=== PATIENT | female | born 1935 | race Caucasian/White ===

== ENCOUNTER → 2016-10-16 | Outpatient (CLI) | payer BC ==
[~2016-10-16] MED LIST: ACET-1256 PO; AMLO-110 PO; CALCTAB5 PO; CAPS0.022 TOP; CARB200T PO; FMR25 PO; GABA-113 PO; HYDR-5688 PO; KFLHP PO; LINE1TAB6 PO; LINE1TAB7 PO; LYR50 PO; MAGNTAB4 PO; MELO15TA4 PO; MIRT15TA2 PO; MIRT15TA53 PO; MULT-506 PO; NF656 TD; NORT10CA2 PO; NRN/300 PO; NRN300 PO; NRV5 PO; OXYC-57 PO; OYST500T47 PO; PALB100C PO; POTA10CA28 PO; SLWMEC PO; TRAM-10 PO; TRAV0.00 OPB; ZVR400 PO
== END | disposition home or self-care (01) ==
LOC: C.MAMM 15:02
PROVIDERS: ATTEND Nurse Practitioner
DX: C50.919 Malignant neoplasm of unspecified site of unspecified female breast (principal); M81.0 Age-related osteoporosis without current pathological fracture; M85.80 Other specified disorders of bone density and structure, unspecified site

== ENCOUNTER → 2016-10-24 | Outpatient (CLI) | payer BC ==
[~2016-10-24] MED LIST changes: +OPTIRAY 320 IV PRN
--- NOTE | 2016-10-24 14:13 | DIAGNOSTIC IMAGING REPORT ---
CHEST CT WITH CONTRAST CT DOSE: 668.57 mGycm HISTORY: BREAST CANCER CREATININE 0.57 09/05/16 TECHNIQUE: Multiaxial CT images of the chest were performed following the intravenous administration of contrast. COMPARISON: 04/05/2016 FINDINGS: Stable postoperative changes consistent with a left-sided mastectomy. Pulmonary nodularity, scarring, as well as a linear atelectatic changes appear stable. There is no evidence for new interval or progressive nodular pathology. Hilar and mediastinal regions are unremarkable. Sclerotic lesions of the spine are stable. There are no new or interval findings. Gallstones are present within the gallbladder lumen. IMPRESSION: 1. Stable evaluation of the chest. 2. Stable metastatic change with no evidence for progression. 3. Gallstones Electronically signed by: Gurinder Ayala M.D. 10/24/2016 2:12 PM Dictated Date/Time: 10/24/2016 2:07 PM
--- NOTE | 2016-10-24 14:18 | DIAGNOSTIC IMAGING REPORT ---
CT OF THE ABDOMEN AND PELVIS WITH CONTRAST CLINICAL HISTORY: Breast cancer. COMPARISON STUDY: CT of the abdomen and pelvis April 05, 2016 and the body bone scan April 05, 2016. TECHNIQUE: Following IV administration of 92 mL of Optiray-320, axial images of the abdomen and pelvis were obtained from the lung bases to the proximal femurs. Images were reviewed in the axial, sagittal, and coronal planes. IV contrast was administered without complication. Oral contrast was administered. FINDINGS: The chest will be reported separately. A 1 cm hypodense right hepatic lobe lesion and a 0.5 cm hypodense left hepatic lobe lesion are unchanged since exam of April 05, 2016. No new hepatic lesions are present. There are gallstones within the gallbladder. The spleen, adrenal glands, kidneys and pancreas are normal. There is no hydronephrosis. There is no biliary or pancreatic ductal dilatation. Images of the pelvis are degraded by streak artifact from right hip arthroplasty. There is sigmoid diverticulosis without evidence for acute diverticulitis. No abdominal or pelvic lymphadenopathy is identified. There is no ascites. Multiple sclerotic metastases within the lower thoracic spine, lumbar spine and pelvis are similar to exam of April 05, 2016. IMPRESSION: 1. No change in appearance of the abdomen and pelvis since exam of April 05, 2016. 2. Stable skeletal metastases since exam of April 05, 2016. No evidence of progressive metastatic disease. Electronically signed by: Donato Nieto M.D. 10/24/2016 2:17 PM Dictated Date/Time: 10/24/2016 2:07 PM
--- NOTE | 2016-10-24 15:03 | DIAGNOSTIC IMAGING REPORT ---
WHOLE BODY BONE SCAN HISTORY: Breast carcinoma BREAST CA RADIOTRACER: 27.1 mCi Tc-99m MDP STUDY/IMAGES: Planar anterior and posterior whole body imaging was performed 3 hours following the intravenous administration of radiotracer. COMPARISON: 04/05/2016 FINDINGS: Low level increased activity in sacrum consistent with patient's known sacral insufficiency fracture. Moderate degenerative activity left hip unchanged. There is no new or interval findings. No evidence for bony metastatic change based on bone scan criteria. IMPRESSION: Stable exam. No evidence for metastatic disease. No change from the prior study. Electronically signed by: Gurinder Ayala M.D. 10/24/2016 3:02 PM Dictated Date/Time: 10/24/2016 3:00 PM
== END | disposition home or self-care (01) ==
LOC: C.CTS 11:00
PROVIDERS: ATTEND Nurse Practitioner
DX: C50.912 Malignant neoplasm of unspecified site of left female breast (principal); C79.51 Secondary malignant neoplasm of bone; K80.20 Calculus of gallbladder without cholecystitis without obstruction

== ENCOUNTER 2017-01-31 12:50 | Inpatient (IN) | payer BC, OTHER ==
[~2017-01-31] VITALS: Ht 152.4 cm; Wt 58.0 kg
[~2017-01-31 12:50] MED LIST changes: -ACET-1256 PO; -AMLO-110 PO; -CAPS0.022 TOP; -CARB200T PO; -GABA-113 PO; -HYDR-5688 PO; -KFLHP PO; -LINE1TAB6 PO; -LYR50 PO; -MELO15TA4 PO; -MIRT15TA2 PO; -NF656 TD; -NORT10CA2 PO; -NRN/300 PO; -NRN300 PO; -NRV5 PO; -OPTIRAY 320 IV PRN; -OXYC-57 PO; -OYST500T47 PO; -SLWMEC PO; -TRAM-10 PO; -ZVR400 PO
[2017-01-31] MEDS ORDERED: ASPIRIN 81 MG CHEW PO STA (13:17)
--- NOTE | 2017-01-31 13:20 | EMERGENCY ROOM VISIT NOTE ---
History Report prepared by Haley: Bryant Kerr Under the Supervision of: Dr. Jodie Ceja M.D. First contact with patient: 12:59 Chief Complaint: CHEST PAIN Stated Complaint: CHEST PAIN History of Present Illness The patient is an 81 year old female who presents to the Emergency Room with complaints of worsening chest pain that began a few days prior to this visit. The patient states that she began to experience some "indigestion-like" pain a few days ago which worsened significantly last night. She now rates her pain as a 7/10 in severity. The patient states that her chest pain is localized to her left chest and is now radiating into her left shoulder. She does have a history of breast cancer with metastasis, which is now in remission. She is still taking oral chemo. The patient has had a cardiac stress test in the past. 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 Review of Systems See HPI for pertinent positives & negatives. A total of 10 systems reviewed and were otherwise negative. Past Medical & Surgical Medical Problems: (1) Carcinoma of breast (2) Cellulitis (3) GERD (gastroesophageal reflux disease) (4) Lymphedema of left arm (5) metastatic cancer Surgical Problems: (1) History of modified radical mastectomy of left breast (2) Total replacement of hip Family History Cancer Social History Smoking Status: Never Smoker Alcohol Use: none Drug Use: none Marital Status: Housing Status: lives with family Occupation Status: retired Current/Historical Medications Scheduled Cephalexin Monohydrate (Cephalexin), 250 MG PO BID Letrozole (Femara), 2.5 MG PO DAILY Magnesium Chloride (Slow-Mag Tab), 128 MG PO DAILY Multivitamin (Multivitamin), 1 TAB PO DAILY Oyster Shell (Calcium), 500 MG PO QAM Palbociclib (Ibrance), 100 MG PO Q2D Potassium Chloride (Micro-K Ext Rel), 10 MEQ PO BID Travoprost (Travatan Z), 1 DROPS OPB HS Allergies Coded Allergies: Morphine (Verified Adverse Reaction, Intermediate, nausea, 01/31/17) Zolpidem (Verified Adverse Reaction, Mild, Hallucinations, 01/31/17) Physical Exam Vital Signs Date Time Temp Pulse Resp B/P Pulse Ox O2 Delivery O2 Flow Rate FiO2 01/31/17 15:21 77 18 176/109 01/31/17 14:54 73 18 147/52 94 Room Air 01/31/17 14:31 71 18 155/67 95 Room Air 01/31/17 13:37 79 01/31/17 13:33 95 Room Air 01/31/17 12:53 36.6 84 18 215/99 98 Room Air Physical Exam Vital signs reviewed. General: Well-appearing elderly female, in no significant distress. HEENT: No scleral icterus, PERRLA, neck supple. Atraumatic. Cardiovascular: Regular rate and rhythm, no extra sounds. Pulmonary: Clear to auscultation bilaterally, normal work of breathing. Abdomen: Soft, nontender, nondistended, positive bowel sounds. Musculoskeletal: Atraumatic, no peripheral edema. Neurologic: Patient awake alert and oriented x 3, full strength in all 4 extremities. Cranial nerves 2 through 12 grossly intact. Skin: Warm, dry, no rash Medical Decision & Procedures ER Provider Diagnostic Interpretation: Radiology results as stated below per my review and radiologist interpretation: CHEST ONE VIEW PORTABLE CLINICAL HISTORY: Atypical chest pain COMPARISON STUDY: 11/10/2015 FINDINGS: The heart is normal in size. There is no acute lobar consolidation. There are chronic interstitial opacities within the left midlung zone. There is a chronic opacity at the right medial lung base. There is no overt failure. No pleural effusions are visualized.[ IMPRESSION: Chronic bilateral parenchymal opacities, similar to the preceding study. Electronically signed by: Lang Brantley M.D. 01/31/2017 1:59 PM Dictated Date/Time: 01/31/2017 1:58 PM Laboratory Results Test 01/31/17 13:38 01/31/17 14:17 Bedside Troponin I 0.010 ng/ml (0-0.045) Immature Granulocyte % (Auto) 0.0 % White Blood Count 2.96 K/uL (4.8-10.8) Red Blood Count 3.52 M/uL (4.2-5.4) Hemoglobin 13.0 g/dL (12.0-16.0) Hematocrit 36.5 % (37-47) Mean Corpuscular Volume 103.7 fL (80-100) Mean Corpuscular Hemoglobin 36.9 pg (25-34) Mean Corpuscular Hemoglobin Concent 35.6 g/dl (32-36) Platelet Count 212 K/uL (130-400) Mean Platelet Volume 8.6 fL (7.4-10.4) Neutrophils (%) (Auto) 51.3 % Lymphocytes (%) (Auto) 34.1 % Monocytes (%) (Auto) 13.9 % Eosinophils (%) (Auto) 0.0 % Basophils (%) (Auto) 0.7 % Neutrophils # (Auto) 1.52 K/uL (1.4-6.5) Lymphocytes # (Auto) 1.01 K/uL (1.2-3.4) Monocytes # (Auto) 0.41 K/uL (0.11-0.59) Eosinophils # (Auto) 0.00 K/uL (0-0.5) Basophils # (Auto) 0.02 K/uL (0-0.2) Immature Granulocyte # (Auto) 0.00 K/uL (0.00-0.02) Prothrombin Time 10.8 SECONDS (9.0-12.0) Prothromb Time International Ratio 1.0 (0.9-1.1) Activated Partial Thromboplast Time 25.5 SECONDS (21.0-31.0) Partial Thromboplastin Ratio 1.0 Total Bilirubin 0.5 mg/dl (0.2-1) Direct Bilirubin 0.1 mg/dl (0-0.2) Aspartate Amino Transf (AST/SGOT) 21 U/L (15-37) Alanine Aminotransferase (ALT/SGPT) 19 U/L (12-78) Alkaline Phosphatase 46 U/L (45-117) Total Creatine Kinase 87 U/L (26-192) Total Protein 7.2 gm/dl (6.4-8.2) Albumin 4.1 gm/dl (3.4-5.0) Laboratory results per my review. Medications Administered Medications (Trade) Dose Ordered Sig/Chani Route Start Time Stop Time Status Last Admin Dose Admin Aspirin (Aspirin Chew) 243 mg NOW STAT PO 01/31/17 13:17 01/31/17 13:19 DC 01/31/17 13:34 243 MG Labetalol HCl (Normodyne IV) 10 mg NOW STAT IV 01/31/17 14:17 01/31/17 14:18 DC 01/31/17 14:26 10 MG ECG Indication: chest pain Rate (beats per minute): 87 Rhythm: sinus rhythm Findings: 1st degree AV block, no acute ischemic change, no ectopy, other ( likely previous septal infarct ) ED Course 1311: Past medical records reviewed. The patient was evaluated in room C1. A complete history and physical examination was performed. 1317: Ordered Aspirin 243 mg PO. 1417: Ordered Labetalol HCl 10 mg IV. 1423: I checked on the patient at this time. Her blood pressure is better. 1511: [facility] Differential diagnosis: Etiologies such as cardiac ischemia, aortic dissection, pulmonary embolism, pneumonia, pneumothorax, musculoskeletal, infections, pericarditis, myocarditis , esophageal rupture, gastrointestinal, as well as others were entertained. This patient was evaluated and appeared to be in no significant distress. IV access was obtained and laboratory work was drawn. Patient was placed on the monitoring specialist. EKG reveals a first-degree AV block with no evidence of acute ischemia. Patient was given aspirin to chew. Laboratory work reveals negative troponin 2. She was given 5 mg of IV labetalol for hypertension. Given the patient's complex medical history, she will be evaluated by the hospitalist service for further management of her chest pain and hypertension. Patient in the family are aware of the plan and agree. Consults Time Called: 1310 Consulting Physician: [facility] Returned Call: 1314 I [facility] the [facility] She will be evaluated for further treatment. Impression Primary Impression: Chest pain radiating to upper extremity Scribe Attestation The scribe's documentation has been prepared under my direction and personally reviewed by me in its entirety. I confirm that the note above accurately reflects all work, treatment, procedures, and medical decision making performed by me. Departure Information Dispostion Being Evaluated By Hospitalist Referrals Olimpia Womack M.D. (PCP) Patient Instructions My [facility]
--- NOTE | 2017-01-31 14:00 | DIAGNOSTIC IMAGING REPORT ---
CHEST ONE VIEW PORTABLE CLINICAL HISTORY: Atypical chest pain COMPARISON STUDY: 11/10/2015 FINDINGS: The heart is normal in size. There is no acute lobar consolidation. There are chronic interstitial opacities within the left midlung zone. There is a chronic opacity at the right medial lung base. There is no overt failure. No pleural effusions are visualized.[ IMPRESSION: Chronic bilateral parenchymal opacities, similar to the preceding study. Electronically signed by: Lang Brantley M.D. 01/31/2017 1:59 PM Dictated Date/Time: 01/31/2017 1:58 PM
[2017-01-31] MEDS ORDERED: LABETALOL HCL IV 5 MG/ML 20ML IV STA (14:17)
[2017-01-31 14:43] LABS: BASO % 0.7 %; BASO ABS # 0.02 K/uL (0-0.2); COMPLETE YES; HEMATOCRIT 36.5 % (37-47); LYMPH % 34.1 %; LYMPH ABS # 1.01 K/uL (1.2-3.4); MEAN CELL VOLUME 103.7 fL (80-100); MEAN CORPUSCULAR HEMOGLOBIN 36.9 pg (25-34); MEAN CORPUSCULAR HGB CONC 35.6 g/dl (32-36); MEAN PLATELET VOLUME 8.6 fL (7.4-10.4); MONO % 13.9 %; NEUT % 51.3 %; PLATELET COUNT 212 K/uL (130-400); RED BLOOD COUNT 3.52 M/uL (4.2-5.4); WHITE BLOOD COUNT 2.96 K/uL (4.8-10.8)
[2017-01-31] MEDS ORDERED: KFLHP PO (14:44)
[2017-01-31] MEDS ORDERED: SLWMEC PO (14:44)
[2017-01-31] MEDS ORDERED: PALB100C PO (14:44)
[2017-01-31] MEDS ORDERED: OYST500T47 PO (14:44)
[2017-01-31 14:58] LABS: BUN/CREATININE RATIO 15.4 (10-20); CALCIUM 8.8 mg/dl (8.5-10.1); CREATININE 0.5 mg/dl (0.60-1.20); POTASSIUM 3.8 mmol/L (3.5-5.1)
[2017-01-31 15:03] LABS: CKMB/CK RATIO 1.1 (0-3.0)
[2017-01-31] MEDS ORDERED: NITROGLYCERIN 0.4 MG SL PER TAB CHARGE SL PRN (16:00)
[2017-01-31] MEDS ORDERED: ONDANSETRON INJ 2 MG/ML 2 ML VIAL IV PRN (16:00)
[2017-01-31] MEDS ORDERED: MoRPHine SULFATE 4 MG/ML 1 ML CARP\\VIAL IV PRN (16:00)
[2017-01-31] MEDS ORDERED: PALBOCICLIB 100 MG PO SCH (16:15)
[2017-01-31] MEDS ORDERED: IV FLUIDS COMPLETED PRN (16:30)
--- NOTE | 2017-01-31 16:39 | History and Physical ---
History & Physical Date & Time of Service: January 31, 2017 at 16:14 Chief Complaint: Chest Pain Primary Care Physician: Olimpia Womack M.D. History of Present Illness 81 year old female who presents to the ER with chest pain. Patient reports her pain began about 3 days ago. She reports she initially thought she had indigestion. The pain then progressively got worse. She reports the pain has been constant with periods of worsening of the pain. The pain is located over the left side of her chest and recently started radiating into the left axilla and down the arm and also up into the left shoulder and shoulder blade. Patient reports multiple episodes of worsening of the pain throughout the day. She reports the pain at it's worst is #7/10. The pain is worse with palpation and laying or sitting for an extending period of time. She reports the pain improves with walking. She also says that when she is talking she seems to forget about the pain. Up until a few days ago she feels as though her functional capacity was at baseline. She was tolerating her daily activities without any problem. Last evening she reports associated nausea with the pain. No shortness of breath or diaphoresis. She denies abdominal pain, vomiting, or diarrhea. No fever or chills. She denies urinary symptoms. Patient has chronic lymphedema and recurrent cellulitis to the LUE which she reports is doing well. In the ER, patient's BP was elevated at 215/99. This improved with Labetalol 10mg IV. Initial troponin is negative and EKG does not show any acute ST changes. 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 recurrence with massive lymphedema of the left arm June 2013 Status post completion of radiation therapy to the left axilla 05/04/2013 received 4000 cGy Status: Chronic Surgical Problems: (1) History of modified radical mastectomy of left breast Status: Chronic (2) Total replacement of hip Status: Chronic Family History non contributory due to patient's age Social History Smoking Status: Never Smoker Alcohol Use: none Marital Status: Housing status: lives with significant other Multi-Drug Resistant Organisms History of MDRO: No Allergies Coded Allergies: Morphine (Verified Adverse Reaction, Intermediate, nausea, 01/31/17) Zolpidem (Verified Adverse Reaction, Mild, Hallucinations, 01/31/17) Home Medications Scheduled Cephalexin Monohydrate (Cephalexin), 250 MG PO BID Letrozole (Femara), 2.5 MG PO DAILY Magnesium Chloride (Slow-Mag Tab), 128 MG PO DAILY Multivitamin (Multivitamin), 1 TAB PO DAILY Oyster Shell (Calcium), 500 MG PO QAM Palbociclib (Ibrance), 100 MG PO Q2D Potassium Chloride (Micro-K Ext Rel), 10 MEQ PO BID Travoprost (Travatan Z), 1 DROPS OPB HS Review of Systems ROS per HPI, all other systems reviewed and negative Physical Exam Vital Signs Date Time Temp Pulse Resp B/P Pulse Ox O2 Delivery O2 Flow Rate FiO2 01/31/17 15:21 77 18 176/109 01/31/17 14:54 73 18 147/52 94 Room Air 01/31/17 14:31 71 18 155/67 95 Room Air 01/31/17 13:37 79 01/31/17 13:33 95 Room Air 01/31/17 12:53 36.6 84 18 215/99 98 Room Air General Appearance: no apparent distress Head: normocephalic Eyes: normal inspection ENT: hearing grossly normal Neck: supple, no JVD Respiratory/Chest: lungs clear, normal breath sounds, no respiratory distress, + pertinent finding (left chest wall tender to palpation) Cardiovascular: regular rate, rhythm, no edema, normal peripheral pulses Abdomen/GI: normal bowel sounds, non tender, soft Extremities/Musculoskelatal: + pertinent finding (LUE lymphedema ) Neurologic/Psych: no motor/sensory deficits, alert, normal mood/affect, oriented x 3 Skin: normal color, warm/dry Diagnostics Laboratory Results Results Past 24 Hours Test 01/31/17 13:38 01/31/17 14:17 Range/Units Bedside Troponin I 0.010 0-0.045 ng/ml White Blood Count 2.96 4.8-10.8 K/uL Red Blood Count 3.52 4.2-5.4 M/uL Hemoglobin 13.0 12.0-16.0 g/dL Hematocrit 36.5 37-47 % Mean Corpuscular Volume 103.7 80-100 fL Mean Corpuscular Hemoglobin 36.9 25-34 pg Mean Corpuscular Hemoglobin Concent 35.6 32-36 g/dl Platelet Count 212 130-400 K/uL Mean Platelet Volume 8.6 7.4-10.4 fL Neutrophils (%) (Auto) 51.3 % Lymphocytes (%) (Auto) 34.1 % Monocytes (%) (Auto) 13.9 % Eosinophils (%) (Auto) 0.0 % Basophils (%) (Auto) 0.7 % Neutrophils # (Auto) 1.52 1.4-6.5 K/uL Lymphocytes # (Auto) 1.01 1.2-3.4 K/uL Monocytes # (Auto) 0.41 0.11-0.59 K/uL Eosinophils # (Auto) 0.00 0-0.5 K/uL Basophils # (Auto) 0.02 0-0.2 K/uL RDW Standard Deviation 52.5 36.4-46.3 fL RDW Coefficient of Variation 13.8 11.5-14.5 % Immature Granulocyte % (Auto) 0.0 % Immature Granulocyte # (Auto) 0.00 0.00-0.02 K/uL Sodium Level 133 136-145 mmol/L Potassium Level 3.8 3.5-5.1 mmol/L Chloride Level 98 98-107 mmol/L Carbon Dioxide Level 30 21-32 mmol/L Anion Gap 5.0 3-11 mmol/L Blood Urea Nitrogen 8 7-18 mg/dl Creatinine 0.50 0.60-1.20 mg/dl Est Creatinine Clear Calc Drug Dose 70.2 ml/min Estimated GFR () 103.7 Estimated GFR (Non- 89.5 BUN/Creatinine Ratio 15.4 10-20 Random Glucose 90 70-99 mg/dl Calcium Level 8.8 8.5-10.1 mg/dl Total Bilirubin 0.5 0.2-1 mg/dl Direct Bilirubin 0.1 0-0.2 mg/dl Aspartate Amino Transf (AST/SGOT) 21 15-37 U/L Alanine Aminotransferase (ALT/SGPT) 19 12-78 U/L Alkaline Phosphatase 46 45-117 U/L Total Creatine Kinase 87 26-192 U/L Creatine Kinase MB 1.0 0.5-3.6 ng/ml Creatine Kinase MB Ratio 1.1 0-3.0 Total Protein 7.2 6.4-8.2 gm/dl Albumin 4.1 3.4-5.0 gm/dl Diagnostic Radiology CXR IMPRESSION: Chronic bilateral parenchymal opacities, similar to the preceding study. Impression Assessment and Plan CHEST PAIN - admit to tele - patient presenting with constant chest pain x 3 days; made worse with movement and palpation, actually improves with walking - initial troponin negative, EKG unchanged from prior - likely musculoskeletal pain - continue to cycle cardiac enzymes, check resting echo to check for wall motion abnormalities - no hx of CAD; dobutamine stress echo 2006 negative - s/p ASA 324mg in ED, will continue with 81mg daily - check lipids in AM - BP elevated on arrival 215/99 - improved with Labetalol 10mg IV; pain and anxiety also contributing; continue to monitor BP, could consider adding amlodipine 5mg if needed HX BREAST CANCER - on Ibrance and Femara LUE LYMPHEDEMA / HX RECURRENT CELLULITIS - on chronic cephalexin suppression therapy DVT PROPHYLAXIS - SQ Lovenox CODE STATUS - Patient is a DNR as per my discussion with her. DISPO - The patient will be placed as observation status for now until further work up is complete. VTE Prophylaxis VTE Risk Assessment Done? Y/N: Yes Risk Level: Moderate
[2017-01-31 16:59] VITALS: O2SAT 96; Ht 152.4 cm; Wt 58.0 kg
[2017-01-31] MEDS ORDERED: IBUPROFEN 200 MG TAB PO PRN (17:00)
--- NOTE | 2017-01-31 17:43 | Progress Note ---
Progress Note Date of Service January 31, 2017. Progress Note Patient was seen and evaluated with AUTOMOTIVE SERVICE CONSULTANT, Petra Goins. Patient comes in with c/o chest pain, atypical, left sided, radiating to upper back, arm, arm pit which started 3 days ago. Pain is constant, worse while sitting, lying, but gets better when she walks and when is talking and distracted. Has taken tylenol without much relief. Denies any prior episodes of similar pain, SOB, cough, leg swelling associated with it. No fever, chills, vomiting, abdominal pain, heart burn , but has had some nausea on and off at night. Received Aspirin in ED EXAM: BP high in ED- 200s, now down to 160s after IV labetalol, Afebrile Gen: Anxious, AAOX3, no distress HEENT: No icterus Neck: No JVD Heart: S1, S2 normal, no murmurs. Reproducible chest tenderness + Lungs: AEBE, No wheezing, rhonchi Ext: No edema Labs: Reviewed EKG: NSR, No sig changes compared to prior EKG CXR: Chronic bilateral opacities, but no acute findings ASSESSMENT AND PLAN: CHEST PAIN, ATYPICAL : Patient presented with constant chest pain x 3 days; made worse with movement and palpation, actually improves with walking Less likely to be cardiac as reproducible chest tenderness +, constant nature - worse with movement and improves with walking. No prior cardiac risk factors, but hx of breast carcinoma with radiation ?. Likely Musculoskeletal. D/D considered: Pericarditis as worse with lying flat, but EKG not supportive. -Trop x 1 negative, EKG - no changes compared to prior EKG; Stress test in 2007 - Negative. -S/P Aspirin. Will start on Aspirin 81 mg daily. -Will try Ibuprofen 600 mg TID PRN for pain to see if it helps as no contraindications for NSAIDs -Trend troponin, Resting Echocardiogram, Lipid profile in AM ELEVATED BP: BP was 215/99 in ED (very anxious +)--> down to 160s after IV Labetalol No prior diagnosis of HTN. Not on any antihypertensive medications -BP is down to 160s already. Patient was very anxious in ED -IV lopressor PRN order placed -Will monitor closely HX BREAST CANCER - on Ibrance and Femara CHRONIC LUE LYMPHEDEMA / HX RECURRENT CELLULITIS - on chronic cephalexin suppression therapy DVT PROPHYLAXIS - SQ Lovenox CODE STATUS - Patient is a DNR as per my discussion with her. DISPO - The patient will be placed as observation status for now until further work up is complete
[2017-01-31] MEDS ORDERED: METOPROLOL TARTRATE 1 MG/ML VIAL IV PRN (17:45)
[2017-01-31] MEDS ORDERED: IBUPROFEN 600 MG TAB ONE (18:04)
[2017-01-31] MEDS: IBUPROFEN 600 MG TAB PO PRN (18:08)
[2017-01-31 18:25] LABS: PROTHROMBIN TIME (PATIENT) 10.8 SECONDS (9.0-12.0)
[2017-01-31 19:07] VITALS: BP 192/77; PULSE 85; TEMP 36.5; O2SAT 98
[2017-01-31 20:09] VITALS: O2SAT 98
[2017-01-31] MEDS: TRAVOPROST Z 0.004% OPH SOLN 2.5 ML BTL OPB SCH (20:45)
[2017-01-31] MEDS: CEPHALEXIN MONOHYDRATE 250 MG CAP PO SCH (20:47)
[2017-01-31] MEDS: POTASSIUM CHLORIDE 10 MEQ TABCR PO SCH (20:48)
[2017-01-31] MEDS: ACETAMINOPHEN 325 MG TAB PO PRN (20:52)
[2017-01-31] MEDS: ENOXAPARIN 40 MG/0.4 ML SYR SC SCH (21:00)
[2017-01-31 21:45] LABS: MAGNESIUM 2.1 mg/dl (1.8-2.4); THYROID STIMULATING HORMONE 4.67 uIu/ml (0.300-4.500)
[2017-01-31 23:47] VITALS: BP 160/76; PULSE 75; TEMP 36.7; O2SAT 98
[2017-02-01] VITALS (7 sets, daily range): BP systolic 119–186; BP diastolic 70–84; PULSE 73–81; TEMP 36.6–36.9; O2SAT 95–99
[2017-02-01] MEDS: ACETAMINOPHEN 325 MG TAB PO PRN ×3 (01:12→17:19)
[2017-02-01] MEDS: IBUPROFEN 600 MG TAB PO PRN (05:27)
[2017-02-01] MEDS: ONDANSETRON INJ 2 MG/ML 2 ML VIAL IV PRN ×2 (05:28→10:22)
[2017-02-01 07:04] LABS: HEMATOCRIT 33.5 % (37-47); MEAN CELL VOLUME 102.4 fL (80-100); MEAN CORPUSCULAR HEMOGLOBIN 36.1 pg (25-34); MEAN CORPUSCULAR HGB CONC 35.2 g/dl (32-36); MEAN PLATELET VOLUME 8.9 fL (7.4-10.4); PLATELET COUNT 191 K/uL (130-400); RED BLOOD COUNT 3.27 M/uL (4.2-5.4); WHITE BLOOD COUNT 2.29 K/uL (4.8-10.8)
[2017-02-01 07:41] LABS: BUN/CREATININE RATIO 15.8 (10-20); CREATININE 0.51 mg/dl (0.60-1.20); POTASSIUM 3.7 mmol/L (3.5-5.1)
[2017-02-01 07:45] LABS: CHOLESTEROL/HDL RATIO 2.3
[2017-02-01] MEDS: MAGNESIUM CHLORIDE 64MG DELAYED REL TAB PO SCH (08:58)
[2017-02-01] MEDS: MULTIVITAMIN TAB PO SCH (08:59)
[2017-02-01] MEDS: CALCIUM CARBONATE 1250MG TAB PO SCH (08:59)
[2017-02-01] MEDS ORDERED: LETROZOLE 2.5 MG TAB PO SCH (09:00)
[2017-02-01] MEDS: POTASSIUM CHLORIDE 10 MEQ TABCR PO SCH ×2 (09:00→21:28)
[2017-02-01] MEDS: CEPHALEXIN MONOHYDRATE 250 MG CAP PO SCH ×2 (09:00→21:27)
[2017-02-01] MEDS: ASPIRIN 81 MG ECTAB PO SCH (09:00)
--- NOTE | 2017-02-01 09:01 | ECHOCARDIOGRAM REPORT ---
*NOTICE TO RECEIVING CONSTITUTION PARTY AGENCY This information is strictly Confidential and protected under [place] law. [place] law prohibits you from making any further disclosure of this information unless further disclosure is expressly permitted by the written consent of the person to whom it pertains or is authorized by law. A general authorization for the release of medical or other information is not sufficient for this purpose. Hospital accepts no responsibility if the information is made available to any other person, INCLUDING THE PATIENT. Interpretation Summary * Name: GLENYS BYNUM Study Date: 02/01/2017 07:14 AM BP: 119/72 mmHg * Patient Location: C.2T\S\S239\S\2 HR: 72 * : 1935 (M/d/yyyy) Gender: Female Height: 60 in * Age: 81 yrs Ethnicity: [place] Weight: 136 lb * Ordering Physician: Petra Goins * Referring Physician: Self, Referred * Performed By: Sheree Soto RCS * * Reason For Study: CHEST PAIN * BSA: 1.6 m2 * -- Conclusions -- * Normal LV chamber size with mild concentric LVH. * Normal LV systolic function, EF 55-60%. * No segmental left ventricular wall motion abnormalities are noted. * Grade I diastolic dysfunction. * Aortic valve sclerosis mild, without significant aortic valvular stenosis. Mild aortic regurgitation. * Mild tricuspid regurgitation. Procedure Details * A complete two-dimensional transthoracic echocardiogram was performed (2D, M-mode, Doppler and color flow Doppler). Left Ventricle * The left ventricle is normal in size. * There is mild concentric left ventricular hypertrophy. * The basal septum is thickened and angulated consistent with sigmoid septum. * Ejection Fraction = 55-60%. * Left ventricular systolic function is normal. * No segmental left ventricular wall motion abnormalities are noted. * The left ventricular wall motion is normal. Right Ventricle * The right ventricular cavity size is normal (basal dimension <4.2 cm in right ventricular apical 4-chamber view). * The right ventricular systolic function is normal as assessed by tricuspid annular plane systolic excursion (TAPSE) (normal >1.5 cm). Atria * The left atrial size is normal. * Right atrial size is normal. * No ASD detected; PFO is not assessed. Mitral Valve * The mitral valve is normal in structure and function. Tricuspid Valve * The tricuspid valve anatomy is normal. * There is no tricuspid stenosis. * There is mild tricuspid regurgitation. Aortic Valve * The aortic valve is trileaflet. * Aortic valve sclerosis mild, without significant aortic valvular stenosis. * Mild aortic regurgitation. Pulmonic Valve * The pulmonary valve is not well seen, but the Doppler examination is normal without significant regurgitation or stenosis. Great Vessels * The aortic root is normal size. Pericardium/Pleural * There is no pericardial effusion. Left Ventricular Diastolic Function * Grade I diastolic dysfunction, (abnormal relaxation pattern). MMode 2D Measurements and Calculations IVSd 1.4 cm IVSs 1.8 cm LVIDd 3.4 cm LVIDs 2.4 cm LVPWd 0.96 cm LVPWs 0.94 cm IVS/LVPW 1.5 FS 28.9 % EDV(Teich) 48.5 ml ESV(Teich) 21.0 ml EF(Teich) 56.7 % EDV(cubed) 40.4 ml ESV(cubed) 14.5 ml EF(cubed) 64.0 % % IVS thick 29.6 % % LVPW thick -2.08 % LV mass(C)d 129.9 grams LV mass(C)dI 82.0 grams/m\S\2 LV mass(C)s 106.4 grams LV mass(C)sI 67.2 grams/m\S\2 SV(Teich) 27.5 ml SI(Teich) 17.4 ml/m\S\2 SV(cubed) 25.9 ml SI(cubed) 16.3 ml/m\S\2 Ao root diam 2.8 cm Ao root area 6.1 cm\S\2 ACS 1.3 cm LA dimension 1.6 cm LA/Ao 0.59 LVOT diam 1.9 cm LVOT area 2.9 cm\S\2 LVAd ap4 15.9 cm\S\2 LVLd ap4 5.6 cm EDV(MOD-sp4) 37.3 ml EDV(sp4-el) 38.4 ml LVAs ap4 8.9 cm\S\2 LVLs ap4 3.9 cm ESV(MOD-sp4) 16.9 ml ESV(sp4-el) 17.4 ml EF(MOD-sp4) 54.6 % EF(sp4-el) 54.7 % LVAd ap2 19.6 cm\S\2 LVLd ap2 5.9 cm EDV(MOD-sp2) 52.7 ml EDV(sp2-el) 55.5 ml LVAs ap2 11.5 cm\S\2 LVLs ap2 4.5 cm ESV(MOD-sp2) 24.2 ml ESV(sp2-el) 25.3 ml EF(MOD-sp2) 54.0 % EF(sp2-el) 54.4 % LVLd %diff 4.4 % EDV(MOD-bp) 45.3 ml LVLs %diff 13.8 % ESV(MOD-bp) 21.5 ml EF(MOD-bp) 52.5 % SV(MOD-sp4) 20.4 ml SI(MOD-sp4) 12.9 ml/m\S\2 SV(MOD-sp2) 28.5 ml SI(MOD-sp2) 18.0 ml/m\S\2 SV(MOD-bp) 23.8 ml SI(MOD-bp) 15.0 ml/m\S\2 SV(sp4-el) 21.0 ml SI(sp4-el) 13.3 ml/m\S\2 SV(sp2-el) 30.2 ml SI(sp2-el) 19.1 ml/m\S\2 Doppler Measurements and Calculations MV E max kasey 113.2 cm/sec MV A max kasey 134.3 cm/sec MV E/A 0.84 MV P1/2t max kasey 118.9 cm/sec MV P1/2t 68.5 msec MVA(P1/2t) 3.2 cm\S\2 MV dec slope 508.5 cm/sec\S\2 MV dec time 0.25 sec Ao V2 max 167.1 cm/sec Ao max PG 11.2 mmHg Ao max PG (full) 7.4 mmHg AVELINO(V,A) 1.7 cm\S\2 AVELINO(V,D) 1.7 cm\S\2 AI max kasey 336.6 cm/sec AI max PG 45.3 mmHg AI dec slope 251.4 cm/sec\S\2 AI P1/2t 392.1 msec LV V1 max PG 3.8 mmHg LV V1 max 97.1 cm/sec PA V2 max 122.4 cm/sec PA max PG 6.0 mmHg TR max kasey 210.7 cm/sec
[2017-02-01] MEDS ORDERED: NURSING DECISION MEDICATION ORDER SCH (12:45)
[2017-02-01] MEDS ORDERED: CYCLOBENZAPRINE HCL 5 MG TAB PO ONE (13:30)
[2017-02-01] MEDS: TRAMADOL HCL 50 MG TAB PO PRN ×2 (14:37→23:57)
--- NOTE | 2017-02-01 16:49 | Progress Note ---
Internal Med Progress Note Date of Service: February 01, 2017. Provider Documentation: SUBJECTIVE: Patient is still c/o significant pain - right chest wall spreading to arm pit, upper arm, shoulder. Unable to describe the characteristics of pain, but it is severe in intensity, constant but varying intensities, walking makes it better, lying makes it worse. Increased sensitivity to chest wall, arm pit as well. Had some nausea and vomiting today. No abd pain, fever, chills, diarrhea, OBJECTIVE: Vital Signs-as noted below Exam: General-AAOX3, no distress Neck-Supple, No JVD Lungs-Right mastectomy- tenderness on palpation of chest wall, increased sensitivity to arm/arm pit Heart-S1, S2 normal, no murmurs Abdomen-Soft, non tender, non distended, BS present Extremities-No edema Lab data as noted below. ASSESSMENT & PLAN: CHEST PAIN, ATYPICAL : Patient presented with constant chest pain x 3 days, right sided, radiating to armpit, upper arm, shoulder and upper back. Unable to explain the type of pain, but severe in intensity. 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 Though surgery was done in 1974 with no complications after that, symptoms from a detailed H & P, negative tests goes with neuropathic/muscular pain seen in PMPS patients. Can still occur years after surgery as per literature. Other D/D considered: Cardiac, though very atypical-EKG x 2 negative, Troponin x 2 negative, Echo- Normal with no wall motion abnormalities. Pericarditis as pain worse with lying and better with walking, sitting, but EKG not suggestive of it, CRP- negative. -Work up- Echo- EF 55-60%, Gd I diastolic dysfunction, Aortic sclerosis, Mild TR., Trop x 2 negative, CXR- negative for acute abn, D dimer-negative, CRP negative. -Pain mx- Tylenol, Ibuprofen 600 mg TID - not effective, Significant reaction to Morphine in past. Likely neuropathic pain, so regular pain medications not effective. Tramadol helped- continue with 50 mg q 4 hours PRN, Start Gabapentin 300 mg q HS. NAUSEA/VOMITING Likely from NSAIDs ? -Was able to tolerate diet though -No associated abdominal symptoms -Protonix daily -IV Zofran PRN ELEVATED BP : BP was 215/99 in ED (very anxious +)--> down to 160s after IV Labetalol --> Still high but fluctuates as persistent pain No prior diagnosis of HTN. Not on any antihypertensive medications -Start amlodipine 5 mg daily -IV Lopressor PRN order placed -Will monitor closely HX BREAST CANCER - on Ibrance and Femara CHRONIC LUE LYMPHEDEMA / HX RECURRENT CELLULITIS - on chronic cephalexin suppression therapy DVT PROPHYLAXIS - SQ Lovenox CODE STATUS - Patient is a DNR as per my discussion with her. DISPO Observation Printed out material for Post Mastectomy Pain Syndrome Discussed with over phone. Vital Signs: Date Time Temp Pulse Resp B/P Pulse Ox O2 Delivery O2 Flow Rate FiO2 02/01/17 16:00 Room Air 02/01/17 12:00 Room Air 02/01/17 11:32 36.9 77 20 147/70 99 02/01/17 07:53 36.9 77 20 179/75 97 02/01/17 07:40 Room Air 02/01/17 04:18 36.8 73 17 119/72 98 Room Air 02/01/17 04:00 Room Air 02/01/17 00:00 Room Air 01/31/17 23:47 36.7 75 19 160/76 98 Room Air 01/31/17 20:09 98 Room Air 01/31/17 19:17 112 192/77 01/31/17 19:07 36.5 85 18 192/77 98 Room Air 01/31/17 16:59 96 Room Air Lab Results: Results Past 24 Hours Test 01/31/17 20:00 01/31/17 20:18 02/01/17 01:50 02/01/17 06:15 Range/Units Creatine Kinase MB Ratio 0-3.0 Magnesium Level 2.1 1.8-2.4 mg/dl Creatine Kinase MB 1.7 1.8 0.5-3.6 ng/ml Troponin I < 0.015 < 0.015 < 0.015 0-0.045 ng/ml Thyroid Stimulating Hormone (TSH) 4.670 0.300-4.500 uIu/ml Free Thyroxine 1.39 0.80-1.60 ng/dl White Blood Count 2.29 4.8-10.8 K/uL Red Blood Count 3.27 4.2-5.4 M/uL Hemoglobin 11.8 12.0-16.0 g/dL Hematocrit 33.5 37-47 % Mean Corpuscular Volume 102.4 80-100 fL Mean Corpuscular Hemoglobin 36.1 25-34 pg Mean Corpuscular Hemoglobin Concent 35.2 32-36 g/dl RDW Standard Deviation 50.4 36.4-46.3 fL RDW Coefficient of Variation 13.3 11.5-14.5 % Platelet Count 191 130-400 K/uL Mean Platelet Volume 8.9 7.4-10.4 fL Erythrocyte Sedimentation Rate 2 0-21 mm/hr Sodium Level 130 136-145 mmol/L Potassium Level 3.7 3.5-5.1 mmol/L Chloride Level 95 98-107 mmol/L Carbon Dioxide Level 27 21-32 mmol/L Anion Gap 8.0 3-11 mmol/L Blood Urea Nitrogen 8 7-18 mg/dl Creatinine 0.51 0.60-1.20 mg/dl Est Creatinine Clear Calc Drug Dose 66.7 ml/min Estimated GFR () 103.1 Estimated GFR (Non- 88.9 BUN/Creatinine Ratio 15.8 10-20 Random Glucose 113 70-99 mg/dl Calcium Level 8.0 8.5-10.1 mg/dl C-Reactive Protein < 0.29 0-0.29 mg/dl Triglycerides Level 59 0-150 mg/dl Cholesterol Level 208 0-200 mg/dl HDL Cholesterol 89 mg/dl LDL Cholesterol, Calculated 107 mg/dl VLDL Cholesterol, Calculated 12 mg/dl Cholesterol/HDL Ratio 2.3 Test 02/01/17 13:26 Range/Units D-Dimer 420 0-500 ug/L FEU
[2017-02-01] MEDS ORDERED: NURSING VERBAL MED ORDER ONE (17:15)
[2017-02-01] MEDS ORDERED: AMLODIPINE BESYLATE 5 MG TAB PO ONE (17:30)
[2017-02-01] MEDS: LETROZOLE 2.5 MG TAB PO SCH (21:26)
[2017-02-01] MEDS: TRAVOPROST Z 0.004% OPH SOLN 2.5 ML BTL OPB SCH (21:26)
[2017-02-01] MEDS: ENOXAPARIN 40 MG/0.4 ML SYR SC SCH (21:27)
[2017-02-02] VITALS (7 sets, daily range): BP systolic 113–172; BP diastolic 64–83; PULSE 72–96; TEMP 36.5–37.1; O2SAT 91–97
[2017-02-02] MEDS: ONDANSETRON INJ 2 MG/ML 2 ML VIAL IV PRN ×3 (02:06→18:55)
[2017-02-02] MEDS: MULTIVITAMIN TAB PO SCH (08:10)
[2017-02-02] MEDS: CEPHALEXIN MONOHYDRATE 250 MG CAP PO SCH ×2 (08:11→20:02)
[2017-02-02] MEDS: ASPIRIN 81 MG ECTAB PO SCH (08:11)
[2017-02-02] MEDS: MAGNESIUM CHLORIDE 64MG DELAYED REL TAB PO SCH (08:11)
[2017-02-02] MEDS: POTASSIUM CHLORIDE 10 MEQ TABCR PO SCH ×2 (08:12→20:03)
[2017-02-02] MEDS: AMLODIPINE BESYLATE 5 MG TAB PO SCH (08:12)
[2017-02-02] MEDS: CALCIUM CARBONATE 1250MG TAB PO SCH (08:12)
--- NOTE | 2017-02-02 09:36 | Progress Note ---
Internal Med Progress Note Date of Service: February 02, 2017. Provider Documentation: SUBJECTIVE: Patient's pain - right chest wall spreading to arm pit, upper arm, shoulder is a little better. To her, gabapentin helped. Had some nausea today, but was able to tolerate PO. Had one episode of vomiting yesterday night. No abd pain, fever, chills, diarrhea. OBJECTIVE: Vital Signs-as noted below Exam: General-AAOX3, no distress Neck-Supple, No JVD Lungs-Right mastectomy- tenderness on palpation of chest wall, increased sensitivity to arm/arm pit Heart-S1, S2 normal, no murmurs Abdomen-Soft, non tender, non distended, BS present Extremities-No edema Lab data as noted below. ASSESSMENT & PLAN: CHEST PAIN, ATYPICAL : Patient presented with constant chest pain x 3 days, right sided, radiating to armpit, upper arm, shoulder and upper back. Unable to explain the type of pain, but severe in intensity. 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 Though surgery was done in 1974 with no complications after that, symptoms from a detailed H & P, negative tests goes with neuropathic/muscular pain seen in PMPS patients. Can still occur years after surgery as per literature.. Other D/D considered: Cardiac, though very atypical-EKG x 2 negative, Troponin x 2 negative, Echo- Normal with no wall motion abnormalities. Pericarditis as pain worse with lying and better with walking, sitting, but EKG not suggestive of it, CRP- negative. -Work up- Echo- EF 55-60%, Gd I diastolic dysfunction, Aortic sclerosis, Mild TR., Trop x 2 negative, CXR- negative for acute abn, D dimer-negative, CRP negative. -Pain mx- Tried Tylenol, Ibuprofen 600 mg TID - not effective, Significant reaction to Morphine in past. Likely neuropathic pain, so regular pain medications not effective. Gabapentin helped. Will increase it to 300 mg PO BID. Continue with Tramadol helped- continue with 50 mg q [address]N, [address] NAUSEA/VOMITING Likely from NSAIDs ? Gastritis ? or nauseous feeling associated with intense pain -Was able to tolerate diet though -No associated abdominal symptoms -Does get regular scans for breast carcinoma surveillance. Due for it in March 2017. Offered to do CT scan, but with no associated symptoms, tolerating PO, patient hesitant and prefers doing it outpatient --> will defer it this time. Will order KUB at least -Protonix daily -IV Zofran PRN ELEVATED BP : BP was 215/99 in ED (very anxious +)--> down to 160s after IV Labetalol --> Still high but fluctuated as persistent pain No prior diagnosis of HTN. Not on any antihypertensive medications -Started amlodipine 5 mg daily on 02/01/17 -IV Lopressor PRN -Monitor closely outpatient HX BREAST CANCER - on Ibrance and Femara CHRONIC LUE LYMPHEDEMA / HX RECURRENT CELLULITIS - on chronic cephalexin suppression therapy CONSTIPATION Colace x 1 dose. DVT PROPHYLAXIS - SQ Lovenox CODE STATUS - Patient is a DNR as per my discussion with her. DISPO Observation Printed out material for Post Mastectomy Pain Syndrome Discussed with over phone. Vital Signs: Date Time Temp Pulse Resp B/P Pulse Ox O2 Delivery O2 Flow Rate FiO2 02/02/17 07:37 37.0 83 18 113/64 97 Room Air 02/02/17 04:00 Room Air 02/02/17 03:34 36.8 72 16 146/73 96 Room Air 02/01/17 23:59 Room Air 02/01/17 22:58 36.8 74 21 152/75 95 Room Air 02/01/17 20:10 Room Air 02/01/17 20:00 36.8 79 17 137/73 95 Room Air 02/01/17 17:09 182/77 02/01/17 16:02 36.6 81 20 186/84 98 Room Air 02/01/17 16:00 Room Air 02/01/17 12:00 Room Air 02/01/17 11:32 36.9 77 20 147/70 99 Lab Results: Results Past 24 Hours Test 02/01/17 13:26 Range/Units D-Dimer 420 0-500 ug/L FEU
[2017-02-02] MEDS ORDERED: DOCUSATE SODIUM 100 MG CAP PO ONE (10:00)
--- NOTE | 2017-02-02 10:42 | DIAGNOSTIC IMAGING REPORT ---
KUB CLINICAL HISTORY: RUle out obstruction COMPARISON STUDY: No previous studies for comparison. FINDINGS: The soft tissues, psoas shadows, renal outlines and intestinal gas pattern appear normal. There is no evidence for bowel obstruction. No abnormal abdominal calcifications are seen. IMPRESSION: Normal study. Electronically signed by: Gurinder Ayala M.D. 02/02/2017 10:41 AM Dictated Date/Time: 02/02/2017 10:41 AM
[2017-02-02 11:12] LABS: HEMATOCRIT 35.9 % (37-47); MEAN CELL VOLUME 102.6 fL (80-100); MEAN CORPUSCULAR HEMOGLOBIN 36.9 pg (25-34); MEAN CORPUSCULAR HGB CONC 35.9 g/dl (32-36); MEAN PLATELET VOLUME 8.9 fL (7.4-10.4); PLATELET COUNT 221 K/uL (130-400); WHITE BLOOD COUNT 4.19 K/uL (4.8-10.8)
[2017-02-02 11:37] LABS: ALB/GLOB RATIO 1.2 (0.9-2); ALKALINE PHOSPHATASE 46 U/L (45-117); ALT/SGPT 19 U/L (12-78); BLOOD UREA NITROGEN 7 mg/dl (7-18); BUN/CREATININE RATIO 12.9 (10-20); CALCIUM 8.6 mg/dl (8.5-10.1); CARBON DIOXIDE 32 mmol/L (21-32); CHLORIDE 90 mmol/L (98-107); CREATININE 0.56 mg/dl (0.60-1.20); GLUCOSE 107 mg/dl (70-99); SODIUM 126 mmol/L (136-145)
[2017-02-02] MEDS ORDERED: SODIUM CHLORIDE 0.9% 1000ML 1,000 ML IV SCH (12:15)
[2017-02-02] MEDS ORDERED: OPTIRAY 320 IV PRN (12:15)
[2017-02-02] MEDS ORDERED: NURSING VERBAL MED ORDER ONE (12:15)
[2017-02-02] MEDS ORDERED: GABAPENTIN 300 MG CAP PO ONE (12:30)
[2017-02-02] MEDS: METOCLOPRAMIDE HCL INJ 5 MG/ML 2 ML VIAL IV PRN (12:38)
[2017-02-02] MEDS: TRAMADOL HCL 50 MG TAB PO PRN ×2 (12:46→20:08)
[2017-02-02 13:08] LABS: POTASSIUM 3.9 mmol/L (3.5-5.1)
--- NOTE | 2017-02-02 15:54 | DIAGNOSTIC IMAGING REPORT ---
ABDOMEN AND PELVIS CT WITH IV AND ORAL CONTRAST CT DOSE: 276.33 mGy.cm HISTORY: Nausea. Vomiting. Nausea/vomiting with hx of breast carcinoma TECHNIQUE: Multiaxial CT images of the abdomen and pelvis were performed following the use of intravenous and oral contrast. COMPARISON STUDY: 10/24/2016. FINDINGS: minimal dependent basilar atelectasis. Nodular density right base similar compared to the prior study. Hepatic hypodensities procedure described are stable. Gallstones though the gallbladder. Atrophy of the pancreas. Kidneys enhance uniformly. Bowel pattern is considered nonobstructive. Status post total right hip arthroplasty. Sclerotic bony metastatic changes similar. IMPRESSION: 1. Gallstones. 2. Nonobstructive bowel pattern. There 3. Basilar nodularity, hepatic hypodensities, as well as sclerotic bony metastatic changes all of which appear unchanged in the prior study. 3. No acute process Electronically signed by: Gurinder Ayala M.D. 02/02/2017 3:53 PM Dictated Date/Time: 02/02/2017 3:48 PM
[2017-02-02 16:43] LABS: BUN/CREATININE RATIO 13.3 (10-20); CALCIUM 8.3 mg/dl (8.5-10.1); CREATININE 0.45 mg/dl (0.60-1.20); POTASSIUM 4.2 mmol/L (3.5-5.1)
--- NOTE | 2017-02-02 18:33 | Progress Note ---
Progress Note Date of Service February 02, 2017. Progress Note Patient is clinically stable, but Na levels went down to 125. Was started on IV NS at 100 cc/hour for hyponatremia, likely hypovolemic sec to nausea, vomiting in AM. However, as Na level has worsened, will hold off IVF. Likely this is a combination of Hypovolemic plus some degree of SIADH with severe nausea Urine sodium , Serum osmolality ordered. Will repeat BMP at 8:00 PM
[2017-02-02] MEDS: GABAPENTIN 300 MG CAP PO SCH (20:02)
[2017-02-02] MEDS: LETROZOLE 2.5 MG TAB PO SCH (20:02)
[2017-02-02] MEDS: TRAVOPROST Z 0.004% OPH SOLN 2.5 ML BTL OPB SCH (20:04)
[2017-02-02] MEDS: ENOXAPARIN 40 MG/0.4 ML SYR SC SCH (20:04)
[2017-02-02] MEDS: METOCLOPRAMIDE HCL 10 MG TAB PO PRN (20:05)
[2017-02-02] MEDS ORDERED: GABAPENTIN 300 MG CAP PO SCH (21:00)
[2017-02-02 22:45] LABS: BUN/CREATININE RATIO 11.4 (10-20); CALCIUM 7.9 mg/dl (8.5-10.1); CREATININE 0.42 mg/dl (0.60-1.20)
[2017-02-02 22:54] LABS: POTASSIUM 4.2 mmol/L (3.5-5.1)
[2017-02-03] MEDS: METOCLOPRAMIDE HCL 10 MG TAB PO PRN (02:18)
[2017-02-03] MEDS: TRAMADOL HCL 50 MG TAB PO PRN ×3 (02:19→17:22)
[2017-02-03 04:15] VITALS: BP 119/68; PULSE 72; TEMP 37; O2SAT 94
[2017-02-03 07:30] LABS: HEMATOCRIT 32.6 % (37-47); MEAN CELL VOLUME 101.9 fL (80-100); MEAN CORPUSCULAR HEMOGLOBIN 36.3 pg (25-34); MEAN CORPUSCULAR HGB CONC 35.6 g/dl (32-36); MEAN PLATELET VOLUME 8.9 fL (7.4-10.4); PLATELET COUNT 189 K/uL (130-400); WHITE BLOOD COUNT 2.13 K/uL (4.8-10.8)
[2017-02-03 07:35] VITALS: BP 124/68; PULSE 69; TEMP 36.7; O2SAT 93
[2017-02-03 07:56] LABS: CREATININE 0.38 mg/dl (0.60-1.20)
[2017-02-03] MEDS: POTASSIUM CHLORIDE 10 MEQ TABCR PO SCH ×2 (08:46→20:35)
[2017-02-03] MEDS: CEPHALEXIN MONOHYDRATE 250 MG CAP PO SCH ×2 (08:46→20:35)
[2017-02-03] MEDS: CALCIUM CARBONATE 1250MG TAB PO SCH (08:47)
[2017-02-03] MEDS: GABAPENTIN 300 MG CAP PO SCH ×2 (08:47→20:35)
[2017-02-03] MEDS: MULTIVITAMIN TAB PO SCH (08:47)
[2017-02-03] MEDS: ASPIRIN 81 MG ECTAB PO SCH (08:47)
[2017-02-03] MEDS: AMLODIPINE BESYLATE 5 MG TAB PO SCH (08:47)
[2017-02-03] MEDS: MAGNESIUM CHLORIDE 64MG DELAYED REL TAB PO SCH (08:48)
[2017-02-03 11:29] VITALS: BP 132/70; PULSE 75; TEMP 36.9; O2SAT 95
--- NOTE | 2017-02-03 12:47 | Progress Note ---
Internal Med Progress Note Date of Service: February 03, 2017. Provider Documentation: SUBJECTIVE: Patient's pain - right chest wall spreading to arm pit, upper arm, shoulder is a little better. Gabapentin helped. Nausea is improving. No episodes of vomiting.Able to tolerate PO, but decreased intake. No abd pain, fever, chills, diarrhea. OBJECTIVE: Vital Signs-as noted below Exam: General-AAOX3, no distress Neck-Supple, No JVD Lungs-Right mastectomy- tenderness on palpation of chest wall, increased sensitivity to arm/arm pit Heart-S1, S2 normal, no murmurs Abdomen-Soft, non tender, non distended, BS present Extremities-No edema Lab data as noted below. 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 Monitor BMP -Nephrology consulted- Discussed with Dr Watson. Appreciate inputs CHEST PAIN, ATYPICAL : Patient presented with constant chest pain x 3 days, right sided, radiating to armpit, upper arm, shoulder and upper back. Unable to explain the type of pain, but severe in intensity. 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 Though surgery was done in 1974 with no complications after that, symptoms from a detailed H & P, negative tests goes with neuropathic/muscular pain seen in PMPS patients. Other D/D considered: Cardiac, though very atypical-EKG x 2 negative, Troponin x 2 negative, Echo- Normal with no wall motion abnormalities. Pericarditis as pain worse with lying and better with walking, sitting, but EKG not suggestive of it, CRP- negative. -Work up- Echo- EF 55-60%, Gd I diastolic dysfunction, Aortic sclerosis, Mild TR., Trop x 2 negative, CXR- negative for acute abn, D dimer-negative, CRP negative. -Pain mx- Tried Tylenol, Ibuprofen 600 mg TID - not effective, Significant reaction to Morphine in past. Likely neuropathic pain, so regular pain medications not effective. Gabapentin helped. Increased it to 300 mg PO BID. -Continue with Tramadol which helps- continue with 50 mg q [address] PRN, St NAUSEA >> VOMITING Likely from NSAIDs ? Gastritis ? or nauseous feeling associated with intense pain -Was able to tolerate diet with no episodes of vomiting and nausea improved -No associated abdominal symptoms -Does get regular scans for breast carcinoma surveillance. Due for it in March 2017.CT scan abd/pelvis done on 02/02/17- unchanged from prior scans- mets in liver, lung, bones. No obstruction. -Protonix daily -IV Zofran PRN ELEVATED BP : BP was 215/99 in ED (very anxious +)--> down to 160s after IV Labetalol --> Still high but fluctuated as persistent pain No prior diagnosis of HTN. Not on any antihypertensive medications -Started amlodipine 5 mg daily on 02/01/17 -IV Lopressor PRN -Monitor closely outpatient HX BREAST CANCER , METASTATIC - on Ibrance and Femara - CT scan abd/pelvis- Lung, liver, bone - unchanged from prior admission CHRONIC LUE LYMPHEDEMA / HX RECURRENT CELLULITIS - on chronic cephalexin suppression therapy CONSTIPATION Colace, Miralex DVT PROPHYLAXIS - SQ Lovenox CODE STATUS - Patient is a DNR as per my discussion with her. DISPO Observation--> changed to admission due to Hyponatremia Continue with tele monitoring Discussed with daughter, by bedside. Vital Signs: Date Time Temp Pulse Resp B/P Pulse Ox O2 Delivery O2 Flow Rate FiO2 02/03/17 12:00 Room Air 02/03/17 11:29 36.9 75 18 132/70 95 2.0 02/03/17 08:05 Room Air 02/03/17 07:35 36.7 69 18 124/68 93 Room Air 02/03/17 04:15 37.0 72 16 119/68 94 Room Air 02/03/17 04:00 Room Air 02/02/17 23:59 Room Air 02/02/17 23:40 37.1 79 16 129/68 91 Room Air 02/02/17 20:15 168/83 02/02/17 20:00 Room Air 02/02/17 19:15 36.6 88 18 172/79 96 Room Air 02/02/17 15:42 36.5 87 16 132/78 95 Room Air Lab Results: Results Past 24 Hours Test 02/02/17 16:03 02/02/17 18:58 02/02/17 21:55 02/03/17 07:00 Range/Units Sodium Level 125 125 136-145 mmol/L Potassium Level 4.2 4.2 3.5-5.1 mmol/L Chloride Level 89 90 98-107 mmol/L Carbon Dioxide Level 30 27 21-32 mmol/L Anion Gap 6.0 8.0 3-11 mmol/L Blood Urea Nitrogen 6 5 7-18 mg/dl Creatinine 0.45 0.42 0.38 0.60-1.20 mg/dl Est Creatinine Clear Calc Drug Dose 75.5 80.9 89.6 ml/min Estimated GFR () 107.4 109.9 113.5 Estimated GFR (Non- 92.7 94.8 98.0 BUN/Creatinine Ratio 13.3 11.4 10-20 Random Glucose 103 109 70-99 mg/dl Calcium Level 8.3 7.9 8.5-10.1 mg/dl Urine Osmolality 329 500-800 mOms/kg Osmolality 254 280-300 mOsm/kg White Blood Count 2.13 4.8-10.8 K/uL Red Blood Count 3.20 4.2-5.4 M/uL Hemoglobin 11.6 12.0-16.0 g/dL Hematocrit 32.6 37-47 % Mean Corpuscular Volume 101.9 80-100 fL Mean Corpuscular Hemoglobin 36.3 25-34 pg Mean Corpuscular Hemoglobin Concent 35.6 32-36 g/dl RDW Standard Deviation 49.7 36.4-46.3 fL RDW Coefficient of Variation 13.2 11.5-14.5 % Platelet Count 189 130-400 K/uL Mean Platelet Volume 8.9 7.4-10.4 fL Test 02/03/17 09:10 02/03/17 12:23 Range/Units Urine Random Sodium 13 mEq/L
[2017-02-03] MEDS: POLYETHYLENE (MIRALAX) 17 GM PACK PO PRN (13:01)
[2017-02-03 14:03] LABS: BUN/CREATININE RATIO 12.1 (10-20); CALCIUM 8.3 mg/dl (8.5-10.1); CREATININE 0.56 mg/dl (0.60-1.20); POTASSIUM 4.3 mmol/L (3.5-5.1)
--- NOTE | 2017-02-03 14:09 | NEPHROLOGY CONSULTATION ---
DATE OF CONSULTATION: 02/03/2017 ATTENDING OF RECORD: Dr. Womack. REASON FOR CONSULTATION: Hyponatremia. HISTORY OF PRESENT ILLNESS: This is an 81-year-old female with a history of breast cancer with metastatic disease, status post left modified radical mastectomy in 1973 for ductal carcinoma, had a supraclavicular reoccurrence in 2003, had axillary recurrence with massive lymphedema in the left arm in 2012, status post radiation therapy to the left axilla in 2012 with metastatic disease to the bone, liver and lung, which appears stable. The patient developed symptoms last Saturday of pain, nausea, and vomiting. The patient was given IV fluids initially of normal saline at 100 mL an hour, started on the and repeat sodium levels dropped from 133 on the to 130 on the to 126 on the to 125 on the night of the . IV fluids stopped. The patient was started on Neurontin to help with her pain. The patient also had three doses of ibuprofen on the . The patient is out of bed to chair, eating her lunch, and stating her pain is now 6/10. Her nausea and vomiting are improving. is in the room. is providing history, stating that he feels she needs to see a chiropractor and that her pain is coming from her back. REVIEW OF SYSTEMS: The patient denies any significant weight loss. Does have some nausea, vomiting and some pain on the left arm. No rash or itching. Does have chronic lymphedema in the left arm. Does have constipation as well. Usually goes by once every 2 days. Has not gone for the past 3 days. Positive decreased appetite. No blurry vision, no dysphagia, no headaches, and no dysuria or hematuria. All other review of systems otherwise negative. PAST MEDICAL HISTORY: Breast cancer with metastatic disease, GERD, and left arm lymphedema. PAST SURGICAL HISTORY: Hip replacement and left breast mastectomy. FAMILY HISTORY: No renal disease in the family. SOCIAL HISTORY: No smoking, no alcohol, and no drugs. She is and lives at home with . CURRENT MEDICATIONS: Aspirin 81 mg a day, letrozole 2.5 mg at night, Keflex 250 mg p.o. b.i.d., potassium 10 mEq p.o. b.i.d., Lovenox 40 mg subQ daily, multivitamin daily, Neurontin 300 mg p.o. b.i.d., Norvasc 5 mg daily, calcium carbonate 500 mg daily, and Slow-Mag 128 mg daily. PHYSICAL EXAMINATION: VITAL SIGNS: Temperature 36.9, pulse 75, respiratory rate 18, blood pressure 132/70, and satting 95% on room air. GENERAL: Awake, alert, and oriented x3. EYES: No scleral icterus. ENT: Moist mucous membranes. NECK: Supple. PULMONARY: Clear to auscultation. CARDIAC: Regular rate and rhythm. ABDOMEN: Bowel sounds positive. Soft and nontender. EXTREMITIES: No significant clubbing, cyanosis or edema. NEUROLOGICALLY: Nonfocal. DERMATOLOGIC: No rash or ulcers noted. LABORATORY DATA: From last night showed a sodium level of 125, potassium 4.2, chloride is 90, bicarbonate is 27, BUN is 5, creatinine 0.42, glucose 109, and calcium 7.9. Creatinine this morning 0.38. White count is 2, H\T\H 11 and 32, and platelet count 189. Urine random sodium was 13 and urine osmolality of 329 on February 02. INR is 1. Abdominal pelvis CT shows gallstones, nonobstructive bowel pattern, hepatic hypodensities as well as sclerotic bony metastatic changes, all of which appear unchanged. No acute process. Chest x-ray from showed chronic bilateral parenchymal opacities. Heart normal in size. Echo was done on the , which showed an EF of 55%-60%, mild concentric LVH, no segmental wall motion abnormalities, grade 1 diastolic dysfunction. ASSESSMENT AND PLAN: Hyponatremia. The patient initially presented with findings suggestive of volume depletion with nausea, vomiting, and decreased appetite for several days prior to coming into the hospital; however, when started on normal saline, the sodium levels did drop from 130 to 125. Urine osmolality is above 300. 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 The patient's volume status appears to be euvolemic in nature and eating lunch, likes to drink lots of water at home. We will place the patient on a fluid restriction of 1500 mL and recheck the sodium levels. If the sodium levels continue to drop, may need to initiate Lasix and salt tablets. The thyroid levels were normal and I do not feel the patient has a low solute intake. I feel that the stimulus for syndrome of inappropriate antidiuretic hormone is likely the nausea, vomiting and pain and as the nausea, vomiting and pain improve, hopefully the syndrome of inappropriate antidiuretic hormone will resolve. She does have underlying metastatic breast cancer, although stable and not getting any active therapy for it. So, I feel the more likely diagnosis would be syndrome of inappropriate antidiuretic hormone from pain and nausea. Case was discussed with Dr. Tea Womack, who agrees with the plan. For now, we will repeat a sodium level now, repeat the urine osmolality tomorrow, follow sodium level trends and place the patient on fluid restriction. No role for 3% normal saline at this time given mental status is stable with no specific symptoms. Appreciate consultation. LISSETTE
[2017-02-03 15:37] VITALS: BP 149/70; PULSE 87; TEMP 37.1; O2SAT 91
[2017-02-03] MEDS ORDERED: NURSING DECISION MEDICATION ORDER SCH (17:15)
[2017-02-03] MEDS ORDERED: IBRANCE 100 MG PO SCH (17:45)
[2017-02-03 19:10] VITALS: BP 103/71; PULSE 81; TEMP 36.7; O2SAT 95
[2017-02-03] MEDS: LETROZOLE 2.5 MG TAB PO SCH (20:35)
[2017-02-03] MEDS: DOCUSATE SODIUM 100 MG CAP PO SCH (20:35)
[2017-02-03] MEDS: ENOXAPARIN 40 MG/0.4 ML SYR SC SCH (20:36)
[2017-02-03] MEDS: TRAVOPROST Z 0.004% OPH SOLN 2.5 ML BTL OPB SCH (20:36)
[2017-02-04] VITALS (8 sets, daily range): BP systolic 120–152; BP diastolic 68–75; PULSE 74–89; TEMP 36.6–36.9; O2SAT 92–96
[2017-02-04] MEDS: TRAMADOL HCL 50 MG TAB PO PRN ×4 (00:25→15:38)
[2017-02-04 07:54] LABS: BUN/CREATININE RATIO 14.1 (10-20); CALCIUM 7.7 mg/dl (8.5-10.1); CREATININE 0.4 mg/dl (0.60-1.20)
[2017-02-04] MEDS: ASPIRIN 81 MG ECTAB PO SCH (08:07)
[2017-02-04] MEDS: GABAPENTIN 300 MG CAP PO SCH ×2 (08:07→20:23)
[2017-02-04] MEDS: CALCIUM CARBONATE 1250MG TAB PO SCH (08:07)
[2017-02-04] MEDS: MULTIVITAMIN TAB PO SCH (08:07)
[2017-02-04] MEDS: MAGNESIUM CHLORIDE 64MG DELAYED REL TAB PO SCH (08:07)
[2017-02-04] MEDS: AMLODIPINE BESYLATE 5 MG TAB PO SCH (08:07)
[2017-02-04] MEDS: DOCUSATE SODIUM 100 MG CAP PO SCH ×2 (08:08→20:20)
[2017-02-04] MEDS: POTASSIUM CHLORIDE 10 MEQ TABCR PO SCH ×2 (08:08→20:21)
[2017-02-04] MEDS: CEPHALEXIN MONOHYDRATE 250 MG CAP PO SCH ×2 (08:08→20:23)
--- NOTE | 2017-02-04 11:27 | Progress Note ---
Internal Med Progress Note Date of Service: February 04, 2017. Provider Documentation: SUBJECTIVE: Patient's pain - right chest wall spreading to arm pit, upper arm, shoulder is a little better than admission, but still persistent. Gabapentin helped. Nausea has almost resolved. No episodes of vomiting. Able to tolerate PO, but decreased intake. No abd pain, fever, chills, diarrhea. Noted to have a rash below left arm pit yesterday and a small patch on upper back today. Non pruritic C/o constipation. No BM since admitted, OBJECTIVE: Vital Signs-as noted below Exam: General-AAOX3, no distress Neck-Supple, No JVD Lungs-Left mastectomy- tenderness on palpation of chest wall, increased sensitivity to arm/arm pit, no masses palpable Heart-S1, S2 normal, no murmurs Abdomen-Soft, non tender, non distended, BS present. Extremities-No edema SKIN- Left arm pit- engorged blood vessels, but no signs of cellulitis, erythematous rash- below the arm pit- small area, new. Erythematous patch on upper back. Lab data as noted below. ASSESSMENT & PLAN: Patient initially came to ED with c/o atypical chest pain radiating to left arm , shoulder, upper back x 3 days. Ruled out acute GA. Pain very atypical for cardiac etiology. As severe pain persisted, patient continued to stay in hospital. Developed nausea with 2 episodes of vomiting next day, unclear etiology. Symptoms improved, but sodium levels gradually dropped as low as 125. Developed a rash below left arm pit. From inspection, not classic for shingles. Need to monitor Na levels, rash, pain mx. ACUTE HYPONATREMIA : Initially rxed with IVF 100 cc/hour as thought to be hypovolemic sec to vomiting --> Na worsened --> Stopped and placed on fluid restriction on 02/03/17- -> Improving Na levels down to 125--> Up to 129 today. 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 -Nephrology on board. Appreciate inputs. Discussed with Dr Mak. Will continue to monitor the trend. LEFT SIDED CHEST PAIN, ATYPICAL : Patient presented with constant chest pain x 3 days, left sided, radiating to armpit, upper arm, shoulder and upper back. Unable to explain the type of pain, but severe in intensity. Pain meds- tylenol, Ibuprofen did not help. Gabapentin did help to some extent. 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 Though surgery was done in 1974 with no complications after that, symptoms from a detailed H & P, negative tests goes with neuropathic/muscular pain seen in PMPS patients. Unclear though since its been + 40 years. Cardiac, though very atypical-EKG x 2 negative, Troponin x 2 negative, Echo- Normal with no wall motion abnormalities. Pericarditis as pain worse with lying and better with walking, sitting, but EKG not suggestive of it, CRP- negative. Mild rash- developing shingles ? though not classic. Will monitor the rash in under left arm pit closely -Work up- Echo- EF 55-60%, Gd I diastolic dysfunction, Aortic sclerosis, Mild TR., Trop x 2 negative, CXR- negative for acute abn, D dimer-negative, CRP negative. -Pain mx- Tried Tylenol, Ibuprofen 600 mg TID - not effective, Significant reaction to Morphine in past. Likely neuropathic pain, so regular pain medications not effective ?. Gabapentin helped. Increased it to 300 mg PO BID on 02/02. -Continue with Tramadol which helps- continue with 50 mg q 4 hours PRN. -If no improvement, may consider pain management, though unclear of the exact pain etiology NAUSEA >> VOMITING- Improved Unclear etiology. NSAIDs ? Gastritis ? or nauseous feeling associated with intense pain -Was able to tolerate diet with no episodes of vomiting and nausea improved -No associated abdominal symptoms -Does get regular scans for breast carcinoma surveillance. Due for it in March 2017.CT scan abd/pelvis done on 02/02/17- unchanged from prior scans- mets in liver, lung, bones. No obstruction. -Protonix daily -IV Zofran PRN ELEVATED BP : BP was 215/99 in ED (very anxious +)--> down to 160s after IV Labetalol --> Still high but fluctuated as persistent pain No prior diagnosis of HTN. Not on any antihypertensive medications -Started amlodipine 5 mg daily on 02/01/17 -IV Lopressor PRN -Monitor closely outpatient HX BREAST CANCER , METASTATIC - on Ibrance and Femara - CT scan abd/pelvis- Lung, liver, bone - unchanged from prior admission. Patient aware about these results from past scans. CHRONIC LUE LYMPHEDEMA / HX RECURRENT CELLULITIS - on chronic cephalexin suppression therapy CONSTIPATION Colace, Miralex. Dulcolax prn ordered No BM yet DVT PROPHYLAXIS - SQ Lovenox CODE STATUS - Patient is a DNR as per my discussion with her. DISPO Observation--> changed to admission due to Hyponatremia Okay to transfer to [facility]-surg Continue to monitor Na levels-hyponatremia, Pain mx, Rash. Discussed with daughter, by bedside. Vital Signs: Date Time Temp Pulse Resp B/P Pulse Ox O2 Delivery O2 Flow Rate FiO2 02/04/17 08:00 Room Air 02/04/17 07:56 36.9 89 20 134/68 92 Room Air 02/04/17 04:00 Room Air 02/04/17 03:57 36.8 74 16 126/74 96 Room Air 02/04/17 00:05 36.9 80 16 147/70 94 Room Air 02/04/17 00:01 Room Air 02/03/17 20:00 Room Air 02/03/17 19:10 36.7 81 16 103/71 95 Room Air 02/03/17 16:00 Room Air 02/03/17 15:37 37.1 87 18 149/70 91 02/03/17 12:00 Room Air 02/03/17 11:29 36.9 75 18 132/70 95 2.0 Lab Results: Results Past 24 Hours Test 02/03/17 13:10 02/03/17 16:11 02/04/17 04:00 02/04/17 07:00 Range/Units Sodium Level 126 129 136-145 mmol/L Potassium Level 4.3 4.0 3.5-5.1 mmol/L Chloride Level 90 92 98-107 mmol/L Carbon Dioxide Level 27 33 21-32 mmol/L Anion Gap 9.0 4.0 3-11 mmol/L Blood Urea Nitrogen 7 6 7-18 mg/dl Creatinine 0.56 0.40 0.60-1.20 mg/dl Est Creatinine Clear Calc Drug Dose 60.8 85.6 ml/min Estimated GFR () 99.9 111.6 Estimated GFR (Non- 86.2 96.3 BUN/Creatinine Ratio 12.1 14.1 10-20 Random Glucose 135 97 70-99 mg/dl Calcium Level 8.3 7.7 8.5-10.1 mg/dl Bedside Glucose 107 70-90 mg/dl Urine Osmolality 286 500-800 mOms/kg
[2017-02-04] MEDS: POLYETHYLENE (MIRALAX) 17 GM PACK PO PRN (11:41)
[2017-02-04] MEDS: ONDANSETRON INJ 2 MG/ML 2 ML VIAL IV PRN ×2 (15:38→23:36)
--- NOTE | 2017-02-04 18:00 | Nephrology Progress Note ---
Nephrology Progress Note Date of Service: February 04, 2017. Subjective seen on rounds this am 0810; cc at that time was constipation; denied further N ; denied dyspnea or voiding difficulties. ongoing L thorax/ ant and post and axillary pain. Objective Date Time Temp Pulse Resp B/P Pulse Ox O2 Delivery O2 Flow Rate FiO2 02/04/17 17:00 Room Air 02/04/17 15:35 36.7 74 16 152/74 94 Room Air 02/04/17 12:36 36.9 79 20 94 02/04/17 12:30 94 Room Air 02/04/17 12:00 Room Air 02/04/17 11:42 36.9 79 20 120/69 94 Room Air 02/04/17 08:00 Room Air 02/04/17 07:56 36.9 89 20 134/68 92 Room Air 02/04/17 04:00 Room Air 02/04/17 03:57 36.8 74 16 126/74 96 Room Air 02/04/17 00:05 36.9 80 16 147/70 94 Room Air 02/04/17 00:01 Room Air 02/03/17 20:00 Room Air 02/03/17 19:10 36.7 81 16 103/71 95 Room Air Physical Exam: GENERAL: Awake, alert, and oriented x3. up in chair on RA EYES: No scleral icterus. ENT: Moist mucous membranes. NECK: Supple. PULMONARY: Clear to auscultation but very diminished air entry CARDIAC: Regular rate and rhythm. ABDOMEN: Bowel sounds positive. Soft and nontender. no ge EXTREMITIES: No significant clubbing, cyanosis or edema. NEUROLOGICALLY: [place], fluent speech DERMATOLOGIC: raised pink non tender nonvesicular well demarcated patch between shoulder blades on L post thorax Current Inpatient Medications Medications (Trade) Dose Ordered Sig/Chani Route Start Time Stop Time Status Last Admin Dose Admin Enoxaparin Sodium (Lovenox Inj) 40 mg Q24H SC 01/31/17 21:00 03/02/17 20:59 02/03/17 20:36 40 MG Acetaminophen (Tylenol Tab) 650 mg Q4H PRN PO 01/31/17 16:00 03/02/17 15:59 02/01/17 17:19 650 MG Nitroglycerin (Nitrostat Tab) 0.4 mg UD PRN SL 01/31/17 16:00 03/02/17 15:59 Aspirin (Ecotrin Tab) 81 mg QAM PO 02/01/17 09:00 03/03/17 08:59 02/04/17 08:07 81 MG Cephalexin Monohydrate (Keflex Cap) 250 mg BID PO 01/31/17 21:00 02/10/17 20:59 02/04/17 08:08 250 MG Magnesium Chloride (Slow-Mag Tab) 128 mg DAILY PO 02/01/17 09:00 03/03/17 08:59 02/04/17 08:07 128 MG Multivitamins (Multivitamin Tab) 1 tab DAILY PO 02/01/17 09:00 03/03/17 08:59 02/04/17 08:07 1 TAB Calcium Carbonate (oS-Anatoly 500 TAB) 500 mg QAM PO 02/01/17 09:00 03/03/17 08:59 02/04/17 08:07 500 MG Potassium Chloride (Klor-Con M10) 10 meq BID PO 01/31/17 21:00 03/02/17 20:59 02/04/17 08:08 10 MEQ Travoprost (Travatan Z) 1 drops HS OPB 01/31/17 21:00 03/02/17 20:59 02/03/17 20:36 1 DROPS Miscellaneous (Iv Fluids Completed) 1 ea PRN PRN N/A 01/31/17 16:30 01/31/18 16:29 Metoprolol Tartrate (Lopressor Iv) 5 mg Q6 PRN IV 01/31/17 17:45 03/02/17 17:44 01/31/17 19:17 5 MG Ondansetron HCl (Zofran Inj) 4 mg Q6H PRN IV 01/31/17 21:15 03/02/17 21:14 02/04/17 15:38 4 MG Letrozole (Femara Tab) 2.5 mg HS PO 02/01/17 21:00 03/03/17 08:59 02/03/17 20:35 2.5 MG Amlodipine Besylate (Norvasc Tab) 5 mg DAILY PO 02/02/17 09:00 03/04/17 08:59 02/04/17 08:07 5 MG Gabapentin (Neurontin Cap) 300 mg BID PO 02/02/17 21:00 03/04/17 20:59 02/04/17 08:07 300 MG Metoclopramide HCl (Reglan Tab) 10 mg Q6 PRN PO 02/02/17 12:15 03/04/17 12:14 02/03/17 02:18 10 MG Ioversol (Optiray 320) 111 ml UD PRN IV 02/02/17 12:15 02/06/17 12:14 Metoclopramide HCl (Reglan Inj) 10 mg Q6H PRN IV 02/02/17 12:30 03/04/17 12:29 02/02/17 12:38 10 MG Docusate Sodium (coLACE CAP) 100 mg BID PO 02/03/17 21:00 03/05/17 20:59 02/04/17 08:08 100 MG Polyethylene (Miralax Powder Packet) 17 gm DAILY PRN PO 02/03/17 12:45 03/05/17 12:44 02/04/17 11:41 17 GM Tramadol HCl (Ultram Tab) 50 mg Q4H PRN PO 02/03/17 17:30 03/05/17 17:29 02/04/17 15:38 50 MG Non-Formulary Medication (Non-Formulary Patient'S Own Med) 1 ea Q2D@0900 PO 02/03/17 17:45 03/05/17 17:44 02/03/17 17:40 1 EA Last 24 Hours Test 02/04/17 04:00 02/04/17 07:00 Urine Osmolality 286 mOms/kg Sodium Level 129 mmol/L Potassium Level 4.0 mmol/L Chloride Level 92 mmol/L Carbon Dioxide Level 33 mmol/L Anion Gap 4.0 mmol/L Blood Urea Nitrogen 6 mg/dl Creatinine 0.40 mg/dl Est Creatinine Clear Calc Drug Dose 85.6 ml/min Estimated GFR () 111.6 Estimated GFR (Non- 96.3 BUN/Creatinine Ratio 14.1 Random Glucose 97 mg/dl Calcium Level 7.7 mg/dl Assessment & Plan 81 y/o F w/ metastatic BRCA, significant pain w/ improving hyponatremia > initial hx most c/w volume depletion but she has behaved clinically more like euvolemic than vol depleted hyponatremia, more SIADH-like, since sNa fell from 130>125 w/ fluid resuscitation, and now improving w/ fluid restriction -cont fluid restriction of 1500 mL -at this point recheck sodium levels daily w/ BMP and maintain K near 4 (on K suppls) -no indication just yet for lasix and/or salt tabs -ensure higher protein diet; supplement if necessary <>avoid tea and toast/ low solute diet -control pain Rash -? if shingles emerging< not likely necessarily but hospitalist aware, was already considering Appreciate consultation; will follow with you. Care coordinated w/ Dr. Womack.
[2017-02-04] MEDS: ACYCLOVIR 200 MG CAP PO SCH ×2 (20:18→23:31)
[2017-02-04] MEDS: LETROZOLE 2.5 MG TAB PO SCH (20:20)
[2017-02-04] MEDS: ENOXAPARIN 40 MG/0.4 ML SYR SC SCH (20:21)
[2017-02-04] MEDS: TRAVOPROST Z 0.004% OPH SOLN 2.5 ML BTL OPB SCH (20:22)
[2017-02-05] VITALS (7 sets, daily range): BP systolic 119–149; BP diastolic 68–74; PULSE 74–91; TEMP 36.8–38.2; O2SAT 92–96
[2017-02-05] MEDS: TRAMADOL HCL 50 MG TAB PO PRN (03:36)
[2017-02-05] MEDS: METOCLOPRAMIDE HCL INJ 5 MG/ML 2 ML VIAL IV PRN (03:44)
[2017-02-05 06:07] LABS: HEMATOCRIT 32.5 % (37-47); MEAN CELL VOLUME 102.2 fL (80-100); MEAN CORPUSCULAR HEMOGLOBIN 36.5 pg (25-34); MEAN CORPUSCULAR HGB CONC 35.7 g/dl (32-36); MEAN PLATELET VOLUME 8.7 fL (7.4-10.4); PLATELET COUNT 227 K/uL (130-400); RED BLOOD COUNT 3.18 M/uL (4.2-5.4); WHITE BLOOD COUNT 2.67 K/uL (4.8-10.8)
[2017-02-05] MEDS: ACYCLOVIR 200 MG CAP PO SCH ×4 (06:38→19:00)
[2017-02-05 06:48] LABS: BUN/CREATININE RATIO 17.5 (10-20); CALCIUM 7.9 mg/dl (8.5-10.1); CREATININE 0.39 mg/dl (0.60-1.20); POTASSIUM 3.8 mmol/L (3.5-5.1)
[2017-02-05] MEDS ORDERED: FUROSEMIDE INJ 10 MG in SYRINGE 0 ML IV ONE ×2 (08:15→08:30)
[2017-02-05] MEDS: ASPIRIN 81 MG ECTAB PO SCH (09:23)
[2017-02-05] MEDS: DOCUSATE SODIUM 100 MG CAP PO SCH ×2 (09:23→20:00)
[2017-02-05] MEDS: POTASSIUM CHLORIDE 10 MEQ TABCR PO SCH ×2 (09:24→20:00)
[2017-02-05] MEDS: CEPHALEXIN MONOHYDRATE 250 MG CAP PO SCH ×2 (09:24→20:00)
[2017-02-05] MEDS: MULTIVITAMIN TAB PO SCH (09:25)
[2017-02-05] MEDS: GABAPENTIN 300 MG CAP PO SCH ×2 (09:26→20:00)
[2017-02-05] MEDS: AMLODIPINE BESYLATE 5 MG TAB PO SCH (09:26)
[2017-02-05] MEDS: MAGNESIUM CHLORIDE 64MG DELAYED REL TAB PO SCH (09:27)
[2017-02-05] MEDS: CALCIUM CARBONATE 1250MG TAB PO SCH (11:22)
--- NOTE | 2017-02-05 13:27 | Nephrology Progress Note ---
Nephrology Progress Note Date of Service: February 05, 2017. Subjective seen on rounds this am 0800; less worried about constipation today; unchanged shingles pain (shingles is new dx); minimal PO intake though she is working at it and still w/ N; denies dyspnea or voiding difficulties. Objective Date Time Temp Pulse Resp B/P Pulse Ox O2 Delivery O2 Flow Rate FiO2 02/05/17 07:10 36.8 74 16 134/69 96 02/05/17 05:00 37.0 85 20 138/69 95 Room Air 02/05/17 00:15 37.0 84 20 147/72 92 Room Air 02/05/17 00:00 Room Air 02/04/17 20:00 Room Air 02/04/17 18:58 36.6 82 18 120/75 94 Room Air 02/04/17 17:00 Room Air 02/04/17 15:35 36.7 74 16 152/74 94 Room Air 02/04/17 12:36 36.9 79 20 94 02/04/17 12:30 94 Room Air 02/04/17 12:00 Room Air 02/04/17 11:42 36.9 79 20 120/69 94 Room Air 02/04/17 08:00 Room Air 02/04/17 07:56 36.9 89 20 134/68 92 Room Air Physical Exam: GENERAL: Awake, alert, and oriented x3. resting in bed on RA EYES: No scleral icterus. ENT: Moist mucous membranes. NECK: Supple. PULMONARY: Clear to auscultation but very diminished air entry CARDIAC: Regular rate and rhythm. ABDOMEN: Bowel sounds positive. Soft and nontender. no eg EXTREMITIES: No significant clubbing, cyanosis or edema. NEUROLOGICALLY: [place], fluent speech DERMATOLOGIC: raised pink non tender still nonvesicular well demarcated patch between shoulder blades on L post thorax Current Inpatient Medications Medications (Trade) Dose Ordered Sig/Chani Route Start Time Stop Time Status Last Admin Dose Admin Enoxaparin Sodium (Lovenox Inj) 40 mg Q24H SC 01/31/17 21:00 03/02/17 20:59 02/04/17 20:21 40 MG Acetaminophen (Tylenol Tab) 650 mg Q4H PRN PO 01/31/17 16:00 03/02/17 15:59 02/01/17 17:19 650 MG Nitroglycerin (Nitrostat Tab) 0.4 mg UD PRN SL 01/31/17 16:00 03/02/17 15:59 Aspirin (Ecotrin Tab) 81 mg QAM PO 02/01/17 09:00 03/03/17 08:59 02/04/17 08:07 81 MG Cephalexin Monohydrate (Keflex Cap) 250 mg BID PO 01/31/17 21:00 02/10/17 20:59 02/04/17 20:23 250 MG Magnesium Chloride (Slow-Mag Tab) 128 mg DAILY PO 02/01/17 09:00 03/03/17 08:59 02/04/17 08:07 128 MG Multivitamins (Multivitamin Tab) 1 tab DAILY PO 02/01/17 09:00 03/03/17 08:59 02/04/17 08:07 1 TAB Calcium Carbonate (oS-Anatoly 500 TAB) 500 mg QAM PO 02/01/17 09:00 03/03/17 08:59 02/04/17 08:07 500 MG Potassium Chloride (Klor-Con M10) 10 meq BID PO 01/31/17 21:00 03/02/17 20:59 02/04/17 20:21 10 MEQ Travoprost (Travatan Z) 1 drops HS OPB 01/31/17 21:00 03/02/17 20:59 02/04/17 20:22 1 DROPS Miscellaneous (Iv Fluids Completed) 1 ea PRN PRN N/A 01/31/17 16:30 01/31/18 16:29 Metoprolol Tartrate (Lopressor Iv) 5 mg Q6 PRN IV 01/31/17 17:45 03/02/17 17:44 01/31/17 19:17 5 MG Ondansetron HCl (Zofran Inj) 4 mg Q6H PRN IV 01/31/17 21:15 03/02/17 21:14 02/04/17 23:36 4 MG Letrozole (Femara Tab) 2.5 mg HS PO 02/01/17 21:00 03/03/17 08:59 02/04/17 20:20 2.5 MG Amlodipine Besylate (Norvasc Tab) 5 mg DAILY PO 02/02/17 09:00 03/04/17 08:59 02/04/17 08:07 5 MG Gabapentin (Neurontin Cap) 300 mg BID PO 02/02/17 21:00 03/04/17 20:59 02/04/17 20:23 300 MG Metoclopramide HCl (Reglan Tab) 10 mg Q6 PRN PO 02/02/17 12:15 03/04/17 12:14 02/03/17 02:18 10 MG Ioversol (Optiray 320) 111 ml UD PRN IV 02/02/17 12:15 02/06/17 12:14 Metoclopramide HCl (Reglan Inj) 10 mg Q6H PRN IV 02/02/17 12:30 03/04/17 12:29 02/05/17 03:44 10 MG Docusate Sodium (coLACE CAP) 100 mg BID PO 02/03/17 21:00 03/05/17 20:59 02/04/17 20:20 100 MG Polyethylene (Miralax Powder Packet) 17 gm DAILY PRN PO 02/03/17 12:45 03/05/17 12:44 02/04/17 11:41 17 GM Tramadol HCl (Ultram Tab) 50 mg Q4H PRN PO 02/03/17 17:30 03/05/17 17:29 02/05/17 03:36 50 MG Non-Formulary Medication (Non-Formulary Patient'S Own Med) 1 ea Q2D@0900 PO 02/03/17 17:45 03/05/17 17:44 02/03/17 17:40 1 EA Acyclovir (Zovirax Cap) 800 mg 5XDQ4H PO 02/04/17 19:00 02/11/17 18:59 02/05/17 06:38 800 MG Last 24 Hours Test 02/05/17 05:27 White Blood Count 2.67 K/uL Red Blood Count 3.18 M/uL Hemoglobin 11.6 g/dL Hematocrit 32.5 % Mean Corpuscular Volume 102.2 fL Mean Corpuscular Hemoglobin 36.5 pg Mean Corpuscular Hemoglobin Concent 35.7 g/dl RDW Standard Deviation 49.4 fL RDW Coefficient of Variation 13.2 % Platelet Count 227 K/uL Mean Platelet Volume 8.7 fL Sodium Level 126 mmol/L Potassium Level 3.8 mmol/L Chloride Level 91 mmol/L Carbon Dioxide Level 28 mmol/L Anion Gap 7.0 mmol/L Blood Urea Nitrogen 7 mg/dl Creatinine 0.39 mg/dl Est Creatinine Clear Calc Drug Dose 87.8 ml/min Estimated GFR () 112.6 Estimated GFR (Non- 97.1 BUN/Creatinine Ratio 17.5 Random Glucose 114 mg/dl Calcium Level 7.9 mg/dl Assessment & Plan 81 y/o F w/ metastatic BRCA, significant pain and N w/ shingles and w/ hyponatremia > initial hx most c/w volume depletion but she has behaved clinically more like euvolemic than vol depleted hyponatremia, more SIADH-like, since sNa fell from 130>125 w/ fluid resuscitation then improved to 129 and now worse again -cont fluid restriction of 1500 mL -at this point recheck sodium levels twice daily w/ BMP and maintain K near 4 ( on K suppls) <> orders in -ensure protein supplement pls at least daily <> avoid low solute diet -started lasix 10 mg IV bid ->>>control pain w/ new shingles dx >>>control N Appreciate consultation; will follow with you.
[2017-02-05] MEDS ORDERED: FUROSEMIDE INJ 10 MG in SYRINGE 0 ML IV SCH (14:00)
[2017-02-05] MEDS ORDERED: POLYETHYLENE (MIRALAX) 17 GM PACK PO PRN (15:00)
--- NOTE | 2017-02-05 15:11 | Progress Note ---
Internal Med Progress Note Date of Service: February 05, 2017. Provider Documentation: SUBJECTIVE: says feeling weak still has pain in her left chest and back not nauseous so far appetite not good constipated OBJECTIVE: Vital Signs-as noted below Exam: General-alert and awake and oriented x 3 ENT-normal hearing Neck-no neck masses Lungs-cta b/l no wheezing or crackles Heart-s1 and s2 heard regular rate and rhythm no murmurs Abdomen-soft bowel sounds present non tender no distension Extremities- LUE edema present no erythema Skin vesicular erythematous rash on the left upper back Neuro-alert and awake oriented x 3 moves extremities Lab data as noted below. ASSESSMENT & PLAN: Patient initially came to ED with c/o atypical chest pain radiating to left arm , shoulder, upper back x 3 days. Ruled out acute [place]. Pain very atypical for cardiac etiology. As severe pain persisted, patient continued to stay in hospital. Developed nausea with 2 episodes of vomiting next day, unclear etiology. Symptoms improved, but sodium levels gradually dropped as low as 125. Developed a rash on left upper/middle back. Need to monitor Na levels, rash, pain mx. ACUTE HYPONATREMIA : initially received fluids and NA levels further dropped siadh mostly from pain and n/v nephrology on board started on fluid restriction 1500ml/day Improved to [id number] and again dropped to 125 today iv Lasix 10mg tid as per nephrology f/u labs LEFT SIDED CHEST PAIN, ATYPICAL : Patient presented with constant chest pain x 3 days, left sided, radiating to armpit, upper arm, shoulder and upper back. 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 No obstruction. on pii improving' will monitor ELEVATED BP : BP was 215/99 in ED (very anxious +)--> down to 160s after IV Labetalol --> Still high but fluctuated as persistent pain started grady amlodipine will monitor. HX BREAST CANCER , METASTATIC on Ibrance and Femara - CT scan abd/pelvis- Lung, liver, bone - unchanged from prior admission. Patient aware about these results from past scans. 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 Dulcolax prn ordered lactulose today if no bowel movement will plan for enema tomorrow DVT PROPHYLAXIS SQ Lovenox CODE STATUS Patient is a DNR DISPO to be determined pt/ot social service for d/c planning Vital Signs: Date Time Temp Pulse Resp B/P Pulse Ox O2 Delivery O2 Flow Rate FiO2 02/05/17 11:25 37.1 81 18 130/71 92 02/05/17 08:00 Room Air 02/05/17 07:10 36.8 74 16 134/69 96 02/05/17 05:00 37.0 85 20 138/69 95 Room Air 02/05/17 00:15 37.0 84 20 147/72 92 Room Air 02/05/17 00:00 Room Air 02/04/17 20:00 Room Air 02/04/17 18:58 36.6 82 18 120/75 94 Room Air 02/04/17 17:00 Room Air 02/04/17 15:35 36.7 74 16 152/74 94 Room Air Lab Results: Results Past 24 Hours Test 02/05/17 05:27 02/05/17 10:45 Range/Units White Blood Count 2.67 4.8-10.8 K/uL Red Blood Count 3.18 4.2-5.4 M/uL Hemoglobin 11.6 12.0-16.0 g/dL Hematocrit 32.5 37-47 % Mean Corpuscular Volume 102.2 80-100 fL Mean Corpuscular Hemoglobin 36.5 25-34 pg Mean Corpuscular Hemoglobin Concent 35.7 32-36 g/dl RDW Standard Deviation 49.4 36.4-46.3 fL RDW Coefficient of Variation 13.2 11.5-14.5 % Platelet Count 227 130-400 K/uL Mean Platelet Volume 8.7 7.4-10.4 fL Sodium Level 126 136-145 mmol/L Potassium Level 3.8 3.5-5.1 mmol/L Chloride Level 91 98-107 mmol/L Carbon Dioxide Level 28 21-32 mmol/L Anion Gap 7.0 3-11 mmol/L Blood Urea Nitrogen 7 7-18 mg/dl Creatinine 0.39 0.60-1.20 mg/dl Est Creatinine Clear Calc Drug Dose 87.8 ml/min Estimated GFR () 112.6 Estimated GFR (Non- 97.1 BUN/Creatinine Ratio 17.5 10-20 Random Glucose 114 70-99 mg/dl Calcium Level 7.9 8.5-10.1 mg/dl Urine Osmolality 254 500-800 mOms/kg Urine Random Sodium 79 mEq/L
[2017-02-05] MEDS ORDERED: LACTULOSE SYRUP 30 GM/45 ML UDP PO ONE ×2 (15:30→20:00)
[2017-02-05 17:30] LABS: BUN/CREATININE RATIO 17.3 (10-20); CALCIUM 8.5 mg/dl (8.5-10.1); CREATININE 0.42 mg/dl (0.60-1.20)
[2017-02-05] MEDS: ONDANSETRON INJ 2 MG/ML 2 ML VIAL IV PRN (18:40)
[2017-02-05] MEDS ORDERED: BISACODYL 10 MG SUPP PR ONE (20:00)
[2017-02-05] MEDS ORDERED: PROMETHAZINE HCL INJ 12.5 MG in SODIUM CHLORIDE 0.9% 50ML 50 ML IV PRN (21:00)
[2017-02-05] MEDS: TRAVOPROST Z 0.004% OPH SOLN 2.5 ML BTL OPB SCH (21:00)
[2017-02-05] MEDS: IBRANCE 100 MG PO SCH (21:00)
[2017-02-05] MEDS: LETROZOLE 2.5 MG TAB PO SCH (21:00)
[2017-02-05] MEDS ORDERED: PROMETHAZINE HCL INJ 12.5 MG in SODIUM CHLORIDE 0.9% 50ML 50 ML IV STA (21:04)
[2017-02-05] MEDS: ENOXAPARIN 40 MG/0.4 ML SYR SC SCH (21:20)
[2017-02-05] MEDS ORDERED: ACETAMINOPHEN IV 650 MG in EMPTY BAG 0 ML IV PRN (23:30)
[2017-02-06] VITALS (7 sets, daily range): BP systolic 104–120; BP diastolic 64–68; PULSE 76–86; TEMP 36.5–36.9; O2SAT 94–96
[2017-02-06] MEDS: ACYCLOVIR SOD IV SCH ×2 (01:03→08:49)
[2017-02-06] MEDS: DEXTROSE 5% IV SCH ×2 (01:03→08:49)
[2017-02-06 06:04] LABS: HEMATOCRIT 33.8 % (37-47); MEAN CELL VOLUME 102.4 fL (80-100); MEAN CORPUSCULAR HEMOGLOBIN 36.7 pg (25-34); MEAN CORPUSCULAR HGB CONC 35.8 g/dl (32-36); MEAN PLATELET VOLUME 8.7 fL (7.4-10.4); PLATELET COUNT 219 K/uL (130-400)
[2017-02-06] MEDS: ONDANSETRON INJ 2 MG/ML 2 ML VIAL IV PRN (06:05)
[2017-02-06] MEDS: TRAMADOL HCL 50 MG TAB PO PRN (06:06)
[2017-02-06 06:44] LABS: BUN/CREATININE RATIO 15.7 (10-20); CREATININE 0.51 mg/dl (0.60-1.20); POTASSIUM 3.9 mmol/L (3.5-5.1)
[2017-02-06] MEDS ORDERED: CALCIUM CARBONATE 1250MG TAB PO SCH (08:00)
[2017-02-06] MEDS ORDERED: FUROSEMIDE 40 MG TAB PO ONE (08:45)
[2017-02-06] MEDS: GABAPENTIN 300 MG CAP PO SCH ×2 (08:49→21:11)
[2017-02-06] MEDS: METOCLOPRAMIDE HCL 10 MG TAB PO PRN (08:49)
[2017-02-06] MEDS: MAGNESIUM CHLORIDE 64MG DELAYED REL TAB PO SCH (08:49)
[2017-02-06] MEDS: AMLODIPINE BESYLATE 5 MG TAB PO SCH (08:50)
[2017-02-06] MEDS: ASPIRIN 81 MG ECTAB PO SCH (08:50)
[2017-02-06] MEDS: CALCIUM CARBONATE 1250MG TAB PO SCH (08:50)
[2017-02-06] MEDS: MULTIVITAMIN TAB PO SCH (08:51)
[2017-02-06] MEDS: POTASSIUM CHLORIDE 10 MEQ TABCR PO SCH ×2 (08:51→21:11)
[2017-02-06] MEDS: CEPHALEXIN MONOHYDRATE 250 MG CAP PO SCH ×2 (08:51→21:10)
[2017-02-06] MEDS: DOCUSATE SODIUM 100 MG CAP PO SCH ×2 (08:52→21:10)
--- NOTE | 2017-02-06 10:16 | Nephrology Progress Note ---
Nephrology Progress Note Date of Service: February 06, 2017. 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 denies dyspnea or voiding difficulties. Objective Date Time Temp Pulse Resp B/P Pulse Ox O2 Delivery O2 Flow Rate FiO2 02/06/17 07:34 36.7 77 16 120/68 94 Room Air 02/06/17 03:43 36.5 86 16 106/67 95 Room Air 02/06/17 01:32 36.9 02/06/17 00:00 Room Air 02/05/17 23:41 38.2 90 16 119/68 94 Room Air 02/05/17 20:00 Room Air 02/05/17 19:33 37.6 89 16 120/74 93 Room Air 02/05/17 16:13 36.9 91 16 149/74 94 Room Air 02/05/17 16:00 Room Air 02/05/17 11:25 37.1 81 18 130/71 92 Physical Exam: GENERAL: Awake, alert, and oriented x3. resting flat in bed on RA EYES: No scleral icterus. ENT: Moist mucous membranes. NECK: Supple. PULMONARY: Clear to auscultation but very diminished air entry CARDIAC: Regular rate and rhythm. ABDOMEN: Bowel sounds positive. Soft and nontender. no ge EXTREMITIES: No significant clubbing, cyanosis or edema. NEUROLOGICALLY: [place], fluent speech DERMATOLOGIC: raised pink non tender crusted w/ ? early vesicles well demarcated patch between shoulder blades on L post thorax Current Inpatient Medications Medications (Trade) Dose Ordered Sig/Chani Route Start Time Stop Time Status Last Admin Dose Admin Enoxaparin Sodium (Lovenox Inj) 40 mg Q24H SC 01/31/17 21:00 03/02/17 20:59 02/05/17 21:20 40 MG Acetaminophen (Tylenol Tab) 650 mg Q4H PRN PO 01/31/17 16:00 03/02/17 15:59 02/01/17 17:19 650 MG Nitroglycerin (Nitrostat Tab) 0.4 mg UD PRN SL 01/31/17 16:00 03/02/17 15:59 Aspirin (Ecotrin Tab) 81 mg QAM PO 02/01/17 09:00 03/03/17 08:59 02/05/17 09:23 81 MG Cephalexin Monohydrate (Keflex Cap) 250 mg BID PO 01/31/17 21:00 02/10/17 20:59 02/05/17 09:24 250 MG Magnesium Chloride (Slow-Mag Tab) 128 mg DAILY PO 02/01/17 09:00 03/03/17 08:59 02/05/17 09:27 128 MG Multivitamins (Multivitamin Tab) 1 tab DAILY PO 02/01/17 09:00 03/03/17 08:59 02/05/17 09:25 1 TAB Potassium Chloride (Klor-Con M10) 10 meq BID PO 01/31/17 21:00 03/02/17 20:59 02/05/17 09:24 10 MEQ Travoprost (Travatan Z) 1 drops HS OPB 01/31/17 21:00 03/02/17 20:59 02/05/17 21:00 1 DROPS Miscellaneous (Iv Fluids Completed) 1 ea PRN PRN N/A 01/31/17 16:30 01/31/18 16:29 Metoprolol Tartrate (Lopressor Iv) 5 mg Q6 PRN IV 01/31/17 17:45 03/02/17 17:44 01/31/17 19:17 5 MG Ondansetron HCl (Zofran Inj) 4 mg Q6H PRN IV 01/31/17 21:15 03/02/17 21:14 02/06/17 06:05 4 MG Letrozole (Femara Tab) 2.5 mg HS PO 02/01/17 21:00 03/03/17 08:59 02/04/17 20:20 2.5 MG Amlodipine Besylate (Norvasc Tab) 5 mg DAILY PO 02/02/17 09:00 03/04/17 08:59 02/05/17 09:26 5 MG Gabapentin (Neurontin Cap) 300 mg BID PO 02/02/17 21:00 03/04/17 20:59 02/05/17 09:26 300 MG Metoclopramide HCl (Reglan Tab) 10 mg Q6 PRN PO 02/02/17 12:15 03/04/17 12:14 02/03/17 02:18 10 MG Ioversol (Optiray 320) 111 ml UD PRN IV 02/02/17 12:15 02/06/17 12:14 Metoclopramide HCl (Reglan Inj) 10 mg Q6H PRN IV 02/02/17 12:30 03/04/17 12:29 02/05/17 03:44 10 MG Docusate Sodium (coLACE CAP) 100 mg BID PO 02/03/17 21:00 03/05/17 20:59 02/05/17 09:23 100 MG Polyethylene (Miralax Powder Packet) 17 gm DAILY PRN PO 02/03/17 12:45 03/05/17 12:44 02/04/17 11:41 17 GM Tramadol HCl (Ultram Tab) 50 mg Q4H PRN PO 02/03/17 17:30 03/05/17 17:29 02/06/17 06:06 50 MG Calcium Carbonate (oS-Anatoly 500 TAB) 1,250 mg QAM PO 02/05/17 10:00 03/07/17 09:59 02/05/17 11:22 1,250 MG Non-Formulary Medication 1 ea 1 ea Q2D@2100 PO 02/05/17 21:00 03/07/17 20:59 Promethazine HCl 12.5 mg/Sodium Chloride 50.5 ml @ 204 mls/hr Q6H PRN IV 02/05/17 21:00 03/07/17 20:59 Acetaminophen 650 mg/Empty Bag 65 ml @ 260 mls/hr Q6H PRN IV 02/05/17 23:30 03/07/17 23:29 02/06/17 00:40 260 MLS/HR Acyclovir Sodium/ Dextrose (Zovirax Inj/D5 100ml) 109 ml @ 100 mls/hr Q8H IV 02/06/17 00:00 02/11/17 23:59 02/06/17 01:03 100 MLS/HR Last 24 Hours Test 02/05/17 10:45 02/05/17 16:47 02/06/17 05:38 Urine Osmolality 254 mOms/kg Urine Random Sodium 79 mEq/L Sodium Level 126 mmol/L 129 mmol/L Potassium Level 4.0 mmol/L 3.9 mmol/L Chloride Level 89 mmol/L 91 mmol/L Carbon Dioxide Level 30 mmol/L 29 mmol/L Anion Gap 7.0 mmol/L 9.0 mmol/L Blood Urea Nitrogen 7 mg/dl 8 mg/dl Creatinine 0.42 mg/dl 0.51 mg/dl Est Creatinine Clear Calc Drug Dose 82.4 ml/min 65.9 ml/min Estimated GFR () 109.9 103.1 Estimated GFR (Non- 94.8 88.9 BUN/Creatinine Ratio 17.3 15.7 Random Glucose 99 mg/dl 94 mg/dl Calcium Level 8.5 mg/dl 8.0 mg/dl White Blood Count 2.90 K/uL Red Blood Count 3.30 M/uL Hemoglobin 12.1 g/dL Hematocrit 33.8 % Mean Corpuscular Volume 102.4 fL Mean Corpuscular Hemoglobin 36.7 pg Mean Corpuscular Hemoglobin Concent 35.8 g/dl RDW Standard Deviation 50.9 fL RDW Coefficient of Variation 13.4 % Platelet Count 219 K/uL Mean Platelet Volume 8.7 fL Assessment & Plan 81 y/o F w/ metastatic BRCA, significant pain and N w/ shingles and w/ hyponatremia > initial hx most c/w volume depletion but she has behaved clinically more like euvolemic than vol depleted hyponatremia, more SIADH-like, since sNa fluctuates between 130>125 approximately w/ fluid restriction alone; trial as of 02/05 of low dose daily lasix -cont fluid restriction of 1500 mL -cont to recheck sodium levels twice daily w/ BMP and maintain K near 4 (on K suppls) <> orders in -ensure protein supplement pls at least daily <> avoid low solute diet -trial of daily po lasix 20 mg ->>>control pain w/ new shingles dx >>>control N Appreciate consultation; will follow with you.
--- NOTE | 2017-02-06 15:54 | Progress Note ---
Internal Med Progress Note Date of Service: February 06, 2017. Provider Documentation: SUBJECTIVE: was nauseous last night but ok now moved bowels pain is getting better feeling better OBJECTIVE: Vital Signs-as noted below Exam: General-alert and awake and oriented x 3 ENT-normal hearing Neck-no neck masses Lungs-cta b/l no wheezing or crackles Heart-s1 and s2 heard regular rate and rhythm no murmurs Abdomen-soft bowel sounds present non tender no distension Extremities- LUE edema present no erythema Skin vesicular erythematous rash on the left upper back Neuro-alert and awake oriented x 3 moves extremities Lab data as noted below. ASSESSMENT & PLAN: Patient initially came to ED with c/o atypical chest pain radiating to left arm , shoulder, upper back x 3 days. Ruled out acute [place]. Pain very atypical for cardiac etiology. As severe pain persisted, patient continued to stay in hospital. Developed nausea with 2 episodes of vomiting next day, unclear etiology. Symptoms improved, but sodium levels gradually dropped as low as 125. Developed a rash on left upper/middle back. Need to monitor Na levels, rash, pain mx. ACUTE HYPONATREMIA : initially received fluids and NA levels further dropped siadh mostly from pain and n/v nephrology on board started on fluid restriction 1500ml/day Improved to 129 today Lasix 20mg daily as per nephrology f/u labs LEFT SIDED CHEST PAIN, ATYPICAL : Patient presented with constant chest pain x 3 days, left sided, radiating to armpit, upper arm, shoulder and upper back. 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 No obstruction. on PPI improving' will monitor ELEVATED BP : BP was 215/99 in ED (very anxious +)--> down to 160s after IV Labetalol --> Still high but fluctuated as persistent pain started grady amlodipine will monitor. HX BREAST CANCER , METASTATIC on Ibrance and Femara - CT scan abd/pelvis- Lung, liver, bone - unchanged from prior admission. Patient aware about these results from past scans. 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 Dulcolax prn ordered lactulose today if no bowel movement will plan for enema tomorrow DVT PROPHYLAXIS SQ Lovenox CODE STATUS Patient is a DNR DISPO possible d/c in couple of days if stable pt/ot social service for d/c planning Vital Signs: Date Time Temp Pulse Resp B/P Pulse Ox O2 Delivery O2 Flow Rate FiO2 02/06/17 14:56 36.8 80 16 104/64 96 Room Air 02/06/17 11:31 36.6 76 16 110/64 96 Room Air 02/06/17 09:13 Room Air 02/06/17 07:34 36.7 77 16 120/68 94 Room Air 02/06/17 03:43 36.5 86 16 106/67 95 Room Air 02/06/17 01:32 36.9 02/06/17 00:00 Room Air 02/05/17 23:41 38.2 90 16 119/68 94 Room Air 02/05/17 20:00 Room Air 02/05/17 19:33 37.6 89 16 120/74 93 Room Air 02/05/17 16:13 36.9 91 16 149/74 94 Room Air 02/05/17 16:00 Room Air Lab Results: Results Past 24 Hours Test 02/05/17 16:47 02/06/17 05:38 02/06/17 12:45 Range/Units Sodium Level 126 129 136-145 mmol/L Potassium Level 4.0 3.9 3.5-5.1 mmol/L Chloride Level 89 91 98-107 mmol/L Carbon Dioxide Level 30 29 21-32 mmol/L Anion Gap 7.0 9.0 3-11 mmol/L Blood Urea Nitrogen 7 8 7-18 mg/dl Creatinine 0.42 0.51 0.60-1.20 mg/dl Est Creatinine Clear Calc Drug Dose 82.4 65.9 ml/min Estimated GFR () 109.9 103.1 Estimated GFR (Non- 94.8 88.9 BUN/Creatinine Ratio 17.3 15.7 10-20 Random Glucose 99 94 70-99 mg/dl Calcium Level 8.5 8.0 8.5-10.1 mg/dl White Blood Count 2.90 4.8-10.8 K/uL Red Blood Count 3.30 4.2-5.4 M/uL Hemoglobin 12.1 12.0-16.0 g/dL Hematocrit 33.8 37-47 % Mean Corpuscular Volume 102.4 80-100 fL Mean Corpuscular Hemoglobin 36.7 25-34 pg Mean Corpuscular Hemoglobin Concent 35.8 32-36 g/dl RDW Standard Deviation 50.9 36.4-46.3 fL RDW Coefficient of Variation 13.4 11.5-14.5 % Platelet Count 219 130-400 K/uL Mean Platelet Volume 8.7 7.4-10.4 fL Urine Osmolality 467 500-800 mOms/kg Urine Random Sodium 8 mEq/L
[2017-02-06] MEDS: ACYCLOVIR 400 MG TAB PO SCH ×2 (17:16→22:31)
[2017-02-06 17:20] LABS: BUN/CREATININE RATIO 21.4 (10-20); CALCIUM 8.3 mg/dl (8.5-10.1); CREATININE 0.6 mg/dl (0.60-1.20)
[2017-02-06] MEDS: SODIUM CHLORIDE 0.9% 1000ML 1,000 ML IV SCH (19:28)
[2017-02-06] MEDS: TRAVOPROST Z 0.004% OPH SOLN 2.5 ML BTL OPB SCH (21:11)
[2017-02-06] MEDS: ENOXAPARIN 40 MG/0.4 ML SYR SC SCH (21:12)
[2017-02-06] MEDS: LETROZOLE 2.5 MG TAB PO SCH (21:12)
[2017-02-07] VITALS (8 sets, daily range): BP systolic 117–137; BP diastolic 65–75; PULSE 70–77; TEMP 36.3–37; O2SAT 90–99
[2017-02-07] MEDS: TRAMADOL HCL 50 MG TAB PO PRN ×3 (03:49→20:49)
[2017-02-07] MEDS: ACYCLOVIR 400 MG TAB PO SCH ×5 (06:29→22:31)
[2017-02-07 06:47] LABS: BUN/CREATININE RATIO 16.1 (10-20); CALCIUM 7.5 mg/dl (8.5-10.1); CREATININE 0.7 mg/dl (0.60-1.20); POTASSIUM 4.1 mmol/L (3.5-5.1)
[2017-02-07] MEDS: AMLODIPINE BESYLATE 5 MG TAB PO SCH (07:41)
[2017-02-07] MEDS: POTASSIUM CHLORIDE 10 MEQ TABCR PO SCH ×2 (07:41→20:37)
[2017-02-07] MEDS: MAGNESIUM CHLORIDE 64MG DELAYED REL TAB PO SCH (07:41)
[2017-02-07] MEDS: GABAPENTIN 300 MG CAP PO SCH ×2 (07:41→20:37)
[2017-02-07] MEDS: DOCUSATE SODIUM 100 MG CAP PO SCH ×2 (07:41→20:36)
[2017-02-07] MEDS: ASPIRIN 81 MG ECTAB PO SCH (07:41)
[2017-02-07] MEDS: MULTIVITAMIN TAB PO SCH (07:41)
[2017-02-07] MEDS: CALCIUM CARBONATE 1250MG TAB PO SCH (07:41)
[2017-02-07] MEDS ORDERED: FUROSEMIDE 20 MG TAB PO SCH (08:00)
[2017-02-07] MEDS: CEPHALEXIN MONOHYDRATE 250 MG CAP PO SCH ×2 (08:00→20:36)
[2017-02-07] MEDS: SODIUM CHLORIDE 0.9% 1000ML 1,000 ML IV SCH ×2 (08:05→20:43)
--- NOTE | 2017-02-07 10:11 | Nephrology Progress Note ---
Nephrology Progress Note Date of Service: February 07, 2017. Subjective I/O even yesterday; 1.3kg heavier past 24 hrs; feels much improved and ate full/ large breakfast today, walking, no N; pain controlled; no dyspnea or voiding difficulties. Objective Date Time Temp Pulse Resp B/P Pulse Ox O2 Delivery O2 Flow Rate FiO2 02/07/17 07:32 37.0 74 16 120/65 90 Room Air 02/07/17 05:03 36.7 76 20 117/71 96 Room Air 02/07/17 00:07 36.9 77 20 127/75 94 Room Air 02/07/17 00:01 Room Air 02/06/17 19:45 36.8 81 16 108/64 94 Room Air 02/06/17 16:00 96 Room Air 02/06/17 14:56 36.8 80 16 104/64 96 Room Air 02/06/17 11:31 36.6 76 16 110/64 96 Room Air 02/06/17 09:13 Room Air Physical Exam: GENERAL: Awake, alert, and oriented x3. sitting on side of bed on RA EYES: No scleral icterus. ENT: Moist mucous membranes. NECK: Supple. PULMONARY: Clear to auscultation but very diminished air entry CARDIAC: Regular rate and rhythm. ABDOMEN: Bowel sounds positive. Soft and nontender. no ge EXTREMITIES: No significant clubbing, cyanosis or edema. NEUROLOGICALLY: [place], fluent speech DERMATOLOGIC: raised pink non tender w/ more crusting vesicles well demarcated patch between shoulder blades on L post thorax Current Inpatient Medications Medications (Trade) Dose Ordered Sig/Chani Route Start Time Stop Time Status Last Admin Dose Admin Enoxaparin Sodium (Lovenox Inj) 40 mg Q24H SC 01/31/17 21:00 03/02/17 20:59 02/06/17 21:12 40 MG Acetaminophen (Tylenol Tab) 650 mg Q4H PRN PO 01/31/17 16:00 03/02/17 15:59 02/01/17 17:19 650 MG Nitroglycerin (Nitrostat Tab) 0.4 mg UD PRN SL 01/31/17 16:00 03/02/17 15:59 Aspirin (Ecotrin Tab) 81 mg QAM PO 02/01/17 09:00 03/03/17 08:59 02/07/17 07:41 81 MG Cephalexin Monohydrate (Keflex Cap) 250 mg BID PO 01/31/17 21:00 02/10/17 20:59 02/07/17 08:00 250 MG Magnesium Chloride (Slow-Mag Tab) 128 mg DAILY PO 02/01/17 09:00 03/03/17 08:59 02/07/17 07:41 128 MG Multivitamins (Multivitamin Tab) 1 tab DAILY PO 02/01/17 09:00 03/03/17 08:59 02/07/17 07:41 1 TAB Potassium Chloride (Klor-Con M10) 10 meq BID PO 01/31/17 21:00 03/02/17 20:59 02/07/17 07:41 10 MEQ Travoprost (Travatan Z) 1 drops HS OPB 01/31/17 21:00 03/02/17 20:59 02/06/17 21:11 1 DROPS Miscellaneous (Iv Fluids Completed) 1 ea PRN PRN N/A 01/31/17 16:30 01/31/18 16:29 Metoprolol Tartrate (Lopressor Iv) 5 mg Q6 PRN IV 01/31/17 17:45 03/02/17 17:44 01/31/17 19:17 5 MG Ondansetron HCl (Zofran Inj) 4 mg Q6H PRN IV 01/31/17 21:15 03/02/17 21:14 02/06/17 06:05 4 MG Letrozole (Femara Tab) 2.5 mg HS PO 02/01/17 21:00 03/03/17 08:59 02/06/17 21:12 2.5 MG Amlodipine Besylate (Norvasc Tab) 5 mg DAILY PO 02/02/17 09:00 03/04/17 08:59 02/07/17 07:41 5 MG Gabapentin (Neurontin Cap) 300 mg BID PO 02/02/17 21:00 03/04/17 20:59 02/07/17 07:41 300 MG Metoclopramide HCl (Reglan Tab) 10 mg Q6 PRN PO 02/02/17 12:15 03/04/17 12:14 02/06/17 08:49 10 MG Metoclopramide HCl (Reglan Inj) 10 mg Q6H PRN IV 02/02/17 12:30 03/04/17 12:29 02/05/17 03:44 10 MG Docusate Sodium (coLACE CAP) 100 mg BID PO 02/03/17 21:00 03/05/17 20:59 02/07/17 07:41 100 MG Polyethylene (Miralax Powder Packet) 17 gm DAILY PRN PO 02/03/17 12:45 03/05/17 12:44 02/04/17 11:41 17 GM Tramadol HCl (Ultram Tab) 50 mg Q4H PRN PO 02/03/17 17:30 03/05/17 17:29 02/07/17 03:49 50 MG Calcium Carbonate (oS-Anatoly 500 TAB) 1,250 mg QAM PO 02/05/17 10:00 03/07/17 09:59 02/07/17 07:41 1,250 MG Non-Formulary Medication 1 ea 1 ea Q2D@2100 PO 02/05/17 21:00 03/07/17 20:59 Promethazine HCl 12.5 mg/Sodium Chloride 50.5 ml @ 204 mls/hr Q6H PRN IV 02/05/17 21:00 03/07/17 20:59 Acetaminophen/ Empty Bag (Ofirmev Iv/ Empty Iv Bag 100ml) 65 ml @ 260 mls/hr Q6H PRN IV 02/05/17 23:30 03/07/17 23:29 02/06/17 00:40 260 MLS/HR Acyclovir 800 mg 800 mg 5XDQ4H PO 02/06/17 19:00 02/16/17 18:59 02/07/17 06:29 800 MG Sodium Chloride (Nss 1000ml) 1,000 ml @ 75 mls/hr [id number] IV 02/06/17 19:00 03/08/17 18:59 02/07/17 08:05 75 MLS/HR Last 24 Hours Test 02/06/17 12:45 02/06/17 16:43 02/07/17 05:38 Urine Osmolality 467 mOms/kg Urine Random Sodium 8 mEq/L Sodium Level 126 mmol/L 129 mmol/L Potassium Level 4.0 mmol/L 4.1 mmol/L Chloride Level 90 mmol/L 94 mmol/L Carbon Dioxide Level 30 mmol/L 28 mmol/L Anion Gap 6.0 mmol/L 7.0 mmol/L Blood Urea Nitrogen 13 mg/dl 11 mg/dl Creatinine 0.60 mg/dl 0.70 mg/dl Est Creatinine Clear Calc Drug Dose 56.0 ml/min 48.0 ml/min Estimated GFR () 97.7 92.9 Estimated GFR (Non- 84.3 80.1 BUN/Creatinine Ratio 21.4 16.1 Random Glucose 91 mg/dl 90 mg/dl Calcium Level 8.3 mg/dl 7.5 mg/dl Assessment & Plan 81 y/o F w/ metastatic BRCA, significant pain and N w/ shingles and w/ hyponatremia > initial hx most c/w volume depletion but she has behaved clinically more like euvolemic than vol depleted hyponatremia, more SIADH-like, since sNa fluctuates between 130>125 approximately w/ fluid restriction alone; trial as of 02/05 of low dose daily lasix and sodium immediately dropped >based on labs yesterday including blood/urine studies and PM values of Na, stopped lasix and started NS at 75 mL hourly; will cont to follow -cont po fluid restriction of 1500 mL; eat ad sumi -cont to recheck sodium levels twice daily w/ BMP and maintain K near 4 (on K suppls) <> orders in -ensure protein supplement pls at least daily <> avoid low solute diet; doing better on this -lasix on hold for now ->>>control pain w/ shingles dx >>>control N Appreciate consultation; will follow with you.
[2017-02-07 17:11] LABS: BUN/CREATININE RATIO 23.3 (10-20); CALCIUM 7.8 mg/dl (8.5-10.1); CREATININE 0.46 mg/dl (0.60-1.20); POTASSIUM 4.1 mmol/L (3.5-5.1)
--- NOTE | 2017-02-07 18:05 | Progress Note ---
Internal Med Progress Note Date of Service: February 07, 2017. Provider Documentation: SUBJECTIVE: nausea is better pain is better eating better no fevers wants to go home tomorrow OBJECTIVE: Vital Signs-as noted below Exam: General-alert and awake and oriented x 3 ENT-normal hearing Neck-no neck masses Lungs-cta b/l no wheezing or crackles Heart-s1 and s2 heard regular rate and rhythm no murmurs Abdomen-soft bowel sounds present non tender no distension Extremities- LUE edema present no erythema Skin vesicular erythematous rash on the left upper back-improving Neuro-alert and awake oriented x 3 moves extremities Lab data as noted below. ASSESSMENT & PLAN: Patient initially came to ED with c/o atypical chest pain radiating to left arm , shoulder, upper back x 3 days. Ruled out acute [place]. Pain very atypical for cardiac etiology. As severe pain persisted, patient continued to stay in hospital. Developed nausea with 2 episodes of vomiting next day, unclear etiology. Symptoms improved, but sodium levels gradually dropped as low as 125. Developed a rash on left upper/middle back. Need to monitor Na levels, rash, pain mx. ACUTE HYPONATREMIA : initially received fluids and NA levels further dropped siadh mostly from pain and n/v nephrology on board started on fluid restriction 1500ml/day Improved to 130today management as per nephrology f/u labs LEFT SIDED CHEST PAIN, ATYPICAL : Patient presented with constant chest pain x 3 days, left sided, radiating to armpit, upper arm, shoulder and upper back. 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 No obstruction. on PPI improving' will monitor ELEVATED BP : BP was 215/99 in ED (very anxious +)--> down to 160s after IV Labetalol --> Still high but fluctuated as persistent pain started grady amlodipine will monitor. HX BREAST CANCER , METASTATIC on Ibrance and Femara - CT scan abd/pelvis- Lung, liver, bone - unchanged from prior admission. Patient aware about these results from past scans. 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 Dulcolax prn ordered lactulose today if no bowel movement will plan for enema tomorrow DVT PROPHYLAXIS SQ Lovenox CODE STATUS Patient is a DNR DISPO possible d/c in am pt/ot social service for d/c planning Vital Signs: Date Time Temp Pulse Resp B/P Pulse Ox O2 Delivery O2 Flow Rate FiO2 02/07/17 16:00 98 Room Air 02/07/17 15:15 36.5 70 16 126/74 99 Room Air 02/07/17 11:29 36.4 76 16 119/68 98 Room Air 02/07/17 08:00 Room Air 02/07/17 07:32 37.0 74 16 120/65 90 Room Air 02/07/17 05:03 36.7 76 20 117/71 96 Room Air 02/07/17 00:07 36.9 77 20 127/75 94 Room Air 02/07/17 00:01 Room Air 02/06/17 19:45 36.8 81 16 108/64 94 Room Air Lab Results: Results Past 24 Hours Test 02/07/17 05:38 02/07/17 11:13 02/07/17 16:35 Range/Units Sodium Level 129 130 136-145 mmol/L Potassium Level 4.1 4.1 3.5-5.1 mmol/L Chloride Level 94 95 98-107 mmol/L Carbon Dioxide Level 28 29 21-32 mmol/L Anion Gap 7.0 6.0 3-11 mmol/L Blood Urea Nitrogen 11 11 7-18 mg/dl Creatinine 0.70 0.46 0.60-1.20 mg/dl Est Creatinine Clear Calc Drug Dose 48.0 73.8 ml/min Estimated GFR () 92.9 106.6 Estimated GFR (Non- 80.1 92.0 BUN/Creatinine Ratio 16.1 23.3 10-20 Random Glucose 90 97 70-99 mg/dl Calcium Level 7.5 7.8 8.5-10.1 mg/dl Urine Osmolality 484 500-800 mOms/kg Urine Random Sodium 19 mEq/L
[2017-02-07] MEDS: TRAVOPROST Z 0.004% OPH SOLN 2.5 ML BTL OPB SCH (20:38)
[2017-02-07] MEDS: LETROZOLE 2.5 MG TAB PO SCH (20:39)
[2017-02-07] MEDS: ENOXAPARIN 40 MG/0.4 ML SYR SC SCH (20:41)
[2017-02-07] MEDS: IBRANCE 100 MG PO SCH (20:41)
[2017-02-08] MEDS: TRAMADOL HCL 50 MG TAB PO PRN ×2 (02:41→23:34)
[2017-02-08 04:43] VITALS: BP 129/64; PULSE 70; TEMP 36.8; O2SAT 94
[2017-02-08] MEDS: ACYCLOVIR 400 MG TAB PO SCH ×5 (06:14→23:28)
[2017-02-08 06:50] LABS: BUN/CREATININE RATIO 22.5 (10-20); CALCIUM 7.6 mg/dl (8.5-10.1); CREATININE 0.34 mg/dl (0.60-1.20); POTASSIUM 4.1 mmol/L (3.5-5.1)
[2017-02-08 07:43] VITALS: BP 132/70; PULSE 67; TEMP 36.9; O2SAT 95
[2017-02-08] MEDS ORDERED: COUGH DROP (SUGAR FREE) LOZ 24 LOZ/1 BOX ONE (07:47)
[2017-02-08] MEDS: AMLODIPINE BESYLATE 5 MG TAB PO SCH (07:49)
[2017-02-08] MEDS: CALCIUM CARBONATE 1250MG TAB PO SCH (07:49)
[2017-02-08] MEDS: DOCUSATE SODIUM 100 MG CAP PO SCH ×2 (07:49→20:03)
[2017-02-08] MEDS: ASPIRIN 81 MG ECTAB PO SCH (07:49)
[2017-02-08] MEDS: POTASSIUM CHLORIDE 10 MEQ TABCR PO SCH ×2 (07:50→20:04)
[2017-02-08] MEDS: CEPHALEXIN MONOHYDRATE 250 MG CAP PO SCH ×2 (07:50→20:04)
[2017-02-08] MEDS: MAGNESIUM CHLORIDE 64MG DELAYED REL TAB PO SCH (07:50)
[2017-02-08] MEDS: MULTIVITAMIN TAB PO SCH (07:50)
[2017-02-08] MEDS: GABAPENTIN 300 MG CAP PO SCH ×2 (07:50→20:04)
[2017-02-08 11:07] VITALS: BP 124/61; PULSE 70; TEMP 36.4; O2SAT 97
--- NOTE | 2017-02-08 13:07 | Nephrology Progress Note ---
Nephrology Progress Note Date of Service: February 08, 2017. Subjective cont to feel much improved and ate again full/large breakfast/lunch today, walking, no N; pain controlled; no dyspnea or voiding difficulties. ongoing constipation; hoping for d/c soon Objective Date Time Temp Pulse Resp B/P Pulse Ox O2 Delivery O2 Flow Rate FiO2 02/08/17 08:00 Room Air 02/08/17 07:43 36.9 67 16 132/70 95 Room Air 02/08/17 04:43 36.8 70 20 129/64 94 Room Air 02/08/17 00:00 Room Air 02/07/17 23:24 36.8 73 18 119/67 94 Room Air 02/07/17 19:28 36.3 76 16 137/68 99 Room Air 02/07/17 16:00 98 Room Air 02/07/17 15:15 36.5 70 16 126/74 99 Room Air 02/07/17 11:29 36.4 76 16 119/68 98 Room Air Physical Exam: GENERAL: Awake, alert, and oriented x3. sitting up in chair finishing lunch on RA EYES: No scleral icterus. ENT: Moist mucous membranes. NECK: Supple. PULMONARY: Clear to auscultation but very diminished air entry CARDIAC: Regular rate and rhythm. ABDOMEN: Bowel sounds positive. Soft and nontender. no ge EXTREMITIES: No significant clubbing, cyanosis or edema. NEUROLOGICALLY: [place], fluent speech DERMATOLOGIC: raised pink non tender w/ more crusting vesicles well demarcated patch between shoulder blades on L post thorax Current Inpatient Medications Medications (Trade) Dose Ordered Sig/Chani Route Start Time Stop Time Status Last Admin Dose Admin Enoxaparin Sodium (Lovenox Inj) 40 mg Q24H SC 01/31/17 21:00 03/02/17 20:59 02/07/17 20:41 40 MG Acetaminophen (Tylenol Tab) 650 mg Q4H PRN PO 01/31/17 16:00 03/02/17 15:59 02/01/17 17:19 650 MG Nitroglycerin (Nitrostat Tab) 0.4 mg UD PRN SL 01/31/17 16:00 03/02/17 15:59 Aspirin (Ecotrin Tab) 81 mg QAM PO 02/01/17 09:00 03/03/17 08:59 02/08/17 07:49 81 MG Cephalexin Monohydrate (Keflex Cap) 250 mg BID PO 01/31/17 21:00 02/10/17 20:59 02/08/17 07:50 250 MG Magnesium Chloride (Slow-Mag Tab) 128 mg DAILY PO 02/01/17 09:00 03/03/17 08:59 02/08/17 07:50 128 MG Multivitamins (Multivitamin Tab) 1 tab DAILY PO 02/01/17 09:00 03/03/17 08:59 02/08/17 07:50 1 TAB Potassium Chloride (Klor-Con M10) 10 meq BID PO 01/31/17 21:00 03/02/17 20:59 02/08/17 07:50 10 MEQ Travoprost (Travatan Z) 1 drops HS OPB 01/31/17 21:00 03/02/17 20:59 02/07/17 20:38 1 DROPS Miscellaneous (Iv Fluids Completed) 1 ea PRN PRN N/A 01/31/17 16:30 01/31/18 16:29 Metoprolol Tartrate (Lopressor Iv) 5 mg Q6 PRN IV 01/31/17 17:45 03/02/17 17:44 01/31/17 19:17 5 MG Ondansetron HCl (Zofran Inj) 4 mg Q6H PRN IV 01/31/17 21:15 03/02/17 21:14 02/06/17 06:05 4 MG Letrozole (Femara Tab) 2.5 mg HS PO 02/01/17 21:00 03/03/17 08:59 02/07/17 20:39 2.5 MG Amlodipine Besylate (Norvasc Tab) 5 mg DAILY PO 02/02/17 09:00 03/04/17 08:59 02/08/17 07:49 5 MG Gabapentin (Neurontin Cap) 300 mg BID PO 02/02/17 21:00 03/04/17 20:59 02/08/17 07:50 300 MG Metoclopramide HCl (Reglan Tab) 10 mg Q6 PRN PO 02/02/17 12:15 03/04/17 12:14 02/06/17 08:49 10 MG Metoclopramide HCl (Reglan Inj) 10 mg Q6H PRN IV 02/02/17 12:30 03/04/17 12:29 02/05/17 03:44 10 MG Docusate Sodium (coLACE CAP) 100 mg BID PO 02/03/17 21:00 03/05/17 20:59 02/08/17 07:49 100 MG Polyethylene (Miralax Powder Packet) 17 gm DAILY PRN PO 02/03/17 12:45 03/05/17 12:44 02/04/17 11:41 17 GM Tramadol HCl (Ultram Tab) 50 mg Q4H PRN PO 02/03/17 17:30 03/05/17 17:29 02/08/17 02:41 50 MG Calcium Carbonate (oS-Anatoly 500 TAB) 1,250 mg QAM PO 02/05/17 10:00 03/07/17 09:59 02/08/17 07:49 1,250 MG Non-Formulary Medication 1 ea 1 ea Q2D@2100 PO 02/05/17 21:00 03/07/17 20:59 02/07/17 20:41 1 EA Promethazine HCl 12.5 mg/Sodium Chloride 50.5 ml @ 204 mls/hr Q6H PRN IV 02/05/17 21:00 03/07/17 20:59 Acetaminophen/ Empty Bag (Ofirmev Iv/ Empty Iv Bag 100ml) 65 ml @ 260 mls/hr Q6H PRN IV 02/05/17 23:30 03/07/17 23:29 02/06/17 00:40 260 MLS/HR Acyclovir (Zovirax Tab) 800 mg 5XDQ4H PO 02/06/17 19:00 02/16/17 18:59 02/08/17 06:14 800 MG Last 24 Hours Test 02/07/17 11:13 02/07/17 16:35 02/08/17 01:50 02/08/17 06:00 Urine Osmolality 484 mOms/kg 317 mOms/kg Urine Random Sodium 19 mEq/L 66 mEq/L Sodium Level 130 mmol/L 131 mmol/L Potassium Level 4.1 mmol/L 4.1 mmol/L Chloride Level 95 mmol/L 98 mmol/L Carbon Dioxide Level 29 mmol/L 30 mmol/L Anion Gap 6.0 mmol/L 3.0 mmol/L Blood Urea Nitrogen 11 mg/dl 8 mg/dl Creatinine 0.46 mg/dl 0.34 mg/dl Est Creatinine Clear Calc Drug Dose 73.8 ml/min 100.9 ml/min Estimated GFR () 106.6 117.8 Estimated GFR (Non- 92.0 101.6 BUN/Creatinine Ratio 23.3 22.5 Random Glucose 97 mg/dl 84 mg/dl Calcium Level 7.8 mg/dl 7.6 mg/dl Assessment & Plan 81 y/o F w/ metastatic BRCA, significant pain and N w/ shingles and w/ hyponatremia > initial hx most c/w volume depletion but she has behaved clinically more like euvolemic than vol depleted hyponatremia, more SIADH-like, since sNa fluctuates between 130>125 approximately w/ fluid restriction alone; trial as of 02/05 of low dose daily lasix and sodium immediately dropped >sNa for now stabilized at 131 on NS; urine studies indicate she will start to drop soon if we cont NS and I stopped it -cont po fluid restriction of 1500 mL; eat ad sumi -cont to recheck sodium levels twice daily w/ BMP and maintain K near 4 (on K suppls) <> orders in -cont daily urine studies -ensure protein supplement pls at least daily <> avoid low solute diet; doing better on this -lasix on hold for now ->>>control pain w/ shingles dx >>>control N -ideally would have at least 24-36 hrs stable sodium (even if in 130 range) before d/c but defer to primary service on this Appreciate consultation; will follow with you.
[2017-02-08 14:52] VITALS: BP 124/66; PULSE 72; TEMP 36.4; O2SAT 96
[2017-02-08 17:04] LABS: BUN/CREATININE RATIO 17.5 (10-20); CALCIUM 8.4 mg/dl (8.5-10.1); CREATININE 0.4 mg/dl (0.60-1.20); POTASSIUM 4.3 mmol/L (3.5-5.1)
--- NOTE | 2017-02-08 17:46 | Progress Note ---
Internal Med Progress Note Date of Service: February 08, 2017. Provider Documentation: SUBJECTIVE: ambulating fine moving bowels ok eating fine no nausea pain is better OBJECTIVE: Vital Signs-as noted below Exam: General-alert and awake and oriented x 3 ENT-normal hearing Neck-no neck masses Lungs-cta b/l no wheezing or crackles Heart-s1 and s2 heard regular rate and rhythm no murmurs Abdomen-soft bowel sounds present non tender no distension Extremities- LUE edema present no erythema Skin vesicular erythematous rash on the left upper back-improving Neuro-alert and awake oriented x 3 moves extremities Lab data as noted below. ASSESSMENT & PLAN: Patient initially came to ED with c/o atypical chest pain radiating to left arm , shoulder, upper back x 3 days. Ruled out acute [place]. Pain very atypical for cardiac etiology. As severe pain persisted, patient continued to stay in hospital. Developed nausea with 2 episodes of vomiting next day, unclear etiology. Symptoms improved, but sodium levels gradually dropped as low as 125. Developed a rash on left upper/middle back. Need to monitor Na levels, rash, pain mx. ACUTE HYPONATREMIA : initially received fluids and NA levels further dropped siadh mostly from pain and n/v nephrology on board started on fluid restriction 1500ml/day Improved to 131today management as per nephrology will d/c in am if na stable in am monitor labs in am LEFT SIDED CHEST PAIN, ATYPICAL : Patient presented with constant chest pain x 3 days, left sided, radiating to armpit, upper arm, shoulder and upper back. 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 No obstruction. on PPI improving' will monitor ELEVATED BP : BP was 215/99 in ED (very anxious +)--> down to 160s after IV Labetalol --> Still high but fluctuated as persistent pain started grady amlodipine stable will monitor. HX BREAST CANCER , METASTATIC on Ibrance and Femara - CT scan abd/pelvis- Lung, liver, bone - unchanged from prior admission. Patient aware about these results from past scans. 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 Dulcolax prn ordered lactulose today if no bowel movement will plan for enema tomorrow DVT PROPHYLAXIS SQ Lovenox CODE STATUS Patient is a DNR DISPO possible d/c in am pt/ot social service for d/c planning Vital Signs: Date Time Temp Pulse Resp B/P Pulse Ox O2 Delivery O2 Flow Rate FiO2 02/08/17 14:52 36.4 72 16 124/66 96 Room Air 02/08/17 11:07 36.4 70 16 124/61 97 Room Air 02/08/17 08:00 Room Air 02/08/17 07:43 36.9 67 16 132/70 95 Room Air 02/08/17 04:43 36.8 70 20 129/64 94 Room Air 02/08/17 00:00 Room Air 02/07/17 23:24 36.8 73 18 119/67 94 Room Air 02/07/17 19:28 36.3 76 16 137/68 99 Room Air Lab Results: Results Past 24 Hours Test 02/08/17 01:50 02/08/17 06:00 02/08/17 12:00 02/08/17 16:30 Range/Units Urine Osmolality 317 342 500-800 mOms/kg Urine Random Sodium 66 61 mEq/L Sodium Level 131 131 136-145 mmol/L Potassium Level 4.1 4.3 3.5-5.1 mmol/L Chloride Level 98 96 98-107 mmol/L Carbon Dioxide Level 30 30 21-32 mmol/L Anion Gap 3.0 5.0 3-11 mmol/L Blood Urea Nitrogen 8 7 7-18 mg/dl Creatinine 0.34 0.40 0.60-1.20 mg/dl Est Creatinine Clear Calc Drug Dose 100.9 85.8 ml/min Estimated GFR () 117.8 111.6 Estimated GFR (Non- 101.6 96.3 BUN/Creatinine Ratio 22.5 17.5 10-20 Random Glucose 84 92 70-99 mg/dl Calcium Level 7.6 8.4 8.5-10.1 mg/dl
[2017-02-08 19:59] VITALS: BP 132/67; PULSE 71; TEMP 36.9; O2SAT 97
[2017-02-08] MEDS: TRAVOPROST Z 0.004% OPH SOLN 2.5 ML BTL OPB SCH (20:04)
[2017-02-08] MEDS: LETROZOLE 2.5 MG TAB PO SCH (20:05)
[2017-02-08] MEDS: ENOXAPARIN 40 MG/0.4 ML SYR SC SCH (20:05)
[2017-02-08 23:20] VITALS: BP 128/74; PULSE 75; TEMP 36.6; O2SAT 97
[2017-02-09 04:14] VITALS: BP 105/62; PULSE 77; TEMP 37.1; O2SAT 92
[2017-02-09 05:50] LABS: HEMATOCRIT 30.3 % (37-47); MEAN CELL VOLUME 103.4 fL (80-100); MEAN CORPUSCULAR HEMOGLOBIN 36.5 pg (25-34); MEAN CORPUSCULAR HGB CONC 35.3 g/dl (32-36); MEAN PLATELET VOLUME 8.6 fL (7.4-10.4); PLATELET COUNT 202 K/uL (130-400); RED BLOOD COUNT 2.93 M/uL (4.2-5.4)
[2017-02-09 06:18] LABS: BUN/CREATININE RATIO 15.8 (10-20); CREATININE 0.48 mg/dl (0.60-1.20)
[2017-02-09] MEDS: ACYCLOVIR 400 MG TAB PO SCH ×2 (06:40→11:09)
[2017-02-09 07:13] VITALS: BP 115/64; PULSE 62; TEMP 36.7; O2SAT 94
[2017-02-09] MEDS: MAGNESIUM CHLORIDE 64MG DELAYED REL TAB PO SCH (09:14)
[2017-02-09] MEDS: CALCIUM CARBONATE 1250MG TAB PO SCH (09:15)
[2017-02-09] MEDS: MULTIVITAMIN TAB PO SCH (09:15)
[2017-02-09] MEDS: CEPHALEXIN MONOHYDRATE 250 MG CAP PO SCH (09:15)
[2017-02-09] MEDS: DOCUSATE SODIUM 100 MG CAP PO SCH (09:15)
[2017-02-09] MEDS: GABAPENTIN 300 MG CAP PO SCH (09:15)
[2017-02-09] MEDS: ASPIRIN 81 MG ECTAB PO SCH (09:15)
[2017-02-09] MEDS: POTASSIUM CHLORIDE 10 MEQ TABCR PO SCH (09:15)
[2017-02-09] MEDS: AMLODIPINE BESYLATE 5 MG TAB PO SCH (09:16)
[2017-02-09 11:12] VITALS: BP 129/65; PULSE 68; TEMP 37; O2SAT 96
[2017-02-09] MEDS ORDERED: NON-FORMULARY MEDICATION SCH ×2 (13:00→13:15)
[2017-02-09] MEDS ORDERED: NRV5 PO (13:03)
[2017-02-09] MEDS ORDERED: ZVR400 PO (13:03)
[2017-02-09] MEDS ORDERED: NRN300 PO (13:03)
[2017-02-09 13:04] VITALS: BP 129/65; PULSE 68; TEMP 37; O2SAT 96
--- NOTE | 2017-02-09 13:10 | Discharge Instructions ---
Discharge Instructions Date of Service February 09, 2017. Admission Reason for Admission: Hyponatremia,Nausea & Vomiting Discharge Discharge Diagnosis / Problem: HYPONATREMIA, SHINGLES Discharge Goals Goal(s): Decrease discomfort, Improve function Activity Recommendations Activity Limitations: resume your previous activity . Instructions / Follow-Up Instructions / Follow-Up FOLLOWUP WITH FAMILY DOCTOR ON February AT 11:05AM LAB: BMP IN 5-7 DAYS AND FOLLOW RESULTS WITH FAMILY DOCTOR. RESTRICT FLUIDS TO 1500ML/DAY. BLOOD PRESSURE FOLLOWUP WITH FAMILY DOCTOR. TAPER OF GABAPENTIN PER FAMILY DOCTOR. Current Hospital Diet Patient's current hospital diet: Regular Diet, AHA Diet (Heart Healthy), N/A Discharge Diet Recommended Diet: AHA Diet (Heart Healthy) Fluid Restriction: 1500 ml (6 cups) Pending Studies Studies pending at discharge: no Laboratory Results Lipid Panel Test 02/01/17 06:15 Range/Units Triglycerides Level 59 0-150 mg/dl Cholesterol Level 208 H 0-200 mg/dl HDL Cholesterol 89 mg/dl Cholesterol/HDL Ratio 2.3 LDL Cholesterol, Calculated 107 mg/dl Medical Emergencies . Who to Call and When: Medical Emergencies: If at any time you feel your situation is an emergency, please call 911 immediately. . Non-Emergent Contact Non-Emergency issues call your: Primary Care Provider . . "Provider Documentation" section prepared by Attila Mane. . VTE Core Measure Inpt VTE Proph given/why not?: Enoxaparin (Lovenox)SQ
[2017-02-09] MEDS ORDERED: ACYCLOVIR 400 MG TAB PO SCH (13:15)
[2017-02-09] MEDS ORDERED: GABAPENTIN 300 MG CAP PO SCH (13:15)
[2017-02-09] MEDS ORDERED: AMLODIPINE BESYLATE 5 MG TAB PO SCH (13:15)
--- NOTE | 2017-02-09 19:13 | Progress Note ---
Internal Med Progress Note Date of Service: February 09, 2017. Provider Documentation: SUBJECTIVE: eating fine ambulating fine pain is much better want to go home OBJECTIVE: Vital Signs-as noted below Exam: General-alert and awake and oriented x 3 ENT-normal hearing Neck-no neck masses Lungs-cta b/l no wheezing or crackles Heart-s1 and s2 heard regular rate and rhythm no murmurs Abdomen-soft bowel sounds present non tender no distension Extremities- LUE edema present no erythema Skin vesicular erythematous rash on the left upper back-improving Neuro-alert and awake oriented x 3 moves extremities Lab data as noted below. ASSESSMENT & PLAN: Patient initially came to ED with c/o atypical chest pain radiating to left arm , shoulder, upper back x 3 days. Ruled out acute [place]. Pain very atypical for cardiac etiology. As severe pain persisted, patient continued to stay in hospital. Developed nausea with 2 episodes of vomiting next day, unclear etiology. Symptoms improved, but sodium levels gradually dropped as low as 125. Developed a rash on left upper/middle back. Need to monitor Na levels, rash, pain mx. ACUTE HYPONATREMIA : initially received fluids and NA levels further dropped siadh mostly from pain and n/v nephrology on board started on fluid restriction 1500ml/day Improved to 133today discharged home to followup labs with pcp LEFT SIDED CHEST PAIN, ATYPICAL : Patient presented with constant chest pain x 3 days, left sided, radiating to armpit, upper arm, shoulder and upper back. 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 No obstruction. on PPI improving' will monitor ELEVATED BP : BP was 215/99 in ED (very anxious +)--> down to 160s after IV Labetalol --> Still high but fluctuated as persistent pain started on amlodipine stable f/u with pcp HX BREAST CANCER , METASTATIC on Ibrance and Femara - CT scan abd/pelvis- Lung, liver, bone - unchanged from prior admission. Patient aware about these results from past scans. 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 Dulcolax prn ordered lactulose today if no bowel movement will plan for enema tomorrow Discharged home Vital Signs: Date Time Temp Pulse Resp B/P Pulse Ox O2 Delivery O2 Flow Rate FiO2 02/09/17 13:04 37.0 68 20 96 Room Air 02/09/17 11:13 Room Air 02/09/17 11:12 37.0 68 20 129/65 96 Room Air 02/09/17 07:13 36.7 62 20 115/64 94 Room Air 02/09/17 04:14 37.1 77 20 105/62 92 Room Air 02/08/17 23:59 Room Air 02/08/17 23:20 36.6 75 18 128/74 97 Room Air 02/08/17 19:59 36.9 71 20 132/67 97 Room Air Lab Results: Results Past 24 Hours Test 02/09/17 05:07 Range/Units White Blood Count 2.00 4.8-10.8 K/uL Red Blood Count 2.93 4.2-5.4 M/uL Hemoglobin 10.7 12.0-16.0 g/dL Hematocrit 30.3 37-47 % Mean Corpuscular Volume 103.4 80-100 fL Mean Corpuscular Hemoglobin 36.5 25-34 pg Mean Corpuscular Hemoglobin Concent 35.3 32-36 g/dl RDW Standard Deviation 49.7 36.4-46.3 fL RDW Coefficient of Variation 13.2 11.5-14.5 % Platelet Count 202 130-400 K/uL Mean Platelet Volume 8.6 7.4-10.4 fL Sodium Level 133 136-145 mmol/L Potassium Level 4.0 3.5-5.1 mmol/L Chloride Level 97 98-107 mmol/L Carbon Dioxide Level 29 21-32 mmol/L Anion Gap 7.0 3-11 mmol/L Blood Urea Nitrogen 8 7-18 mg/dl Creatinine 0.48 0.60-1.20 mg/dl Est Creatinine Clear Calc Drug Dose 70.8 ml/min Estimated GFR () 105.1 Estimated GFR (Non- 90.7 BUN/Creatinine Ratio 15.8 10-20 Random Glucose 89 70-99 mg/dl Calcium Level 8.0 8.5-10.1 mg/dl
--- NOTE | 2017-02-09 19:17 | Discharge Summary ---
Discharge Summary Date of Service February 09, 2017. 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 CT ABD/PELVIS: 1. Gallstones. 2. Nonobstructive bowel pattern. There 3. Basilar nodularity, hepatic hypodensities, as well as sclerotic bony metastatic changes all of which appear unchanged in the prior study. 3. No acute process Consultations: NEPHROLOGY Medication Reconciliation New Medications: Acyclovir (Acyclovir) 400 Mg Tab 800 MG PO 5XDQ4H for 3 Days, TAB Amlodipine Besylate (Amlodipine Besylate) 5 Mg Tab 5 MG PO DAILY for 30 Days, #30 TAB 2 Refills Gabapentin (Gabapentin) 300 Mg Cap 300 MG PO BID, #30 CAP Continued Medications: Cephalexin Monohydrate (Cephalexin) 250 Mg Cap 250 MG PO BID, #180 Letrozole (Femara) 2.5 Mg Tab 2.5 MG PO DAILY, TAB Magnesium Chloride (Slow-Mag Tab) 64 Mg Tabcr 128 MG PO DAILY, TAB Multivitamin (Multivitamin) Tab 1 TAB PO DAILY Oyster Shell (Calcium) 500 Mg Tab 500 MG PO QAM Palbociclib (Ibrance) 100 Mg Cap 100 MG PO Q2D TAKE AT BEDTIME Potassium Chloride (Micro-K Ext Rel) 10 Meq Capcr 10 MEQ PO BID, CAP Travoprost (Travatan Z) 0.004 % Etienne 1 DROPS OPB HS, #2.5 ML 2 Refills Admission Information HPI (per Admitting provider): 81 year old female who presents to the ER with chest pain. Patient reports her pain began about 3 days ago. She reports she initially thought she had indigestion. The pain then progressively got worse. She reports the pain has been constant with periods of worsening of the pain. The pain is located over the left side of her chest and recently started radiating into the left axilla and down the arm and also up into the left shoulder and shoulder blade. Patient reports multiple episodes of worsening of the pain throughout the day. She reports the pain at it's worst is #7/10. The pain is worse with palpation and laying or sitting for an extending period of time. She reports the pain improves with walking. She also says that when she is talking she seems to forget about the pain. Up until a few days ago she feels as though her functional capacity was at baseline. She was tolerating her daily activities without any problem. Last evening she reports associated nausea with the pain. No shortness of breath or diaphoresis. She denies abdominal pain, vomiting, or diarrhea. No fever or chills. She denies urinary symptoms. Patient has chronic lymphedema and recurrent cellulitis to the LUE which she reports is doing well. In the ER, patient's BP was elevated at 215/99. This improved with Labetalol 10mg IV. Initial troponin is negative and EKG does not show any acute ST changes. Physical Exam (per Admitting): General Appearance: no apparent distress Head: normocephalic Eyes: normal inspection ENT: hearing grossly normal Neck: supple, no JVD Respiratory/Chest: lungs clear, normal breath sounds, no respiratory distress, + pertinent finding (left chest wall tender to palpation) Cardiovascular: regular rate, rhythm, no edema, normal peripheral pulses Abdomen/GI: normal bowel sounds, non tender, soft Extremities/Musculoskelatal: + pertinent finding (LUE lymphedema ) Neurologic/Psych: no motor/sensory deficits, alert, normal mood/affect, oriented x 3 Skin: normal color, warm/dry Hospital Course Patient initially came to ED with c/o atypical chest pain radiating to left arm , shoulder, upper back x 3 days. Ruled out acute [place]. Pain very atypical for cardiac etiology. As severe pain persisted, patient continued to stay in hospital. Developed nausea with 2 episodes of vomiting next day, unclear etiology. Symptoms improved, but sodium levels gradually dropped as low as 125. Developed a rash on left upper/middle back. Need to monitor Na levels, rash, pain mx. ACUTE HYPONATREMIA : initially received fluids and NA levels further dropped siadh mostly from pain and n/v nephrology on board started on fluid restriction 1500ml/day Improved to 133today discharged home to followup labs with pcp LEFT SIDED CHEST PAIN, ATYPICAL : Patient presented with constant chest pain x 3 days, left sided, radiating to armpit, upper arm, shoulder and upper back. 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 No obstruction. on PPI improving' will monitor ELEVATED BP : BP was 215/99 in ED (very anxious +)--> down to 160s after IV Labetalol --> Still high but fluctuated as persistent pain started on amlodipine stable f/u with pcp HX BREAST CANCER , METASTATIC on Ibrance and Femara - CT scan abd/pelvis- Lung, liver, bone - unchanged from prior admission. Patient aware about these results from past scans. 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 Dulcolax prn ordered lactulose today if no bowel movement will plan for enema tomorrow Discharged home Total time spent on discharge = 40MINUTES This includes examination of the patient, discharge planning, medication reconciliation, and communication with other providers. Discharge Instructions Discharge Instructions Date of Service February 09, 2017. Admission Reason for Admission: Hyponatremia,Nausea & Vomiting Discharge Discharge Diagnosis / Problem: HYPONATREMIA, SHINGLES Discharge Goals Goal(s): Decrease discomfort, Improve function Activity Recommendations Activity Limitations: resume your previous activity . Instructions / Follow-Up Instructions / Follow-Up FOLLOWUP WITH FAMILY DOCTOR ON February AT 11:05AM LAB: BMP IN 5-7 DAYS AND FOLLOW RESULTS WITH FAMILY DOCTOR. RESTRICT FLUIDS TO 1500ML/DAY. BLOOD PRESSURE FOLLOWUP WITH FAMILY DOCTOR. TAPER OF GABAPENTIN PER FAMILY DOCTOR. Current Hospital Diet Patient's current hospital diet: Regular Diet, AHA Diet (Heart Healthy), N/A Discharge Diet Recommended Diet: AHA Diet (Heart Healthy) Fluid Restriction: 1500 ml (6 cups) Pending Studies Studies pending at discharge: no Laboratory Results Lipid Panel Test 02/01/17 06:15 Range/Units Triglycerides Level 59 0-150 mg/dl Cholesterol Level 208 H 0-200 mg/dl HDL Cholesterol 89 mg/dl Cholesterol/HDL Ratio 2.3 LDL Cholesterol, Calculated 107 mg/dl Medical Emergencies . Who to Call and When: Medical Emergencies: If at any time you feel your situation is an emergency, please call 911 immediately. . Non-Emergent Contact Non-Emergency issues call your: Primary Care Provider . . "Provider Documentation" section prepared by Attila Mane. . VTE Core Measure Inpt VTE Proph given/why not?: Enoxaparin (Lovenox)SQ
[2017-03-27] MEDS ORDERED: ACET-1256 PO (09:19)
[2017-05-06] MEDS ORDERED: LYR50 PO (15:24)
[2017-05-06] MEDS ORDERED: HYDR-5688 PO (15:24)
[2017-05-06] MEDS ORDERED: NORT10CA2 PO (15:24)
== END 2017-02-09 14:02 | disposition home or self-care (01) | DRG 644 ==
LOC: ENRESERVTM → ENRESERVDT → C.EDB 12:51 → C.2T 15:54 → OBSVTOIN 02-04 11:08 → C.4E 02-04 12:31
PROVIDERS: ADMIT Internal Medicine; ATTEND Internal Medicine
DX: E22.2 Syndrome of inappropriate secretion of antidiuretic hormone (principal); B02.8 Zoster with other complications; C79.51 Secondary malignant neoplasm of bone; K21.9 Gastro-esophageal reflux disease without esophagitis; Z96.649 Presence of unspecified artificial hip joint; C50.919 Malignant neoplasm of unspecified site of unspecified female breast; Z79.899 Other long term (current) drug therapy; I97.2 Postmastectomy lymphedema syndrome; K59.00 Constipation, unspecified

== ENCOUNTER 2017-02-14 06:38 | Emergency (ER) | payer BC, OTHER ==
[~2017-02-14] VITALS: Ht 152.4 cm; Wt 57.9 kg
[~2017-02-14 06:38] MED LIST changes: -CALCTAB5 PO; +KFLHP PO; -LINE1TAB7 PO; -MAGNTAB4 PO; -MIRT15TA53 PO; +NRN300 PO; +NRV5 PO; +OYST500T47 PO; +SLWMEC PO; +ZVR400 PO
[2017-02-14 06:47] VITALS: TEMP 36.8; Ht 152.4 cm; Wt 57.9 kg
[2017-02-14] MEDS ORDERED: LINE1TAB6 PO (06:53)
[2017-02-14] MEDS ORDERED: MIRT15TA2 PO (06:54)
[2017-02-14] MEDS ORDERED: GABA-113 PO (06:58)
[2017-02-14] MEDS ORDERED: AMLO-110 PO (07:00)
[2017-02-14] MEDS ORDERED: SODIUM CHLORIDE 0.9% 1000ML 1,000 ML IV STA (07:08)
[2017-02-14] MEDS ORDERED: FENTANYL CITRATE INJ 50 MCG/1 ML 2 ML VIAL IV STA (07:08)
[2017-02-14] MEDS ORDERED: ONDANSETRON INJ 2 MG/ML 2 ML VIAL IV STA (07:08)
--- NOTE | 2017-02-14 07:11 | EMERGENCY ROOM VISIT NOTE ---
History Report prepared by Haley: Kameron Vegas Under the Supervision of: Dr. Jodie Ceja M.D. First contact with patient: 06:47 Chief Complaint: OTHER COMPLAINT Stated Complaint: SHINGLES PAIN History of Present Illness The patient is an 81 year old female who presents to the Emergency Room with complaints of persistent shingles pain since being discharged from the hospital two days ago.The patient was admitted to the hospital for her shingles rash. The rash covers her left chest, arm, and back area. She ran out of her pain medication yesterday. The patient was supposed to follow up with Dr. Womack later today but she could no longer tolerate the pain. The patient states that this is the worst pain that she has had in years. The pain is worse when she coughs. She was having trouble sleeping secondary to pain. She has been eating and drinking okay. The patient is positive for nausea. She denies shortness of breath. The patient has a history of cancer. Source of History: patient Onset: since being discharged from the hospital two days ago. Position: other (skin) Quality: other (shingles pain) Timing: other (persistent) Modifying Factors (Worsening): other (cough) Associated Symptoms: + nausea, No SOB Review of Systems See HPI for pertinent positives & negatives. A total of 10 systems reviewed and were otherwise negative. Past Medical & Surgical Medical Problems: (1) Carcinoma of breast (2) Cellulitis (3) GERD (gastroesophageal reflux disease) (4) Hyponatremia (5) Lymphedema of left arm (6) metastatic cancer (7) Nausea & vomiting Surgical Problems: (1) History of modified radical mastectomy of left breast (2) Total replacement of hip Family History Cancer Social History Smoking Status: Never Smoker Alcohol Use: none Marital Status: Housing Status: lives with family Current/Historical Medications Scheduled Amlodipine (Norvasc), 5 MG PO DAILY Cephalexin Monohydrate (Cephalexin), 250 MG PO QID Gabapentin (Neurontin), 300 MG PO BID Gabapentin (Neurontin), 1 CAP PO TID Letrozole (Femara), 2.5 MG PO DAILY Linezolid (Zyvox), 600 MG PO BID Magnesium Chloride (Slow-Mag Tab), 128 MG PO DAILY Mirtazapine Soltab (Remeron Soltab), 15 MG PO HS Multivitamin (Multivitamin), 1 TAB PO DAILY Palbociclib (Ibrance), 100 MG PO Q2D Potassium Chloride (Micro-K Ext Rel), 10 MEQ PO BID Travoprost (Travatan Z), 1 DROPS OPB HS Scheduled PRN Hydrocodone/Acetaminophen 5MG/325MG ([place] 5MG/325MG), 1 TABLET PO Q6 PRN for Pain Allergies Coded Allergies: Morphine (Verified Adverse Reaction, Intermediate, nausea, 02/14/17) Zolpidem (Verified Adverse Reaction, Mild, Hallucinations, 02/14/17) Physical Exam Vital Signs Date Time Temp Pulse Resp B/P (MAP) Pulse Ox O2 Delivery O2 Flow Rate FiO2 02/14/17 12:02 86 20 128/71 97 Room Air 02/14/17 10:28 89 18 162/87 97 Room Air 02/14/17 08:36 81 18 151/79 95 Room Air 02/14/17 06:47 36.8 86 18 172/82 97 Room Air Physical Exam Vital signs reviewed. General: Well-appearing female, in no significant distress. HEENT: No scleral icterus, PERRLA, neck supple. Atraumatic. Cardiovascular: Regular rate and rhythm, no extra sounds. Pulmonary: Clear to auscultation bilaterally, normal work of breathing. Abdomen: Soft, nontender, nondistended, positive bowel sounds. Musculoskeletal: Atraumatic, mild lymphedema of the left upper extremity. Neurologic: Patient awake alert and oriented x 3, full strength in all 4 extremities. Cranial nerves 2 through 12 grossly intact. Skin: Scabbed rash from midline sternum along dermatome pattern to the spine, no evidence of cellulitis. Medical Decision & Procedures Laboratory Results 02/14/17 07:55 Red Blood Count 3.44, Mean Corpuscular Volume 102.0, Mean Corpuscular Hemoglobin 35.2, Mean Corpuscular Hemoglobin Concent 34.5, Mean Platelet Volume 8.2, Neutrophils (%) (Auto) 59.9, Lymphocytes (%) (Auto) 30.0, Monocytes (%) ( Auto) 8.6, Eosinophils (%) (Auto) 0.6, Basophils (%) (Auto) 0.6, Neutrophils # ( Auto) 1.96, Lymphocytes # (Auto) 0.98, Monocytes # (Auto) 0.28, Eosinophils # ( Auto) 0.02, Basophils # (Auto) 0.02 02/14/17 07:55 Test 02/14/17 07:55 White Blood Count 3.27 K/uL (4.8-10.8) Red Blood Count 3.44 M/uL (4.2-5.4) Hemoglobin 12.1 g/dL (12.0-16.0) Hematocrit 35.1 % (37-47) Mean Corpuscular Volume 102.0 fL (80-100) Mean Corpuscular Hemoglobin 35.2 pg (25-34) Mean Corpuscular Hemoglobin Concent 34.5 g/dl (32-36) Platelet Count 246 K/uL (130-400) Mean Platelet Volume 8.2 fL (7.4-10.4) Neutrophils (%) (Auto) 59.9 % Lymphocytes (%) (Auto) 30.0 % Monocytes (%) (Auto) 8.6 % Eosinophils (%) (Auto) 0.6 % Basophils (%) (Auto) 0.6 % Neutrophils # (Auto) 1.96 K/uL (1.4-6.5) Lymphocytes # (Auto) 0.98 K/uL (1.2-3.4) Monocytes # (Auto) 0.28 K/uL (0.11-0.59) Eosinophils # (Auto) 0.02 K/uL (0-0.5) Basophils # (Auto) 0.02 K/uL (0-0.2) RDW Standard Deviation 48.6 fL (36.4-46.3) RDW Coefficient of Variation 13.0 % (11.5-14.5) Immature Granulocyte % (Auto) 0.3 % Immature Granulocyte # (Auto) 0.01 K/uL (0.00-0.02) Anion Gap 7.0 mmol/L (3-11) Est Creatinine Clear Calc Drug Dose 72.2 ml/min Estimated GFR () 105.9 Estimated GFR (Non- 91.3 BUN/Creatinine Ratio 14.1 (10-20) Calcium Level 8.6 mg/dl (8.5-10.1) Magnesium Level 2.0 mg/dl (1.8-2.4) Total Bilirubin 0.6 mg/dl (0.2-1) Direct Bilirubin 0.1 mg/dl (0-0.2) Aspartate Amino Transf (AST/SGOT) 19 U/L (15-37) Alanine Aminotransferase (ALT/SGPT) 18 U/L (12-78) Alkaline Phosphatase 47 U/L (45-117) Total Protein 7.0 gm/dl (6.4-8.2) Albumin 3.9 gm/dl (3.4-5.0) Laboratory results per my review. Medications Administered Medications (Trade) Dose Ordered Sig/Chani Route Start Time Stop Time Status Last Admin Dose Admin Fentanyl Citrate (Fentanyl Inj) 50 mcg NOW STAT IV 02/14/17 07:08 02/14/17 07:11 DC 02/14/17 07:21 50 MCG Ondansetron HCl (Zofran Inj) 4 mg NOW STAT IV 02/14/17 07:08 02/14/17 07:11 DC 02/14/17 07:20 4 MG Sodium Chloride 1,000 ml @ 125 mls/hr Q8H STAT IV 02/14/17 07:08 02/14/17 12:40 DC 02/14/17 07:20 125 MLS/HR Acetaminophen/ Hydrocodone Bitart ([place] 5/325 Tab) 1 tab NOW STAT PO 02/14/17 09:03 02/14/17 09:04 DC 02/14/17 10:28 1 TAB Gabapentin (Neurontin Cap) 300 mg NOW STAT PO 02/14/17 09:03 02/14/17 09:04 DC 02/14/17 10:27 300 MG Magnesium Chloride (Slow-Mag Tab) 64 mg NOW STAT PO 02/14/17 09:23 02/14/17 09:25 DC 02/14/17 10:26 64 MG Cephalexin Monohydrate (Keflex Cap) 250 mg NOW ONCE PO 02/14/17 09:30 02/14/17 09:31 DC 02/14/17 10:27 250 MG Amlodipine Besylate (Norvasc Tab) 5 mg NOW ONCE PO 02/14/17 09:30 02/14/17 09:31 DC 02/14/17 10:27 5 MG ED Course 0658: Past medical records reviewed. The patient was evaluated in room B7. A complete history and physical examination was performed. 0708: NSS 1000 ml @ 125 mls/hr, Zofran 4 mg IV, Fentanyl 50 mcg IV. 0903: Gabapentin 300 mg PO, [place] 5/325 mg PO. 15: Reassessed the patient. She is feeling better but would like something to eat. She also asked for her regular morning medications. 922: Slow-Mag Tab 64 mg PO. 929: Norvasc 5 mg PO, Keflex 250 mg PO. 1105: Updated the patient's . 1155: Reassessed the patient. Discussed the findings with her. She verbalized understanding and agreement of the treatment plan. The patient is ready for discharge. Medical Decision Differential diagnosis: Etiologies such as shingles, cellulitis, abscess, MRSA infection, DVT, necrotizing fasciitis, dermatitis, drug eruption, as well as others were entertained.. Blood Pressure Screening: Patient was found to have an elevated blood pressure and was referred to their primary doctor for recheck and further treatment. Medication Reconciliation: I attest that I have personally reviewed the patient' s current medication list. This pt was evaluated and appeared to be in no distress. IV access was obtained and lab work was drawn. Pt was placed on the machine heel builder. Pt was medicated with IV fentanyl and zofran. Lab work is fairly unrevealing. Pt was given neurontin and a norco tablet for continued pain. She was advised to take her neurontin, prescribed at d/c, TID and norco as needed. She was given a Rx for norco. Pt will f/u with her PCP this week for reevaluation. She will return to the ED for worsening of symptoms or any medical concerns. Impression Primary Impression: Postherpetic neuralgia Scribe Attestation The scribe's documentation has been prepared under my direction and personally reviewed by me in its entirety. I confirm that the note above accurately reflects all work, treatment, procedures, and medical decision making performed by me. Departure Information Dispostion Home / Self-Care Prescriptions Gabapentin (NEURONTIN) 300 Mg Cap 1 CAP PO TID for 30 Days, #30 CAP Prov: Jodie Ceja M.D. 02/14/17 Hydrocodone/Acetaminophen 5MG/325MG ([place] 5MG/325MG) Tab 1 TABLET PO Q6 Y for Pain, #20 TAB Prov: Jodie Ceja M.D. 02/14/17 Referrals Olimpia Womack M.D. (PCP) Forms HOME CARE DOCUMENTATION FORM, IMPORTANT VISIT INFORMATION, WORK / SCHOOL INSTRUCTIONS Patient Instructions My [facility] Mobile Location, IP, Shingles Herpes Zoster Additional Instructions Diagnosis: Postherpetic neuralgia Gabapentin 300 mg 3 times daily. [place] one tablet every 6 hours as needed for severe pain. Do not drive or take Tylenol with this medication. MiraLAX 1 capful daily to prevent constipation. Follow-up with your primary care physician, Dr. Womack, within 7 days for reevaluation. Return to the ER for worsening of symptoms or any medical concerns.
[2017-02-14 08:09] LABS: BASO % 0.6 %; BASO ABS # 0.02 K/uL (0-0.2); COMPLETE YES; EOS % 0.6 %; HEMATOCRIT 35.1 % (37-47); IG% 0.3 %; LYMPH ABS # 0.98 K/uL (1.2-3.4); MEAN CORPUSCULAR HEMOGLOBIN 35.2 pg (25-34); MEAN CORPUSCULAR HGB CONC 34.5 g/dl (32-36); MEAN PLATELET VOLUME 8.2 fL (7.4-10.4); MONO % 8.6 %; NEUT % 59.9 %; PLATELET COUNT 246 K/uL (130-400); RED BLOOD COUNT 3.44 M/uL (4.2-5.4); WHITE BLOOD COUNT 3.27 K/uL (4.8-10.8)
[2017-02-14 08:31] LABS: BUN/CREATININE RATIO 14.1 (10-20); CALCIUM 8.6 mg/dl (8.5-10.1); CREATININE 0.47 mg/dl (0.60-1.20); POTASSIUM 3.7 mmol/L (3.5-5.1)
[2017-02-14] MEDS ORDERED: GABAPENTIN 300 MG CAP PO STA (09:03)
[2017-02-14] MEDS ORDERED: HYDROCODONE/ACETAMOPHEN 5/325MG TAB PO STA (09:03)
[2017-02-14] MEDS ORDERED: MAGNESIUM CHLORIDE 64MG DELAYED REL TAB PO STA (09:23)
[2017-02-14] MEDS ORDERED: CEPHALEXIN MONOHYDRATE 250 MG CAP PO ONE (09:30)
[2017-02-14] MEDS ORDERED: AMLODIPINE BESYLATE 5 MG TAB PO ONE (09:30)
[2017-02-14] MEDS ORDERED: NRN/300 PO (11:59)
[2017-02-14] MEDS ORDERED: HYDR-5688 PO (11:59)
[2017-02-14 12:02] VITALS: BP 128/71; PULSE 86; O2SAT 97
[2017-03-27] MEDS ORDERED: ACET-1256 PO (09:19)
[2017-05-06] MEDS ORDERED: LYR50 PO (15:24)
[2017-05-06] MEDS ORDERED: HYDR-5688 PO (15:24)
[2017-05-06] MEDS ORDERED: NORT10CA2 PO (15:24)
== END 2017-02-14 12:16 | disposition home or self-care (01) ==
LOC: EDBD 06:38 → C.EDB 06:39
DX: B02.29 Other postherpetic nervous system involvement (principal); K21.9 Gastro-esophageal reflux disease without esophagitis; Z95.3 Presence of xenogenic heart valve; Z86.19 Personal history of other infectious and parasitic diseases; Z90.12 Acquired absence of left breast and nipple; Z96.659 Presence of unspecified artificial knee joint; Z79.899 Other long term (current) drug therapy; Z88.5 Allergy status to narcotic agent; Z88.8 Allergy status to other drugs, medicaments and biological substances; Z80.9 Family history of malignant neoplasm, unspecified

== ENCOUNTER 2017-02-25 15:14 | Emergency (ER) | payer BC, OTHER ==
[~2017-02-25 15:14] MED LIST changes: +AMLO-110 PO; +GABA-113 PO; +HYDR-5688 PO; +LINE1TAB6 PO; +MIRT15TA2 PO; +NRN/300 PO; -NRN300 PO; -NRV5 PO; -OYST500T47 PO; -ZVR400 PO
[2017-02-25 15:17] VITALS: TEMP 36.6; Ht 152.4 cm
[2017-02-25] MEDS ORDERED: ONDANSETRON 4MG OD TAB PO STA (16:08)
[2017-02-25] MEDS ORDERED: LIDODERM (LIDOCAINE) PATCH 5% TD STA (16:08)
--- NOTE | 2017-02-25 16:14 | EMERGENCY ROOM VISIT NOTE ---
History Report prepared by Haley: Veronica Patino Under the Supervision of: Jabier BrayO. First contact with patient: 15:38 Chief Complaint: PAIN (GENERALIZED) Stated Complaint: EXTREME PAIN FROM SHINGLES History of Present Illness The patient is a 81 year old female who presents to the Emergency Room with complaints of constant pain for the past couple of weeks. The patient states that she developed chest pain and back pain about 3-4 weeks ago. She came to the ED at that time and had a cardiac assessment. She was admitted to the hospital but had a negative cardiac work-up. After being in the hospital for two days she developed a rash on her back that spread under her left arm and onto her left chest. She was diagnosed with shingles. She does not think that she took any antiviral medications. The patient has been taking gabapentin and meloxicam as prescribed and also hydrocodone every 6 hours, but states that she is still experiencing severe pain. Her pain is worsened with movement. She is experiencing nausea secondary to pain. The patient rates her current pain as a 10/10 in severity. Source of History: patient Onset: a couple of weeks ago Position: chest Symptom Intensity: 10/10 Timing: constant Modifying Factors (Worsening): movement Associated Symptoms: + nausea, + back pain, + rash (shingles) Review of Systems See HPI for pertinent positives & negatives. A total of 10 systems reviewed and were otherwise negative. Past Medical & Surgical Medical Problems: (1) Carcinoma of breast (2) Cellulitis (3) GERD (gastroesophageal reflux disease) (4) Hyponatremia (5) Lymphedema of left arm (6) metastatic cancer (7) Nausea & vomiting Surgical Problems: (1) History of modified radical mastectomy of left breast (2) Total replacement of hip Family History Cancer Social History Smoking Status: Never Smoker Alcohol Use: none Marital Status: Housing Status: lives with family Current/Historical Medications Scheduled Amlodipine (Norvasc), 5 MG PO DAILY Cephalexin Monohydrate (Cephalexin), 250 MG PO QID Gabapentin (Neurontin), 300 MG PO BID Letrozole (Femara), 2.5 MG PO DAILY Linezolid (Zyvox), 600 MG PO BID Magnesium Chloride (Slow-Mag Tab), 128 MG PO DAILY Mirtazapine Soltab (Remeron Soltab), 15 MG PO HS Multivitamin (Multivitamin), 1 TAB PO DAILY Palbociclib (Ibrance), 100 MG PO Q2D Potassium Chloride (Micro-K Ext Rel), 10 MEQ PO BID Travoprost (Travatan Z), 1 DROPS OPB HS Scheduled PRN Hydrocodone/Acetaminophen 5MG/325MG ([place] 5MG/325MG), 1 TABLET PO Q6 PRN for Pain Lidocaine (Lidoderm Patch 5%), 1 PATCH TD DAILY PRN for Pain Oxycodone/Acetaminophen 5MG/325MG (Percocet 5MG/325MG), 1 TAB PO Q6 PRN for Pain Allergies Coded Allergies: Morphine (Verified Adverse Reaction, Intermediate, nausea, 02/25/17) Zolpidem (Verified Adverse Reaction, Mild, Hallucinations, 02/25/17) Physical Exam Vital Signs Date Time Temp Pulse Resp B/P (MAP) Pulse Ox O2 Delivery O2 Flow Rate FiO2 02/25/17 17:50 90 18 157/87 91 Room Air 02/25/17 16:55 89 96 02/25/17 16:44 90 22 95 02/25/17 16:41 180/76 02/25/17 16:14 89 23 97 02/25/17 16:08 88 02/25/17 16:01 169/76 02/25/17 15:17 36.6 100 20 151/78 95 Room Air Physical Exam GENERAL: alert, well appearing, well nourished, no distress, non-toxic EYE EXAM: normal conjunctiva, PERRL and EOM's grossly intact OROPHARYNX: no exudate, no erythema, lips, buccal mucosa, and tongue normal and mucous membranes are moist NECK: supple, no nuchal rigidity, no adenopathy, non-tender LUNGS: Clear to auscultation. Normal chest wall mechanics HEART: no murmurs, S1 normal and S2 normal ABDOMEN: abdomen soft, non-tender, normo-active bowel sounds, no masses, no rebound or guarding. BACK: Back is symmetrical on inspection and there is no deformity, no midline tenderness, no CVA tenderness. SKIN: She has an area of crusted over zoster of the left mid-back and left flank. UPPER EXTREMITIES: upper extremities are grossly normal. LOWER EXTREMITIES: No pitting edema. NEURO EXAM: Normal sensorium, cranial nerves II-XII [grossly] intact, normal speech, no [gross] weakness of arms, no [gross] weakness of legs. [No drift. Finger to nose intact. Gross sensation intact.] Medical Decision & Procedures ER Provider Diagnostic Interpretation: Radiology results have been interpreted by the radiologist and reviewed by me. CHEST ONE VIEW PORTABLE CLINICAL HISTORY: Chest pain. Breast cancer. COMPARISON STUDY: Chest CT October 2016 and chest radiograph January 31, 2017. FINDINGS: The patient is status post left mastectomy. This accounts for relative asymmetric lucency of the left mid and lower hemithorax. Linear left midlung opacity is likely chronic. There is mild right lower lung nodular opacity which is unchanged. There is no evidence of pulmonary edema. Cardiomediastinal silhouette is normal. Sclerotic lesions shown on prior CT are not well evaluated due to radiographic technique. IMPRESSION: No acute cardiopulmonary findings. No significant change in appearance of the chest with stable linear left midlung opacity and reticulonodular interstitial thickening. Electronically signed by: Donato Nieto M.D. 02/25/2017 5:17 PM Dictated Date/Time: 02/25/2017 5:15 PM Medications Administered Medications (Trade) Dose Ordered Sig/Chani Route Start Time Stop Time Status Last Admin Dose Admin Oxycodone/ Acetaminophen (Percocet 5-325mg Tab) 1 tab Q4H PRN PO 02/25/17 16:15 02/25/17 19:02 DC 02/25/17 16:21 1 TAB Lidocaine (Lidoderm Patch 5%) 1 patch NOW STAT TD 02/25/17 16:08 02/25/17 16:10 DC 02/25/17 16:21 1 PATCH Ondansetron HCl (Zofran Odt) 4 mg NOW STAT PO 02/25/17 16:08 02/25/17 16:10 DC 02/25/17 16:21 4 MG ECG Indication: chest pain Rate (beats per minute): 91 Rhythm: normal sinus Findings: no acute ischemic change, left axis deviation, other (normal intervals, peaked appearance of precordial T-waves) Comparison ECG Date: 02/02/2017 Change: no significant change ED Course 1538: The patient was evaluated in room A2. A complete history and physical exam was performed. 1608: Zofran 4 mg PO, Lidocaine 1 patch TD 1615: Oxycodone/Acetaminophen 1 tab PO - PRN 1707: I reassessed the patient at this time. She is feeling better and resting comfortably. I discussed the results and treatment plan with the patient. I answered all pertaining questions that she had. She expressed understanding and verbalized agreement. The patient will be discharged home. Medical Decision Medication Reconciliation: I attest that I have personally reviewed the patient' s current medication list. Blood pressure screening: Patient was found to have an elevated blood pressure and was referred to their primary doctor for recheck and further treatment. Review of EMR revealed recent evaluation for possible cardiac or pulmonary etiology on patient initially presented with pain the end of January. Patient with reassuring echo, negative cardiac enzymes and chest x-ray, and during hospital admission, rash that appeared confirming diagnosis of herpes zoster. Patient was treated with an antiviral agent during that admission. Patient with no other changes in symptoms, just persistent pain only partially treated by additional medications including gabapentin, meloxicam, and then hydrocodone. Patient reported feeling improved here following application of Lidoderm patch and change from hydrocodone to oxycodone/acetaminophen. Patient with stable vital signs. Reassuring EKG without any acute changes compared to prior as well as chest x-ray. I did not feel patient warranted repeat labs at this time given chronicity of symptoms, and prior negative evaluation. Discussed close follow-up with family doctor, use of all medications, symptoms to watch and return for, all questions were answered bedside, they verbalized understanding were agreeable with plan. Doubt ACS, dissection, tamponade, effusion, pneumothorax, pneumonia, GI bleed, perforation, no history of trauma. Impression Primary Impression: Herpes zoster Additional Impression: Postherpetic neuralgia Scribe Attestation The scribe's documentation has been prepared under my direction and personally reviewed by me in its entirety. I confirm that the note above accurately reflects all work, treatment, procedures, and medical decision making performed by me. Departure Information Dispostion Home / Self-Care Prescriptions Oxycodone/Acetaminophen 5MG/325MG (PERCOCET 5MG/325MG) Tab 1 TAB PO Q6 Y for Pain, #12 TAB Prov: Jasmine Liu, DO 02/25/17 Lidocaine (Lidoderm Patch 5%) 1 Ea Tdsy 1 PATCH TD DAILY Y for Pain, #1 BOX Prov: Jasmine Liu, DO 02/25/17 Referrals Olimpia Womack M.D. (PCP) Forms HOME CARE DOCUMENTATION FORM, IMPORTANT VISIT INFORMATION, WORK / SCHOOL INSTRUCTIONS Patient Instructions My [facility] Additional Instructions Please continue taking her regular medications as prescribed. Please stop taking the hydrocodone/acetaminophen and instead begin taking the oxycodone/ acetaminophen. Please continue to monitor for constipation. Please do not drive while taking this medication as it may make you dizzy, groggy, drowsy. You may use the patch for pain also. You may place the patch on the affected area of your back in the morning and take it off in the evening before bedtime. The pain pill, oxycodone/acetaminophen, you may take for pain only when you needed. You may take one pill every 6 hours when you have pain. Problem Qualifiers Primary Impression: Herpes zoster Herpes zoster complications: without complications Qualified Codes: B02.9 - Zoster without complications
[2017-02-25] MEDS ORDERED: OXYCODONE/ACETAMINOPHEN 5-325 TAB PO PRN (16:15)
--- NOTE | 2017-02-25 17:18 | DIAGNOSTIC IMAGING REPORT ---
CHEST ONE VIEW PORTABLE CLINICAL HISTORY: Chest pain. Breast cancer. COMPARISON STUDY: Chest CT October 2016 and chest radiograph January 31, 2017. FINDINGS: The patient is status post left mastectomy. This accounts for relative asymmetric lucency of the left mid and lower hemithorax. Linear left midlung opacity is likely chronic. There is mild right lower lung nodular opacity which is unchanged. There is no evidence of pulmonary edema. Cardiomediastinal silhouette is normal. Sclerotic lesions shown on prior CT are not well evaluated due to radiographic technique. IMPRESSION: No acute cardiopulmonary findings. No significant change in appearance of the chest with stable linear left midlung opacity and reticulonodular interstitial thickening. Electronically signed by: Donato Nieto M.D. 02/25/2017 5:17 PM Dictated Date/Time: 02/25/2017 5:15 PM
[2017-02-25 17:50] VITALS: BP 157/87; PULSE 90; O2SAT 91
[2017-02-25] MEDS ORDERED: OXYC-57 PO (17:57)
[2017-02-25] MEDS ORDERED: NF656 TD (17:57)
[2017-03-27] MEDS ORDERED: ACET-1256 PO (09:19)
[2017-05-06] MEDS ORDERED: NORT10CA2 PO (15:24)
[2017-05-06] MEDS ORDERED: LYR50 PO (15:24)
[2017-05-06] MEDS ORDERED: HYDR-5688 PO (15:24)
== END 2017-02-25 18:11 | disposition home or self-care (01) ==
LOC: C.EDB 15:16 → C.EDA 18:11
DX: B02.29 Other postherpetic nervous system involvement (principal); Z85.3 Personal history of malignant neoplasm of breast; K21.9 Gastro-esophageal reflux disease without esophagitis; E87.1 Hypo-osmolality and hyponatremia; Z80.9 Family history of malignant neoplasm, unspecified; Z79.899 Other long term (current) drug therapy

== ENCOUNTER 2017-03-04 09:45 | Emergency (ER) | payer BC ==
[~2017-03-04 09:45] MED LIST changes: +NF656 TD; -NRN/300 PO; +OXYC-57 PO
[2017-03-04 10:00] VITALS: TEMP 36.7
[2017-03-04] MEDS ORDERED: GABAPENTIN 100 MG CAP PO STA (10:59)
[2017-03-04] MEDS ORDERED: TRAMADOL HCL 50 MG TAB PO STA (10:59)
--- NOTE | 2017-03-04 12:18 | DIAGNOSTIC IMAGING REPORT ---
ABDOMEN 2VIEW W/PA CHEST RTN CLINICAL HISTORY: constipation pain. Nausea. COMPARISON STUDY: 02/25/2017 FINDINGS: Mild parenchymal fibrotic change throughout both hemithoraces. Moderate emphysematous change. Bowel pattern is nonobstructive. Prior right hip arthroplasty. IMPRESSION: No acute process of the abdomen or pelvis. Electronically signed by: Gurinder Ayala M.D. 03/04/2017 12:16 PM Dictated Date/Time: 03/04/2017 12:16 PM
[2017-03-04] MEDS ORDERED: MAGNESIUM HYDROXIDE SUSP 30 ML UDC PO ONE (12:45)
[2017-03-04] MEDS ORDERED: CAPSAICIN CR 0.075% 60 GM TUBE EXT STA (13:06)
--- NOTE | 2017-03-04 14:57 | EMERGENCY ROOM VISIT NOTE ---
History Report prepared by Haley: Mindy Gold Under the Supervision of: Dr. Jasmine Liu D.O. First contact with patient: 10:42 Chief Complaint: PAIN (GENERALIZED) Stated Complaint: SHINGLES PAIN History of Present Illness The patient is an 81 year old female who presents to the Emergency Room with complaints of constant shingles pain starting 1 month ago. She describes her pain as a soreness which is present under her chest and on her back back. The patient was seen in the ED 1 week ago for the same pain. She was prescribed oxycodone for her pain. She was having confusion on the oxycodone so her PCP stopped the oxycodone and started her on tramadol. She states that the tramadol is not working for her pain. Her shingles rash is improving. The patient states that her last bowel movement was 2 weeks ago. She had not passed any stool at all. She has tried taking Miralax for the past 5 days to no relief. She has been taking all her other medications as prescribed including gabapentin and an antiinflammatory. Source of History: patient Onset: 1 month ago Position: other (global) Quality: other (shingles pain) Timing: constant Associated Symptoms: + rash Note: Pt reports constipation. Review of Systems See HPI for pertinent positives & negatives. A total of 10 systems reviewed and were otherwise negative. Past Medical & Surgical Medical Problems: (1) Carcinoma of breast (2) Cellulitis (3) GERD (gastroesophageal reflux disease) (4) Hyponatremia (5) Lymphedema of left arm (6) metastatic cancer (7) Nausea & vomiting Surgical Problems: (1) History of modified radical mastectomy of left breast (2) Total replacement of hip Family History Cancer Social History Smoking Status: Never Smoker Alcohol Use: none Marital Status: Housing Status: lives with family Current/Historical Medications Scheduled Amlodipine (Norvasc), 5 MG PO DAILY Cephalexin Monohydrate (Cephalexin), 250 MG PO QID Gabapentin (Neurontin), 300 MG PO BID Letrozole (Femara), 2.5 MG PO DAILY Linezolid (Zyvox), 600 MG PO BID Magnesium Chloride (Slow-Mag Tab), 128 MG PO DAILY Mirtazapine Soltab (Remeron Soltab), 15 MG PO HS Multivitamin (Multivitamin), 1 TAB PO DAILY Palbociclib (Ibrance), 100 MG PO Q2D Potassium Chloride (Micro-K Ext Rel), 10 MEQ PO BID Travoprost (Travatan Z), 1 DROPS OPB HS Scheduled PRN Hydrocodone/Acetaminophen 5MG/325MG ([place] 5MG/325MG), 1 TABLET PO Q6 PRN for Pain Lidocaine (Lidoderm Patch 5%), 1 PATCH TD DAILY PRN for Pain Oxycodone/Acetaminophen 5MG/325MG (Percocet 5MG/325MG), 1 TAB PO Q6 PRN for Pain Allergies Coded Allergies: Morphine (Verified Adverse Reaction, Intermediate, nausea, 02/25/17) Zolpidem (Verified Adverse Reaction, Mild, Hallucinations, 02/25/17) Physical Exam Vital Signs Date Time Temp Pulse Resp B/P (MAP) Pulse Ox O2 Delivery O2 Flow Rate FiO2 03/04/17 14:59 80 18 173/81 99 03/04/17 13:26 96 18 173/81 98 Room Air 03/04/17 11:24 77 18 163/60 99 Room Air 03/04/17 10:00 36.7 82 20 122/53 96 Room Air Physical Exam GENERAL: alert, well appearing, well nourished, no distress, non-toxic EYE EXAM: normal conjunctiva, PERRL and EOM's grossly intact OROPHARYNX: no exudate, no erythema, lips, buccal mucosa, and tongue normal and mucous membranes are moist NECK: supple, no nuchal rigidity, no adenopathy, non-tender LUNGS: Clear to auscultation. Normal chest wall mechanics HEART: no murmurs, S1 normal and S2 normal ABDOMEN: abdomen soft, non-tender, normo-active bowel sounds, no masses, no rebound or guarding. BACK: Back is symmetrical on inspection and there is no deformity, no midline tenderness, no CVA tenderness. SKIN: mild erythematous patches still noted however no vesicles, no crusting, lesions appear to have healed UPPER EXTREMITIES: upper extremities are grossly normal. LOWER EXTREMITIES: No pitting edema. NEURO EXAM: Normal sensorium, cranial nerves II-XII grossly intact, normal speech, no gross weakness of arms, no gross weakness of legs. Medical Decision & Procedures ER Provider Diagnostic Interpretation: Xray results have been interpreted by the radiologist and me. ABDOMEN 2VIEW W/PA CHEST RTN CLINICAL HISTORY: constipation pain. Nausea. COMPARISON STUDY: 02/25/2017 FINDINGS: Mild parenchymal fibrotic change throughout both hemithoraces. Moderate emphysematous change. Bowel pattern is nonobstructive. Prior right hip arthroplasty. IMPRESSION: No acute process of the abdomen or pelvis. Electronically signed by: Gurinder Ayala M.D. 03/04/2017 12:16 PM Dictated Date/Time: 03/04/2017 12:16 PM Medications Administered Medications (Trade) Dose Ordered Sig/Chani Route Start Time Stop Time Status Last Admin Dose Admin Gabapentin (Neurontin Cap) 200 mg NOW STAT PO 03/04/17 10:59 03/04/17 11:02 DC 03/04/17 11:21 200 MG Tramadol HCl (Ultram Tab) 100 mg NOW STAT PO 03/04/17 10:59 03/04/17 11:02 DC 03/04/17 11:21 100 MG Magnesium Hydroxide (Milk Of Magnesia Susp) 30 ml NOW ONCE PO 03/04/17 12:45 03/04/17 12:46 DC 03/04/17 12:56 30 ML Capsaicin (Zostrix Crm) 1 appln NOW STAT EXT 03/04/17 13:06 03/04/17 13:07 DC 03/04/17 13:36 1 APPLN ED Course 1044: The patient was evaluated in room A2. A complete history and physical exam was performed. 1059: Tramadol HCl 100 mg PO, Gabapentin 200 mg PO. 1245: Magnesium Hydroxide 30 ml PO. 1258: I reevaluated the patient. She is still complaining of pain. 1306: Capsaicin 1 appln EXT. 1432: Upon reevaluation, the patient is feeling better. I discussed the findings and the treatment plan with the patient. She verbalizes agreement and understanding. She was discharged home. Medical Decision Differential diagnosis: Etiologies such as contact dermatitis, viral exanthem, urticaria, allergic reaction, Reddy-Jeramy syndrome, toxic epidermal necrolysis, erythema multiforme, cellulitis, scabies, HSV, varicella, zoster, eczema, staph scalded skin syndrome, fungal infection, as well as others were entertained. Medication Reconciliation: I attest that I have personally reviewed the patient' s current medication list. Blood pressure screening: Patient was found to have an elevated blood pressure and was referred to their primary doctor for recheck and further treatment. Pt seen here several times recently for pain related to shingles. Skin manifestations are crusted/healing. Pt already on anti-inflammatory, gabapentin , taking tramadol, still complaining of same pain she has been having for several weeks now. No changed compared to prior ER visit. Given age, ADR on narcotics, potential adr/interactions with other meds, discussed with pharmacist. Pt with some relief here. Discussed possible need for pain mgmt evaluation given repeat ER visits and persistent pain. Doubt acs, dissection, pe, tamponade, effusion, infiltrate, pneumothorax, disseminated zoster, bacteremia/sepsis, perf, gi bleed. Pt with stable VS otherwise and well appearing, tolerating po, and ambulating without difficulty. Pt with elevated BP likely related to pain and her anxiety about her condition. Impression Primary Impression: Herpes zoster Additional Impressions: Post herpetic neuralgia Chest pain Scribe Attestation The scribe's documentation has been prepared under my direction and personally reviewed by me in its entirety. I confirm that the note above accurately reflects all work, treatment, procedures, and medical decision making performed by me. Departure Information Dispostion Home / Self-Care Referrals Olimpia Womack M.D. (PCP) Patient Instructions My [facility] Additional Instructions Please follow up with her family doctor and discuss with them possible need for referral to a boat painter. If you develop any worsening pain, shortness of breath, fevers, worsening rash, vomiting, dizziness, swelling, or you've any other new concerns, please return the emergency room. You may take one or 2 of the tramadol every 6-8 hours. You may also increase the gabapentin from one pill 3 times a day 8 to pill 3 times a day if you feel that it helps with the pain. You may use the cream topically the area of the pain 4-5 times a day as needed for pain. Problem Qualifiers Primary Impression: Herpes zoster Herpes zoster complications: without complications Qualified Codes: B02.9 - Zoster without complications Additional Impressions: Chest pain Chest pain type: unspecified Qualified Codes: R07.9 - Chest pain, unspecified
[2017-03-04 14:59] VITALS: BP 173/81; PULSE 80; O2SAT 99
[2017-03-27] MEDS ORDERED: ACET-1256 PO (09:19)
[2017-05-06] MEDS ORDERED: HYDR-5688 PO (15:24)
[2017-05-06] MEDS ORDERED: LYR50 PO (15:24)
[2017-05-06] MEDS ORDERED: NORT10CA2 PO (15:24)
== END 2017-03-04 15:01 | disposition home or self-care (01) ==
LOC: C.EDB 09:48 → C.EDA 15:01
DX: B02.29 Other postherpetic nervous system involvement (principal); R07.9 Chest pain, unspecified; Z85.3 Personal history of malignant neoplasm of breast; K21.9 Gastro-esophageal reflux disease without esophagitis; E87.1 Hypo-osmolality and hyponatremia; Z80.9 Family history of malignant neoplasm, unspecified; Z79.899 Other long term (current) drug therapy

== ENCOUNTER 2017-03-10 12:04 | Emergency (ER) | payer BC ==
[2017-03-10 12:05] VITALS: TEMP 36.7
[2017-03-10] MEDS ORDERED: MELO15TA4 PO (12:42)
[2017-03-10] MEDS ORDERED: TRAM-10 PO (12:42)
[2017-03-10] MEDS ORDERED: CAPS0.022 TOP (12:42)
[2017-03-10] MEDS ORDERED: CARB200T PO (13:20)
[2017-03-10] MEDS ORDERED: CARBAMAZEPINE 200 MG TAB PO ONE (13:30)
[2017-03-10 14:03] VITALS: BP 181/85; PULSE 61; O2SAT 96
--- NOTE | 2017-03-10 19:22 | EMERGENCY ROOM VISIT NOTE ---
History Report prepared by Haley: Jeniffer Mcdowell Under the Supervision of: Dr. Lui Colvin M.D. First contact with patient: 12:09 Chief Complaint: RASH Stated Complaint: SHINGLES History of Present Illness The patient is a 81 year old female who presents to the Emergency Room with complaints of shingles. The patient was admitted in January for shingles and was in the Emergency Room 3 times this month for her symptoms. The patient complains of pain on her left flank. The patient reports that she was given many medications and that nothing has worked thus far. She states that she would like to be admitted since her pain has been constant. She describes the pain as a "deep, burning pain," and rates it at a 7/10. The patient reports that the pain keeps her from sleeping. The patient denies having headaches. She denies any fever or any change in her pain. She states it hurts to lie on that side. The patient was given a prescription for oxycodone but her doctor told her not to take it. She states that she was giving oxycodone in the hospital and it made her very confused and she could not tolerate it. The tramadol and meloxicam are not effective. The capsaicin cream is also minimally effective. She also states that she is currently in remission for breast cancer. Source of History: patient, spouse/significant other Onset: one month Position: other (global) Symptom Intensity: rated at a 7/10 Quality: burning (deep, burning pain ) Associated Symptoms: + urinary symptoms, No headache Review of Systems See HPI for pertinent positives & negatives. A total of 10 systems reviewed and were otherwise negative. Past Medical & Surgical Medical Problems: (1) Carcinoma of breast (2) Cellulitis (3) GERD (gastroesophageal reflux disease) (4) Hyponatremia (5) Lymphedema of left arm (6) metastatic cancer (7) Nausea & vomiting Surgical Problems: (1) History of modified radical mastectomy of left breast (2) Total replacement of hip Family History Cancer Social History Smoking Status: Never Smoker Alcohol Use: none Marital Status: Housing Status: lives with family Current/Historical Medications Scheduled Capsaicin (Capsaicin), 1 APPLN TOP BID Carbamazepine (Tegretol), 1 TAB PO BID Cephalexin Monohydrate (Cephalexin), 250 MG PO QID Gabapentin (Neurontin), 300 MG PO TID Letrozole (Femara), 2.5 MG PO DAILY Magnesium Chloride (Slow-Mag Tab), 128 MG PO DAILY Meloxicam (Mobic), 15 MG PO DAILY Multivitamin (Multivitamin), 1 TAB PO DAILY Palbociclib (Ibrance), 100 MG PO Q2D Potassium Chloride (Micro-K Ext Rel), 10 MEQ PO BID Travoprost (Travatan Z), 1 DROPS OPB HS Scheduled PRN Hydrocodone/Acetaminophen 5MG/325MG ([place] 5MG/325MG), 1 TABLET PO Q6 PRN for Pain Lidocaine (Lidoderm Patch 5%), 1 PATCH TD DAILY PRN for Pain Tramadol (Ultram), 50 MG PO Q6H PRN for Pain Allergies Coded Allergies: Morphine (Verified Adverse Reaction, Intermediate, nausea, 02/25/17) Zolpidem (Verified Adverse Reaction, Mild, Hallucinations, 02/25/17) Physical Exam Vital Signs Date Time Temp Pulse Resp B/P (MAP) Pulse Ox O2 Delivery O2 Flow Rate FiO2 03/10/17 14:03 61 18 181/85 96 03/10/17 12:05 36.7 99 18 123/77 95 Room Air Physical Exam Constitutional: Vital signs reviewed. Eyes: Pupils are equal round reactive to light. Conjunctiva are noninjected. ENT: Pharynx is clear without erythema or exudate. Mucous membranes are moist. Neck supple without meningeal signs. Respiratory: Clear to auscultation bilaterally. Breath sounds are equal bilaterally. Cardiovascular: Regular rate and rhythm. No rubs or gallops. GI: Soft, nondistended and nontender. Bowel sounds are present. Musculoskeletal: No peripheral edema. No lower extremity tenderness. Integumentary: No cyanosis. No rash consistent with zoster over the left flank. Neurological: The patient is awake and alert. No focal deficits. Psychiatric: Anxious. Medical Decision & Procedures Medications Administered Medications (Trade) Dose Ordered Sig/Chani Route Start Time Stop Time Status Last Admin Dose Admin Carbamazepine (Tegretol Tab) 200 mg NOW ONCE PO 03/10/17 13:30 03/10/17 13:31 DC 03/10/17 13:37 200 MG ED Course 1215: The patient was evaluated in room A10. A complete history and physical exam was performed. 1316: I discussed the plan with the patient and her . She says that she is already taking 600 mg of gabapentin 3 times a day, so she will continue to do so. The patient does not want to take the steroids. She will follow up with her PCP this week. 1330: Ordered Tegretol Tab 200 mg PO. 1340: Upon reevaluation, the patient appeared to have improvement of her symptoms. I discussed tonight's findings with her. She verbalized agreement of the treatment plan. She was discharged home. Medical Decision This is an 81-year-old female who presents with pain to her left flank for the past month secondary to postherpetic neuralgia. I did perform a limited focused review of portions of the patient's old chart on the electronic medical record. The patient was admitted in January for shingles, and treated with Acyclovir. She returned 3 times this month because of pain from her shingles, and was treated with narcotics, tramadol, capsaicin, and gabapentin. Blood Pressure Screening: Patient was found to have normal blood pressure on screening and does not require follow-up. Medication Reconciliation: I attest that I have personally reviewed the patient' s current medication list. I did evaluate the patient as noted above. She is presenting with pain to her left side for over a month. She was treated for shingles and has postherpetic neuralgia. She is here today because her pain is not controlled with the medication she has been on and she could not sleep last night. I did discuss case with Dr. Lopez of neurology. He recommended stopping her tramadol and anti- inflammatory. He recommended increasing her gabapentin to 600 mg 3 times a day. He also recommended Tegretol 200 mg twice a day. He stated that steroids for 5 days maybe helpful as well. I did discuss the recommendations with the patient and her . She did not wish to be on steroids. She stated that she has had Adrián on gabapentin 600 mg 3 times a day and will continue this dose. She was given Tegretol 200 mg here and discharged with a prescription for Tegretol 200 mg twice a day. She will also continue the capsaicin cream which has been providing some relief. She was advised follow closely with her doctor. Consults Time Called: 1230 Consulting Physician: Dr. Lopez Returned Call: [address] Lopez of [facility]. We discussed the patient and her results. Dr. Lopez said to increase her Gabapentin to 600 mg at night and to add Tegretol 200 BIB and follow up with her PCP. We will stop Meloxicam and Tramadol. Impression Primary Impression: Postherpetic neuralgia Scribe Attestation The scribe's documentation has been prepared under my direct and personally reviewed by me in its entirety. I confirm that the note above accurately reflects all work, treatment, procedures, and medical decision making performed by me. Departure Information Dispostion Home / Self-Care Prescriptions Carbamazepine (TEGRETOL) 200 Mg Tab 1 TAB PO BID for 10 Days, #20 TAB 1 Refill Prov: Lui Colvin M.D. 03/10/17 Referrals Olimpia Womack M.D. (PCP) Forms HOME CARE DOCUMENTATION FORM, IMPORTANT VISIT INFORMATION, WORK / SCHOOL INSTRUCTIONS Patient Instructions My [facility] Additional Instructions You have been examined and treated today on an emergency basis only. This is not a substitute for, or an effort to provide, complete comprehensive medical care. It is impossible to recognize and treat all injuries or illnesses in a single emergency department visit. It is therefore important that you follow up closely with your physician this week. Call as soon as possible for an appointment. Return for worsening symptoms or if you develop fever, vomiting, or any other concerning symptoms. Continue gabapentin 600 mg 3 times a day. Take Tegretol (carbamazepine) 200 mg twice a day. Stop tramadol and meloxicam. If this does not improve your symptoms you may talk to your doctor about starting prednisone.
[2017-03-27] MEDS ORDERED: ACET-1256 PO (09:19)
[2017-05-06] MEDS ORDERED: HYDR-5688 PO (15:24)
[2017-05-06] MEDS ORDERED: NORT10CA2 PO (15:24)
[2017-05-06] MEDS ORDERED: LYR50 PO (15:24)
== END 2017-03-10 14:04 | disposition home or self-care (01) ==
LOC: C.EDB 12:05 → C.EDA 14:04
DX: B02.29 Other postherpetic nervous system involvement (principal); Z85.3 Personal history of malignant neoplasm of breast; Z96.649 Presence of unspecified artificial hip joint; Z90.12 Acquired absence of left breast and nipple

== ENCOUNTER → 2017-04-09 | Outpatient (CLI) | payer BC ==
[~2017-04-09] MED LIST changes: +ACET-1256 PO; -AMLO-110 PO; +CAPS0.022 TOP; -LINE1TAB6 PO; +LYR50 PO; -MIRT15TA2 PO; -NF656 TD; +NORT10CA2 PO; -OXYC-57 PO
--- NOTE | 2017-04-09 14:22 | DIAGNOSTIC IMAGING REPORT ---
CT OF THE CHEST WITHOUT IV CONTRAST CLINICAL HISTORY: Breast cancer. Left-sided chest pain. COMPARISON STUDY: Chest CT October 24, 2016 and chest radiograph March 04, 2017. CT DOSE: 205.30 mGy.cm TECHNIQUE: Axial images of the chest were obtained without IV contrast. Images were reviewed in the axial, sagittal, and coronal planes. IV contrast was not administered for this examination. A dose lowering technique was utilized adhering to the principles of ALARA. FINDINGS: There are stable postoperative findings consistent with a left mastectomy. Soft tissue thickening within the left axilla is unchanged. No enlarged axillary, mediastinal or hilar lymph nodes are present. The size of the heart is normal. There is no pericardial effusion. There is no pneumothorax or pleural effusion. Multiple blastic skeletal lesions are unchanged since earlier exams. No new skeletal lesions are present. There is no fracture within visualized portions of the ribs. A tubular 2.4 cm left lower lobe abnormality is unchanged from earlier studies. This likely reflects a mucoid impacted bronchus. Numerous irregular nodular opacities throughout the lungs are noted. The majority of these are unchanged since earlier exams. A few have developed since prior study, including a 7 mm left lower lobe nodule shown on image 185 of 301. There are tree-in-bud associated nodules. An 8 mm right upper lobe nodule shown image 82 is also new. There is no confluence consolidation. Scattered areas of suspected atelectasis are noted. There are gallstones within the gallbladder. There is a suspected lateral segment hepatic cyst. IMPRESSION: 1. Interval development of a few irregular nodular opacities within the lungs. These are likely infectious/inflammatory. A neoplastic etiology could appear similar although is considered less likely. These can be assessed on subsequent exams. Otherwise, unchanged appearance of the lungs with numerous stable irregular pulmonary nodules and a suspected mucoid impacted bronchus within the left lower lobe. 2. No change in numerous skeletal metastases. No new lesions identified. 3. Stable postoperative findings consistent with a left mastectomy. Electronically signed by: Donato Nieto M.D. 04/09/2017 2:21 PM Dictated Date/Time: 04/09/2017 2:05 PM
== END | disposition home or self-care (01) ==
LOC: C.CTS 13:26
PROVIDERS: ATTEND Internal Medicine Hematology & Oncology
DX: C50.912 Malignant neoplasm of unspecified site of left female breast (principal)

== ENCOUNTER → 2017-06-26 | Outpatient (CLI) | payer BC ==
[~2017-06-26] MED LIST changes: -GABA-113 PO
--- NOTE | 2017-06-26 14:24 | DIAGNOSTIC IMAGING REPORT ---
CHEST 2 VIEWS ROUTINE HISTORY: POST PROC INTERCOSTAL NERVE BLOCK COMPARISON: Chest 03/04/2017. Chest CT 04/09/2017. FINDINGS: No pneumothorax. No pleural effusions. The heart remains stable in size. Left midlung zone nodular density and left midlung zone scarlike densities persist. Small focal density within the medial axis the right middle lobe is also unchanged. Emphysema. IMPRESSION: 1. No pneumothorax. 2. No change in the left midlung zone nodular density. Electronically signed by: Manuel Salcedo M.D. 06/26/2017 2:23 PM Dictated Date/Time: 06/26/2017 2:15 PM
== END | disposition home or self-care (01) ==
LOC: C.RADBC 08:13
PROVIDERS: ATTEND Anesthesiology
DX: Z98.890 Other specified postprocedural states (principal)

== ENCOUNTER → 2017-07-10 | Outpatient (CLI) | payer BC ==
--- NOTE | 2017-07-10 14:44 | DIAGNOSTIC IMAGING REPORT ---
BONE SCAN WHOLE BODY CLINICAL HISTORY: Breast cancer with history of bony metastasis COMPARISON STUDY: October 24, 2016, CT scan dated 02/02/2017 FINDINGS: The patient was injected with 26.5 mCi of technetium 99m MDP. Three-hour delayed whole body images were acquired. The skeletal uptake remains essentially unchanged. There are foci of minimal increased activity within the sacrum. These remain stable. There is also stable increased activity within the left shoulder. No new foci of increased activity are visualized IMPRESSION: 1. Stable foci of minimal increased activity within the sacrum. These correspond to blastic lesions on the CT scan performed February 02, 2017, and activity is therefore likely secondary to metastatic disease 2. No additional suspicious foci of increased activity are delineated. The multiple additional blastic lesions described on the prior CT scan are not currently metabolically active Electronically signed by: Lang Brantley M.D. 07/10/2017 2:42 PM Dictated Date/Time: 07/10/2017 2:37 PM
== END | disposition home or self-care (01) ==
LOC: C.NUCL 10:38
PROVIDERS: ATTEND Internal Medicine Hematology & Oncology
DX: C50.912 Malignant neoplasm of unspecified site of left female breast (principal)

== ENCOUNTER 2017-08-29 16:14 | Emergency (ER) | payer BC ==
[~2017-08-29] VITALS: Ht 152.4 cm; Wt 53.0 kg
[2017-08-29 16:20] VITALS: TEMP 36.7; Ht 152.4 cm; Wt 53.0 kg
[2017-08-29] MEDS ORDERED: AMT25 PO (16:28)
--- NOTE | 2017-08-29 16:47 | EMERGENCY ROOM VISIT NOTE ---
History Report prepared by Haley: Memo Harvey Under the Supervision of: Dr. Jaciel Smith M.D. First contact with patient: 16:24 Chief Complaint: FALL Stated Complaint: FELL YESTERDAY AND HIT HEAD History of Present Illness The patient is an 81 year old female who presents to the Emergency Room with complaints of an episode of a fall beginning yesterday afternoon [employer]. The patient states that she was trying to get into the car yesterday and she fell backwards and hit her head onto the concrete driveway. Her reports that the patient has had shingles for the last 6 months and has been weak. He notes that today the patient has been slightly confused and unstable. The patient complains of head and back pain. She currently rates her pain a 5/10 in severity. She denies any LOC, headache, neck pain, visual changes, chest pain, shortness of breath, abdominal pain, fever, urinary symptoms, numbness, and new weakness. She is not on any blood thinners. Her reports that most of her symptoms are secondary to her shingles and pain management has not been able to improve her state. She notes that she has also had cellulitis recently. The patient reports a history of mastectomy and breast cancer. Source of History: patient Onset: yesterday afternoon [employer] Position: other (global) Symptom Intensity: 5/10 Quality: other (fall) Timing: other (episode) Associated Symptoms: + back pain, No LOC, No fevers, No headache, No neck pain, No chest pain, No SOB, No abdominal pain, No urinary symptoms, No weakness , No numbness Note: Pt complains of head injury. She denies any visual changes. Review of Systems See HPI for pertinent positives & negatives. A total of 10 systems reviewed and were otherwise negative. Past Medical & Surgical Medical Problems: (1) Carcinoma of breast (2) Cellulitis (3) GERD (gastroesophageal reflux disease) (4) Hyponatremia (5) Lymphedema of left arm (6) metastatic cancer (7) Nausea & vomiting Surgical Problems: (1) History of modified radical mastectomy of left breast (2) Total replacement of hip Old medical records were reviewed. Nurse's notes were reviewed and I agree with. Family History Cancer Social History Smoking Status: Never Smoker Alcohol Use: none Marital Status: Housing Status: lives with family Occupation Status: retired Current/Historical Medications Scheduled Amitriptyline HCl (Amitriptyline HCl), 25 MG PO HS Cephalexin Monohydrate (Cephalexin), 250 MG PO BID Hydrocodone/Acetaminophen 5MG/325MG ([place] 5MG/325MG), 1 TABLET PO BID Letrozole (Femara), 2.5 MG PO DAILY Magnesium Chloride (Slow-Mag Tab), 128 MG PO DAILY Multivitamin (Multivitamin), 1 TAB PO DAILY Palbociclib (Ibrance), 100 MG PO Q2D Potassium Chloride (Micro-K Ext Rel), 10 MEQ PO BID Pregabalin (Lyrica), 50 MG PO TID Travoprost (Travatan Z), 1 DROPS OPB HS Allergies Coded Allergies: Morphine (Verified Adverse Reaction, Intermediate, nausea, 08/29/17) Zolpidem (Verified Adverse Reaction, Mild, Hallucinations, 08/29/17) Physical Exam Vital Signs Date Time Temp Pulse Resp B/P (MAP) Pulse Ox O2 Delivery O2 Flow Rate FiO2 08/29/17 20:07 102 20 155/81 96 Room Air 08/29/17 18:55 86 18 158/72 94 Room Air 08/29/17 18:11 77 18 152/86 96 Room Air 08/29/17 16:20 36.7 88 16 117/70 96 Room Air Physical Exam General: Non-ill appearing older female in no acute distress. HEENT: Small abrasion to left posterior scalp. Pupils are equal round and reactive to light. Extraocular movements are intact. Oropharynx is pink with moist mucous membranes. No swelling of the mouth lips or tongue. Neck: Supple with a midline trachea. No meningeal signs or stiffness, no JVD or bruits. No Stridor. Chest: Clear to auscultation bilaterally. No wheezes or rhonchi. No increased work of breathing. Left breast mastectomy. Heart: regular rate and rhythm. Abdomen: Soft nontender, nondistended without rebound guarding or rigidity. Extremities: No cyanosis clubbing or edema. No calf tenderness or assymetry. Wearing a sleeve on left arm. Mild redness of left arm and chest from applying heat. Spine/Back. Non tender to palpation. No CVA tenderness Skin: Good turgor without rashes. Neurologic exam: Cranial nerves two through 12 are intact. Motor and sensation are intact and symmetrical throughout. Medical Decision & Procedures ER Provider Diagnostic Interpretation: Radiology results as stated below per my review and radiologist interpretation: HEAD WITHOUT CONTRAST (CT) CLINICAL HISTORY: 81 years-old Female with eval for trauma. Acute head injury status post fall TECHNIQUE: Multiple axial CT images of the head were obtained without contrast. A dose lowering technique was utilized adhering to the principles of ALARA. CT DOSE: 537.48 mGy.cm COMPARISON: CT head 05/17/2013. FINDINGS: No acute intracranial hemorrhage, midline shift, intracranial mass, hydrocephalus, territorial ischemia or abnormal extra-axial collection. Moderate atrophy with ex vacuo ventriculomegaly. Senescent calcifications of the right lentiform nucleus. Moderate chronic microvascular ischemic changes. Vascular calcifications are seen at the level of the skull base. The calvarium is intact. The paranasal sinuses, mastoid air cells, and middle ear cavities are clear. Prior bilateral cataract repair. IMPRESSION: No acute intracranial abnormality. No calvarial fracture. The above report was generated using voice recognition software. It may contain grammatical, syntax or spelling errors. Electronically signed by: Doug Alcaraz M.D. 08/29/2017 5:20 PM Dictated Date/Time: 08/29/2017 5:17 PM CHEST ONE VIEW PORTABLE HISTORY: Atypical CHEST PAIN COMPARISON: Chest 06/26/2017. FINDINGS: No pneumothorax. No pleural effusions. The heart remains stable in size. Mild left deviation of the upper trachea, unchanged. Chronic linear and nodular left midlung zone densities remain unchanged. No new focal lung consolidations. No evidence for pulmonary edema. IMPRESSION: No significant change compared to the prior study. No acute process. Chronic left midlung zone changes are again noted. Electronically signed by: Manuel Salcedo M.D. 08/29/2017 6:56 PM Dictated Date/Time: 08/29/2017 6:43 PM L-SPINE MIN 4 VIEWS ROUTINE HISTORY: 81 years-old Female eval for trauma acute back pain status post trauma COMPARISON: CT abdomen and pelvis 02/02/2017 TECHNIQUE: 5 views of the lumbar spine FINDINGS: Multiple sclerotic metastatic foci are again seen, notably within the L1, L3 and S3 vertebral bodies. No acute fracture or subluxation. Moderate intervertebral disc space narrowing at L3-L4, L4-L5 and L5-S1 with multilevel endplate spurring and facet arthropathy. No spondylolysis or spondylolisthesis. Mild lumbar levoscoliosis. Cholelithiasis. Moderate stool volume of the colon suggest constipation. Right hip arthroplasty. IMPRESSION: 1. No acute fracture or subluxation. 2. Multiple sclerotic metastatic foci and degenerative changes redemonstrated. 3. Cholelithiasis. The above report was generated using voice recognition software. It may contain grammatical, syntax or spelling errors. Electronically signed by: Doug Alcaraz M.D. 08/29/2017 6:57 PM Dictated Date/Time: 08/29/2017 6:43 PM Laboratory Results 08/29/17 17:00 Red Blood Count 3.37, Mean Corpuscular Volume 106.2, Mean Corpuscular Hemoglobin 36.2, Mean Corpuscular Hemoglobin Concent 34.1, Mean Platelet Volume 9.2, Neutrophils (%) (Auto) 78.5, Lymphocytes (%) (Auto) 14.0, Monocytes (%) ( Auto) 6.2, Eosinophils (%) (Auto) 0.5, Basophils (%) (Auto) 0.5, Neutrophils # ( Auto) 4.52, Lymphocytes # (Auto) 0.81, Monocytes # (Auto) 0.36, Eosinophils # ( Auto) 0.03, Basophils # (Auto) 0.03 08/29/17 17:00 Test 08/29/17 16:49 08/29/17 17:00 08/29/17 17:05 Urine Color DK YELLOW Urine Appearance CLEAR (CLEAR) Urine pH 6.5 (4.5-7.5) Urine Specific [place] 1.021 (1.000-1.030) Urine Protein NEG (NEG) Urine Glucose (UA) NEG (NEG) Urine Ketones NEG (NEG) Urine Occult Blood NEG (NEG) Urine Nitrite NEG (NEG) Urine Bilirubin NEG (NEG) Urine Urobilinogen NEG (NEG) Urine Leukocyte Esterase SMALL (NEG) Urine WBC (Auto) 1-5 /hpf (0-5) Urine RBC (Auto) 0-4 /hpf (0-4) Urine Hyaline Casts (Auto) 1-5 /lpf (0-5) Urine Epithelial Cells (Auto) 5-10 /lpf (0-5) Urine Bacteria (Auto) NEG (NEG) White Blood Count 5.77 K/uL (4.8-10.8) Red Blood Count 3.37 M/uL (4.2-5.4) Hemoglobin 12.2 g/dL (12.0-16.0) Hematocrit 35.8 % (37-47) Mean Corpuscular Volume 106.2 fL (80-100) Mean Corpuscular Hemoglobin 36.2 pg (25-34) Mean Corpuscular Hemoglobin Concent 34.1 g/dl (32-36) Platelet Count 157 K/uL (130-400) Mean Platelet Volume 9.2 fL (7.4-10.4) Neutrophils (%) (Auto) 78.5 % Lymphocytes (%) (Auto) 14.0 % Monocytes (%) (Auto) 6.2 % Eosinophils (%) (Auto) 0.5 % Basophils (%) (Auto) 0.5 % Neutrophils # (Auto) 4.52 K/uL (1.4-6.5) Lymphocytes # (Auto) 0.81 K/uL (1.2-3.4) Monocytes # (Auto) 0.36 K/uL (0.11-0.59) Eosinophils # (Auto) 0.03 K/uL (0-0.5) Basophils # (Auto) 0.03 K/uL (0-0.2) RDW Standard Deviation 51.3 fL (36.4-46.3) RDW Coefficient of Variation 13.1 % (11.5-14.5) Immature Granulocyte % (Auto) 0.3 % Immature Granulocyte # (Auto) 0.02 K/uL (0.00-0.02) Anion Gap 7.0 mmol/L (3-11) Est Creatinine Clear Calc Drug Dose 43.1 ml/min Estimated GFR () 91.3 Estimated GFR (Non- 78.8 BUN/Creatinine Ratio 24.1 (10-20) Calcium Level 8.7 mg/dl (8.5-10.1) Total Bilirubin 0.6 mg/dl (0.2-1) Direct Bilirubin 0.1 mg/dl (0-0.2) Aspartate Amino Transf (AST/SGOT) 21 U/L (15-37) Alanine Aminotransferase (ALT/SGPT) 14 U/L (12-78) Alkaline Phosphatase 48 U/L (45-117) Total Protein 7.1 gm/dl (6.4-8.2) Albumin 3.6 gm/dl (3.4-5.0) Lipase 89 U/L (73-393) Bedside Troponin I < 0.030 ng/ml (0-0.045) Laboratory studies as stated above per my review. ECG Indication: other (fall) Rate (beats per minute): 90 Rhythm: normal sinus Findings: no acute ischemic change, no ectopy, other (Septal infarct ) Change: T wave amplitude has decreased and is now normal when compared to 02/25/2017. ED Course 1624: Past medical records reviewed. The patient was evaluated in room C12B, and a complete history and physical examination were performed. 1800: I reassessed the patient at this time. She is feeling better and resting comfortably. I spoke with Boris, case management. We discussed the patient's case. Case management recommends the patient be admitted to [facility]. 1915: I reassessed the patient at this time. She is feeling better and resting comfortably. I discussed the results and treatment plan with the patient. I answered all pertaining questions that she had. She expressed understanding and verbalized agreement. The patient will be discharged home. The patient will be seen as an outpatient with [facility]. Medical Decision Differentials include, but are not limited to; traumatic injuries, weakness, cardiac disease, arrhythmia, shingles, and electrolyte or metabolic abnormalities. This patient comes in as described above. She was placed in room C 12. She suffered a mechanical fall and hit her head. 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 IV access was established and blood work was obtained. Her EKG does not suggest acute coronary syndrome or arrhythmia . She has nothing to suggest infection or electrolyte or metabolic abnormalities. CAT scan of her head is unremarkable. Family is strongly desires put her in [facility] . Case management team has been working with them for that. Family does feel that she is deconditioned and has had success with [facility] before for rehabilitation. Her blood work was unremarkable. Her back x-rays do not show any acute fractures. She feels good and would like to go home. Case management is working to get her in to [facility]. She does need precertification her to try to get this done tomorrow as an outpatient. Family is happy with this she would rather go home tonight and arrange this as an outpatient. I recommend that she follow up with her regular doctor as well. She should return if: worsening of symptoms, any new problems or concerns. She was happy with plan and discharged to home. Medication Reconcilliation Current Medication List: was personally reviewed by me Blood Pressure Screening Patient's blood pressure: Normal blood pressure Impression Primary Impression: Concussion Additional Impressions: Weakness Low back pain Post herpetic neuralgia Scribe Attestation The scribe's documentation has been prepared under my direction and personally reviewed by me in its entirety. I confirm that the note above accurately reflects all work, treatment, procedures, and medical decision making performed by me. Departure Information Dispostion Home / Self-Care Referrals Elvis Lee M.D. (PCP) Forms HOME CARE DOCUMENTATION FORM, IMPORTANT VISIT INFORMATION Patient Instructions My [facility] Additional Instructions REst Be careful when getting up and down Returnif: worsening of symptoms, increasing pain, fever, any new problems or concerns Follow-up with your doctor for recheck Follow-up with [facility] for likely admission Problem Qualifiers
[2017-08-29 17:10] LABS: URINE APPEARANCE CLEAR (CLEAR); URINE BILIRUBIN NEG (NEG); URINE COLOR DK YELLOW; URINE NITRITE NEG (NEG); URINE PH 6.5 (4.5-7.5); URINE SPECIFIC GRAVITY 1.021 (1.000-1.030); UROBILINOGEN NEG (NEG); ZZUR CULT IF INDIC CLEAN CATCH NO
[2017-08-29 17:11] LABS: BASO % 0.5 %; BASO ABS # 0.03 K/uL (0-0.2); COMPLETE YES; EOS % 0.5 %; HEMATOCRIT 35.8 % (37-47); IG% 0.3 %; LYMPH ABS # 0.81 K/uL (1.2-3.4); MEAN CELL VOLUME 106.2 fL (80-100); MEAN CORPUSCULAR HEMOGLOBIN 36.2 pg (25-34); MEAN CORPUSCULAR HGB CONC 34.1 g/dl (32-36); MEAN PLATELET VOLUME 9.2 fL (7.4-10.4); MONO % 6.2 %; NEUT % 78.5 %; PLATELET COUNT 157 K/uL (130-400); RED BLOOD COUNT 3.37 M/uL (4.2-5.4); WHITE BLOOD COUNT 5.77 K/uL (4.8-10.8)
[2017-08-29 17:11] LABS: MANUAL MICROSCOPIC REQUIRED? NO; REVIEW REQ? NO
--- NOTE | 2017-08-29 17:21 | DIAGNOSTIC IMAGING REPORT ---
HEAD WITHOUT CONTRAST (CT) CLINICAL HISTORY: 81 years-old Female with eval for trauma. Acute head injury status post fall TECHNIQUE: Multiple axial CT images of the head were obtained without contrast. A dose lowering technique was utilized adhering to the principles of ALARA. CT DOSE: 537.48 mGy.cm COMPARISON: CT head 05/17/2013. FINDINGS: No acute intracranial hemorrhage, midline shift, intracranial mass, hydrocephalus, territorial ischemia or abnormal extra-axial collection. Moderate atrophy with ex vacuo ventriculomegaly. Senescent calcifications of the right lentiform nucleus. Moderate chronic microvascular ischemic changes. Vascular calcifications are seen at the level of the skull base. The calvarium is intact. The paranasal sinuses, mastoid air cells, and middle ear cavities are clear. Prior bilateral cataract repair. IMPRESSION: No acute intracranial abnormality. No calvarial fracture. The above report was generated using voice recognition software. It may contain grammatical, syntax or spelling errors. Electronically signed by: Doug Alcaraz M.D. 08/29/2017 5:20 PM Dictated Date/Time: 08/29/2017 5:17 PM
[2017-08-29 17:30] LABS: BUN/CREATININE RATIO 24.1 (10-20); CALCIUM 8.7 mg/dl (8.5-10.1); CREATININE 0.71 mg/dl (0.60-1.20); POTASSIUM 3.4 mmol/L (3.5-5.1)
--- NOTE | 2017-08-29 18:57 | DIAGNOSTIC IMAGING REPORT ---
CHEST ONE VIEW PORTABLE HISTORY: Atypical CHEST PAIN COMPARISON: Chest 06/26/2017. FINDINGS: No pneumothorax. No pleural effusions. The heart remains stable in size. Mild left deviation of the upper trachea, unchanged. Chronic linear and nodular left midlung zone densities remain unchanged. No new focal lung consolidations. No evidence for pulmonary edema. IMPRESSION: No significant change compared to the prior study. No acute process. Chronic left midlung zone changes are again noted. Electronically signed by: Manuel Salcedo M.D. 08/29/2017 6:56 PM Dictated Date/Time: 08/29/2017 6:43 PM
--- NOTE | 2017-08-29 18:58 | DIAGNOSTIC IMAGING REPORT ---
L-SPINE MIN 4 VIEWS ROUTINE HISTORY: 81 years-old Female eval for trauma acute back pain status post trauma COMPARISON: CT abdomen and pelvis 02/02/2017 TECHNIQUE: 5 views of the lumbar spine FINDINGS: Multiple sclerotic metastatic foci are again seen, notably within the L1, L3 and S3 vertebral bodies. No acute fracture or subluxation. Moderate intervertebral disc space narrowing at L3-L4, L4-L5 and L5-S1 with multilevel endplate spurring and facet arthropathy. No spondylolysis or spondylolisthesis. Mild lumbar levoscoliosis. Cholelithiasis. Moderate stool volume of the colon suggest constipation. Right hip arthroplasty. IMPRESSION: 1. No acute fracture or subluxation. 2. Multiple sclerotic metastatic foci and degenerative changes redemonstrated. 3. Cholelithiasis. The above report was generated using voice recognition software. It may contain grammatical, syntax or spelling errors. Electronically signed by: Doug Alcaraz M.D. 08/29/2017 6:57 PM Dictated Date/Time: 08/29/2017 6:43 PM
[2017-08-29 20:07] VITALS: BP 155/81; PULSE 102; O2SAT 96
== END 2017-08-29 20:15 | disposition home or self-care (01) ==
LOC: C.EDB 16:16 → C.EDC 20:15
DX: S06.0X0A Concussion without loss of consciousness, initial encounter (principal); S00.01XA Abrasion of scalp, initial encounter; R53.83 Other fatigue; M54.5 Low back pain; W01.10XA Fall on same level from slipping, tripping and stumbling with subsequent striking against unspecified object, initial encounter; Z85.3 Personal history of malignant neoplasm of breast; Z90.12 Acquired absence of left breast and nipple; K21.9 Gastro-esophageal reflux disease without esophagitis; Z96.649 Presence of unspecified artificial hip joint; Z80.9 Family history of malignant neoplasm, unspecified; Z79.899 Other long term (current) drug therapy

== ENCOUNTER → 2017-10-23 | Outpatient (CLI) | payer BC ==
[~2017-10-23] MED LIST changes: -ACET-1256 PO; +AMT25 PO; -CAPS0.022 TOP; -NORT10CA2 PO; +OPTIRAY 320 IV PRN
--- NOTE | 2017-10-23 13:41 | DIAGNOSTIC IMAGING REPORT ---
ABD/PELVIS IV AND ORAL CONT CLINICAL HISTORY: 81 years-old Female presenting with BREAST CA. TECHNIQUE: Multidetector CT of the abdomen and pelvis was performed after the administration of oral and intravenous contrast. IV contrast: 94 mL of Optiray 320. A dose lowering technique was used consistent with the principles of ALARA (as low as reasonably achievable). COMPARISON: 02/02/2017. CT DOSE (mGy.cm): The estimated cumulative dose is 503.28. FINDINGS: Imitation [employer] topogram: Total right hip arthroplasty. Lung bases: Irregular nodular consolidation in the right middle lobe grossly unchanged from prior. Additional bandlike nodular opacity in the anterobasal right lower lobe unchanged. Dependent changes likely atelectasis. Solid nodular opacity along the medial basal right lower lobe (series 7 image 56), unchanged. Aortic valve and coronary artery calcification. Normal heart size. No pericardial or pleural effusion. Liver: Normal morphology. Well-defined hypodense lesion anteriorly in the left hepatic lobe unchanged. Lobular somewhat poorly defined lesion in the right hepatic lobe, possibly hepatic cyst or hemangioma, unchanged. No new hepatic lesion. Biliary: Mild intrahepatic and extra hepatic biliary ductal prominence. Gallbladder contains gallstones. Pancreas: Mild parenchymal atrophy. Mild prominence of the pancreatic duct. Pancreas divisum likely present. Spleen: Normal. Adrenal glands: Normal. Kidneys and ureters: Well-defined hypodensity in the upper pole the right kidney likely simple cyst. No hydronephrosis. Punctate nonobstructing calculus suspected in the interpolar region of the right kidney. Ureters poorly visualized. Bladder: Poorly visualized secondary to extensive streak artifact arising from the right hip prosthesis. Pelvic organs: Uterus and ovaries normal. Bowel: Mild stool burden throughout normal caliber colon. No bowel obstruction. Peritoneal cavity: No free fluid or intraperitoneal gas. Lymph nodes: No enlarged lymph nodes in the abdomen or pelvis. Vasculature: Atherosclerosis of the normal caliber abdominal aorta. IVC patent. Abdominal wall: Normal. Musculoskeletal: Total right hip arthroplasty. Degenerative changes of the left hip joint. Degenerative changes of the spine. Previously noted sclerotic osseous metastatic disease is unchanged in extent. The majority of the lesions are within the vertebral bodies. IMPRESSION: 1. Stable appearance of osseous metastatic disease. No convincing evidence of new intra-abdominal metastatic disease. No lymphadenopathy. 2. Please see separately dictated CT of the chest. Electronically signed by: David Mello M.D. 10/23/2017 1:40 PM Dictated Date/Time: 10/23/2017 1:29 PM
--- NOTE | 2017-10-23 13:45 | DIAGNOSTIC IMAGING REPORT ---
CHEST CT WITH CONTRAST CT DOSE: 503.28 mGy.cm HISTORY: Follow-up study in a patient with breast cancer. Subsequent treatment strategy BREAST CA TECHNIQUE: Multiaxial CT images of the chest were performed following the intravenous administration of contrast. A dose lowering technique was utilized adhering to the principles of ALARA. COMPARISON: Chest CT 07/12/2017 FINDINGS: No dominant thyroid nodule identified. No pathologically enlarged lymph nodes of the chest identified. Postoperative changes from prior left-sided mastectomy. There is nonspecific subcutaneous and deep tissue stranding within the left axillary region which is unchanged and may be postsurgical. Heart is normal in size with trace pericardial effusion. Coronary arterial disease. Aortic annular calcifications are noted. There is moderate atherosclerosis of the aorta without aneurysm or dissection. The imaged great vessels appear patent. The left vertebral artery emanates strictly from the aortic arch. The opacified pulmonary arterial tree is unremarkable. Trace right pleural effusion. No pneumothorax. Persistent mild tree-in-bud nodularity right upper lobe. Moderate biapical pleural-parenchymal scarring redemonstrated. Unchanged lobular 2.6 x 1.3 cm soft tissue attenuating lesion of the left lower lobe is again seen on image 140 series 6 suggesting area of chronic bronchial mucoid impaction. There are multiple irregular solid pulmonary nodules again seen throughout the bilateral lungs measuring up to 1.4 cm within the right middle and right lower lobes as seen on images 176 and 186 of series 6 respectively. 1.6 cm linear opacity of the right upper lobe on image 71 series 6 is also unchanged. Stable appearance of the 8 mm nodule of the super segment right lower lobe on image 99 series 6. Subpleural calcified granuloma of the left upper lobe. Linear 2.1 cm pleural-based opacity of the lingula on image 126 series 6 is also unchanged. There is a 6 mm nodule of the left upper lobe seen on image 114 series 6, previously 4 mm which is adjacent to a 4 mm nodule. There are multiple additional smaller irregular nodules which have not significantly changed from comparison. Central airways are patent. No lobar airspace consolidation to suggest pneumonia. No acute amount of the imaged upper abdomen. Partially imaged low attenuating 6 mm lesion of the subserosal left hepatic lobe, indeterminate. Multiple sclerotic bony metastasis redemonstrated. For example, lesions are again seen at T12 and L1. No definite new bony metastatic lesions identified. Lesions are also seen within the right eighth rib. IMPRESSION: 1. Multiple irregular solid noncalcified pulmonary nodules are again seen within the lungs bilaterally. 6 mm nodule within the left upper lobe appears to have increased in size from prior study where it previously measured approximately 4 mm. Attention at follow-up recommended. The remainder of the pulmonary nodules appear unchanged. 2. Mucoid impaction of a left lower lobe bronchus is unchanged. 3. No pathologic adenopathy. 4. Trace right pleural effusion. 5. Multifocal osteoblastic metastasis appear unchanged. 6. Prior left mastectomy. Electronically signed by: Doug Alcaraz M.D. 10/23/2017 1:44 PM Dictated Date/Time: 10/23/2017 1:29 PM
== END | disposition home or self-care (01) ==
LOC: C.CTS 10:36
PROVIDERS: ATTEND Internal Medicine Hematology & Oncology
DX: C50.912 Malignant neoplasm of unspecified site of left female breast (principal); C79.51 Secondary malignant neoplasm of bone; R91.8 Other nonspecific abnormal finding of lung field; Z90.12 Acquired absence of left breast and nipple

== ENCOUNTER → 2017-10-24 | Outpatient (CLI) | payer BC ==
[~2017-10-24] MED LIST changes: -OPTIRAY 320 IV PRN
--- NOTE | 2017-10-24 16:33 | DIAGNOSTIC IMAGING REPORT ---
WHOLE-BODY NUCLEAR BONE SCAN CLINICAL HISTORY: Breast cancer. COMPARISON STUDY: Nuclear bone scan dated 07/10/2017. CT scan of the chest, abdomen, and pelvis dated . TECHNIQUE: Three hours following the IV administration of 27.5 mCi of technetium 99m MDP, whole body nuclear bone scan was performed in the anterior and posterior projections. FINDINGS: There is intense activity localizing to the sternum. There is also intense activity identified within an anterior left rib, likely the fifth rib. Increased activity is identified within the sacrum. No abnormal activity seen throughout the spine. Typically degenerative uptake is again seen in the shoulders, left hip, and right wrist. A photopenic defect is consistent with a right hip arthroplasty. There is expected excreted activity within the renal collecting system and bladder. IMPRESSION: 1. There is intense abnormal activity seen within the sternum and an anterior left rib as above. This is new from 07/10/2017. Additionally there is increasing abnormal activity in the sacrum. When correlated with recent CT scans this likely represents progression of osseous metastatic disease. 2. Foci of typically degenerative activity as above. Electronically signed by: Dmitri Cam M.D. 10/24/2017 4:32 PM Dictated Date/Time: 10/24/2017 4:27 PM
== END | disposition home or self-care (01) ==
LOC: C.NUCL 12:40
PROVIDERS: ATTEND Internal Medicine Hematology & Oncology
DX: C50.912 Malignant neoplasm of unspecified site of left female breast (principal)

== ENCOUNTER 2017-11-25 16:19 | Inpatient (IN) | payer BC, OTHER ==
[~2017-11-25] VITALS: Ht 152.4 cm; Wt 58.1 kg
[~2017-11-25 16:19] MED LIST changes: -AMT25 PO; -ASCO100C2 PO; -LETR2TAB PO; -LVQ500 PO; -LYR/50 PO; -POTA1CAP53 PO; -SACC250C3 PO; -SULF800T23 PO
[2017-11-25] MEDS ORDERED: AMT25 PO ×2 (16:28)
[2017-11-25] MEDS ORDERED: PIPERACILLIN/TAZOBACTAM 4.5 GM/100ML D5W IV STA (16:35)
[2017-11-25] MEDS ORDERED: SODIUM CHLORIDE 0.9% 1000ML 500 ML IV ONE (16:35)
--- NOTE | 2017-11-25 16:48 | EMERGENCY ROOM VISIT NOTE ---
History Report prepared by Haley: Ronen Apodaca Under the Supervision of: Dr. Dmitri Escobar M.D. First contact with patient: 16:28 Chief Complaint: REFERRED BY DOCTOR Stated Complaint: LEFT ARM SWELLING History of Present Illness The patient is an 81 year old female who presents to the Emergency Room with complaints of worsening left arm swelling starting this morning. The patient has a history of shingles for the last 10 months on her left arm and a history of cellulitis in her left arm 4-6 different times. She was seen at her oncologist this morning, and she had a PET scan and had a nuclear injection. Afterwards she did not have any redness or swelling. The left arm redness and warmth started later in the day after the testing and her significant other believes it has markedly worsened in just the last few hours. The patient wears a compression sleeve on her left arm for the past 2 years, and she states that this morning before the injection her arm was at her baseline. The patient denies any cough, congestion, chills, fever, dizziness, light headedness, weakness, and left arm numbness. She reports that she is on a small dose of cephalexin daily as a prophylaxis for her cellulitis. The patient denies any history of blood blots. Source of History: patient Onset: this morning Position: arm (left) Quality: other (swelling) Timing: worsening Associated Symptoms: No fevers, No chills, No cough, No weakness, No numbness Review of Systems See HPI for pertinent positives & negatives. A total of 10 systems reviewed and were otherwise negative. Past Medical & Surgical Medical Problems: (1) Carcinoma of breast (2) Cellulitis (3) Cellulitis (4) GERD (gastroesophageal reflux disease) (5) Hyponatremia (6) Lymphedema of left arm (7) metastatic cancer (8) Nausea & vomiting Surgical Problems: (1) History of modified radical mastectomy of left breast (2) Total replacement of hip Family History Cancer Social History Smoking Status: Never Smoker Alcohol Use: none Marital Status: Housing Status: lives with family Occupation Status: retired Current/Historical Medications Scheduled Amitriptyline HCl (Amitriptyline HCl), 25 MG PO HS Ascorbic Acid (Vitamin C), 100 MG PO DAILY Cephalexin Monohydrate (Cephalexin), 250 MG PO BID Letrozole (Femara), 2.5 MG PO DAILY Magnesium Chloride (Slow-Mag Tab), 128 MG PO DAILY Multivitamin (Multivitamin), 1 TAB PO DAILY Palbociclib (Ibrance), 100 MG PO Q2D Potassium Chloride (Klor-Con Sprinkle), 10 MEQ PO BID Pregabalin (Lyrica), 50 MG PO TID Travoprost (Travatan Z), 1 DROP OPB HS Scheduled PRN Hydrocodone/Acetaminophen 5MG/325MG ([place] 5MG/325MG), 1 TABLET PO BID PRN for Pain Allergies Coded Allergies: Morphine (Verified Adverse Reaction, Intermediate, nausea, 11/25/17) Zolpidem (Verified Adverse Reaction, Mild, Hallucinations, 11/25/17) Physical Exam Vital Signs Date Time Temp Pulse Resp B/P (MAP) Pulse Ox O2 Delivery O2 Flow Rate FiO2 11/25/17 18:30 84 18 155/80 97 Room Air 11/25/17 17:38 86 18 147/77 96 Room Air 11/25/17 16:47 95 Room Air 11/25/17 16:23 36.5 101 18 146/77 95 Room Air Physical Exam GENERAL: Patient is in no acute distress. HEENT: No acute trauma, normocephalic atraumatic, mucous membranes moist, no nasal congestion, no scleral icterus. NECK: No stridor, no adenopathy, no meningismus, trachea is midline. LUNGS: Clear to auscultation bilaterally, no wheeze, no rhonchi, breath sounds equal. HEART: 2/6 systolic murmur with a mild tachycardia. Regular rhythm. ABDOMEN: Soft, nontender, bowel sounds positive, no hernias, no peritonitis. EXTREMITIES: She has lymphedema to the left upper extremity. There is erythema from the mid forearm to the shoulder with warmth. No drainage. The erythema is starting to spread across the left chest wall and left thorax. She has a strong distal left radial pulse. NEUROLOGIC: Oriented x 3, no acute motor or sensory deficits, no focal weakness. SKIN: No jaundice, no diaphoresis. Medical Decision & Procedures ER Provider Diagnostic Interpretation: Radiology results as stated below per my review and radiologist interpretation: CHEST ONE VIEW PORTABLE HISTORY: 81 years-old Female Sepsis acute sepsis COMPARISON: Chest radiograph 08/29/2017 TECHNIQUE: Portable AP view of the chest FINDINGS: Heart and mediastinal and hilar silhouettes are within normal limits. Chronic interstitial opacities are redemonstrated, unchanged. No pneumothorax, pleural effusion, focal airspace consolidation or overt pulmonary edema. Bones of the chest appear grossly intact. Degenerative changes noted about the bilateral shoulders. IMPRESSION: Chronic interstitial opacities without acute process. The above report was generated using voice recognition software. It may contain grammatical, syntax or spelling errors. Electronically signed by: Doug Alcaraz M.D. 11/25/2017 5:38 PM Dictated Date/Time: 11/25/2017 5:18 PM Laboratory Results 11/25/17 17:24 Red Blood Count 3.56, Mean Corpuscular Volume 101.7, Mean Corpuscular Hemoglobin 35.4, Mean Corpuscular Hemoglobin Concent 34.8, Mean Platelet Volume 9.1, Neutrophils (%) (Auto) 77.8, Lymphocytes (%) (Auto) 15.8, Monocytes (%) ( Auto) 5.4, Eosinophils (%) (Auto) 0.4, Basophils (%) (Auto) 0.4, Neutrophils # ( Auto) 4.29, Lymphocytes # (Auto) 0.87, Monocytes # (Auto) 0.30, Eosinophils # ( Auto) 0.02, Basophils # (Auto) 0.02 11/25/17 17:24 Test 11/25/17 17:24 11/25/17 17:31 White Blood Count 5.51 K/uL (4.8-10.8) Red Blood Count 3.56 M/uL (4.2-5.4) Hemoglobin 12.6 g/dL (12.0-16.0) Hematocrit 36.2 % (37-47) Mean Corpuscular Volume 101.7 fL (80-100) Mean Corpuscular Hemoglobin 35.4 pg (25-34) Mean Corpuscular Hemoglobin Concent 34.8 g/dl (32-36) Platelet Count 160 K/uL (130-400) Mean Platelet Volume 9.1 fL (7.4-10.4) Neutrophils (%) (Auto) 77.8 % Lymphocytes (%) (Auto) 15.8 % Monocytes (%) (Auto) 5.4 % Eosinophils (%) (Auto) 0.4 % Basophils (%) (Auto) 0.4 % Neutrophils # (Auto) 4.29 K/uL (1.4-6.5) Lymphocytes # (Auto) 0.87 K/uL (1.2-3.4) Monocytes # (Auto) 0.30 K/uL (0.11-0.59) Eosinophils # (Auto) 0.02 K/uL (0-0.5) Basophils # (Auto) 0.02 K/uL (0-0.2) RDW Standard Deviation 47.5 fL (36.4-46.3) RDW Coefficient of Variation 12.8 % (11.5-14.5) Immature Granulocyte % (Auto) 0.2 % Immature Granulocyte # (Auto) 0.01 K/uL (0.00-0.02) Prothrombin Time 10.6 SECONDS (9.0-12.0) Prothromb Time International Ratio 1.0 (0.9-1.1) Activated Partial Thromboplast Time 24.8 SECONDS (21.0-31.0) Partial Thromboplastin Ratio 1.0 Anion Gap 8.0 mmol/L (3-11) Est Creatinine Clear Calc Drug Dose 54.9 ml/min Estimated GFR () 96.6 Estimated GFR (Non- 83.4 BUN/Creatinine Ratio 17.3 (10-20) Calcium Level 8.8 mg/dl (8.5-10.1) Total Bilirubin 0.3 mg/dl (0.2-1) Aspartate Amino Transf (AST/SGOT) 15 U/L (15-37) Alanine Aminotransferase (ALT/SGPT) 14 U/L (12-78) Alkaline Phosphatase 49 U/L (45-117) Total Protein 6.9 gm/dl (6.4-8.2) Albumin 3.6 gm/dl (3.4-5.0) Globulin 3.3 gm/dl (2.5-4.0) Albumin/Globulin Ratio 1.1 (0.9-2) Bedside Lactic Acid Venous 1.45 mmol/L (0.90-1.70) Laboratory results reviewed by me. Medications Administered Medications (Trade) Dose Ordered Sig/Chani Route Start Time Stop Time Status Last Admin Dose Admin Sodium Chloride 500 ml @ 999 mls/hr Q31M ONCE IV 11/25/17 16:35 11/25/17 17:05 DC 11/25/17 17:37 999 MLS/HR Piperacillin Sod/ Tazobactam Sod (Zosyn Iv) 4.5 gm ONE STAT IV 11/25/17 16:35 11/25/17 16:40 DC 11/25/17 18:12 4.5 GM Daptomycin 500 mg/ Sodium Chloride 60 ml @ 100 mls/hr NOW STAT IV 11/25/17 16:55 11/25/17 17:30 DC 11/25/17 17:37 100 MLS/HR ED Course 1628: The patient was evaluated in room B11. A complete history and physical exam was performed. 1635: Zosyn 4.5gm IV, Sodium Chloride 500 ml @ 999 mls/hr IV 165: I discussed the patients case with Dr. Keeley PAN, and he would add daptomycin to the regiment. He believes that the patient will have to be evaluated by the hospitalist for IV antibiotics because of her history of getting sick very quickly. 1655: Daptomycin 500mg/ Sodium Chloride 60ml @ 100mls/hr IV 1820: I reevaluated the patient, and I discussed the treatment plan with her, and she was agreeable. The patient is going to be evaluated by the hospitalist for further evaluation. 182: Discussed the patient's case with Dr. Anthony Salazar - [facility] Hospitalist. The patient will be evaluated for further management. Medical Decision Differential diagnoses include: cellulitis, lymphedema, lymphadenitis, sepsis, bacteremia, pneumonia, and neurovascular compromise. There is no leukocytosis or concerning anemia. No significant electrolyte abnormality, kidney failure or hepatitis. Lactic acid level is not elevated making severe sepsis less likely. Chest film shows some chronic findings, no pneumonia. Blood cultures are pending. The patient presents with left arm cellulitis. She has had this issue before. It has progressed very quickly. I did discuss the case with Dr. Mina of infectious disease, he recommended IV antibiotic coverage and a hospital stay. The patient received IV Zosyn, IV saline and IV daptomycin. I did speak with case management. The case was discussed with the on-call hospitalist. Medication Reconcilliation Current Medication List: was personally reviewed by me Blood Pressure Screening Patient's blood pressure: Elevated blood pressure Monitored by the hospitalist. Consults Time Called: 1640 Consulting Physician: Dr. Keeley PAN Returned Call: 1653 I discussed the patients case with Dr. Keeley PAN, and he would add daptomycin to the regiment. He believes that the patient will have to be evaluated by the hospitalist for IV antibiotics because of her history of getting sick very quickly. Additional Consults: Time Called: 1818 Consulted Physician: Dr. Anthony Salazar Returned Call: 1824 Additional Comments: Discussed the patient's case with Dr. Anthony Salazar - [facility] Hospitalist. The patient will be evaluated for further management. Impression Primary Impression: Left arm cellulitis Additional Impressions: Lymphedema of left arm Failure of outpatient treatment Scribe Attestation The scribe's documentation has been prepared under my direction and personally reviewed by me in its entirety. I confirm that the note above accurately reflects all work, treatment, procedures, and medical decision making performed by me. Departure Information Dispostion Being Evaluated By Hospitalist Referrals Elvis Lee M.D. (PCP) Patient Instructions My [facility] Problem Qualifiers
[2017-11-25] MEDS ORDERED: DAPTOmycin IV 500 MG in SODIUM CHLORIDE 0.9% 50ML 50 ML IV STA (16:55)
[2017-11-25] MEDS ORDERED: LETR2TAB PO ×2 (17:20)
[2017-11-25] MEDS ORDERED: LYR/50 PO ×2 (17:20)
[2017-11-25] MEDS ORDERED: POTA1CAP53 PO ×2 (17:20)
[2017-11-25] MEDS ORDERED: ASCO100C2 PO ×2 (17:23)
--- NOTE | 2017-11-25 17:40 | DIAGNOSTIC IMAGING REPORT ---
CHEST ONE VIEW PORTABLE HISTORY: 81 years-old Female Sepsis acute sepsis COMPARISON: Chest radiograph 08/29/2017 TECHNIQUE: Portable AP view of the chest FINDINGS: Heart and mediastinal and hilar silhouettes are within normal limits. Chronic interstitial opacities are redemonstrated, unchanged. No pneumothorax, pleural effusion, focal airspace consolidation or overt pulmonary edema. Bones of the chest appear grossly intact. Degenerative changes noted about the bilateral shoulders. IMPRESSION: Chronic interstitial opacities without acute process. The above report was generated using voice recognition software. It may contain grammatical, syntax or spelling errors. Electronically signed by: Doug Alcaarz M.D. 11/25/2017 5:38 PM Dictated Date/Time: 11/25/2017 5:18 PM
[2017-11-25 17:52] LABS: BASO % 0.4 %; BASO ABS # 0.02 K/uL (0-0.2); EOS % 0.4 %; EOS ABS # 0.02 K/uL (0-0.5); HEMATOCRIT 36.2 % (37-47); HEMOGLOBIN 12.6 g/dL (12.0-16.0); IG# 0.01 K/uL (0.00-0.02); LYMPH % 15.8 %; LYMPH ABS # 0.87 K/uL (1.2-3.4); MEAN CELL VOLUME 101.7 fL (80-100); MEAN CORPUSCULAR HEMOGLOBIN 35.4 pg (25-34); MEAN CORPUSCULAR HGB CONC 34.8 g/dl (32-36); MEAN PLATELET VOLUME 9.1 fL (7.4-10.4); MONO % 5.4 %; NEUT % 77.8 %; NEUT ABS # 4.29 K/uL (1.4-6.5); PLATELET COUNT 160 K/uL (130-400); RED CELL DISTRIBUTION WIDTH CV 12.8 % (11.5-14.5); RED CELL DISTRIBUTION WIDTH SD 47.5 fL (36.4-46.3); WHITE BLOOD COUNT 5.51 K/uL (4.8-10.8)
[2017-11-25 17:57] LABS: PTT PATIENT 24.8 SECONDS (21.0-31.0)
[2017-11-25 18:21] LABS: ALBUMIN 3.6 gm/dl (3.4-5.0); CALCIUM 8.8 mg/dl (8.5-10.1); CREATININE 0.62 mg/dl (0.60-1.20); POTASSIUM 3.7 mmol/L (3.5-5.1)
[2017-11-25 18:23] LABS: TOTAL PROTEIN 6.9 gm/dl (6.4-8.2)
[2017-11-25] MEDS ORDERED: ACETAMINOPHEN 325 MG TAB PO PRN (19:30)
[2017-11-25] MEDS ORDERED: ONDANSETRON INJ 2 MG/ML 2 ML VIAL IV PRN (19:30)
[2017-11-25] MEDS ORDERED: PIPERACILL/TAZOBAC IV 4.5 GM in DEXTROSE 5% 100ML 100 ML IV SCH (19:30)
[2017-11-25] MEDS ORDERED: PALBOCICLIB 100 MG PO SCH (19:30)
[2017-11-25] MEDS ORDERED: PIPERACILL/TAZOBAC CONSULT ACTIVE PRN (19:30)
[2017-11-25] MEDS ORDERED: POLYETHYLENE (MIRALAX) 17 GM PACK PO PRN (20:15)
[2017-11-25 21:09] VITALS: BP 147/76; PULSE 80; TEMP 36.5; O2SAT 99; Ht 152.4 cm; Wt 58.1 kg
[2017-11-25] MEDS: PREGABALIN 50 MG CAP PO SCH (21:28)
[2017-11-25] MEDS: AMITRIPTYLINE HCL 25 MG TAB PO SCH (21:28)
[2017-11-25] MEDS: TRAVOPROST Z 0.004% OPH SOLN 2.5 ML BTL OPB SCH (21:29)
[2017-11-25] MEDS: ENOXAPARIN 40 MG/0.4 ML SYR SQ SCH (21:29)
[2017-11-25] MEDS: POTASSIUM CHLORIDE 10 MEQ TABCR PO SCH (21:30)
--- NOTE | 2017-11-25 21:58 | History and Physical ---
History & Physical Date & Time of Service: Nov 25, 2017 at 21:37 Chief Complaint: Cellulitis Primary Care Physician: Elvis Lee M.D. History of Present Illness Source: patient, hospital records 81-year-old with PMHx of left breast cancer 1975 with local invasion of lymph nodes status post mastectomy and lymphadenectomy. Patient also has postherpetic neuralgia with severe pain in her chest and side and back. Patient has lymphedema on her left arm status post recurrent cellulitis. On Keflex suppressive dose. Had a recent CAT scan that was suspicious for malignancy. Oncologist ordered PET scan which she had today. After she came back from the PET scan she noticed her left arm is extremely erythematous and swollen. She presented to the ED. ED physician contacted infectious disease Dr. Mina. Who recommended Zosyn and daptomycin. Patient denies any fever chills or any new symptoms. Family History Cancer Social History Smoking Status: Never Smoker Marital Status: Housing status: lives with significant other Occupational Status: retired Allergies Coded Allergies: Morphine (Verified Adverse Reaction, Intermediate, nausea, 11/25/17) Zolpidem (Verified Adverse Reaction, Mild, Hallucinations, 11/25/17) Home Medications Scheduled Amitriptyline HCl (Amitriptyline HCl), 25 MG PO HS Ascorbic Acid (Vitamin C), 100 MG PO DAILY Cephalexin Monohydrate (Cephalexin), 250 MG PO BID Letrozole (Femara), 2.5 MG PO DAILY Magnesium Chloride (Slow-Mag Tab), 128 MG PO DAILY Multivitamin (Multivitamin), 1 TAB PO DAILY Palbociclib (Ibrance), 100 MG PO Q2D Potassium Chloride (Klor-Con Sprinkle), 10 MEQ PO BID Pregabalin (Lyrica), 50 MG PO TID Travoprost (Travatan Z), 1 DROP OPB HS Scheduled PRN Hydrocodone/Acetaminophen 5MG/325MG ([place] 5MG/325MG), 1 TABLET PO BID PRN for Pain Review of Systems Review of system Constitutional: No fever / no chills / no sweats / no weakness / no fatigue Eyes: no blurring of vision / no eye pain / no discharge / no redness ENT: no hearing loss / no epistaxis /no swallowing problems Respiratory: no cough / no wheezing / no SOB / no hemoptysis Cardiovascular: no Chest pain / no lower extremity edema / no palpitation Abdomen: no pain / no nausea / no vomiting / no constipation Musculoskeletal: swelling and lymphedema in left upper ext. with increased erythema Genitourinary: no dysuria / no incontinence / no urinary retention Neurologic: no focal weakness / no numbness/tingling / no ataxia Psychiatric: no depression symptoms / no anxiety / no insomnia Endocrine: no excessive thirst / no excessive urination Hematologic: no abnormal bleeding / no bruising / no LN swelling Skin: No rash / no pallor Physical Exam Vital Signs Date Time Temp Pulse Resp B/P (MAP) Pulse Ox O2 Delivery O2 Flow Rate FiO2 11/25/17 19:50 80 147/76 99 Room Air 11/25/17 18:30 84 18 155/80 97 Room Air 11/25/17 17:38 86 18 147/77 96 Room Air 11/25/17 16:47 95 Room Air 11/25/17 16:23 36.5 101 18 146/77 95 Room Air Physical examination General patient appears to be comfortable, not in acute distress HEENT: Atraumatic , normocephalic /no jaundice /no pallor /anicteric /no dry mucous membrane /normal external ear inspection Neck: Supple /no swelling /central trach Heart: S1/S2 normal/regular rate and rhythm/no gallop /no rub /no murmur Lungs: Clear to auscultation bilaterally/normal chest with expansion/no rhonchi/ no rales/no wheezing/no use of accessory muscles of respiration Abdomen: Soft/nontender/no guarding/no rebound/no organomegaly/no pulsatile mass Musculoskeletal:swelling and lymphedema in left upper ext. Neuro exam: Awake alert oriented 3/cranial nerves II through XII appear to be intact/sensation intact/moves all extremities/no abnormal movements Psychiatric evaluation: No depressed mood/normal affect Skin: No rash on exposed skin area/no erythema Extremity: Normal pulse/no pitting edema/no clubbing or cyanosis Endocrine/lymphatic: No obvious lymphadenopathy /no lymphedema Diagnostics Laboratory Results Results Past 24 Hours Test 11/25/17 17:24 11/25/17 17:31 Range/Units White Blood Count 5.51 4.8-10.8 K/uL Red Blood Count 3.56 4.2-5.4 M/uL Hemoglobin 12.6 12.0-16.0 g/dL Hematocrit 36.2 37-47 % Mean Corpuscular Volume 101.7 80-100 fL Mean Corpuscular Hemoglobin 35.4 25-34 pg Mean Corpuscular Hemoglobin Concent 34.8 32-36 g/dl Platelet Count 160 130-400 K/uL Mean Platelet Volume 9.1 7.4-10.4 fL Neutrophils (%) (Auto) 77.8 % Lymphocytes (%) (Auto) 15.8 % Monocytes (%) (Auto) 5.4 % Eosinophils (%) (Auto) 0.4 % Basophils (%) (Auto) 0.4 % Neutrophils # (Auto) 4.29 1.4-6.5 K/uL Lymphocytes # (Auto) 0.87 1.2-3.4 K/uL Monocytes # (Auto) 0.30 0.11-0.59 K/uL Eosinophils # (Auto) 0.02 0-0.5 K/uL Basophils # (Auto) 0.02 0-0.2 K/uL RDW Standard Deviation 47.5 36.4-46.3 fL RDW Coefficient of Variation 12.8 11.5-14.5 % Immature Granulocyte % (Auto) 0.2 % Immature Granulocyte # (Auto) 0.01 0.00-0.02 K/uL Prothrombin Time 10.6 9.0-12.0 SECONDS Prothromb Time International Ratio 1.0 0.9-1.1 Activated Partial Thromboplast Time 24.8 21.0-31.0 SECONDS Partial Thromboplastin Ratio 1.0 Sodium Level 136 136-145 mmol/L Potassium Level 3.7 3.5-5.1 mmol/L Chloride Level 101 98-107 mmol/L Carbon Dioxide Level 27 21-32 mmol/L Anion Gap 8.0 3-11 mmol/L Blood Urea Nitrogen 11 7-18 mg/dl Creatinine 0.62 0.60-1.20 mg/dl Est Creatinine Clear Calc Drug Dose 54.9 ml/min Estimated GFR () 96.6 Estimated GFR (Non- 83.4 BUN/Creatinine Ratio 17.3 10-20 Random Glucose 97 70-99 mg/dl Calcium Level 8.8 8.5-10.1 mg/dl Total Bilirubin 0.3 0.2-1 mg/dl Aspartate Amino Transf (AST/SGOT) 15 15-37 U/L Alanine Aminotransferase (ALT/SGPT) 14 12-78 U/L Alkaline Phosphatase 49 45-117 U/L Total Protein 6.9 6.4-8.2 gm/dl Albumin 3.6 3.4-5.0 gm/dl Globulin 3.3 2.5-4.0 gm/dl Albumin/Globulin Ratio 1.1 0.9-2 Bedside Lactic Acid Venous 1.45 0.90-1.70 mmol/L Microbiology Results 11/25/17 Blood Culture, Received Pending 11/25/17 Blood Culture, Received Pending Impression Assessment and Plan 81-year-old with PMHx of left breast cancer 1974 with local invasion of lymph nodes status post mastectomy and lymphadenectomy. Patient also has postherpetic neuralgia. Previous basis: This showed Basilar nodularity, hepatic hypodensities, as well as sclerotic bony metastatic changes s/p PET scan today followed by recurrent left upper ext cellulitis. Assessment: recurrent left upper ext cellulitis on top of lymphedema remote left breast cancer status post mastectomy and lymphadenectomy Upper extremity lymphedema Possible metastatic lesions in body scans Postherpetic neuralgia Plan Patient is Dr. Mina who recommended daptomycin and Zosyn We will add lactobacillus to prevent c dif IV fluid hydration Continue home medications including pain management Obtain blood cultures Heparin for DVT prophylaxis Resuscitation Status VTE Prophylaxis Will order VTE Prophylaxis: Yes
[2017-11-25 23:27] VITALS: BP 146/77; PULSE 95; TEMP 37.5; O2SAT 99
[2017-11-25] MEDS: PIPERACILL/TAZOBAC IV 3.375 GM in DEXTROSE 5% 100ML IV SCH (23:37)
[2017-11-26] VITALS (8 sets, daily range): BP systolic 89–135; BP diastolic 53–80; PULSE 77–90; TEMP 36.3–37.4; O2SAT 95–100
[2017-11-26 06:13] LABS: BASO % 0.4 %; BASO ABS # 0.02 K/uL (0-0.2); EOS % 0.4 %; EOS ABS # 0.02 K/uL (0-0.5); HEMATOCRIT 34.8 % (37-47); HEMOGLOBIN 12.2 g/dL (12.0-16.0); IG# 0.01 K/uL (0.00-0.02); LYMPH % 21.5 %; LYMPH ABS # 1.04 K/uL (1.2-3.4); MEAN CELL VOLUME 100.6 fL (80-100); MEAN CORPUSCULAR HEMOGLOBIN 35.3 pg (25-34); MEAN CORPUSCULAR HGB CONC 35.1 g/dl (32-36); MEAN PLATELET VOLUME 9.1 fL (7.4-10.4); MONO % 6.2 %; NEUT % 71.3 %; NEUT ABS # 3.45 K/uL (1.4-6.5); PLATELET COUNT 159 K/uL (130-400); RED CELL DISTRIBUTION WIDTH SD 47.6 fL (36.4-46.3); WHITE BLOOD COUNT 4.84 K/uL (4.8-10.8)
[2017-11-26 06:43] LABS: CREATININE 0.56 mg/dl (0.60-1.20)
[2017-11-26 06:44] LABS: CALCIUM 8.2 mg/dl (8.5-10.1); POTASSIUM 3.5 mmol/L (3.5-5.1)
[2017-11-26] MEDS ORDERED: DAPTOmycin IV 350 MG in SODIUM CHLORIDE 0.9% 50ML 50 ML IV SCH (08:00)
[2017-11-26] MEDS: MULTIVITAMIN TAB PO SCH (08:43)
[2017-11-26] MEDS: ASCORBIC ACID 500 MG TAB PO SCH (08:43)
[2017-11-26] MEDS: LETROZOLE 2.5 MG TAB PO SCH (08:43)
[2017-11-26] MEDS: LACTOBACILLUS ACIDOPHILUS (FLORANEX) TAB PO SCH ×3 (08:43→16:39)
[2017-11-26] MEDS: POTASSIUM CHLORIDE 10 MEQ TABCR PO SCH ×2 (08:43→20:12)
[2017-11-26] MEDS: PREGABALIN 50 MG CAP PO SCH ×3 (08:43→20:12)
[2017-11-26] MEDS: MAGNESIUM CHLORIDE 64MG DELAYED REL TAB PO SCH (08:43)
[2017-11-26] MEDS: PIPERACILL/TAZOBAC IV 3.375 GM in DEXTROSE 5% 100ML IV SCH ×2 (08:44→15:59)
[2017-11-26] MEDS: HYDROCODONE/ACETAMIN 5/325MG TAB PO PRN (08:48)
--- NOTE | 2017-11-26 09:47 | Hospitalist Progress Note ---
Hospitalist Progress Note Date of Service Nov 26, 2017. (Jazlyn Morales PA-C) Subjective Pt evaluation today including: conversation w/ patient, conversation w/ family , physical exam, chart review, lab review, review of studies, review of inpatient medication list Patient seen and evaluated. LUE erythema basically resolved at this point. Mild warmth to palpation of posterior aspect of upper arm. Reporting baseline lymphedema and no pain. U/S without findings of DVT Reporting stable L CP 2/2 post-herpetic neuralgia - has dealt with this x 10 months - Lyrica/Amitriptyline helping. Constitutional: No fever, No chills Respiratory: No cough, No shortness of breath Cardiovascular: No chest pain Abdomen: No pain, No nausea, No vomiting, No diarrhea, No constipation Musculoskeletal: + swelling (chronic LUE lymphedema (baseline)) Heme: No abnormal bleeding/bruising Skin: No rash (Jazlyn Morales, MEMOC) Medications Current Inpatient Medications Medications (Trade) Dose Ordered Sig/Chani Route Start Time Stop Time Status Last Admin Dose Admin Enoxaparin Sodium (Lovenox Inj) 40 mg Q24H SQ 11/25/17 21:00 12/25/17 20:59 11/25/17 21:29 40 MG Acetaminophen (Tylenol Tab) 650 mg Q4H PRN PO 11/25/17 19:30 12/25/17 19:29 Polyethylene (Miralax Powder Packet) 17 gm DAILY PRN PO 11/25/17 20:15 12/25/17 20:14 Ondansetron HCl (Zofran Inj) 4 mg Q6H PRN IV 11/25/17 19:30 12/25/17 19:29 Amitriptyline HCl (Elavil Tab) 25 mg HS PO 11/25/17 21:00 12/25/17 20:59 11/25/17 21:28 25 MG Acetaminophen/ Hydrocodone Bitart ([place] 5/325 Tab) 1 tab BID PRN PO 11/25/17 19:30 12/09/17 19:29 11/26/17 08:48 1 TAB Magnesium Chloride (Slow-Mag Tab) 128 mg DAILY PO 11/26/17 08:00 12/26/17 08:59 11/26/17 08:43 128 MG Multivitamins (Multivitamin Tab) 1 tab DAILY PO 11/26/17 08:00 12/26/17 08:59 11/26/17 08:43 1 TAB Pregabalin (Lyrica Cap) 50 mg TID PO 11/25/17 20:13 12/25/17 20:59 11/26/17 12:53 50 MG Travoprost (Travatan Z) 1 drops HS OPB 11/25/17 21:00 12/25/17 20:59 11/25/17 21:29 1 DROPS Ascorbic Acid (Vitamin C Tab) 100 mg DAILY PO 11/26/17 08:00 12/26/17 08:59 11/26/17 08:43 100 MG Letrozole (Femara Tab) 2.5 mg DAILY PO 11/26/17 08:00 12/26/17 08:59 11/26/17 08:43 2.5 MG Potassium Chloride (Klor-Con M10) 10 meq BID PO 11/25/17 20:13 12/25/17 20:59 11/26/17 08:43 10 MEQ Miscellaneous Information (Consult) 1 ea UD PRN N/A 11/25/17 19:30 12/25/17 19:29 Lactobacillus Acidophilus (Floranex Tab) 4 tab TIDM PO 11/26/17 08:00 12/26/17 07:59 11/26/17 16:39 4 TAB Miscellaneous Information (Order Awaiting Action) 1 ea QS N/A 11/26/17 00:00 12/26/17 00:00 Daptomycin 350 mg/ Syringe 7 ml @ 3.5 mls/min DAILY@1600 IV 11/26/17 16:00 12/05/17 15:59 11/26/17 16:00 3.5 MLS/MIN Piperacillin Sod/ Tazobactam Sod 3.375 gm/Dextrose 115 ml @ 28.75 mls/ hr Q8H IV 11/26/17 00:00 12/06/17 00:00 11/26/17 15:59 28.75 MLS/HR (Jazlyn Morales, MEMOC) Objective Vital Signs Date Time Temp Pulse Resp B/P (MAP) Pulse Ox O2 Delivery O2 Flow Rate FiO2 11/26/17 07:38 36.9 85 15 109/71 (84) 95 Room Air 11/26/17 03:35 37.4 90 18 89/53 (65) 96 Room Air 11/26/17 00:00 Room Air 11/25/17 23:27 37.5 95 18 146/77 (100) 99 Room Air 11/25/17 21:09 36.5 80 18 147/76 99 Room Air 11/25/17 19:50 80 147/76 99 Room Air 11/25/17 18:30 84 18 155/80 97 Room Air 11/25/17 17:38 86 18 147/77 96 Room Air 11/25/17 16:47 95 Room Air 11/25/17 16:23 36.5 101 18 146/77 95 Room Air (Jazlyn Morales PA-C) Physical Exam General Appearance: WD/WN, no apparent distress Eyes: sclerae normal Neck: supple, no JVD, trachea midline Respiratory/Chest: lungs clear, normal breath sounds, no respiratory distress, no accessory muscle use Cardiovascular: regular rate, rhythm, no gallop, no murmur Abdomen: normal bowel sounds, non tender, soft Extremities: no pedal edema, no calf tenderness, + pertinent finding ( lymphedema of LUE; good radial/ulnar pulses; immediate cap refill; mild warmth to posterior aspect of upper L arm; no erythema) Neurologic/Psychiatric: alert Skin: normal color, warm/dry (Jazlyn Morales, MEMOC) Laboratory Results Last 24 Hours Test 11/25/17 17:24 11/25/17 17:31 11/26/17 05:44 White Blood Count 5.51 K/uL 4.84 K/uL Red Blood Count 3.56 M/uL 3.46 M/uL Hemoglobin 12.6 g/dL 12.2 g/dL Hematocrit 36.2 % 34.8 % Mean Corpuscular Volume 101.7 fL 100.6 fL Mean Corpuscular Hemoglobin 35.4 pg 35.3 pg Mean Corpuscular Hemoglobin Concent 34.8 g/dl 35.1 g/dl Platelet Count 160 K/uL 159 K/uL Mean Platelet Volume 9.1 fL 9.1 fL Neutrophils (%) (Auto) 77.8 % 71.3 % Lymphocytes (%) (Auto) 15.8 % 21.5 % Monocytes (%) (Auto) 5.4 % 6.2 % Eosinophils (%) (Auto) 0.4 % 0.4 % Basophils (%) (Auto) 0.4 % 0.4 % Neutrophils # (Auto) 4.29 K/uL 3.45 K/uL Lymphocytes # (Auto) 0.87 K/uL 1.04 K/uL Monocytes # (Auto) 0.30 K/uL 0.30 K/uL Eosinophils # (Auto) 0.02 K/uL 0.02 K/uL Basophils # (Auto) 0.02 K/uL 0.02 K/uL RDW Standard Deviation 47.5 fL 47.6 fL RDW Coefficient of Variation 12.8 % 13.0 % Immature Granulocyte % (Auto) 0.2 % 0.2 % Immature Granulocyte # (Auto) 0.01 K/uL 0.01 K/uL Prothrombin Time 10.6 SECONDS Prothromb Time International Ratio 1.0 Activated Partial Thromboplast Time 24.8 SECONDS Partial Thromboplastin Ratio 1.0 Sodium Level 136 mmol/L 136 mmol/L Potassium Level 3.7 mmol/L 3.5 mmol/L Chloride Level 101 mmol/L 104 mmol/L Carbon Dioxide Level 27 mmol/L 25 mmol/L Anion Gap 8.0 mmol/L 7.0 mmol/L Blood Urea Nitrogen 11 mg/dl 8 mg/dl Creatinine 0.62 mg/dl 0.56 mg/dl Est Creatinine Clear Calc Drug Dose 54.9 ml/min 60.3 ml/min Estimated GFR () 96.6 99.9 Estimated GFR (Non- 83.4 86.2 BUN/Creatinine Ratio 17.3 14.8 Random Glucose 97 mg/dl 109 mg/dl Calcium Level 8.8 mg/dl 8.2 mg/dl Total Bilirubin 0.3 mg/dl Aspartate Amino Transf (AST/SGOT) 15 U/L Alanine Aminotransferase (ALT/SGPT) 14 U/L Alkaline Phosphatase 49 U/L Total Protein 6.9 gm/dl Albumin 3.6 gm/dl Globulin 3.3 gm/dl Albumin/Globulin Ratio 1.1 Bedside Lactic Acid Venous 1.45 mmol/L Erythrocyte Sedimentation Rate 10 mm/hr C-Reactive Protein 2.56 mg/dl (Jazlyn Morales, MEMOC) Assessment and Plan 81-year-old with PMHx of left breast cancer 1974 with local invasion of lymph nodes status post mastectomy and lymphadenectomy. Patient also has postherpetic neuralgia. Previous basis: This showed Basilar nodularity, hepatic hypodensities, as well as sclerotic bony metastatic changes s/p PET scan today followed by recurrent left upper ext cellulitis. LUE Cellulitis superimposed on Lymphedema: - On suppressive Keflex as outpatient - Continue Daptomycin and Zosyn; no findings of DVT on U/S - ID following - appreciate recommendations Postherpetic Neuralgia: - Amitriptyline 25 mg HS and Lyrica 50 mg TID and [place] PRN H/O L Breast CA S/P Mastectomy and Lymphadenectomy with Possible Metastatic Lesions on PET: - Femara 2.5 mg daily and Palbociclib 100 mg cap every other day DVT Prophylaxis: Lovenox 40 mg SC daily Code Status: FULL RESUSCITATION Disposition: - Await clinical course - possible D/C tomorrow Continued [facility] stay due to: multiple IV medications needed Discharge planning: home (Jazlyn Morales, PAChuchoC) Attending Attestation: Pt seen/examined, chart reviewed, care plan d/w RAHEEM Morales. I agree w/ the tellez components of her documentation. Pt feels better and thinks left arm looks markedly better. thinks left arm redness came from PET scan injection tracer. VSS no fever gen - nad neck - no JVD heart - RRR lungs - CTA b/l abd - soft ext - left arm - mild lymphedema, mainly upper arm; mild warmth to palpation upper arm; minimal erythema left arm (entire portion) in comparison to right arm A/P: chronic LUE lymphedema with superimposed cellulitis - latter much improved overnight. ID following - recommending zosyn/daptomycin. check LUE doppler, r/o DVT. I am uncertain if PET scan tracer could have caused some of her symptoms. anticipate d/c tomorrow if she looks this good. Gemini VILLA MD (Elvis Villa MD)
--- NOTE | 2017-11-26 11:59 | Medical Consult ---
Consultation Date of Consultation: Nov 26, 2017. Attending Physician: Elvis Tapia MD Reason for Consultation: Cellulitis, failure of outpatient antibiotics History of Present Illness 81-year-old female well known to me from outpatient infectious disease follow-up , with history of breast cancer status post left mastectomy and lymphadenectomy with resultant severe left arm lymphedema. Patient has had multiple episodes of cellulitis, and more recently was started on suppressive therapy with cephalexin twice daily with good suppression. However, following her recent pet scan, she had sudden onset of recurrent severe left arm swelling and erythema with erythema spreading to the left chest wall. She did not have any significant associated fever or chills. She came to the emergency department last night, and this discussed with physician, started on daptomycin and Zosyn. Has shown some decrease in the erythema since last night. Cultures are pending. Denies any significant fever or chills. No other new systemic complaints. Past Medical/Surgical History Medical Problems: (1) Cellulitis Status: Acute (2) Cellulitis of left arm Status: Acute (3) Chest pain Status: Acute (4) Concussion Status: Acute (5) Failure of outpatient treatment Status: Acute (6) Herpes zoster Status: Acute (7) Herpes zoster Status: Acute (8) Left arm cellulitis Status: Acute (9) Low back pain Status: Acute (10) Lymphedema of left arm Status: Chronic (11) Post herpetic neuralgia Status: Acute (12) Post herpetic neuralgia Status: Acute (13) Postherpetic neuralgia Status: Acute (14) Postherpetic neuralgia Status: Acute (15) SIRS (systemic inflammatory response syndrome) Status: Acute (16) Weakness Status: Acute Family History Cancer Social History Smoking Status: Never Smoker Marital Status: Housing Status: lives with family Occupation Status: retired Allergies Coded Allergies: Morphine (Verified Adverse Reaction, Intermediate, nausea, 11/25/17) Zolpidem (Verified Adverse Reaction, Mild, Hallucinations, 11/25/17) Current Inpatient Medications Current Inpatient Medications Medications (Trade) Dose Ordered Sig/[place] Route Start Time Stop Time Status Last Admin Dose Admin Enoxaparin Sodium (Lovenox Inj) 40 mg Q24H SQ 11/25/17 21:00 12/25/17 20:59 11/25/17 21:29 40 MG Acetaminophen (Tylenol Tab) 650 mg Q4H PRN PO 11/25/17 19:30 12/25/17 19:29 Polyethylene (Miralax Powder Packet) 17 gm DAILY PRN PO 11/25/17 20:15 12/25/17 20:14 Ondansetron HCl (Zofran Inj) 4 mg Q6H PRN IV 11/25/17 19:30 12/25/17 19:29 Amitriptyline HCl (Elavil Tab) 25 mg HS PO 11/25/17 21:00 12/25/17 20:59 11/25/17 21:28 25 MG Acetaminophen/ Hydrocodone Bitart ([place] 5/325 Tab) 1 tab BID PRN PO 11/25/17 19:30 12/09/17 19:29 11/26/17 08:48 1 TAB Magnesium Chloride (Slow-Mag Tab) 128 mg DAILY PO 11/26/17 08:00 12/26/17 08:59 11/26/17 08:43 128 MG Multivitamins (Multivitamin Tab) 1 tab DAILY PO 11/26/17 08:00 12/26/17 08:59 11/26/17 08:43 1 TAB Pregabalin (Lyrica Cap) 50 mg TID PO 11/25/17 20:13 12/25/17 20:59 11/26/17 08:43 50 MG Travoprost (Travatan Z) 1 drops HS OPB 11/25/17 21:00 12/25/17 20:59 11/25/17 21:29 1 DROPS Ascorbic Acid (Vitamin C Tab) 100 mg DAILY PO 11/26/17 08:00 12/26/17 08:59 11/26/17 08:43 100 MG Letrozole (Femara Tab) 2.5 mg DAILY PO 11/26/17 08:00 12/26/17 08:59 11/26/17 08:43 2.5 MG Potassium Chloride (Klor-Con M10) 10 meq BID PO 11/25/17 20:13 12/25/17 20:59 11/26/17 08:43 10 MEQ Miscellaneous Information (Consult) 1 ea UD PRN N/A 11/25/17 19:30 12/25/17 19:29 Lactobacillus Acidophilus (Floranex Tab) 4 tab TIDM PO 3/13/18 08:00 12/26/17 07:59 11/26/17 08:43 4 TAB Miscellaneous Information (Order Awaiting Action) 1 ea QS N/A 11/26/17 00:00 12/26/17 00:00 Daptomycin 350 mg/ Syringe 7 ml @ 3.5 mls/min DAILY@1600 IV 11/26/17 16:00 12/05/17 15:59 Piperacillin Sod/ Tazobactam Sod 3.375 gm/Dextrose 115 ml @ 28.75 mls/ hr Q8H IV 11/26/17 00:00 12/06/17 00:00 11/26/17 08:44 28.75 MLS/HR Review of Systems All systems were reviewed and are negative except as per HPI Physical Exam Date Time Temp Pulse Resp B/P (MAP) Pulse Ox O2 Delivery O2 Flow Rate FiO2 11/26/17 11:32 36.6 83 16 122/69 (86) 96 Room Air 11/26/17 08:00 95 Room Air 11/26/17 07:38 36.9 85 15 109/71 (84) 95 Room Air 11/26/17 03:35 37.4 90 18 89/53 (65) 96 Room Air 11/26/17 00:00 Room Air 11/25/17 23:27 37.5 95 18 146/77 (100) 99 Room Air 11/25/17 21:09 36.5 80 18 147/76 99 Room Air 11/25/17 19:50 80 147/76 99 Room Air 11/25/17 18:30 84 18 155/80 97 Room Air 11/25/17 17:38 86 18 147/77 96 Room Air 11/25/17 16:47 95 Room Air 11/25/17 16:23 36.5 101 18 146/77 95 Room Air General Appearance: WD/WN, no apparent distress Head: normocephalic, atraumatic Eyes: normal inspection, EOMI, sclerae normal ENT: normal ENT inspection, hearing grossly normal, pharynx normal Neck: supple, no adenopathy, thyroid normal, trachea midline Respiratory/Chest: chest non-tender, lungs clear, normal breath sounds, no respiratory distress Cardiovascular: regular rate, rhythm, no gallop, no murmur Abdomen/GI: normal bowel sounds, non tender, soft, no organomegaly Back: normal inspection, no CVA tenderness Extremities/Musculoskelatal: no calf tenderness, normal capillary refill, non- tender, + pertinent finding (Left arm swelling) Neurologic/Psych: alert, normal mood/affect, oriented x 3 Skin: normal color, no rash, + pertinent finding (Mild erythema of left arm with some spread to left chest wall) Lymphatic: no adenopathy Laboratory Results Date/Time Source Procedure Growth Status 11/25/17 17:05 Blood Blood Culture Pending Received 11/25/17 17:00 Blood Blood Culture Pending Received Last 24 Hours Test 11/25/17 17:24 11/25/17 17:31 11/26/17 05:44 White Blood Count 5.51 K/uL 4.84 K/uL Red Blood Count 3.56 M/uL 3.46 M/uL Hemoglobin 12.6 g/dL 12.2 g/dL Hematocrit 36.2 % 34.8 % Mean Corpuscular Volume 101.7 fL 100.6 fL Mean Corpuscular Hemoglobin 35.4 pg 35.3 pg Mean Corpuscular Hemoglobin Concent 34.8 g/dl 35.1 g/dl Platelet Count 160 K/uL 159 K/uL Mean Platelet Volume 9.1 fL 9.1 fL Neutrophils (%) (Auto) 77.8 % 71.3 % Lymphocytes (%) (Auto) 15.8 % 21.5 % Monocytes (%) (Auto) 5.4 % 6.2 % Eosinophils (%) (Auto) 0.4 % 0.4 % Basophils (%) (Auto) 0.4 % 0.4 % Neutrophils # (Auto) 4.29 K/uL 3.45 K/uL Lymphocytes # (Auto) 0.87 K/uL 1.04 K/uL Monocytes # (Auto) 0.30 K/uL 0.30 K/uL Eosinophils # (Auto) 0.02 K/uL 0.02 K/uL Basophils # (Auto) 0.02 K/uL 0.02 K/uL RDW Standard Deviation 47.5 fL 47.6 fL RDW Coefficient of Variation 12.8 % 13.0 % Immature Granulocyte % (Auto) 0.2 % 0.2 % Immature Granulocyte # (Auto) 0.01 K/uL 0.01 K/uL Prothrombin Time 10.6 SECONDS Prothromb Time International Ratio 1.0 Activated Partial Thromboplast Time 24.8 SECONDS Partial Thromboplastin Ratio 1.0 Sodium Level 136 mmol/L 136 mmol/L Potassium Level 3.7 mmol/L 3.5 mmol/L Chloride Level 101 mmol/L 104 mmol/L Carbon Dioxide Level 27 mmol/L 25 mmol/L Anion Gap 8.0 mmol/L 7.0 mmol/L Blood Urea Nitrogen 11 mg/dl 8 mg/dl Creatinine 0.62 mg/dl 0.56 mg/dl Est Creatinine Clear Calc Drug Dose 54.9 ml/min 60.3 ml/min Estimated GFR () 96.6 99.9 Estimated GFR (Non- 83.4 86.2 BUN/Creatinine Ratio 17.3 14.8 Random Glucose 97 mg/dl 109 mg/dl Calcium Level 8.8 mg/dl 8.2 mg/dl Total Bilirubin 0.3 mg/dl Aspartate Amino Transf (AST/SGOT) 15 U/L Alanine Aminotransferase (ALT/SGPT) 14 U/L Alkaline Phosphatase 49 U/L Total Protein 6.9 gm/dl Albumin 3.6 gm/dl Globulin 3.3 gm/dl Albumin/Globulin Ratio 1.1 Bedside Lactic Acid Venous 1.45 mmol/L Erythrocyte Sedimentation Rate 10 mm/hr C-Reactive Protein 2.56 mg/dl CHEST ONE VIEW PORTABLE HISTORY: 81 years-old Female Sepsis acute sepsis COMPARISON: Chest radiograph 08/29/2017 TECHNIQUE: Portable AP view of the chest FINDINGS: Heart and mediastinal and hilar silhouettes are within normal limits. Chronic interstitial opacities are redemonstrated, unchanged. No pneumothorax, pleural effusion, focal airspace consolidation or overt pulmonary edema. Bones of the chest appear grossly intact. Degenerative changes noted about the bilateral shoulders. IMPRESSION: Chronic interstitial opacities without acute process. The above report was generated using voice recognition software. It may contain grammatical, syntax or spelling errors. Electronically signed by: Dogu Alcaraz M.D. 11/25/2017 5:38 PM Dictated Date/Time: 11/25/2017 5:18 PM Assessment & Plan 81-year-old female with history of recurrent left upper extremity cellulitis in the setting of prior lymphadenectomy in chronic lymphedema, on chronic suppressive therapy, now with what appears to be acute onset of recurrent cellulitis. Patient to be treated with combination of daptomycin and Zosyn pending further culture results. Length of IV antibiotics will be determined by clinical response. Will follow.
--- NOTE | 2017-11-26 15:52 | DIAGNOSTIC IMAGING REPORT ---
ULTRASOUND LEFT UPPER EXTREMITY VENOUS CLINICAL HISTORY: Left arm swelling and infection. COMPARISON STUDY: Left upper extremity venous ultrasound dated 11/10/2015. TECHNIQUE: Real-time, grayscale, and color Doppler sonography of the deep veins of the left upper extremity is performed. Compression and augmentation were utilized. FINDINGS: There is no sonographic evidence of deep venous thrombosis identified in the left upper extremity. The left internal jugular, axillary, and brachial veins are patent and normally compressible. Normal venous waveforms and augmentation are seen within the left subclavian vein. The cephalic and basilic veins are clear. The visualized radial and ulnar veins are patent. IMPRESSION: There is no sonographic evidence of deep venous thrombosis identified in the left upper extremity. Electronically signed by: Dmitri Cam M.D. 11/26/2017 3:50 PM Dictated Date/Time: 11/26/2017 3:50 PM
[2017-11-26] MEDS ORDERED: DAPTOmycin IV 350 MG in SYRINGE 0 ML IV SCH (16:00)
[2017-11-26] MEDS: AMITRIPTYLINE HCL 25 MG TAB PO SCH (20:12)
[2017-11-26] MEDS: TRAVOPROST Z 0.004% OPH SOLN 2.5 ML BTL OPB SCH (20:12)
[2017-11-26] MEDS: ENOXAPARIN 40 MG/0.4 ML SYR SQ SCH (20:13)
[2017-11-27] MEDS: PIPERACILL/TAZOBAC IV 3.375 GM in DEXTROSE 5% 100ML IV SCH ×2 (00:07→07:51)
[2017-11-27 03:20] VITALS: BP 96/58; PULSE 78; TEMP 36.7; O2SAT 95
[2017-11-27 06:38] LABS: BASO ABS # 0.03 K/uL (0-0.2); EOS % 1.9 %; EOS ABS # 0.06 K/uL (0-0.5); HEMOGLOBIN 11.6 g/dL (12.0-16.0); LYMPH % 24.4 %; LYMPH ABS # 0.76 K/uL (1.2-3.4); MEAN CELL VOLUME 101.8 fL (80-100); MEAN CORPUSCULAR HEMOGLOBIN 34.7 pg (25-34); MEAN CORPUSCULAR HGB CONC 34.1 g/dl (32-36); MEAN PLATELET VOLUME 9.1 fL (7.4-10.4); MONO % 8.4 %; MONO ABS # 0.26 K/uL (0.11-0.59); NEUT % 64.3 %; PLATELET COUNT 150 K/uL (130-400); RED CELL DISTRIBUTION WIDTH CV 12.9 % (11.5-14.5); RED CELL DISTRIBUTION WIDTH SD 47.7 fL (36.4-46.3); WHITE BLOOD COUNT 3.11 K/uL (4.8-10.8)
[2017-11-27 07:13] LABS: CALCIUM 8.2 mg/dl (8.5-10.1); CREATININE 0.57 mg/dl (0.60-1.20); POTASSIUM 3.6 mmol/L (3.5-5.1)
[2017-11-27 07:48] VITALS: BP 132/78; PULSE 82; TEMP 36.9; O2SAT 93
[2017-11-27] MEDS: HYDROCODONE/ACETAMIN 5/325MG TAB PO PRN (07:48)
[2017-11-27] MEDS: PREGABALIN 50 MG CAP PO SCH ×2 (07:48→13:05)
[2017-11-27] MEDS: MULTIVITAMIN TAB PO SCH (07:49)
[2017-11-27] MEDS: LACTOBACILLUS ACIDOPHILUS (FLORANEX) TAB PO SCH ×2 (07:49→13:00)
[2017-11-27] MEDS: ASCORBIC ACID 500 MG TAB PO SCH (07:49)
[2017-11-27] MEDS: MAGNESIUM CHLORIDE 64MG DELAYED REL TAB PO SCH (07:49)
[2017-11-27] MEDS: POTASSIUM CHLORIDE 10 MEQ TABCR PO SCH (07:49)
[2017-11-27] MEDS: LETROZOLE 2.5 MG TAB PO SCH (07:49)
[2017-11-27 08:00] VITALS: O2SAT 93
[2017-11-27 08:19] VITALS: O2SAT 93
--- NOTE | 2017-11-27 15:17 | Infectious Disease Progress Nt ---
Progress Note Date of Service Nov 27, 2017. Subjective Pt evaluation today including: conversation w/ patient, conversation w/ family , physical exam, chart review, lab review, review of studies, conversation w/ cassandra consultant, review of inpatient medication list Offers no new complaints today. Remains afebrile. Blood cultures remain negative. Erythema arm and chest wall improving. All Other Systems: Reviewed and Negative Medications Current Inpatient Medications Medications (Trade) Dose Ordered Sig/Chani Route Start Time Stop Time Status Last Admin Dose Admin Enoxaparin Sodium (Lovenox Inj) 40 mg Q24H SQ 11/25/17 21:00 12/25/17 20:59 11/26/17 20:13 40 MG Acetaminophen (Tylenol Tab) 650 mg Q4H PRN PO 11/25/17 19:30 12/25/17 19:29 Polyethylene (Miralax Powder Packet) 17 gm DAILY PRN PO 11/25/17 20:15 12/25/17 20:14 Ondansetron HCl (Zofran Inj) 4 mg Q6H PRN IV 11/25/17 19:30 12/25/17 19:29 Amitriptyline HCl (Elavil Tab) 25 mg HS PO 11/25/17 21:00 12/25/17 20:59 11/26/17 20:12 25 MG Acetaminophen/ Hydrocodone Bitart ([place] 5/325 Tab) 1 tab BID PRN PO 11/25/17 19:30 12/09/17 19:29 11/27/17 07:48 1 TAB Magnesium Chloride (Slow-Mag Tab) 128 mg DAILY PO 11/26/17 08:00 12/26/17 08:59 11/27/17 07:49 128 MG Multivitamins (Multivitamin Tab) 1 tab DAILY PO 11/26/17 08:00 12/26/17 08:59 11/27/17 07:49 1 TAB Pregabalin (Lyrica Cap) 50 mg TID PO 11/25/17 20:13 12/25/17 20:59 11/27/17 13:05 50 MG Travoprost (Travatan Z) 1 drops HS OPB 11/25/17 21:00 12/25/17 20:59 11/26/17 20:12 1 DROPS Ascorbic Acid (Vitamin C Tab) 100 mg DAILY PO 11/26/17 08:00 12/26/17 08:59 11/27/17 07:49 100 MG Letrozole (Femara Tab) 2.5 mg DAILY PO 11/26/17 08:00 12/26/17 08:59 11/27/17 07:49 2.5 MG Potassium Chloride (Klor-Con M10) 10 meq BID PO 11/25/17 20:13 12/25/17 20:59 11/27/17 07:49 10 MEQ Miscellaneous Information (Consult) 1 ea UD PRN N/A 11/25/17 19:30 12/25/17 19:29 Lactobacillus Acidophilus (Floranex Tab) 4 tab TIDM PO 11/26/17 08:00 12/26/17 07:59 11/27/17 13:00 4 TAB Miscellaneous Information (Order Awaiting Action) 1 ea QS N/A 11/26/17 00:00 12/26/17 00:00 Piperacillin Sod/ Tazobactam Sod 3.375 gm/Dextrose 115 ml @ 28.75 mls/ hr Q8H IV 11/26/17 00:00 12/06/17 00:00 11/27/17 07:51 28.75 MLS/HR Daptomycin 250 mg/ Syringe 5 ml @ 3.5 mls/min DAILY@1600 IV 11/27/17 16:00 12/04/17 15:59 Objective Vital Signs Date Time Temp Pulse Resp B/P (MAP) Pulse Ox O2 Delivery O2 Flow Rate FiO2 11/27/17 08:19 93 Room Air 11/27/17 08:00 93 Room Air 11/27/17 07:48 36.9 82 14 132/78 (96) 93 Room Air 11/27/17 03:20 36.7 78 18 96/58 (71) 95 Room Air 11/27/17 00:30 Room Air 11/26/17 23:08 36.8 80 18 115/54 (74) 97 Room Air 11/26/17 19:25 36.3 83 20 135/80 (98) 100 Room Air 11/26/17 16:00 97 Room Air 11/26/17 15:25 36.3 77 17 129/72 (91) 97 Room Air Physical Exam General Appearance: WD/WN, no apparent distress Eyes: normal inspection, EOMI, sclerae normal ENT: normal ENT inspection, hearing grossly normal, pharynx normal Neck: supple, no adenopathy, thyroid normal, trachea midline Respiratory/Chest: chest non-tender, lungs clear, normal breath sounds, no respiratory distress Cardiovascular: regular rate, rhythm, no gallop, no murmur Abdomen: normal bowel sounds, non tender, soft, no organomegaly Extremities: non-tender, no calf tenderness Neurologic/Psychiatric: alert, normal mood/affect, oriented x 3 Skin: normal color, no rash, + pertinent finding (Improving cellulitis left arm and chest wall) Lymphatic: no adenopathy Laboratory Results RUN DATE: 11/27/17 [facility] LAB PAGE 1 RUN TIME: 727 Specimen Inquiry PATIENT: GLENYS BYNUM LOC: [place] U # : [id number] AGE/SX: 81/F ROOM: E418 REG : 11/25/[address]: Elvis Tapia MD : 1935 BED: 1 DIS : STATUS: ADM IN TLOC: SPEC #: [id number] CHERELLE: 11/25/17 STATUS: RES REQ #: [id number] RECD: 11/25/17 [facility] DR: Dmitri Escobar M.D. SOURCE: BLOOD ENTR: 11/25/17-1639 [facility] DR: Elvis Lee M.D. [facility]: ORDERED: BLOOD CULTURE Procedure Result Verified Site BLD CULT Preliminary 11/27/17 NO GROWTH TO DATE. Last 24 Hours Test 11/27/17 06:29 11/27/17 09:22 White Blood Count 3.11 K/uL Red Blood Count 3.34 M/uL Hemoglobin 11.6 g/dL Hematocrit 34.0 % Mean Corpuscular Volume 101.8 fL Mean Corpuscular Hemoglobin 34.7 pg Mean Corpuscular Hemoglobin Concent 34.1 g/dl Platelet Count 150 K/uL Mean Platelet Volume 9.1 fL Neutrophils (%) (Auto) 64.3 % Lymphocytes (%) (Auto) 24.4 % Monocytes (%) (Auto) 8.4 % Eosinophils (%) (Auto) 1.9 % Basophils (%) (Auto) 1.0 % Neutrophils # (Auto) 2.00 K/uL Lymphocytes # (Auto) 0.76 K/uL Monocytes # (Auto) 0.26 K/uL Eosinophils # (Auto) 0.06 K/uL Basophils # (Auto) 0.03 K/uL RDW Standard Deviation 47.7 fL RDW Coefficient of Variation 12.9 % Immature Granulocyte % (Auto) 0.0 % Immature Granulocyte # (Auto) 0.00 K/uL Sodium Level 139 mmol/L Potassium Level 3.6 mmol/L Chloride Level 106 mmol/L Carbon Dioxide Level 27 mmol/L Anion Gap 6.0 mmol/L Blood Urea Nitrogen 6 mg/dl Creatinine 0.57 mg/dl Est Creatinine Clear Calc Drug Dose 59.7 ml/min Estimated GFR () 99.4 Estimated GFR (Non- 85.7 BUN/Creatinine Ratio 10.8 Random Glucose 98 mg/dl Calcium Level 8.2 mg/dl Vitamin B12 Level 454 pg/mL Folate 8.69 ng/mL Thyroid Stimulating Hormone (TSH) 0.564 uIu/ml Assessment and Plan 81-year-old female with history of recurrent left upper extremity cellulitis in the setting of prior lymphadenectomy in chronic lymphedema, on chronic suppressive therapy, now with what appears to be acute onset of recurrent cellulitis. Patient appears to have resolved quickly with IV antibiotics, will be transitioned to oral antibiotics with Bactrim and levofloxacin as discuss. Will see in the office in 10 days in follow-up.
[2017-11-27] MEDS ORDERED: SULF800T23 PO ×2 (15:29)
[2017-11-27] MEDS ORDERED: LVQ500 PO ×2 (15:29)
[2017-11-27] MEDS ORDERED: SACC250C3 PO ×2 (15:30)
--- NOTE | 2017-11-27 15:34 | Discharge Instructions ---
Discharge Instructions Date of Service Nov 27, 2017. Admission Reason for Admission: Cellulitis Discharge Discharge Diagnosis / Problem: Cellulitis Discharge Goals Goal(s): Decrease discomfort, Improve function, Increase independence Activity Recommendations Activity Limitations: resume your previous activity . Instructions / Follow-Up Instructions / Follow-Up Left Arm Cellulitis (Skin Infection): - Hold you Keflex while on different antibiotics. You can resume Keflex after you complete the Bactrim and Levaquin - Take Levaquin 500 mg daily for the next 12 days. You can start this today on . - Take Bactrim 1 tablet twice a day for the next 12 days. You can start the first dose tonight as well on 11/27. - Dr. Mina would like to see you in the office in the next 10 days and we will help set up an appointment. Current Hospital Diet Patient's current hospital diet: Regular Diet Discharge Diet Recommended Diet: Regular Diet Pending Studies Studies pending at discharge: no Medical Emergencies . Who to Call and When: Medical Emergencies: If at any time you feel your situation is an emergency, please call 911 immediately. . Non-Emergent Contact Non-Emergency issues call your: Primary Care Provider Call Non-Emergent contact if: you have a fever, your pain is concerning you, you have any medication questions . . "Provider Documentation" section prepared by Jazlyn Morales. .
[2017-11-27 15:41] VITALS: BP 127/74; PULSE 83; TEMP 36.3; O2SAT 100
[2017-11-27 15:52] VITALS: BP 127/74; PULSE 83; TEMP 36.3; O2SAT 100
[2017-11-27] MEDS ORDERED: DAPTOmycin IV 250 MG in SYRINGE 0 ML IV SCH (16:00)
--- NOTE | 2017-11-27 18:42 | Discharge Summary ---
Discharge Summary Date of Service Nov 27, 2017. Discharge Summary Admission Date: Nov 25, 2017 at 19:29 Discharge Date: Nov 27, 2017 Discharge Disposition: Home Principal Diagnosis: LUE Cellulitis with Lymphedema Problems/Secondary Diagnoses: 1. 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 Chronic LUE Lymphedema 3. H/O Shingles with Postherpetic Neuralgia 4. Recurrent LUE Cellulitis - on suppressive Keflex Procedures: ULTRASOUND LEFT UPPER EXTREMITY VENOUS FINDINGS: There is no sonographic evidence of deep venous thrombosis identified in the left upper extremity. The left internal jugular, axillary, and brachial veins are patent and normally compressible. Normal venous waveforms and augmentation are seen within the left subclavian vein. The cephalic and basilic veins are clear. The visualized radial and ulnar veins are patent. IMPRESSION: There is no sonographic evidence of deep venous thrombosis identified in the left upper extremity. Consultations: 1. Infectious Disease Medication Reconciliation New Medications: Levofloxacin (Levofloxacin) 500 Mg Tab 500 MG PO DAILY, #12 TAB Saccharomyces Boulardii (Florastor) 250 Mg Cap 1 TAB PO DAILY for 14 Days, #14 TABS Sulfa/Trimethoprim (Bactrim Ds 800MG/160MG) Tab 1 TAB PO BID, #12 TAB Continued Medications: Amitriptyline HCl (Amitriptyline HCl) 25 Mg Tab 25 MG PO HS Ascorbic Acid (Vitamin C) 100 Mg Chw 100 MG PO DAILY Cephalexin Monohydrate (Cephalexin) 250 Mg Cap 250 MG PO BID Hydrocodone/Acetaminophen 5MG/325MG (Haslet 5MG/325MG) Tab 1 TABLET PO BID PRN for Pain, TAB Letrozole (Femara) 2.5 Mg Tab 2.5 MG PO DAILY Magnesium Chloride (Slow-Mag Tab) 64 Mg Tabcr 128 MG PO DAILY, TAB Multivitamin (Multivitamin) Tab 1 TAB PO DAILY Palbociclib (Ibrance) 100 Mg Cap 100 MG PO Q2D TAKE THIS MEDICATION EVERY OTHER DAY AT BEDTIME Potassium Chloride (Klor-Con Sprinkle) 10 Meq Cap 10 MEQ PO BID Pregabalin (Lyrica) 50 Mg Cap 50 MG PO TID Travoprost (Travatan Z) 0.004 % Etienne 1 DROP OPB HS, ML Discharge Exam Review of Systems: Constitutional: No fever, No chills ENT: No nasal symptoms, No sore throat Respiratory: No cough, No shortness of breath Cardiovascular: No chest pain Abdomen: No pain, No nausea, No vomiting, No diarrhea, No constipation Musculoskeletal: + swelling (chronic in LUE - at baseline), No calf pain Genitourinary - Female: No dysuria Neurologic: No numbness/tingling Hematologic / Lymphatic: No abnormal bleeding/bruising Physical Exam: General Appearance: WD/WN, no apparent distress Eyes: sclerae normal ENT: hearing grossly normal Neck: supple, no JVD, trachea midline Respiratory/Chest: lungs clear, normal breath sounds, no respiratory distress, no accessory muscle use Cardiovascular: regular rate, rhythm, no gallop, no murmur Abdomen / GI: normal bowel sounds, non tender, soft Extremities: no pedal edema, + swelling (LUE lymphedema), + pertinent finding (No erythema or warmth to touch of LUE; + ulnar/radial pulse; immediate cap refill) Neurologic/Psychiatric: alert Skin: normal color, warm/dry Hospital Course ADMISSION: 81-year-old with PMHx of left breast cancer 1975 with local invasion of lymph nodes status post mastectomy and lymphadenectomy. Patient also has postherpetic neuralgia with severe pain in her chest and side and back. Patient has lymphedema on her left arm status post recurrent cellulitis. On Keflex suppressive dose. Had a recent CAT scan that was suspicious for malignancy. Oncologist ordered PET scan which she had today. After she came back from the PET scan she noticed her left arm is extremely erythematous and swollen. She presented to the ED. ED physician contacted infectious disease Dr. Mina. Who recommended Zosyn and daptomycin.Patient denies any fever chills or any new symptoms. HOSPITAL COURSE: Ms. Dykes was admitted for LUE cellulitis. Erythema rapidly resolved with initial Dapto and Zosyn. U/S of upper extremity did not reveal findings of DVT. She will be placed on Levofloxacin 500 mg daily and Bactrim DS 1 tablet BID to complete a 14 day course. Will have follow-up with ID in the next 10 days to monitor tolerance. After completion of Levaquin and Bactrim she will return on her suppressive Keflex. Total Time Spent: Greater than 30 minutes This includes examination of the patient, discharge planning, medication reconciliation, and communication with other providers. Discharge Instructions Please refer to the electronic Patient Visit Report (Discharge Instructions) for additional information. Additional Copies To Elvis Lee M.D.
== END 2017-11-27 17:33 | disposition home or self-care (01) | DRG 600 ==
LOC: C.EDB 16:21 → C.4E 19:29 → ENRESERV 19:40
PROVIDERS: ADMIT Internal Medicine; ATTEND Internal Medicine
DX: I97.2 Postmastectomy lymphedema syndrome (principal); L03.114 Cellulitis of left upper limb; B02.29 Other postherpetic nervous system involvement; C79.51 Secondary malignant neoplasm of bone; K21.9 Gastro-esophageal reflux disease without esophagitis; Z91.19 Patient's noncompliance with other medical treatment and regimen; Z85.3 Personal history of malignant neoplasm of breast; Z96.643 Presence of artificial hip joint, bilateral; Z88.5 Allergy status to narcotic agent; Z80.9 Family history of malignant neoplasm, unspecified

== ENCOUNTER → 2017-11-25 | Outpatient (CLI) | payer BC ==
[~2017-11-25] MED LIST changes: +ASCO100C2 PO; +LETR2TAB PO; +LVQ500 PO; +LYR/50 PO; +POTA1CAP53 PO; +SACC250C3 PO; +SULF800T23 PO
--- NOTE | 2017-11-25 13:15 | DIAGNOSTIC IMAGING REPORT ---
PET/CT CLINICAL HISTORY: Breast cancer. COMPARISON STUDY: CT scan of the chest, abdomen, and pelvis dictated 10/23/2017. Chest CT dated 07/12/2017. Nuclear bone scan dated 10/24/2017. TECHNIQUE: One hour following the IV administration of 13.75 mCi of F-18 FDG, PET/CT examination was performed from the orbital meatal line through the bony pelvis. Noncontrast CT is performed for the purposes of anatomic correlation and attenuation correction. Note that this does not reflect a diagnostic CT examination. Images were reviewed on a separate [employer] independent workstation. Fused images were obtained. Standard uptake values reported are maximum values within the region of interest expressed in gm/mL. FINDINGS: PET FINDINGS: Head and neck: There is expected physiologic activity within the visualized brain parenchyma at the skull base and the salivary glands. Thorax: Evaluation of the thorax demonstrates expected physiologic myocardial activity. Numerous irregular pulmonary lesions are identified. A a 0.7 cm left upper lobe lesion on image #66 demonstrates a maximum SUV of 2.2. A 1.5 cm lesion is seen in the right upper lobe on image #55 in the left lower lobe lesion on image #70 measures 1.9 x 1.3 cm. These demonstrate only faint tracer localization. At least 5 additional smaller pulmonary lesion identified. There is a focus of FDG activity identified in the right hilum image #68 with a maximum SUV of 6.0 and evaluate of activity in the left hilum on image #66 a maximum SUV of 4.0. These likely correspond to hilar adenopathy. The nodes are not well visualized on the low-dose CT images. No abnormal tracer deposition is seen in the right breast. Abdomen and pelvis: There is expected activity within the liver, spleen, kidneys, renal collecting system, and bladder. Low-level bowel activity is likely within physical limits. Skeletal structures: There is evidence of multifocal osteoblastic metastatic disease. Numerous lesions are seen throughout the spine, with the largest lesions identified in T11, T12, L1, and L3. Lesions are also seen in the sternum on image #85, the right ilium on image #149, and the sacrum on image #166. Additional smaller lesions are noted. These lesions do not demonstrate abnormal FDG localization. Unenhanced CT images: The visualized cerebellar parenchyma the skull base is normal in appearance. The maxillary antra are clear. The mastoid air cells are well pneumatized. The salivary and thyroid glands are normal as imaged. No cervical adenopathy is seen. There is atherosclerotic calcification of the thoracic aorta which is normal in caliber. The heart is normal in size and without pericardial effusion. Aortic valve leaflets and coronary arteries are densely calcified. No mediastinal or axillary lymphadenopathy is seen. The left breast is surgically absent. No airspace consolidation or pleural effusion is identified. See above under PET findings for evaluation of pulmonary lesions. There are numerous calcified gallstones. 1.0 cm cyst is seen in the left hepatic lobe. The unenhanced liver is otherwise gross unremarkable. The unenhanced spleen, adrenal glands, kidneys, and pancreas are grossly normal. The abdominal aorta is normal in caliber noting moderate atherosclerotic calcification. No bowel obstruction is identified. No intraperitoneal free air or abdominal ascites is seen. There is no abdominal, pelvic, or inguinal lymphadenopathy. The bladder, uterus, and adnexa are normal as visualized. The skeletal structures are osteopenic. A right hip arthroplasty is in place. Advanced arthritic change is seen in the left hip. Arthritic change is seen in both shoulders. Bursal fluid is noted on the right. IMPRESSION: 1. There are numerous irregular pulmonary lesions identified as above. Only one of these lesions in the left upper lobe shows significant FDG localization. The appearance suggests metastatic disease. 2. Multifocal osteoblastic metastatic disease has not significant change from previous. These lesions did not show significant FDG activity. 3. The left breast is surgically absent. 4. Cholelithiasis. 5. Additional findings as above. Electronically signed by: Dmitri Cam M.D. 11/25/2017 1:14 PM Dictated Date/Time: 11/25/2017 12:50 PM
== END | disposition home or self-care (01) ==
LOC: C.PET 09:14
PROVIDERS: ATTEND Internal Medicine Hematology & Oncology
DX: C50.912 Malignant neoplasm of unspecified site of left female breast (principal); K80.20 Calculus of gallbladder without cholecystitis without obstruction

== ENCOUNTER 2017-12-17 20:25 | Inpatient (IN) | payer BC, OTHER ==
[~2017-12-17] VITALS: Ht 165.1 cm; Wt 60.0 kg
[~2017-12-17 20:25] MED LIST changes: +AMT25 PO; +ASCO100C2 PO; -FMR25 PO; +LETR2TAB PO; +LVQ500 PO; +LYR/50 PO; -LYR50 PO; -POTA10CA28 PO; +POTA1CAP53 PO; +SACC250C3 PO; +SULF800T23 PO
[2017-12-17] MEDS ORDERED: SODIUM CHLORIDE 0.9% 1000ML 1,000 ML IV STA (20:58)
[2017-12-17 21:09] LABS: BASO % 0.5 %; BASO ABS # 0.02 K/uL (0-0.2); EOS % 0.2 %; EOS ABS # 0.01 K/uL (0-0.5); HEMATOCRIT 39.2 % (37-47); HEMOGLOBIN 13.8 g/dL (12.0-16.0); IG# 0.01 K/uL (0.00-0.02); LYMPH % 11.7 %; LYMPH ABS # 0.48 K/uL (1.2-3.4); MEAN CELL VOLUME 100.8 fL (80-100); MEAN CORPUSCULAR HEMOGLOBIN 35.5 pg (25-34); MEAN CORPUSCULAR HGB CONC 35.2 g/dl (32-36); MONO % 6.8 %; MONO ABS # 0.28 K/uL (0.11-0.59); NEUT % 80.6 %; NEUT ABS # 3.31 K/uL (1.4-6.5); PLATELET COUNT 202 K/uL (130-400); RED CELL DISTRIBUTION WIDTH CV 13.1 % (11.5-14.5); RED CELL DISTRIBUTION WIDTH SD 47.5 fL (36.4-46.3); WHITE BLOOD COUNT 4.11 K/uL (4.8-10.8)
[2017-12-17 21:34] LABS: ALBUMIN 3.8 gm/dl (3.4-5.0); ALT/SGPT 13 U/L (12-78); BLOOD UREA NITROGEN 10 mg/dl (7-18); CALCIUM 9.2 mg/dl (8.5-10.1); CARBON DIOXIDE 26 mmol/L (21-32); CREATININE 0.62 mg/dl (0.60-1.20); GLUCOSE 113 mg/dl (70-99); LIPASE 234 U/L (73-393); POTASSIUM 3.8 mmol/L (3.5-5.1); SODIUM 134 mmol/L (136-145)
[2017-12-17 21:43] LABS: ALKALINE PHOSPHATASE 68 U/L (45-117); AST/SGOT 24 U/L (15-37); CKMB 0.5 ng/ml (0.5-3.6); TOTAL PROTEIN 7.5 gm/dl (6.4-8.2)
--- NOTE | 2017-12-17 21:48 | DIAGNOSTIC IMAGING REPORT ---
HEAD CT NONCONTRAST CT DOSE: 720.95 mGycm HISTORY: EVALUATE ALTERED MENTAL STATUS/WEAKNESS TECHNIQUE: Multiaxial CT images of the head were performed without the use of intravenous contrast. Automated exposure control was utilized for this study. A dose lowering technique was utilized adhering to the principles of ALARA. Comparison: Head CT 08/29/2017. Findings: The paranasal sinuses and mastoid air cells are clear. The calvarium and skull base are intact. There is no mass, hematoma, midline shift, acute infarct. White matter hypodensity is nonspecific but suggestive of microvascular ischemic change. The ventricles and sulci demonstrate mild age-related involutional changes. Impression: No significant change compared to the prior study. No acute intracranial abnormality. Electronically signed by: Manuel Salcedo M.D. 12/17/2017 9:47 PM Dictated Date/Time: 12/17/2017 9:44 PM
--- NOTE | 2017-12-17 22:37 | DIAGNOSTIC IMAGING REPORT ---
CHEST ONE VIEW PORTABLE HISTORY: EVALUATE ALTERED MENTAL STATUS/WEAKNESS COMPARISON: Chest 11/25/2017. FINDINGS: The heart is stable in size. No pneumothorax. No pleural effusions. No change in the course interstitial markings throughout the lungs. No new focal lung consolidations to suggest pneumonia. No evidence for pulmonary edema. Left midlung zone nodular densities and right basilar irregularity densities persist and are better appreciated on the prior PET/CT IMPRESSION: Stable coarse interstitial thickening and scattered densities better appreciated on the prior PET/CT. No new focal lung consolidations to suggest pneumonia. Electronically signed by: Manuel Salcedo M.D. 12/17/2017 10:36 PM Dictated Date/Time: 12/17/2017 10:34 PM
[2017-12-17] MEDS ORDERED: PIPERACILLIN/TAZOBACTAM 3.375 GM/100ML D5W IV STA (23:00)
--- NOTE | 2017-12-17 23:24 | EMERGENCY ROOM VISIT NOTE ---
History Report prepared by Haley: Robel Gee Under the Supervision of: Dr. Caleb Quiñonez D.O. First contact with patient: 20:42 Chief Complaint: ALTERED MENTAL STATUS Stated Complaint: FALL, AMS History of Present Illness The patient is a 82 year old female who presents to the Emergency Room with complaints of constant altered mental status that started prior to arrival. She rates her discomfort as a 5/10 in severity. The patient is accompanied by her who states that the patient did fall a week and a half ago after slipping. He reports that the patient did not have any injury or change in mental status following this fall. He does report that the patient was complaining of shoulder pain following the incident. Her reports that the patient was fine until she was complaining of feeling ill today. He reports that he went to picker/puller dinner for the patient and came home to find the patient laying on floor with her elbows on the mattress. Her states that the patient was incoherent and was "babbling". He states that the patient was able to form words but was not making any sense. He reports that he called EMS who brought the patient to the hospital. The patient's reports that the patient has a history of Shingles for the last 11 months on her spine and left breast. He states that the blisters are resolved but the patient still complains of pain. The HPI is limited secondary to the patient's altered mental status. Source of History: patient, spouse/significant other Onset: [employer] Position: other (global) Symptom Intensity: 5/10 Quality: other (incoherent) Timing: constant Note: Associated symptoms: incoherent, not making sense, sitting on floor Review of Systems Limited secondary to patient's altered mental status. Past Medical & Surgical Medical Problems: (1) Carcinoma of breast (2) Cellulitis (3) Cellulitis (4) GERD (gastroesophageal reflux disease) (5) Hyponatremia (6) Lymphedema of left arm (7) metastatic cancer (8) Nausea & vomiting Surgical Problems: (1) History of modified radical mastectomy of left breast (2) Total replacement of hip Family History Cancer Social History Smoking Status: Never Smoker Alcohol Use: none Marital Status: Housing Status: lives with family Occupation Status: retired Current/Historical Medications Scheduled Amitriptyline HCl (Amitriptyline HCl), 25 MG PO HS Ascorbic Acid (Vitamin C), 100 MG PO DAILY Cephalexin Monohydrate (Cephalexin), 250 MG PO BID Letrozole (Femara), 2.5 MG PO DAILY Magnesium Chloride (Slow-Mag Tab), 128 MG PO DAILY Multivitamin (Multivitamin), 1 TAB PO DAILY Palbociclib (Ibrance), 100 MG PO Q2D Potassium Chloride (Klor-Con Sprinkle), 10 MEQ PO BID Pregabalin (Lyrica), 50 MG PO TID Travoprost (Travatan Z), 1 DROP OPB HS Scheduled PRN Hydrocodone/Acetaminophen 5MG/325MG (Forgan 5MG/325MG), 1 TABLET PO BID PRN for Pain Allergies Coded Allergies: Morphine (Verified Adverse Reaction, Intermediate, nausea, 11/25/17) Zolpidem (Verified Adverse Reaction, Mild, Hallucinations, 11/25/17) Physical Exam Vital Signs Date Time Temp Pulse Resp B/P (MAP) Pulse Ox O2 Delivery O2 Flow Rate FiO2 12/18/17 01:12 100 12/18/17 01:01 99 125/74 94 Room Air 12/18/17 00:30 111 24 143/76 98 Nasal Cannula 2.0 12/18/17 00:01 113 34 140/70 97 Nasal Cannula 2.0 12/17/17 23:30 117 146/83 12/17/17 23:20 37.7 12/17/17 23:00 117 28 144/79 99 Nasal Cannula 2.0 12/17/17 22:30 119 23 153/88 99 Nasal Cannula 2.0 12/17/17 22:05 110 24 164/94 99 Nasal Cannula 2.0 12/17/17 22:00 114 29 12/17/17 21:10 112 12/17/17 20:56 98 Nasal Cannula 2.0 12/17/17 20:40 95 Room Air 12/17/17 20:40 38.0 119 20 157/79 94 Room Air Physical Exam VITAL SIGNS: were reviewed as above. GENERAL:Non-toxic in appearance. SKIN: Warm dry and pink. HEAD: Normocephalic and atraumatic. OROPHARYNX: Is clear and moist NECK: Supple without lymphadenopathy or meningismus. LUNGS: clear. HEART: Tachycardic rate, regular rhythm. ABDOMEN: Soft and nontender. EXTREMITIES: Warm and well perfused. NEUROLOGICALLY: She is mildly confused on conversation. Forming words appropriately. Mild generalized weakness. No focal deficits. MUSCULOSKELETAL: Good muscle tone. No evidence of trauma. Medical Decision & Procedures ER Provider Diagnostic Interpretation: Radiology results as stated below per my review and radiologist interpretation: HEAD CT NONCONTRAST CT DOSE: 720.95 mGycm HISTORY: EVALUATE ALTERED MENTAL STATUS/WEAKNESS TECHNIQUE: Multiaxial CT images of the head were performed without the use of intravenous contrast. Automated exposure control was utilized for this study. A dose lowering technique was utilized adhering to the principles of ALARA. Comparison: Head CT 08/29/2017. Findings: The paranasal sinuses and mastoid air cells are clear. The calvarium and skull base are intact. There is no mass, hematoma, midline shift, acute infarct. White matter hypodensity is nonspecific but suggestive of microvascular ischemic change. The ventricles and sulci demonstrate mild age-related involutional changes. Impression: No significant change compared to the prior study. No acute intracranial abnormality. Electronically signed by: Manuel Salcedo M.D. 12/17/2017 9:47 PM Dictated Date/Time: 12/17/2017 9:44 PM CHEST ONE VIEW PORTABLE HISTORY: EVALUATE ALTERED MENTAL STATUS/WEAKNESS COMPARISON: Chest 11/25/2017. FINDINGS: The heart is stable in size. No pneumothorax. No pleural effusions. No change in the course interstitial markings throughout the lungs. No new focal lung consolidations to suggest pneumonia. No evidence for pulmonary edema. Left midlung zone nodular densities and right basilar irregularity densities persist and are better appreciated on the prior PET/CT IMPRESSION: Stable coarse interstitial thickening and scattered densities better appreciated on the prior PET/CT. No new focal lung consolidations to suggest pneumonia. Electronically signed by: Manuel Salcedo M.D. 12/17/2017 10:36 PM Dictated Date/Time: 12/17/2017 10:34 PM Laboratory Results 12/17/17 20:25 Red Blood Count 3.89, Mean Corpuscular Volume 100.8, Mean Corpuscular Hemoglobin 35.5, Mean Corpuscular Hemoglobin Concent 35.2, Mean Platelet Volume 9.0, Neutrophils (%) (Auto) 80.6, Lymphocytes (%) (Auto) 11.7, Monocytes (%) ( Auto) 6.8, Eosinophils (%) (Auto) 0.2, Basophils (%) (Auto) 0.5, Neutrophils # ( Auto) 3.31, Lymphocytes # (Auto) 0.48, Monocytes # (Auto) 0.28, Eosinophils # ( Auto) 0.01, Basophils # (Auto) 0.02 12/17/17 20:25 Test 12/17/17 20:25 12/17/17 22:00 12/17/17 22:36 12/17/17 23:30 White Blood Count 4.11 K/uL (4.8-10.8) Red Blood Count 3.89 M/uL (4.2-5.4) Hemoglobin 13.8 g/dL (12.0-16.0) Hematocrit 39.2 % (37-47) Mean Corpuscular Volume 100.8 fL (80-100) Mean Corpuscular Hemoglobin 35.5 pg (25-34) Mean Corpuscular Hemoglobin Concent 35.2 g/dl (32-36) Platelet Count 202 K/uL (130-400) Mean Platelet Volume 9.0 fL (7.4-10.4) Neutrophils (%) (Auto) 80.6 % Lymphocytes (%) (Auto) 11.7 % Monocytes (%) (Auto) 6.8 % Eosinophils (%) (Auto) 0.2 % Basophils (%) (Auto) 0.5 % Neutrophils # (Auto) 3.31 K/uL (1.4-6.5) Lymphocytes # (Auto) 0.48 K/uL (1.2-3.4) Monocytes # (Auto) 0.28 K/uL (0.11-0.59) Eosinophils # (Auto) 0.01 K/uL (0-0.5) Basophils # (Auto) 0.02 K/uL (0-0.2) RDW Standard Deviation 47.5 fL (36.4-46.3) RDW Coefficient of Variation 13.1 % (11.5-14.5) Immature Granulocyte % (Auto) 0.2 % Immature Granulocyte # (Auto) 0.01 K/uL (0.00-0.02) Prothrombin Time 10.3 SECONDS (9.0-12.0) Prothromb Time International Ratio 1.0 (0.9-1.1) Activated Partial Thromboplast Time 24.0 SECONDS (21.0-31.0) Partial Thromboplastin Ratio 0.9 Anion Gap 9.0 mmol/L (3-11) Est Creatinine Clear Calc Drug Dose 66.8 ml/min Estimated GFR () 96.0 Estimated GFR (Non- 82.8 BUN/Creatinine Ratio 16.4 (10-20) Calcium Level 9.2 mg/dl (8.5-10.1) Magnesium Level 1.9 mg/dl (1.8-2.4) Total Bilirubin 0.4 mg/dl (0.2-1) Direct Bilirubin < 0.1 mg/dl (0-0.2) Aspartate Amino Transf (AST/SGOT) 24 U/L (15-37) Alanine Aminotransferase (ALT/SGPT) 13 U/L (12-78) Alkaline Phosphatase 68 U/L (45-117) Total Creatine Kinase 101 U/L (26-192) Creatine Kinase MB 0.5 ng/ml (0.5-3.6) Creatine Kinase MB Ratio 0.5 (0-3.0) Troponin I < 0.015 ng/ml (0-0.045) Total Protein 7.5 gm/dl (6.4-8.2) Albumin 3.8 gm/dl (3.4-5.0) Lipase 234 U/L (73-393) Thyroid Stimulating Hormone (TSH) 0.918 uIu/ml (0.300-4.500) Urine Color YELLOW Urine Appearance CLEAR (CLEAR) Urine pH 8.5 (4.5-7.5) Urine Specific [place] 1.015 (1.000-1.030) Urine Protein NEG (NEG) Urine Glucose (UA) NEG (NEG) Urine Ketones NEG (NEG) Urine Occult Blood NEG (NEG) Urine Nitrite NEG (NEG) Urine Bilirubin NEG (NEG) Urine Urobilinogen NEG (NEG) Urine Leukocyte Esterase NEG (NEG) Urine WBC (Auto) 0 /hpf (0-5) Urine RBC (Auto) 0-4 /hpf (0-4) Urine Hyaline Casts (Auto) 0 /lpf (0-5) Urine Epithelial Cells (Auto) 0-5 /lpf (0-5) Urine Bacteria (Auto) NEG (NEG) Bedside Glucose 93 mg/dl (70-90) Influenza Type A Antigen Neg for Influ A (NEG) Influenza Type B Antigen Neg for Influ B (NEG) Test 12/18/17 01:39 Laboratory results as stated above per my review. Medications Administered Medications (Trade) Dose Ordered Sig/Chani Route Start Time Stop Time Status Last Admin Dose Admin Sodium Chloride 1,000 ml @ 999 mls/hr Q1H1M STAT IV 12/17/17 20:58 12/17/17 21:58 DC 12/17/17 21:15 999 MLS/HR Piperacillin Sod/ Tazobactam Sod (Zosyn Iv) 3.375 gm NOW STAT IV 12/17/17 23:00 12/17/17 23:01 DC 12/17/17 23:19 3.375 GM ECG Per My Interpretation Indication: altered mental status Rate (beats per minute): 118 Rhythm: sinus tachycardia Findings: no ectopy, other (No ST elevation) ED Course 2044: Previous medical records were reviewed. The patient was evaluated in room C09. A complete history and physical examination was performed. 2057: Ordered Sodium Chloride 1000 ml @ 999 mls/hr IV. 2299: Ordered Zosyn 3.375 gm IV. 7: I reevaluated the patient and her symptoms are unchanged. 2321: I discussed the patient's case with Dr. Brewer, [facility] Hospitalist. He understands the patient's condition and agrees to accept the patient. The patient will be further evaluated. Medical Decision Differential includes acute coronary syndrome, myocardial infarction, CVA, TIA, anemia, infection, pneumonia, UTI, pyelonephritis, poor nutrition, dehydration, electrolyte disturbance,hypoglycemia. This is a 82-year-old female who presents to the ED with a chief complaint of altered mental status. According to the , the patient did not want to go out to eat tonight. When he came home, the patient was incoherent and was not making sense when she would speak. She was forming words adequately but was saying things did not fit the conversation. The patient denies any specific complaints other than feeling cold. She had some shivering on her arrival. Her temperature here was 38.0. Heart rate was 119. Blood pressure 157/79. The patient's exam reveals clear lung sounds and a soft and nontender abdomen. They reported that she did fall about a week ago and hurt her left shoulder. The patient's CBC is unremarkable, complete metabolic panel was also unremarkable, troponin was negative, TSH was normal, urine did not show obvious infection, chest x-ray was negative for acute process. This was compared to a PET scan which appeared similar. CT scan of the head did not show acute process. Reexam of the patient reveals some continued confusion. The exact cause of fever is unclear. I did check her for cellulitis and there was no obvious clear cellulitis although the left arm seems to be warm compared to the other portions of the body in the left hand seem to be slightly more red than the opposing hand. It is unclear if this is related to cellulitis. The patient has reportedly chronic problems with the left arm with regards to swelling since her mastectomy. I reexamined the patient's abdomen. Her abdomen is soft and nontender. She will be seen by the hospitalist service for further inpatient evaluation and care. A flu swab has been added to the patient 's test. The denies any recent upper respiratory infection symptoms. Medication Reconcilliation Current Medication List: was personally reviewed by me Blood Pressure Screening Patient's blood pressure: Elevated blood pressure Referred to Hospitalist Consults Time Called: 2321 Consulting Physician: Dr. Brewer, [facility] Hospitalist Returned Call: 2321 I discussed the patient's case with Dr. Brewer [facility] Hospitalist. He understands the patient's condition and agrees to accept the patient. The patient will be further evaluated. Impression Primary Impression: Fever Additional Impression: Altered mental status Scribe Attestation The scribe's documentation has been prepared under my direction and personally reviewed by me in its entirety. I confirm that the note above accurately reflects all work, treatment, procedures, and medical decision making performed by me. Departure Information Dispostion Being Evaluated By Hospitalist Referrals Elvis Lee M.D. (PCP) Patient Instructions My [facility] Problem Qualifiers
[2017-12-18] VITALS (7 sets, daily range): BP systolic 103–130; BP diastolic 58–69; PULSE 79–101; TEMP 36.2–38; O2SAT 94–97; Ht 165.1 cm; Wt 60.0 kg
[2017-12-18 00:05] LABS: INFLUENZA B ANTIGEN Neg for Influ B (NEG)
--- NOTE | 2017-12-18 01:16 | History and Physical ---
History & Physical Date & Time of Service: Dec 18, 2017 at 01:03 Chief Complaint: Fall, Ams Primary Care Physician: Elvis Lee M.D. History of Present Illness Source: patient, caregiver (ER doctor and nurse) Pt is a 82F with a PMHx of breast cancer and recent cellulitis that was admitted for acute mental status changes this evening. Spouse is not present in the room for the exam and initial HPI is coming from the nurse and ER physician. Pt is confused but able to respond to commands to move her extremities. Spoke to the spouse over the phone around 3am. Pt is an 82F that was last normal around dinner time when left to get some food. Upon husbands arrival pt's arms were splayed over the bed and she was partially standing and partially over the bed. Patients condition hasn't improved since being admitted to the hospital according to the ER nurse. Patient denies being in any pain. She can tell me her name, but not the year or where she is. The patient was discharged from [facility] for RUE cellulitis approximately one month ago and completed her course of Abx (cephalosporin) approximately 4 days ago. According to the , he attributes the cellulitis to the contrast dye from a PET scan and would like to hold off using contrast because he thinks it will harm his . With the breast cancer he thinks his has been through enough. There is a history of falls, the last occurring one week ago when the patient was complaining of right shoulder pain. ROS: Unable to obtain meaningful ROS from patient. Past Medical/Surgical History Medical Problems: (1) Carcinoma of breast (2) Cellulitis (3) Cellulitis (4) Cellulitis (5) Cellulitis of left arm (6) Chest pain (7) Concussion (8) Failure of outpatient treatment (9) GERD (gastroesophageal reflux disease) (10) Herpes zoster (11) Herpes zoster (12) Hyponatremia (13) Left arm cellulitis (14) Low back pain (15) Lymphedema of left arm (16) metastatic cancer (17) Nausea & vomiting (18) Post herpetic neuralgia (19) Post herpetic neuralgia (20) Postherpetic neuralgia (21) Postherpetic neuralgia (22) Postherpetic neuralgia (23) SIRS (systemic inflammatory response syndrome) (24) Weakness Surgical Problems: (1) History of modified radical mastectomy of left breast (2) Total replacement of hip Family History Cancer Social History Smoking Status: Never Smoker Smokeless Tobacco Use: No Alcohol Use: none Drug Use: none Marital Status: Housing status: lives with significant other Occupational Status: retired Immunizations History of Influenza Vaccine: Unknown History of Tetanus Vaccine?: Unknown History of Pneumococcal: Unknown History of Hepatitis B Vaccine: Unknown Allergies Coded Allergies: Morphine (Verified Adverse Reaction, Intermediate, nausea, 11/25/17) Zolpidem (Verified Adverse Reaction, Mild, Hallucinations, 11/25/17) Home Medications Scheduled Amitriptyline HCl (Amitriptyline HCl), 25 MG PO HS Amoxicillin & Pot Clavulanate (Augmentin 875-125 mg), 1 TAB PO BID Ascorbic Acid (Vitamin C), 100 MG PO DAILY Letrozole (Femara), 2.5 MG PO DAILY Magnesium Chloride (Slow-Mag Tab), 128 MG PO DAILY Multivitamin (Multivitamin), 1 TAB PO DAILY Palbociclib (Ibrance), 100 MG PO Q2D Potassium Chloride (Klor-Con Sprinkle), 10 MEQ PO BID Pregabalin (Lyrica), 50 MG PO TID Travoprost (Travatan Z), 1 DROP OPB HS Scheduled PRN Hydrocodone/Acetaminophen 5MG/325MG ([place] 5MG/325MG), 1 TABLET PO BID PRN for Pain Physical Exam Vital Signs Date Time Temp Pulse Resp B/P (MAP) Pulse Ox O2 Delivery O2 Flow Rate FiO2 12/17/17 23:20 37.7 12/17/17 23:00 117 28 144/79 99 Nasal Cannula 2.0 12/17/17 22:30 119 23 153/88 99 Nasal Cannula 2.0 12/17/17 22:05 110 24 164/94 99 Nasal Cannula 2.0 12/17/17 22:00 114 29 12/17/17 21:10 112 12/17/17 20:56 98 Nasal Cannula 2.0 12/17/17 20:40 95 Room Air 12/17/17 20:40 38.0 119 20 157/79 94 Room Air General Appearance: WD/WN, no apparent distress Head: normocephalic, atraumatic Eyes: normal inspection, PERRL, EOMI ENT: normal ENT inspection Neck: supple, no adenopathy Respiratory/Chest: chest non-tender, lungs clear, normal breath sounds, no respiratory distress Cardiovascular: regular rate, rhythm, no edema, no gallop, no JVD, no murmur, normal peripheral pulses Abdomen/GI: normal bowel sounds, non tender, soft, no organomegaly, + pertinent finding (possible rebound noted on the RLQ ) Back: normal inspection Extremities/Musculoskelatal: normal inspection, no calf tenderness, no pedal edema, normal range of motion Neurologic/Psych: no motor/sensory deficits, alert, + pertinent finding ( Patient was able to lift arms and move ankles to command, handgrip was 5/5 bilaterally, she is oriented to person but not time or place. Doesn't know why she is here. She communicates by confabulating. ) Skin: + pertinent finding (Pt feels warm, no obvious signs of rash of LUE cellulitis, there is some erythema in the left armput of unknown clinical significance. ) Diagnostics Laboratory Results Results Past 24 Hours Test 12/17/17 20:25 12/17/17 21:12 12/17/17 22:00 12/17/17 22:36 Range/Units White Blood Count 4.11 4.8-10.8 K/uL Red Blood Count 3.89 4.2-5.4 M/uL Hemoglobin 13.8 12.0-16.0 g/dL Hematocrit 39.2 37-47 % Mean Corpuscular Volume 100.8 80-100 fL Mean Corpuscular Hemoglobin 35.5 25-34 pg Mean Corpuscular Hemoglobin Concent 35.2 32-36 g/dl Platelet Count 202 130-400 K/uL Mean Platelet Volume 9.0 7.4-10.4 fL Neutrophils (%) (Auto) 80.6 % Lymphocytes (%) (Auto) 11.7 % Monocytes (%) (Auto) 6.8 % Eosinophils (%) (Auto) 0.2 % Basophils (%) (Auto) 0.5 % Neutrophils # (Auto) 3.31 1.4-6.5 K/uL Lymphocytes # (Auto) 0.48 1.2-3.4 K/uL Monocytes # (Auto) 0.28 0.11-0.59 K/uL Eosinophils # (Auto) 0.01 0-0.5 K/uL Basophils # (Auto) 0.02 0-0.2 K/uL RDW Standard Deviation 47.5 36.4-46.3 fL RDW Coefficient of Variation 13.1 11.5-14.5 % Immature Granulocyte % (Auto) 0.2 % Immature Granulocyte # (Auto) 0.01 0.00-0.02 K/uL Prothrombin Time 10.3 9.0-12.0 SECONDS Prothromb Time International Ratio 1.0 0.9-1.1 Activated Partial Thromboplast Time 24.0 21.0-31.0 SECONDS Partial Thromboplastin Ratio 0.9 Sodium Level 134 136-145 mmol/L Potassium Level 3.8 3.5-5.1 mmol/L Chloride Level 100 98-107 mmol/L Carbon Dioxide Level 26 21-32 mmol/L Anion Gap 9.0 3-11 mmol/L Blood Urea Nitrogen 10 7-18 mg/dl Creatinine 0.62 0.60-1.20 mg/dl Est Creatinine Clear Calc Drug Dose 66.8 ml/min Estimated GFR () 96.0 Estimated GFR (Non- 82.8 BUN/Creatinine Ratio 16.4 10-20 Random Glucose 113 70-99 mg/dl Calcium Level 9.2 8.5-10.1 mg/dl Magnesium Level 1.9 1.8-2.4 mg/dl Total Bilirubin 0.4 0.2-1 mg/dl Direct Bilirubin < 0.1 0-0.2 mg/dl Aspartate Amino Transf (AST/SGOT) 24 15-37 U/L Alanine Aminotransferase (ALT/SGPT) 13 12-78 U/L Alkaline Phosphatase 68 45-117 U/L Total Creatine Kinase 101 26-192 U/L Creatine Kinase MB 0.5 0.5-3.6 ng/ml Creatine Kinase MB Ratio 0.5 0-3.0 Troponin I < 0.015 0-0.045 ng/ml Total Protein 7.5 6.4-8.2 gm/dl Albumin 3.8 3.4-5.0 gm/dl Lipase 234 73-393 U/L Thyroid Stimulating Hormone (TSH) 0.918 0.300-4.500 uIu/ml Bedside Glucose 64 93 70-90 mg/dl Urine Color YELLOW Urine Appearance CLEAR CLEAR Urine pH 8.5 4.5-7.5 Urine Specific [place] 1.015 1.000-1.030 Urine Protein NEG NEG Urine Glucose (UA) NEG NEG Urine Ketones NEG NEG Urine Occult Blood NEG NEG Urine Nitrite NEG NEG Urine Bilirubin NEG NEG Urine Urobilinogen NEG NEG Urine Leukocyte Esterase NEG NEG Urine WBC (Auto) 0 0-5 /hpf Urine RBC (Auto) 0-4 0-4 /hpf Urine Hyaline Casts (Auto) 0 0-5 /lpf Urine Epithelial Cells (Auto) 0-5 0-5 /lpf Urine Bacteria (Auto) NEG NEG Test 12/17/17 23:30 Range/Units Influenza Type A Antigen Neg for Influ A NEG Influenza Type B Antigen Neg for Influ B NEG Microbiology Results 12/17/17 Blood Culture, Received Pending 12/17/17 Blood Culture, Received Pending Diagnostic Radiology CHEST ONE VIEW PORTABLE HISTORY: EVALUATE ALTERED MENTAL STATUS/WEAKNESS COMPARISON: Chest 11/25/2017. FINDINGS: The heart is stable in size. No pneumothorax. No pleural effusions. No change in the course interstitial markings throughout the lungs. No new focal lung consolidations to suggest pneumonia. No evidence for pulmonary edema. Left midlung zone nodular densities and right basilar irregularity densities persist and are better appreciated on the prior PET/CT IMPRESSION: Stable coarse interstitial thickening and scattered densities better appreciated on the prior PET/CT. No new focal lung consolidations to suggest pneumonia. HEAD CT NONCONTRAST CT DOSE: 720.95 mGycm HISTORY: EVALUATE ALTERED MENTAL STATUS/WEAKNESS TECHNIQUE: Multiaxial CT images of the head were performed without the use of intravenous contrast. Automated exposure control was utilized for this study. A dose lowering technique was utilized adhering to the principles of ALARA. Comparison: Head CT 08/29/2017. Findings: The paranasal sinuses and mastoid air cells are clear. The calvarium and skull base are intact. There is no mass, hematoma, midline shift, acute infarct. White matter hypodensity is nonspecific but suggestive of microvascular ischemic change. The ventricles and sulci demonstrate mild age-related involutional changes. Impression: No significant change compared to the prior study. No acute intracranial abnormality. EKG Sinus tachycardia Left axis deviation Septal infarct (cited on or before 02-FEB-2017) Abnormal ECG When compared with ECG of 29-AUG-2017 16:48, No significant change was found Impression Assessment and Plan 82F with acute AMS. Febrile. Infection of unknown source vs CVA. Altered Mental Status 2/2 Infection of unknown source vs CVA (TIA vs Stroke) Pt is confabulating. This is acutely worsened from baseline. Either infection or CVA. If infection no source is obvious. RUE looks to be healing well. Possibly a GI source - abdomen may have had rebound in the RLQ but was difficult due to patient mental status. CT Head negative. Will get MRI milo combo, MRA neck combo, MRA brain without contrast. Possible rebound noted in the LLQ - Will get CT abdo. Recent history of breast CA - CT chest. Blood cultures pending. Ordered Lactate and Procalcitonin. Broad Spectrum Abx pending improvement (Vanco and Zosyn), pt was on Keflex for UE cellulitis. Follow up MRSA Swab. No consults placed. Post Herpetic Neuralgia c/w Amitroptyline c/w Lyrica Recent LUE Cellulitis Will cover with Abx as above. H/o Breast CA c/w Ibrance & Femara Glaucoma c/w Travatan eye drops. MSK: PT and OT ordered for recent history of falls. DVT Proph: SCDs Diet: Heart Healthy Admit to TELE FULL CODE - please confirm with . Attending addendum: I have physically seen this patient, have supervised the medical residents activities, and agree with the H&P unless as otherwise noted. Assessment and Plan: Altered mental status/TIA assessment versus ongoing seizure activity and postictal state/versus metabolic encephalopathy secondary to infection-- CT head is negative. Order MRI brain combo, MRA neck combo, and MRA of head without contrast. Vancomycin IV and Zosyn IV above as noted. Follow cultures and other studies as noted. Postherpetic neuralgia-- Continue the amitriptyline and Lyrica. Other medications above as noted. Advanced Directives Existing Advance Directive: No Existing Living Will: No Existing Power of Differential Repairer: No Resuscitation Status VTE Prophylaxis Will order VTE Prophylaxis: Yes Social Service Consult None Apply Resident Involvement: Resident Care Provided Care Provided: Adult [facility] Medicine
[2017-12-18] MEDS ORDERED: MAGNESIUM HYDROXIDE SUSP 30 ML UDC PO PRN (01:30)
[2017-12-18] MEDS ORDERED: ACETAMINOPHEN 325 MG TAB PO PRN (01:30)
[2017-12-18] MEDS ORDERED: VANCOMYCIN CONSULT ACTIVE PRN (01:30)
[2017-12-18] MEDS ORDERED: ONDANSETRON INJ 2 MG/ML 2 ML VIAL IV PRN (01:30)
[2017-12-18] MEDS ORDERED: POLYETHYLENE (MIRALAX) 17 GM PACK PO PRN (01:30)
[2017-12-18] MEDS ORDERED: ALUMINUM/MAGNESIUM/SIMETH (MAALOX MAX) 30 ML UDC PO PRN (01:30)
[2017-12-18] MEDS ORDERED: PIPERACILL/TAZOBAC CONSULT ACTIVE PRN (01:30)
[2017-12-18] MEDS ORDERED: VANCOMYCIN IV 1,500 MG in SODIUM CHLORIDE 0.9% 500ML 500 ML IV SCH (02:30)
[2017-12-18] MEDS: PIPERACILL/TAZOBAC IV 3.375 GM in DEXTROSE 5% 100ML 100 ML IV SCH ×3 (06:25→21:56)
--- NOTE | 2017-12-18 07:11 | DIAGNOSTIC IMAGING REPORT ---
ABD/PELVIS NO IV OR ORAL CONT CLINICAL HISTORY: 82 years-old Female presenting with AMS, febrile, possible rebound noted. TECHNIQUE: Multidetector CT of the abdomen and pelvis was performed without the use of intravenous contrast. IV contrast: None. A dose lowering technique was used consistent with the principles of ALARA (as low as reasonably achievable). COMPARISON: 10/23/2017. CT DOSE (mGy.cm): The estimated cumulative dose is 875.87 mGycm. 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 Lung bases: Extensive dependent consolidation. Normal heart size. Coronary artery calcification. No pericardial or pleural effusion. Liver: Normal morphology. Normal density. Well-defined hypodensity in the anterior medial segment of the left hepatic lobe, indeterminate but likely hepatic cyst or hamartoma. Biliary: Mild prominence of central intrahepatic and extra hepatic bile ducts, unchanged. Gallbladder contains gallstones. Pancreas: Mild parenchymal atrophy. Spleen: Normal noncontrast appearance. Adrenal glands: Thickening of the bilateral adrenal glands, nonspecific. Kidneys and ureters: Normal noncontrast appearance. No nephrolithiasis. No hydronephrosis. Normal ureters. Bladder: Normal. Pelvic organs: Normal noncontrast appearance. Bowel: Moderate stool burden throughout mildly distended colon. Wall thickening of the splenic flexure noted (series 3 image 46). This was not present on prior exam. This extends into the superior half of the descending colon. Wall thickening is also observed in the distal transverse colon. Fluid noted in the small bowel. The appendix is normal. Peritoneal cavity: No free fluid or intraperitoneal gas. No pneumatosis. Lymph nodes: No gross lymphadenopathy allowing for noncontrast technique. Vasculature: Atherosclerosis of the normal caliber abdominal aorta. Abdominal wall: Small fat-containing umbilical hernia. Postsurgical changes of left mastectomy suspected. Edema of the left upper extremity may imply left axillary lymph node dissection. Musculoskeletal: Degenerative changes of the spine. Postsurgical changes of right total hip arthroplasty. Sclerotic lesion noted along the left aspect of the T11 vertebral body. Additional sclerotic lesions noted in T12, L1, L3, the sacrum, and right ilium. These are unchanged from prior. IMPRESSION: 1. Wall thickening of the distal transverse colon, splenic flexure, and proximal descending colon, raising concern for colitis. This distribution is worrisome for ischemic colitis, although infectious colitis is also a consideration. No pneumatosis or perforation. 2. Moderate stool burden throughout mildly distended colon consistent with constipation. Notably, the involved segments of colon with wall thickening do not contain a large amount stool and are relatively decompressed. 3. Cholelithiasis. 4. Multiple sclerotic osseous lesions consistent with stable osseous metastatic disease. The report will be called/faxed according to standard departmental protocol. Electronically signed by: David Mello M.D. 12/18/2017 7:09 AM Dictated Date/Time: 12/18/2017 6:48 AM
--- NOTE | 2017-12-18 07:43 | DIAGNOSTIC IMAGING REPORT ---
(CHEST) THORAX WITHOUT CLINICAL HISTORY: 82 years-old Female presenting with altered confabulating, febrile, h/o breast CA. TECHNIQUE: Multidetector CT imaging of the chest was performed without the use of intravenous contrast. IV contrast: None. A dose lowering technique was used consistent with the principles of ALARA (as low as reasonably achievable). COMPARISON: 10/23/2017. CT DOSE (mGy.cm): The estimated cumulative dose is 548.80 mGycm. 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 On soft tissue windows, normal thyroid. Postsurgical changes of left mastectomy. No axillary, supraclavicular, or mediastinal lymphadenopathy. Evaluation of the macario limited without intravenous contrast. Atherosclerosis of the aorta. Normal heart size. Coronary artery calcification. No pericardial or pleural effusion. Cholelithiasis. Well-defined hypodense lesion in the liver is indeterminate but likely hepatic cyst or hamartoma. Nonspecific thickening of the adrenal glands. Wall thickening of the splenic flexure and proximal descending colon suggested. On lung windows, dependent consolidation at the lung bases greater on the right. Multifocal areas of bandlike irregular nodular consolidation. Right lower lobe central nodule measures approximately 13 mm, previously 14 mm. Left upper lobe nodule now measures 7 mm (series 4 image 63), unchanged. Right upper lobe nodular consolidation measures approximately 13 mm (series 4 image 76), previously 16 mm, essentially unchanged irregular nodule in the superior segment of the right lower lobe measures 6 mm (series 4 image 98), previously 8 mm. Solid 7 mm nodule in the superior lingula (series 4 image 109), previously 6 mm. Bandlike nodule slightly more inferiorly in the superior lingula measures 22 mm (series 4 image 125), previously 21 mm. Nodular consolidation in the left lower lobe measures 21 x 12 mm (series 4 image 140), previously 26 x 13 mm nodular consolidation in the right middle lobe measures 15 mm (series 4 image 170), previously 14 mm. Multiple additional smaller nodules are evident, which are grossly stable from prior exam. No convincing evidence of a new nodule. Airways patent. On bone windows, degenerative changes of the spine. Suggestion of a left shoulder joint effusion, unchanged. Nonspecific infiltration of the left axillary region, likely indicating prior lymph node dissection. Asymmetric edema of the left upper extremity also likely reflects altered lymphatic drainage. Multiple sclerotic lesions again noted in several vertebral bodies at the thoracolumbar junction as well as the right eighth rib. IMPRESSION: 1. No significant change in multifocal irregular pulmonary nodules. This is most suggestive of stable disease. No new nodules to suggest progression of disease. No lymphadenopathy. 2. Postsurgical changes of left mastectomy and left axillary lymph node dissection with asymmetric left upper terminate edema. 3. Stable appearance of osseous metastatic disease. Electronically signed by: David Mello M.D. 12/18/2017 7:42 AM Dictated Date/Time: 12/18/2017 6:47 AM
--- NOTE | 2017-12-18 08:05 | Family Medicine Progress Note ---
Progress Note Date of Service Dec 18, 2017. Subjective Pt evaluation today including: conversation w/ patient Found patient awake, alert, but a little confused this morning. She said that she knew she was in the hospital but was unclear why she is here. Denies any particular current pains anywhere, including CP, SOB, abdominal pain, or acute arm pain. She began to talk about how she was seeing a chiropractor for arm pain in the recent past. No acute mentioned concerns this AM. Additional Comments: Unable to obtain as patient still seems a bit confused. Medications Current Inpatient Medications Medications (Trade) Dose Ordered Sig/Chani Route Start Time Stop Time Status Last Admin Dose Admin Acetaminophen (Tylenol Tab) 650 mg Q4H PRN PO 12/18/17 01:30 01/17/18 01:29 Al Hydrox/Mg Hydrox/Simethicone (Maalox Max Susp) 15 ml Q4H PRN PO 12/18/17 01:30 01/17/18 01:29 Magnesium Hydroxide (Milk Of Magnesia Susp) 30 ml Q12H PRN PO 12/18/17 01:30 01/17/18 01:29 Ondansetron HCl (Zofran Inj) 4 mg Q6H PRN IV 12/18/17 01:30 01/17/18 01:29 Polyethylene (Miralax Powder Packet) 17 gm DAILY PRN PO 12/18/17 01:30 01/17/18 01:29 Amitriptyline HCl (Elavil Tab) 25 mg HS PO 12/18/17 21:00 01/17/18 20:59 Travoprost (Travatan Z) 1 drops HS OPB 12/18/17 21:00 01/17/18 20:59 Letrozole (Femara Tab) 2.5 mg QAM PO 12/18/17 09:00 01/17/18 08:59 Miscellaneous Information (Order Awaiting Action) 1 ea QS N/A 12/18/17 08:00 01/17/18 07:59 Piperacillin Sod/ Tazobactam Sod 3.375 gm/Dextrose 115 ml @ 28.75 mls/ hr Q8H IV 12/18/17 04:00 12/28/17 03:59 12/18/17 06:25 28.75 MLS/HR Miscellaneous Information (Consult) 1 ea UD PRN N/A 12/18/17 01:30 01/17/18 01:29 Miscellaneous Information (Consult) 1 ea UD PRN N/A 12/18/17 01:30 01/17/18 01:29 Objective Vital Signs Date Time Temp Pulse Resp B/P (MAP) Pulse Ox O2 Delivery O2 Flow Rate FiO2 12/18/17 07:46 38.0 81 18 125/69 (87) 96 Nasal Cannula 2.0 12/18/17 04:00 Room Air 12/18/17 02:10 37.8 101 20 110/66 Room Air 12/18/17 02:10 37.8 101 20 110/66 (81) 94 Room Air 12/18/17 01:30 100 24 119/66 95 Room Air 12/18/17 01:12 100 12/18/17 01:01 99 125/74 94 Room Air 12/18/17 00:30 111 24 143/76 98 Nasal Cannula 2.0 12/18/17 00:01 113 34 140/70 97 Nasal Cannula 2.0 12/17/17 23:30 117 146/83 12/17/17 23:20 37.7 12/17/17 23:00 117 28 144/79 99 Nasal Cannula 2.0 12/17/17 22:30 119 23 153/88 99 Nasal Cannula 2.0 12/17/17 22:05 110 24 164/94 99 Nasal Cannula 2.0 12/17/17 22:00 114 29 12/17/17 21:10 112 12/17/17 20:56 98 Nasal Cannula 2.0 12/17/17 20:40 95 Room Air 12/17/17 20:40 38.0 119 20 157/79 94 Room Air Physical Exam Notes: General Appearance: Awake, alert & oriented to person, place, but unsure of date and why she's here, speaking easily, appears comfortable in general, in NAD. CV: +S1S2 RRR, no murmur. Pulm: Clear to auscultation throughout. Abdomen: +BS, soft, non-tender, non-distended. Extremities: No pedal edema or calf tenderness. Moving all extremities naturally and easily. Neuro: No gross neuro deficits. [employer] strength 5/5 bilaterally. Lines: PIV. Laboratory Results 12/17/17 20:25 Red Blood Count 3.89, Mean Corpuscular Volume 100.8, Mean Corpuscular Hemoglobin 35.5, Mean Corpuscular Hemoglobin Concent 35.2, Mean Platelet Volume 9.0, Neutrophils (%) (Auto) 80.6, Lymphocytes (%) (Auto) 11.7, Monocytes (%) ( Auto) 6.8, Eosinophils (%) (Auto) 0.2, Basophils (%) (Auto) 0.5, Neutrophils # ( Auto) 3.31, Lymphocytes # (Auto) 0.48, Monocytes # (Auto) 0.28, Eosinophils # ( Auto) 0.01, Basophils # (Auto) 0.02 12/17/17 20:25 Test 12/17/17 20:25 12/17/17 22:00 12/17/17 22:36 12/17/17 23:30 White Blood Count 4.11 K/uL (4.8-10.8) Red Blood Count 3.89 M/uL (4.2-5.4) Hemoglobin 13.8 g/dL (12.0-16.0) Hematocrit 39.2 % (37-47) Mean Corpuscular Volume 100.8 fL (80-100) Mean Corpuscular Hemoglobin 35.5 pg (25-34) Mean Corpuscular Hemoglobin Concent 35.2 g/dl (32-36) Platelet Count 202 K/uL (130-400) Mean Platelet Volume 9.0 fL (7.4-10.4) Neutrophils (%) (Auto) 80.6 % Lymphocytes (%) (Auto) 11.7 % Monocytes (%) (Auto) 6.8 % Eosinophils (%) (Auto) 0.2 % Basophils (%) (Auto) 0.5 % Neutrophils # (Auto) 3.31 K/uL (1.4-6.5) Lymphocytes # (Auto) 0.48 K/uL (1.2-3.4) Monocytes # (Auto) 0.28 K/uL (0.11-0.59) Eosinophils # (Auto) 0.01 K/uL (0-0.5) Basophils # (Auto) 0.02 K/uL (0-0.2) RDW Standard Deviation 47.5 fL (36.4-46.3) RDW Coefficient of Variation 13.1 % (11.5-14.5) Immature Granulocyte % (Auto) 0.2 % Immature Granulocyte # (Auto) 0.01 K/uL (0.00-0.02) Prothrombin Time 10.3 SECONDS (9.0-12.0) Prothromb Time International Ratio 1.0 (0.9-1.1) Activated Partial Thromboplast Time 24.0 SECONDS (21.0-31.0) Partial Thromboplastin Ratio 0.9 Anion Gap 9.0 mmol/L (3-11) Est Creatinine Clear Calc Drug Dose 66.8 ml/min Estimated GFR () 96.0 Estimated GFR (Non- 82.8 BUN/Creatinine Ratio 16.4 (10-20) Calcium Level 9.2 mg/dl (8.5-10.1) Magnesium Level 1.9 mg/dl (1.8-2.4) Total Bilirubin 0.4 mg/dl (0.2-1) Direct Bilirubin < 0.1 mg/dl (0-0.2) Aspartate Amino Transf (AST/SGOT) 24 U/L (15-37) Alanine Aminotransferase (ALT/SGPT) 13 U/L (12-78) Alkaline Phosphatase 68 U/L (45-117) Total Creatine Kinase 101 U/L (26-192) Creatine Kinase MB 0.5 ng/ml (0.5-3.6) Creatine Kinase MB Ratio 0.5 (0-3.0) Troponin I < 0.015 ng/ml (0-0.045) Total Protein 7.5 gm/dl (6.4-8.2) Albumin 3.8 gm/dl (3.4-5.0) Lipase 234 U/L (73-393) Procalcitonin < 0.05 ng/ml (0-0.5) Thyroid Stimulating Hormone (TSH) 0.918 uIu/ml (0.300-4.500) Urine Color YELLOW Urine Appearance CLEAR (CLEAR) Urine pH 8.5 (4.5-7.5) Urine Specific Bud 1.015 (1.000-1.030) Urine Protein NEG (NEG) Urine Glucose (UA) NEG (NEG) Urine Ketones NEG (NEG) Urine Occult Blood NEG (NEG) Urine Nitrite NEG (NEG) Urine Bilirubin NEG (NEG) Urine Urobilinogen NEG (NEG) Urine Leukocyte Esterase NEG (NEG) Urine WBC (Auto) 0 /hpf (0-5) Urine RBC (Auto) 0-4 /hpf (0-4) Urine Hyaline Casts (Auto) 0 /lpf (0-5) Urine Epithelial Cells (Auto) 0-5 /lpf (0-5) Urine Bacteria (Auto) NEG (NEG) Bedside Glucose 93 mg/dl (70-90) Influenza Type A Antigen Neg for Influ A (NEG) Influenza Type B Antigen Neg for Influ B (NEG) Test 12/18/17 01:39 Lactic Acid Level 2.0 mmol/L (0.4-2.0) Date/Time Source Procedure Growth Status 12/18/17 03:40 Nasal MRSA DNA Surveillance Screen - Final Specimen Negative for MRSA by DNA Probe Complete Assessment and Plan 82 yo female admitted early on [id number] for acute AMS. PMH: Metastatic left breast cancer s/p mastectomy with mets to bone and ? lung, concussion, post-herpetic neuralgia, left arm cellulitis Altered mental status: Per H&P, more confused in evening prior to admit. CT head showed nothing acute. No noted SOB or cough. Good room SpO2. Nasal MRSA negative. Influenza negative. CT chest noted stable pulmonary nodules and osseous metastatic disease. No noted abdominal ttp. CT a/p noted question of colitis (?? ischemic) with some stool burden. Lactate 2, down to 0.9, which argues against ongoing ischemia. Procalcitonin negative. No blood leukocytosis. Borderline febrile and a little tachycardic. 03Apr BCx x 2 pending. Given single-dose of vancomycin and started on zosyn. Recent history of left arm cellulitis but not acutely red or tender at present. No noted CP. Rhythm sinus tachy with some PVC's on monitor but no acute ST-T wave changes and TnI was negative. From speaking with family, patient has since improved but is not completely at baseline. She did not complain of any abdominal pain in recent days. - Working diagnosis is patient has a mild colitis that, in combination with not eating dinner last night and some mild hypoglycemia, developed some delirium. - Will start miralax for her stool burden. - Ordering fasting plasma insulin for AM. Colitis: As seen on CT a/p. On zosyn. Prior medical history: - Post Herpetic Neuralgia: Around the site of her left mastectomy. On Amitriptyline and lyrica - Glaucoma: On travatan eye drops. - Metastatic breast cancer: On Ibrance and femara. Code status: Full code. Diet: AHA diet. DVT prophy: SCD's. PT/OT: Pending. Disbo: Admitted to inpatient telemetry, but will transfer to med/surg floor today. Resident Physician Supervision Note: I interviewed and examined the patient. Discussed with Dr. Porter and agree with findings and plan as documented in the note. Any exceptions or clarifications are listed here: None Documented By: Robbin Waller feeling better more her normal self vitals noted nad breathing unlabored no pallor or icterus encephalopathy/altered mental status - likely from hypoglycemia and colitis hypoglycemia - hadn't eaten since lunch likely was from prolonged fasting and then acute illness, however, PCP suggests fasting insulin level - will check for completeness colitis - low grade temp, mild sx, constipation (+) - suspect a degree of stercoral colitis. had large BM, continue abx. improving - ok to go to med surg, anticipate [facility] home tomorrow Resident Tracking Resident Involvement: Resident Care Provided Care Provided: Adult Hospital Medicine (inpatient)
[2017-12-18] MEDS: LETROZOLE 2.5 MG TAB PO SCH (08:25)
[2017-12-18] MEDS ORDERED: VANCOMYCIN IV 1,000 MG in SODIUM CHLORIDE 0.9% 250ML 250 ML IV SCH (09:00)
--- NOTE | 2017-12-18 11:38 | Pharmacy Progress Note ---
Pharmacy Antibiotic Consult Date of Service: Dec 18, 2017. Pharmacy Dosing Scope Pharmacy is consulted to initiate vancomycin IV dosing therapy, order appropriate labs and adjust drug dose/frequency. Subjective The patient is a 82 year old female admitted on Dec 18, 2017 at 01:25. Objective Height (Feet): 5 Height (Inches): 5.00 Weight (Kilograms): 60.000 Lab Results (24hrs): Test 12/17/17 20:25 12/17/17 21:12 12/17/17 22:00 12/17/17 22:36 White Blood Count 4.11 K/uL (4.8-10.8) Red Blood Count 3.89 M/uL (4.2-5.4) Hemoglobin 13.8 g/dL (12.0-16.0) Hematocrit 39.2 % (37-47) Mean Corpuscular Volume 100.8 fL (80-100) Mean Corpuscular Hemoglobin 35.5 pg (25-34) Mean Corpuscular Hemoglobin Concent 35.2 g/dl (32-36) Platelet Count 202 K/uL (130-400) Mean Platelet Volume 9.0 fL (7.4-10.4) Neutrophils (%) (Auto) 80.6 % Lymphocytes (%) (Auto) 11.7 % Monocytes (%) (Auto) 6.8 % Eosinophils (%) (Auto) 0.2 % Basophils (%) (Auto) 0.5 % Neutrophils # (Auto) 3.31 K/uL (1.4-6.5) Lymphocytes # (Auto) 0.48 K/uL (1.2-3.4) Monocytes # (Auto) 0.28 K/uL (0.11-0.59) Eosinophils # (Auto) 0.01 K/uL (0-0.5) Basophils # (Auto) 0.02 K/uL (0-0.2) RDW Standard Deviation 47.5 fL (36.4-46.3) RDW Coefficient of Variation 13.1 % (11.5-14.5) Immature Granulocyte % (Auto) 0.2 % Immature Granulocyte # (Auto) 0.01 K/uL (0.00-0.02) Prothrombin Time 10.3 SECONDS (9.0-12.0) Prothromb Time International Ratio 1.0 (0.9-1.1) Activated Partial Thromboplast Time 24.0 SECONDS (21.0-31.0) Partial Thromboplastin Ratio 0.9 Sodium Level 134 mmol/L (136-145) Potassium Level 3.8 mmol/L (3.5-5.1) Chloride Level 100 mmol/L (98-107) Carbon Dioxide Level 26 mmol/L (21-32) Anion Gap 9.0 mmol/L (3-11) Blood Urea Nitrogen 10 mg/dl (7-18) Creatinine 0.62 mg/dl (0.60-1.20) Est Creatinine Clear Calc Drug Dose 66.8 ml/min Estimated GFR () 96.0 Estimated GFR (Non- 82.8 BUN/Creatinine Ratio 16.4 (10-20) Random Glucose 113 mg/dl (70-99) Calcium Level 9.2 mg/dl (8.5-10.1) Magnesium Level 1.9 mg/dl (1.8-2.4) Total Bilirubin 0.4 mg/dl (0.2-1) Direct Bilirubin < 0.1 mg/dl (0-0.2) Aspartate Amino Transf (AST/SGOT) 24 U/L (15-37) Alanine Aminotransferase (ALT/SGPT) 13 U/L (12-78) Alkaline Phosphatase 68 U/L (45-117) Total Creatine Kinase 101 U/L (26-192) Creatine Kinase MB 0.5 ng/ml (0.5-3.6) Creatine Kinase MB Ratio 0.5 (0-3.0) Troponin I < 0.015 ng/ml (0-0.045) Total Protein 7.5 gm/dl (6.4-8.2) Albumin 3.8 gm/dl (3.4-5.0) Lipase 234 U/L (73-393) Procalcitonin < 0.05 ng/ml (0-0.5) Thyroid Stimulating Hormone (TSH) 0.918 uIu/ml (0.300-4.500) Bedside Glucose 64 mg/dl (70-90) 93 mg/dl (70-90) Urine Color YELLOW Urine Appearance CLEAR (CLEAR) Urine pH 8.5 (4.5-7.5) Urine Specific Malone 1.015 (1.000-1.030) Urine Protein NEG (NEG) Urine Glucose (UA) NEG (NEG) Urine Ketones NEG (NEG) Urine Occult Blood NEG (NEG) Urine Nitrite NEG (NEG) Urine Bilirubin NEG (NEG) Urine Urobilinogen NEG (NEG) Urine Leukocyte Esterase NEG (NEG) Urine WBC (Auto) 0 /hpf (0-5) Urine RBC (Auto) 0-4 /hpf (0-4) Urine Hyaline Casts (Auto) 0 /lpf (0-5) Urine Epithelial Cells (Auto) 0-5 /lpf (0-5) Urine Bacteria (Auto) NEG (NEG) Test 12/17/17 23:30 12/18/17 01:39 12/18/17 10:57 Influenza Type A Antigen Neg for Influ A (NEG) Influenza Type B Antigen Neg for Influ B (NEG) Lactic Acid Level 2.0 mmol/L (0.4-2.0) Assessment & Plan Assessment * 82 yo F with recent hospital stay for cellulitis treated with cephalexin re- admitted with fall/AMS, possibly 2nd infection. Possible sources include intra- abdominal and skin/skin structure * WBC low, possibly 2nd Palbociclib as outpatient for breast cancer. Fever noted. * On Zosyn and vancomycin which is appropriate for now Vancomycin * Goal vancomycin trough 15-20 mcg/mL * Patient received vancomycin load of 25 mg/kg overnight * Will continue with 14 mg/kg dosed close to estimated half-life * Trough prior to 4th overall dose Plan * Vancomycin 1000 mg IV q14h * Trough 12/19 @ 1930 Pharmacy will continue to follow and will adjust dose/frequency as necessary. Thank you
[2017-12-18] MEDS: VANCOMYCIN IV 1,000 MG in SODIUM CHLORIDE 0.9% 250ML 250 ML IV SCH (17:27)
[2017-12-18] MEDS ORDERED: AMITRIPTYLINE HCL 25 MG TAB PO SCH (21:00)
[2017-12-18] MEDS ORDERED: TRAVOPROST Z 0.004% OPH SOLN 2.5 ML BTL OPB SCH (21:00)
[2017-12-19] MEDS: VANCOMYCIN IV 1,000 MG in SODIUM CHLORIDE 0.9% 250ML 250 ML IV SCH (05:31)
[2017-12-19] MEDS: PIPERACILL/TAZOBAC IV 3.375 GM in DEXTROSE 5% 100ML 100 ML IV SCH ×2 (05:31→14:14)
[2017-12-19 06:18] LABS: HEMATOCRIT 31.3 % (37-47); HEMOGLOBIN 10.8 g/dL (12.0-16.0); MEAN CORPUSCULAR HEMOGLOBIN 34.8 pg (25-34); MEAN CORPUSCULAR HGB CONC 34.5 g/dl (32-36); MEAN PLATELET VOLUME 9.3 fL (7.4-10.4); PLATELET COUNT 173 K/uL (130-400); RED CELL DISTRIBUTION WIDTH CV 13.3 % (11.5-14.5); RED CELL DISTRIBUTION WIDTH SD 48.8 fL (36.4-46.3); WHITE BLOOD COUNT 4.97 K/uL (4.8-10.8)
[2017-12-19 06:32] LABS: BASO % 0.4 %; BASO ABS # 0.02 K/uL (0-0.2); EOS ABS # 0.05 K/uL (0-0.5); LYMPH % 15.5 %; LYMPH ABS # 0.77 K/uL (1.2-3.4); MONO % 8.5 %; MONO ABS # 0.42 K/uL (0.11-0.59); NEUT % 72.6 %; NEUT ABS # 3.61 K/uL (1.4-6.5)
[2017-12-19 06:49] LABS: CALCIUM 7.8 mg/dl (8.5-10.1); CREATININE 0.56 mg/dl (0.60-1.20); POTASSIUM 2.7 mmol/L (3.5-5.1)
[2017-12-19 07:12] VITALS: BP 138/61; PULSE 71; TEMP 37; O2SAT 92
[2017-12-19] MEDS ORDERED: POTASSIUM CHLORIDE 20 MEQ TABCR PO STA (07:20)
--- NOTE | 2017-12-19 07:50 | Family Medicine Progress Note ---
Progress Note Date of Service Dec 19, 2017. Medications Current Inpatient Medications Medications (Trade) Dose Ordered Sig/Chani Route Start Time Stop Time Status Last Admin Dose Admin Acetaminophen (Tylenol Tab) 650 mg Q4H PRN PO 12/18/17 01:30 01/17/18 01:29 12/18/17 10:59 650 MG Al Hydrox/Mg Hydrox/Simethicone (Maalox Max Susp) 15 ml Q4H PRN PO 12/18/17 01:30 01/17/18 01:29 Magnesium Hydroxide (Milk Of Magnesia Susp) 30 ml Q12H PRN PO 12/18/17 01:30 01/17/18 01:29 Ondansetron HCl (Zofran Inj) 4 mg Q6H PRN IV 12/18/17 01:30 01/17/18 01:29 Polyethylene (Miralax Powder Packet) 17 gm DAILY PRN PO 12/18/17 01:30 01/17/18 01:29 Amitriptyline HCl (Elavil Tab) 25 mg HS PO 12/18/17 21:00 01/17/18 20:59 12/18/17 21:56 25 MG Travoprost (Travatan Z) 1 drops HS OPB 12/18/17 21:00 01/17/18 20:59 12/18/17 21:56 1 DROPS Letrozole (Femara Tab) 2.5 mg QAM PO 12/18/17 09:00 01/17/18 08:59 12/18/17 08:25 2.5 MG Miscellaneous Information (Order Awaiting Action) 1 ea QS N/A 12/18/17 08:00 01/17/18 07:59 Piperacillin Sod/ Tazobactam Sod 3.375 gm/Dextrose 115 ml @ 28.75 mls/ hr Q8H IV 12/18/17 04:00 12/28/17 03:59 12/19/17 05:31 28.75 MLS/HR Miscellaneous Information (Consult) 1 ea UD PRN N/A 12/18/17 01:30 01/17/18 01:29 Miscellaneous Information (Consult) 1 ea UD PRN N/A 12/18/17 01:30 01/17/18 01:29 Vancomycin HCl 1000 mg/Sodium Chloride 270 ml @ 125 mls/hr Q14H IV 12/18/17 16:00 12/28/17 15:59 12/19/17 05:31 125 MLS/HR Polyethylene (Miralax Powder Packet) 17 gm DAILY PO 12/19/17 08:00 01/18/18 07:59 Potassium Chloride (Klor-Con Tab) 40 meq ONE ONCE PO 12/19/17 12:00 12/19/17 12:01 Objective Vital Signs Date Time Temp Pulse Resp B/P (MAP) Pulse Ox O2 Delivery O2 Flow Rate FiO2 12/19/17 07:12 37.0 71 20 138/61 (86) 92 Room Air 12/19/17 00:16 Room Air 12/18/17 23:01 37.4 79 20 130/66 (87) 96 Room Air 12/18/17 20:15 Room Air 12/18/17 15:37 97 Room Air 12/18/17 15:31 36.9 88 18 129/69 (89) 97 Room Air 12/18/17 14:21 36.2 82 17 94 2.0 12/18/17 12:00 Room Air 12/18/17 11:49 36.2 82 17 103/58 (73) 94 Room Air 12/18/17 08:00 Room Air Laboratory Results 12/19/17 05:34 Red Blood Count 3.10, Mean Corpuscular Volume 101.0, Mean Corpuscular Hemoglobin 34.8, Mean Corpuscular Hemoglobin Concent 34.5, Mean Platelet Volume 9.3, Neutrophils (%) (Auto) 72.6, Lymphocytes (%) (Auto) 15.5, Monocytes (%) ( Auto) 8.5, Eosinophils (%) (Auto) 1.0, Basophils (%) (Auto) 0.4, Neutrophils # ( Auto) 3.61, Lymphocytes # (Auto) 0.77, Monocytes # (Auto) 0.42, Eosinophils # ( Auto) 0.05, Basophils # (Auto) 0.02 12/19/17 05:34 Test 12/18/17 11:35 12/19/17 05:34 Lactic Acid Level 0.9 mmol/L (0.4-2.0) White Blood Count 4.97 K/uL (4.8-10.8) Red Blood Count 3.10 M/uL (4.2-5.4) Hemoglobin 10.8 g/dL (12.0-16.0) Hematocrit 31.3 % (37-47) Mean Corpuscular Volume 101.0 fL (80-100) Mean Corpuscular Hemoglobin 34.8 pg (25-34) Mean Corpuscular Hemoglobin Concent 34.5 g/dl (32-36) Platelet Count 173 K/uL (130-400) Mean Platelet Volume 9.3 fL (7.4-10.4) Neutrophils (%) (Auto) 72.6 % Lymphocytes (%) (Auto) 15.5 % Monocytes (%) (Auto) 8.5 % Eosinophils (%) (Auto) 1.0 % Basophils (%) (Auto) 0.4 % Neutrophils # (Auto) 3.61 K/uL (1.4-6.5) Lymphocytes # (Auto) 0.77 K/uL (1.2-3.4) Monocytes # (Auto) 0.42 K/uL (0.11-0.59) Eosinophils # (Auto) 0.05 K/uL (0-0.5) Basophils # (Auto) 0.02 K/uL (0-0.2) RDW Standard Deviation 48.8 fL (36.4-46.3) RDW Coefficient of Variation 13.3 % (11.5-14.5) Immature Granulocyte % (Auto) 2.0 % Immature Granulocyte # (Auto) 0.10 K/uL (0.00-0.02) Red Blood Cell Morphology Unremarkable Anion Gap 7.0 mmol/L (3-11) Est Creatinine Clear Calc Drug Dose 67.3 ml/min Estimated GFR () 99.2 Estimated GFR (Non- 85.6 BUN/Creatinine Ratio 16.9 (10-20) Fasting Insulin 2.8 mU/L (3-25) Calcium Level 7.8 mg/dl (8.5-10.1) Resident Tracking Resident Involvement: Resident Care Provided Care Provided: Adult Hospital Medicine (inpatient)
[2017-12-19 08:00] VITALS: O2SAT 92
[2017-12-19] MEDS ORDERED: POLYETHYLENE (MIRALAX) 17 GM PACK PO SCH (08:00)
[2017-12-19] MEDS: LETROZOLE 2.5 MG TAB PO SCH (08:15)
[2017-12-19] MEDS ORDERED: POTASSIUM CHLORIDE 20 MEQ TABCR PO ONE (12:00)
--- NOTE | 2017-12-19 14:00 | Discharge Summary ---
Discharge Summary Date of Service Dec 19, 2017. Discharge Summary Admission Date: Dec 18, 2017 at 01:25 Discharge Date: Dec 19, 2017 Discharge Disposition: Home Principal Diagnosis: Delirium Problems/Secondary Diagnoses: - Colitis - Constipation - Hypokalemia Procedures: 17Dec2017 - HEAD CT NONCONTRAST Findings: The paranasal sinuses and mastoid air cells are clear. The calvarium and skull base are intact. There is no mass, hematoma, midline shift, acute infarct. White matter hypodensity is nonspecific but suggestive of microvascular ischemic change. The ventricles and sulci demonstrate mild age-related involutional changes. Impression: No significant change compared to the prior study. No acute intracranial abnormality. 17Dec2017 - CHEST ONE VIEW PORTABLE IMPRESSION: Stable coarse interstitial thickening and scattered densities better appreciated on the prior PET/CT. No new focal lung consolidations to suggest pneumonia. [id number] - CT Chest THORAX WITHOUT Contrast IMPRESSION: 1. No significant change in multifocal irregular pulmonary nodules. This is most suggestive of stable disease. No new nodules to suggest progression of disease. No lymphadenopathy. 2. Postsurgical changes of left mastectomy and left axillary lymph node dissection with asymmetric left upper terminate edema. 3. Stable appearance of osseous metastatic disease. 18Dec2017 - CT ABD/PELVIS NO IV OR ORAL CONT IMPRESSION: 1. Wall thickening of the distal transverse colon, splenic flexure, and proximal descending colon, raising concern for colitis. This distribution is worrisome for ischemic colitis, although infectious colitis is also a consideration. No pneumatosis or perforation. 2. Moderate stool burden throughout mildly distended colon consistent with constipation. Notably, the involved segments of colon with wall thickening do not contain a large amount stool and are relatively decompressed. 3. Cholelithiasis. 4. Multiple sclerotic osseous lesions consistent with stable osseous metastatic disease. Consultations: None. Medication Reconciliation New Medications: Amoxicillin & Pot Clavulanate (Augmentin 875-125 mg) 1 Tab Tab 1 TAB PO BID for 10 Days, #20 TAB Continued Medications: Amitriptyline HCl (Amitriptyline HCl) 25 Mg Tab 25 MG PO HS Ascorbic Acid (Vitamin C) 100 Mg Chw 100 MG PO DAILY Hydrocodone/Acetaminophen 5MG/325MG ([place] 5MG/325MG) Tab 1 TABLET PO BID PRN for Pain, TAB Letrozole (Femara) 2.5 Mg Tab 2.5 MG PO DAILY Magnesium Chloride (Slow-Mag Tab) 64 Mg Tabcr 128 MG PO DAILY, TAB Multivitamin (Multivitamin) Tab 1 TAB PO DAILY Palbociclib (Ibrance) 100 Mg Cap 100 MG PO Q2D TAKE THIS MEDICATION EVERY OTHER DAY AT BEDTIME Potassium Chloride (Klor-Con Sprinkle) 10 Meq Cap 10 MEQ PO BID Pregabalin (Lyrica) 50 Mg Cap 50 MG PO TID Travoprost (Travatan Z) 0.004 % Etienne 1 DROP OPB HS, ML Discontinued Medications: Cephalexin Monohydrate (Cephalexin) 250 Mg Cap 250 MG PO BID Discharge Exam General Appearance: Awake, alert & oriented to person, place, time, speaking easily, appears comfortable in general, in NAD. CV: +S1S2 RRR, no murmur. Pulm: Clear to auscultation throughout. Abdomen: +BS, soft, non-tender, non-distended. Extremities: No pedal edema or calf tenderness. Moving all extremities naturally and easily. Neuro: No gross neuro deficits. 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 Walking without assistance easily. Review of Systems: Constitutional: No fever, No chills Respiratory: No cough, No shortness of breath Cardiovascular: No chest pain, No edema Abdomen: + diarrhea (loose stools most recently), No pain, No nausea, No vomiting Genitourinary - Female: No dysuria Hospital Course HPI at time of admission on Dec 18, 2017 at 01:03 Source: patient, caregiver (ER doctor and nurse) - Pt is a 82F with a PMHx of breast cancer and recent cellulitis that was admitted for acute mental status changes this evening. Spouse is not present in the room for the exam and initial HPI is coming from the nurse and ER physician. - Pt is confused but able to respond to commands to move her extremities. - Spoke to the spouse over the phone around 3am. - Pt is an 82F that was last normal around dinner time when left to get some food. Upon husbands arrival pt's arms were splayed over the bed and she was partially standing and partially over the bed. Patients condition hasn't improved since being admitted to the hospital according to the ER nurse. - Patient denies being in any pain. She can tell me her name, but not the year or where she is. - The patient was discharged from [facility] for RUE cellulitis approximately one month ago and completed her course of Abx (cephalosporin) approximately 4 days ago. According to the , he attributes the cellulitis to the contrast dye from a PET scan and would like to hold off using contrast because he thinks it will harm his . With the breast cancer he thinks his has been through enough. - There is a history of falls, the last occurring one week ago when the patient was complaining of right shoulder pain. Discharge summary on 19Dec2017 82 yo female admitted early on 18Dec2017 for acute AMS. PMH: Metastatic left breast cancer s/p mastectomy with mets to bone and ? lung, concussion, post-herpetic neuralgia, left arm cellulitis Altered mental status: Per H&P, more confused in evening prior to admit. CT head showed nothing acute. No noted SOB or cough. Good room SpO2. Nasal MRSA negative. Influenza negative. CT chest noted stable pulmonary nodules and osseous metastatic disease. No noted abdominal ttp. CT a/p noted question of colitis (?? ischemic) with some stool burden. Lactate 2, down to 0.9, which argues against ongoing ischemia. Procalcitonin negative. No blood leukocytosis. Borderline febrile and a little tachycardic. 03Apr BCx x 2 no growth to date. UA clear. Started on zosyn and vancomycin. Recent history of left arm cellulitis but not acutely red or tender at present. No noted CP. Rhythm sinus tachy with some PVC's on monitor but no acute ST-T wave changes and TnI was negative. - On afternoon of discharge, patient had improved back to her baseline per (at bedside). - Working diagnosis is patient has a mild colitis that, in combination with not eating dinner the night of admit and some mild hypoglycemia to 64 (fasting insulin level was was 2.8), developed some delirium. Colitis and constipation: As seen on CT a/p. 04Apr started on zosyn and vancomycin as inpatient. Received single-dose of miralax here, had at least ten BM (with latter being loose and non-bloody). - Converting to Augmentin BID x 10 days for outpatient. - Recommended to try OTC miralax 1/2 capful prn if she thinks she's getting constipated again. Hypokalemia: Noted as low as 2.7 as inpatient, though to be due to multiple BM while inpatient. Replaced and diarrhea stopped. F/u per PCM. Questionable anemia: At time of discharge, Hb was 10.8, perhaps partially dilutional. Hospital records note in 12-13 range in late Aug 2017. F/u per PCM. Prior medical history (no acute changes as inpatient): - Post Herpetic Neuralgia: Around the site of her left mastectomy. On Amitriptyline and lyrica. - Glaucoma: On Travatan eye drops. . - Metastatic breast cancer: On Ibrance and femara. Resident Physician Supervision Note: I interviewed and examined the patient. Discussed with Dr. Porter and agree with findings and plan as documented in the note. Any exceptions or clarifications are listed here: None Documented By: Robbin Waller feeling better walking around well had a lot of stool yesterday and earlier today but better now. feels up to going home extensive discussion with pt and vitals noted nad breathing unlabored no pallor or icterus altered mental status - resolved - appearing to have been transient encephalopathy due to hypoglycemia and infection (colitis) colitis - mild, but appears on CT and had fevers. improved on IV abx -- home on augmentin. likely a mild stercoral colitis picture sine she had a large amount of stool on CT hypoglycemia - appears to have been due to illness and prolonged fast (hadn't eaten since lunch the day of presentation) hypokalemia - due to copious stooling -- stooling now resolved. K supplemented aggressively PO. outpt f/u anemia - no blood loss noted. likely lab variation and dilution effect. outpt f/u seems to have some element of chronic constipation discussed with pt and . stable for discharge to home Total Time Spent: Greater than 30 minutes This includes examination of the patient, discharge planning, medication reconciliation, and communication with other providers. Discharge Instructions Please refer to the electronic Patient Visit Report (Discharge Instructions) for additional information. Additional Copies To Miranda Clemens CRNP; Elvis Lee M.D. Resident Tracking Resident Involvement: Resident Care Provided Care Provided: Adult Hospital Medicine (inpatient)
[2017-12-19] MEDS ORDERED: AMOX875T PO (14:45)
--- NOTE | 2017-12-19 14:55 | Discharge Instructions ---
Discharge Instructions Date of Service Dec 19, 2017. Admission Reason for Admission: Altered Mental Status Discharge Discharge Diagnosis / Problem: Delirium and Colitis Discharge Goals Goal(s): Decrease discomfort, Improve function, Learn about illness Activity Recommendations Activity Limitations: resume your previous activity . Instructions / Follow-Up Instructions / Follow-Up You were admitted to the hospital for some confusion just before admission. After multiple lab and imaging tests, it seems that you have a mild intestinal infection (called colitis). That, in combination with skipping dinner and a mildly low blood sugar, caused some changes in your mental status. You were also noted to have some significant constipation that likely contributed to developing the intestinal infection. - You are being sent home on an antibiotic called Augmentin. Please take the full course over the next 10 days to help get rid of any intestinal infection, unless you have any concerning side effects, for which you should be seen in an emergency department. - Regarding your constipation, it is likely significantly improved (if not resolved) due to your loose and watery stools here. If you find that you are getting a bit constipated again, consider taking a one-half capful of miralax daily until it has resolved. - Please continue to follow up closely with both your primary care provider and oncologist for post-hospital good continuity of care. --- You have an appointment with Dr. Lee for December 27, at 11:30 in his office. - Return to the emergency department for any concerns for return of changes in your mental status, if you develop any new abdominal pains, vomiting, blood in your stools, a new fever, or with any other emergent medical concerns may have. Current Hospital Diet Patient's current hospital diet: AHA Diet (Heart Healthy) Discharge Diet Recommended Diet: AHA Diet (Heart Healthy) Pending Studies Studies pending at discharge: no Medical Emergencies . Who to Call and When: Medical Emergencies: If at any time you feel your situation is an emergency, please call 911 immediately. . Non-Emergent Contact Non-Emergency issues call your: Primary Care Provider, Oncologist .
[2017-12-19 15:13] VITALS: BP 165/68; PULSE 82; TEMP 36.4; O2SAT 98
[2017-12-19 15:47] VITALS: BP 165/68; PULSE 82; TEMP 36.4; O2SAT 98
[2017-12-19] MEDS ORDERED: VANCOMYCIN TROUGH ONE (19:30)
== END 2017-12-19 17:15 | disposition home or self-care (01) | DRG 391 ==
LOC: EDBD 20:25 → C.EDC 20:26 → C.2T 12-18 01:25 → ENRESERV 12-18 01:43 → C.4E 12-18 15:27
PROVIDERS: ADMIT Hospitalist; ATTEND Hospitalist
DX: K52.9 Noninfective gastroenteritis and colitis, unspecified (principal); G93.41 Metabolic encephalopathy; B02.29 Other postherpetic nervous system involvement; C78.00 Secondary malignant neoplasm of unspecified lung; L03.116 Cellulitis of left lower limb; C79.51 Secondary malignant neoplasm of bone; C50.919 Malignant neoplasm of unspecified site of unspecified female breast; K21.9 Gastro-esophageal reflux disease without esophagitis; Z90.10 Acquired absence of unspecified breast and nipple; Z96.649 Presence of unspecified artificial hip joint; Z88.5 Allergy status to narcotic agent; H40.9 Unspecified glaucoma; K59.00 Constipation, unspecified; E87.6 Hypokalemia; D64.9 Anemia, unspecified

== ENCOUNTER → 2018-04-15 | Outpatient (CLI) | payer BC ==
[~2018-04-15] MED LIST changes: -LVQ500 PO; +POTA1CAP2 PO; -POTA1CAP53 PO; -SACC250C3 PO; -SULF800T23 PO; +THIA100T27 PO
== END | disposition home or self-care (01) ==
LOC: C.LAB1850 13:04
PROVIDERS: ATTEND Internal Medicine
DX: M79.1 Myalgia (principal)

== ENCOUNTER 2019-05-05 13:10 | Inpatient (IN) ==
[2019-05-05] MEDS ORDERED: ALBUT/IPRATROP 3MG/0.5MG NEB 3 ML VIAL NEB STA (13:34)
[2019-05-05] MEDS ORDERED: SODIUM CHLORIDE 0.9% 500 ML IV SCH (13:45)
[2019-05-05 14:12] LABS: Basophils # (auto) 0.03 K/uL (0-0.2); Basophils % (auto) 0.5 %; Hematocrit (blood only) 36.1 % (37-47); Hemoglobin 12.1 g/dL (12.0-16.0); Immature Granulocytes # (auto) 0.06 K/uL (0.00-0.02); Lymphocytes % (auto) 14.6 %; Mean Corpuscular Hemoglobin 32.7 pg (25-34); Mean Corpuscular Hgb Conc 33.5 g/dL (32-36); Mean Corpuscular Volume 97.6 fL (80-100); Mean Platelet Volume 9.9 fL (7.4-10.4); Monocytes # (auto) 1.46 K/uL (0.11-0.59); Monocytes % (auto) 23.7 %; Neutrophils # (auto) 3.72 K/uL (1.4-6.5); Neutrophils % (auto) 60.2 %; Platelet Count 223 K/uL (130-400); RDW Coefficient of Variation 15.9 % (11.5-14.5); RDW Standard Deviation 55.4 fL (36.4-46.3); White Blood Count 6.17 K/uL (4.8-10.8)
--- NOTE | 2019-05-05 14:19 | XRay Report ---
XR chest 1V portable CLINICAL HISTORY: weakness, SOB dyspnea COMPARISON STUDY: 04/08/2019 FINDINGS: Mild increase in volume of a left upper lung nodule. Maximum dimensions are 2.6 cm currentl y. Mild chronic interstitial change. No superimposed infiltrate. Central catheter remains in superior vena cava. IMPRESSION: Slight increase in size of a left upper lobe nodule. Otherwise no acute process. Chronic changes as noted. The above report was generated using voice recognition software. It may contain grammatical, syntax or spelling errors. Electronically signed by: Gurinder Ayala M.D. 05/05/2019 2:18 PM
[2019-05-05 14:29] LABS: Albumin Level 3.1 gm/dl (3.4-5.0); BUN Creatinine Ratio 20.7 (10-20); Calcium 8.4 mg/dl (8.5-10.1); Creatinine Clr Calc Pharmacy 70.9 ml/min; Est GFR (Non-African American) 87.1; Magnesium 2.1 mg/dl (1.8-2.4); Potassium 3.6 mmol/L (3.5-5.1)
[2019-05-05 14:40] LABS: Albumin Globulin Ratio 0.8 (0.9-2); Bilirubin,Total 0.8 mg/dl (0.2-1); Globulin 3.7 gm/dl (2.5-4.0); Thyroid Stimulating Hormone 0.816 uIu/ml (0.300-4.500); Total Protein 6.8 gm/dl (6.4-8.2)
--- NOTE | 2019-05-05 14:51 | CT Scan Report ---
CT head/brain wo con CLINICAL HISTORY: 83 years-old Female with confusion. Acute confusion with altered mental status wit h history of breast cancer. TECHNIQUE: Multiple axial CT images of the head were obtained without contrast. A dose lowering tech nique was utilized adhering to the principles of ALARA. CT DOSE: 537.48 mGy.cm COMPARISON: Head CT 12/07/2018. FINDINGS: There is an ill-defined peripherally hyperdense and centrally hypodense lesion of the right cerebral peduncle extending into the superior aspect of the right aditya, 1.2 x 1.0 x 1.4 cm, image 9 series 2. No acute territorial infarct, hydrocephalus or midline shift. Age-related involutional changes. Patch y white matter hypodensities suggestive of chronic microvascular ischemic disease redemonstrated. Sen escent calcifications noted about the lentiform nucleus. Cerebral vascular calcifications also noted. The calvarium is intact. Prior bilateral cataract repair. The paranasal sinuses, mastoid air cells, a nd middle ear cavities are clear. IMPRESSION: 1. 1.4 cm lesion with peripheral hyperdensity about the right cerebral peduncle extending into the stoner perior aspect of the right aditya is suspicious for neoplasm, possibly with peripheral hemorrhage. Adilene elation with contrast-enhanced MRI recommended. 2. Age-related involutional changes with chronic microvascular ischemic disease. 3. No acute territorial infarct, midline shift or hydrocephalus. Findings were discussed with Dr. Osvaldo Hoff on 05/05/2019 at 2:50 PM. The above report was generated using voice recognition software. It may contain grammatical, syntax o r spelling errors. Electronically signed by: Doug Alcaraz M.D. 05/05/2019 2:50 PM
--- NOTE | 2019-05-05 15:35 | Emergency Department Note ---
Entered by Kathrine Stoddard acting as a scribe for Osvaldo Hoff MD History of Present Illness General Chief complaint: Confusion Time Seen by Provider: 05/05/19 13:22 Source: patient History of Present Illness Provider complaint: Shortness of breath and weakness Onset (ago): day(s) Location: chest Pain Consistency: + constant Quality: + constant Associated symptoms: + shortness of breath, + weakness and + other (Negative: abdominal pain, neck pain, hip pain); no chest pain, no cough, no fever/chills and no nausea/vomiting The patient is an 83 year old white female w/ PMHx of GERD, glaucoma, Stage 4 metastatic disease previously treated with femara and ibrance, lymphedema of left arm, who presents to the ED w/ CC of constant shortness of breath and weakness beginning a few days ago. The patient reports she recently fell twice and hit her head but denies passing out. She denies being on blood thinners. The patient denies cough, nausea, vomiting, chest pain, headache, neck pain, abdominal pain, or hip pain. Home Medications Home Medications Medication Instructions Recorded Confirmed Type Travatan Z 1 drp OPHTHALMIC (EYE) HS 08/05/18 05/05/19 History amitriptyline 25 mg PO HS 08/05/18 05/05/19 History ascorbic acid (vitamin C) 100 mg PO HS 08/05/18 05/05/19 History multivitamin 1 tab PO DAILY 08/05/18 05/05/19 History potassium chloride 10 meq PO BID 08/05/18 05/05/19 History pregabalin 50 mg PO HS 08/05/18 05/05/19 History magnesium 64 mg (magnesium 128 mg PO QDL tab 04/22/19 05/05/19 History chloride) tablet,delayed release trazodone 50 mg tablet 50 mg PO DAILY tab 04/22/19 05/05/19 History vancomycin 125 mg capsule 125 mg PO DAILY #30 cap 04/22/19 05/05/19 History Hemp Gummies 1 tab PO HS 05/05/19 05/05/19 History denosumab [Xgeva] 120 mg SUBCUT Q28D 05/05/19 05/05/19 History doxorubicin, peg-liposomal [Doxil] 86 mg IV Q28D 05/05/19 05/05/19 History hydrocodone-acetaminophen [[place]] 0.5 tab PO BID 05/05/19 05/05/19 History Allergies Allergy/AdvReac Type Severity Reaction Status Date / Time morphine AdvReac Intermediate nausea Verified 04/08/19 06:08 zolpidem AdvReac Mild Hallucinati Verified 04/08/19 06:08 ons Past Med/Surg History Medical History C. difficile diarrhea HAD TREATMENT AND CLEARED WITH DR MCCLAIN GERD (gastroesophageal reflux disease) HX OF HEARTBURN Lymphedema of left arm Aortic stenosis "Mild" aortic stenosis per ECHO report summary (AVELINO 0.48cm2, MG 7.2mmhg) Breast cancer, stage 4 Cardiac murmur HZV (herpes zoster virus) post herpetic neuralgia History of shingles hx Surgical History History of modified radical mastectomy of left breast 1975 History of total right hip arthroplasty Family History Father , from "old age" No problems noted. Mother , from "old age" No problems noted. 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 and A total of 10 systems reviewed and were otherwise negative Physical Exam Vital Signs Vital Signs - 24 hr 05/05/19 13:15 05/05/19 13:36 05/05/19 13:52 Temperature 36.7 C Temperature Source Oral Sepsis Recent Fever Within 48 Hours No Sepsis New/Unexplained Change in Mental Status No Sepsis Action Taken by Nursing No Action Required Pulse Rate 104 H 99 H Pulse Rate [Right Apical] 94 H Pulse Rhythm Regular Pulse Strength Normal Respiratory Rate 26 H 18 Respiratory Effort / Characteristics Non-Labored Non-Labored Spontaneous Respiratory Depth Normal Respiratory Pattern Regular Blood Pressure 124/78 Blood Pressure [Right Arm] Blood Pressure Mean 93 Blood Pressure Mean [Right Arm] Blood Pressure Position Sitting Blood Pressure Position [Right Arm] Pulse Oximetry 94 94 94 Oxygen Delivery Method Room Air Room Air Room Air 05/05/19 14:45 05/05/19 15:31 05/05/19 16:49 Temperature Temperature Source Sepsis Recent Fever Within 48 Hours Sepsis New/Unexplained Change in Mental Status Sepsis Action Taken by Nursing Pulse Rate Pulse Rate [Right Apical] 92 H 90 99 H Pulse Rhythm Pulse Strength Respiratory Rate 24 20 16 Respiratory Effort / Characteristics Non-Labored Non-Labored Respiratory Depth Normal Normal Respiratory Pattern Regular Regular Blood Pressure Blood Pressure [Right Arm] 130/66 146/56 H 115/60 Blood Pressure Mean Blood Pressure Mean [Right Arm] 87 86 78 Blood Pressure Position Blood Pressure Position [Right Arm] Lying Lying Pulse Oximetry 96 95 96 Oxygen Delivery Method Room Air Room Air Room Air GENERAL: Well appearing, well nourished, NAD, non-toxic. EYE EXAM: Normal conjunctiva. PERRL, no anisocoria and EOM's grossly intact w/o pain. OROPHARYNX: Moist mucous membranes. Grossly normal dentition. NECK: Supple, no nuchal rigidity, no adenopathy, non-tender. No signs of meningismus. LUNGS: Crackles at the right base. Systolic ejection murmur. Normal chest wall mechanics. HEART: Tachycardic rate, regular rhythm, no MRG. ABDOMEN: Abdomen soft, non-tender, normo-active bowel sounds, no masses, no rebound or guarding. BACK: No CVA TTP. SKIN: No rashes and no bruising. UPPER EXTREMITIES: Upper extremities are grossly normal. LOWER EXTREMITIES: No pitting edema. No calf pain. NEURO EXAM: Awake, alert, follows commands w/o difficulty, cranial nerves II-XII grossly intact, normal speech, moves all 4 extremities on command w/o issue. Course 1327: The patient was evaluated in room C2B. A complete history and physical exam was performed. 1450: I discussed the patients case with Dr. Alcaraz, Radiology. He recommends MRI with and without contrast. 1504: I checked on the patient. I spoke with the patient and daughter about the findings. 1710: I discussed the patients case with Dr. Ryan, [facility] Neurosurgery. He said the patient would need to be followed up but there is no acute interventional that could be done right now. He would like to see the patient once theyre stable for discharge. 1720: I checked on the patient and updated family on results. They are okay with going home. 1738: I discussed the patients case with Dr. Ryan [facility] Neurosurgery. He will make arrangements so they can follow up with him. 1758: I discussed the patients case with Tiffani Gutierrez [facility]. The patient will go to Dr. Reddy [facility] Hospitalist. 1808: I spoke with the . He notes he is the primary child care centre director for the patient. He reports the patient has had some recurrent falls and he feels that he cannot take care of her. Consultations Consultation #1: I discussed the patients case with Dr. Alcaraz, Radiology. He recommends MRI with and without contrast. Time: 14:50 Consultation #2: I discussed the patients case with Dr. Ryan, [facility] Neurosurgery. He said the patient would need to be followed up but there is no acute interventional that could be done right now. He would like to see the patient once theyre stable for discharge. Time: 17:10 Consultation #3: I discussed the patients case with Dr. Ryan, [facility] Neurosurgery. He will make arrangements so they can follow up with him. Time: 17:38 Additional Consultation(s): 175: I discussed the patients case with Tiffani Gutierrez [facility]. The patient will go to Dr. Reddy [facility] Hospitalist. Administered Medications Gadobutrol (Gadavist 65ml) 6 ml IV ONCE PRN PRN Reason: Interaction Checking Stop: 05/09/19 16:33 Last Admin: 05/05/19 16:35 Dose: 6 ml Documented by: [id number] Discontinued Medications Albuterol (Duoneb) 3 ml NEB NOW STA Stop: 05/05/19 13:35 Last Admin: 05/05/19 13:52 Dose: 3 ml Documented by: [id number] Sodium Chloride (Nss) 500 mls @ 999 mls/hr IV .Q31M FAVIOLA Stop: 05/05/19 14:15 Last Infusion: 05/05/19 14:25 Dose: 0 mls/hr Documented by: [id number] Admin: 05/05/19 13:48 Dose: 999 mls/hr Documented by: [id number] Medical Decision Making Differential Diagnosis Differential diagnosis: Etiologies such as metabolic, infection, hypo/hyperglycemia, electrolyte abnormalities, cardiac sources, intracerebral event, toxicologic, neurologic, as well as others were entertained. Medical Records Attestation: I reviewed the patient's medical records. Home Medications Current Medication List: was personally reviewed by me Laboratory Data Attestation: I reviewed the patient's lab results. Result diagrams: 05/05/19 13:59 05/05/19 13:59 Lab Results 05/05/19 05/05/19 Range/Units 13:59 13:59 WBC 6.17 (4.8-10.8) K/uL RBC 3.70 L (4.2-5.4) M/uL Hgb 12.1 (12.0-16.0) g/dL Hct 36.1 L (37-47) % MCV 97.6 (80-100) fL MCH 32.7 (25-34) pg MCHC 33.5 (32-36) g/dL RDW Std Deviation 55.4 H (36.4-46.3) fL RDW Coeff of Stephanie 15.9 H (11.5-14.5) % Plt Count 223 (130-400) K/uL MPV 9.9 (7.4-10.4) fL Immature Gran % (Auto) 1.0 % Neut % (Auto) 60.2 % Lymph % (Auto) 14.6 % [place] % (Auto) 23.7 % Eos % (Auto) 0.0 % Baso % (Auto) 0.5 % Immature Gran # (Auto) 0.06 H (0.00-0.02) K/uL Neut # (Auto) 3.72 (1.4-6.5) K/uL Lymph # (Auto) 0.90 L (1.2-3.4) K/uL [place] # (Auto) 1.46 H (0.11-0.59) K/uL Eos # (Auto) 0.00 (0-0.5) K/uL Baso # (Auto) 0.03 (0-0.2) K/uL Sodium 137 (136-145) mmol/L Potassium 3.6 (3.5-5.1) mmol/L Chloride 104 (98-107) mmol/L Carbon Dioxide 23 (21-32) mmol/L Anion Gap 10.0 (3-11) BUN 11 (7-18) mg/dl Creatinine 0.52 L (0.6-1.2) mg/dl Est Cr Clr Drug Dosing 70.9 ml/min Est GFR ( Amer) 101.0 Est GFR (Non-Af Amer) 87.1 BUN/Creatinine Ratio 20.7 H (10-20) Glucose 101 H (70-99) mg/dl Calcium 8.4 L (8.5-10.1) mg/dl Magnesium 2.1 (1.8-2.4) mg/dl Total Bilirubin 0.8 (0.2-1) mg/dl AST 80 H (15-37) U/L ALT 33 (12-78) U/L Alkaline Phosphatase 163 H (45-117) U/L Total Protein 6.8 (6.4-8.2) gm/dl Albumin 3.1 L (3.4-5.0) gm/dl Globulin 3.7 (2.5-4.0) gm/dl Albumin/Globulin Ratio 0.8 L (0.9-2) TSH 0.816 (0.300-4.500) uIu/ml Imaging Data Radiologist's Impression: Radiology results as stated below per my review and the radiologist's interpretation: XR chest 1V portable CLINICAL HISTORY: weakness, SOB dyspnea COMPARISON STUDY: 04/08/2019 FINDINGS: Mild increase in volume of a left upper lung nodule. Maximum dimensions are 2.6 cm currently. Mild chronic interstitial change. No superimposed infiltrate. Central catheter remains in superior vena cava. IMPRESSION: Slight increase in size of a left upper lobe nodule. Otherwise no acute process. Chronic changes as noted. The above report was generated using voice recognition software. It may contain grammatical, syntax or spelling errors. Electronically signed by: Gurinder Ayala M.D. 05/05/2019 2:[address] head/brain wo con CLINICAL HISTORY: 83 years-old Female with confusion. Acute confusion with altered mental status with history of breast cancer. TECHNIQUE: Multiple axial CT images of the head were obtained without contrast. A dose lowering technique was utilized adhering to the principles of ALARA. CT DOSE: 537.48 mGy.cm COMPARISON: Head CT 12/07/2018. FINDINGS: There is an ill-defined peripherally hyperdense and centrally hypodense lesion of the right cerebral peduncle extending into the superior aspect of the right aditya, 1.2 x 1.0 x 1.4 cm, image 9 series 2. No acute territorial infarct, hydrocephalus or midline shift. Age-related involutional changes. Patchy white matter hypodensities suggestive of chronic microvascular ischemic disease redemonstrated. Senescent calcifications noted about the lentiform nucleus. Cerebral vascular calcifications also noted. The calvarium is intact. Prior bilateral cataract repair. The paranasal sinuses, mastoid air cells, and middle ear cavities are clear. IMPRESSION: 1. 1.4 cm lesion with peripheral hyperdensity about the right cerebral peduncle extending into the superior aspect of the right aditya is suspicious for neoplasm, possibly with peripheral hemorrhage. Correlation with contrast-enhanced MRI recommended. 2. Age-related involutional changes with chronic microvascular ischemic disease. 3. No acute territorial infarct, midline shift or hydrocephalus. Findings were discussed with Dr. Osvaldo Hoff on 05/05/2019 at 2:50 PM. The above report was generated using voice recognition software. It may contain grammatical, syntax or spelling errors. Electronically signed by: Doug Alcaraz M.D. 05/05/2019 2:50 PM MRI OF THE BRAIN WITHOUT AND WITH IV CONTRAST CLINICAL HISTORY: Abnormal head CT. Right cerebral peduncle mass. HISTORY OF BREAST CARCINOMA COMPARISON STUDY: Noncontrast head CT dated 05/05/2019, MRI the brain dated 02/08/2018 TECHNIQUE: MRI of the brain was performed from the vertex to the skull base utilizing various T1 and T2 weighted sequences. Following the IV administration of 6 mL of Gadavist contrast, additional enhanced images were obtained. FINDINGS: Sagittal T1, axial diffusion, proton density and T2 weighted axial, coronal FLAIR, and pre and post axial T1-weighted images were acquired. These were supplemented with post gadolinium coronal T1 weighted images. There is an 12 mm lesion within the right aditya. This demonstrates increased T1 signal, and increased T2 signal. There is subtle rim enhancement. There is a new 2 mm enhancing lesion within the right temporal lobe. There is a new dural based 6 mm enhancing lesion within the left occipital lobe. Given the multiplicity of lesions, and history of metastatic breast carcinoma, metastatic disease must be considered the diagnosis of exclusion. Axial diffusion-weighted images reveal no evidence of acute or subacute infarction. There is no evidence of ventricular dilatation. Proton density T2-weighted and FLAIR images reveal moderate foci of increased T2 signal within the white matter, likely on a small vessel basis. There are no abnormal flow voids. No additional pathologic enhancing lesions are visualized IMPRESSION: 1. New 12 mm hemorrhagic lesion within the right aditya 2. New 2 mm enhancing lesion with the right temporal lobe 3. New 6 mm enhancing lesion within the left occipital lobe. 4. Given the multiplicity of lesions and history of metastatic breast carcinoma, metastatic disease must be considered the diagnosis of exclusion. 5. No evidence of acute or subacute infarction Electronically signed by: Lang Brantley M.D. 05/05/2019 4:54 PM ECG Data Attestation: I personally reviewed and interpreted this ECG as follows: Indication: SOB/dyspnea and weakness Rate (beats per minute): 104 Rhythm: sinus tachycardia Findings: + other (Normal intervals ), + Q waves (in V2) and + left axis deviation; no acute ischemic change Comparison ECG Date: from (12/07/18) Change: the following changes noted (Today's rate is faster. ) Blood Pressure Blood Pressure Findings: Normal blood pressure Blood Pressure Disposition: did not require urgent referral MDM Narrative The patient is an 83 year old white female w/ PMHx of GERD, glaucoma, Stage 4 metastatic disease previously treated with femara and ibrance, lymphedema of left arm, who presents to the ED w/ CC of constant shortness of breath and weakness beginning a few days ago. Patient was seen and evaluated at the bedside. The patient reportedly had had some mild confusion and also did have a recent fall. Not on blood thinners did strike her head but no LOC. The patient is was not well-appearing at the bedside. Patient was initially little tachycardic. The patient does have some trace crackles at the right base. Patient does have a systolic ejection murmur. The patient did have blood work completed and was given medications for symptom control. DuoNeb was also ordered along with some IV fluids. The patient has a normal white count and hemoglobin. The patient does have some fairly normal kidney function. Mild low calcium and elevated AST and alk phos. The patient does not have any abdominal pain. Patient has had mild elevations in AST in the past. I did speak with the on-call radiologist as there was concern for possible metastatic brain lesions on MRI of the brain with and with as ordered. Chest x-ray does show a prior left upper lobe nodule which is unchanged from prior. Patient's MRI does show 3 lesions. I did speak with neuro oncology neurosurgery at [facility] with Dr. Ryan who did not recommend seizure prophylaxis and stated that he would be able to see her team of the week but does not require emergent transfer for the after mentioned findings given that the pa marie looks and feels well. I did discuss the findings with the patient and the family was at the bedside. They are concerned about her safety as well as the fact that she is likely dehydrated. I did speak the on-call hospitalist who agreed to further evaluate treat the patient. Patient was admitted to the medicine service. Impression & Plan Weakness, Dehydration, Breast cancer metastasized to brain Discharge Plan Visit Data Chief Complaint: Confusion ED Provider: Osvaldo Hoff Discharge Problem: Weakness, Dehydration, Breast cancer metastasized to brain Patient Disposition: Being Evaluated by Hospitalist Forms Stand Alone Forms: My [facility] Prescriptions Prescriptions: No Action trazodone 50 mg tablet 50 mg PO DAILY RF: 0 vancomycin 125 mg capsule 125 mg PO DAILY Qty: 30 RF: 0 multivitamin Tablet 1 tab PO DAILY RF: 0 potassium chloride 10 mEq capsule, extended release 10 meq PO BID RF: 0 Travatan Z 0.004 % Drops 1 drp OPHTHALMIC (EYE) HS RF: 0 amitriptyline 25 mg tablet 25 mg PO HS RF: 0 ascorbic acid (vitamin C) 100 mg Tablet,Chewable 100 mg PO HS RF: 0 pregabalin 50 mg capsule 50 mg PO HS RF: 0 magnesium chloride 64 mg tablet,delayed release (DR/EC) 128 mg PO QDL RF: 0 doxorubicin, peg-liposomal [Doxil] 2 mg/mL Suspension 86 mg IV Q28D RF: 0 Xgeva 120 mg/1.7 mL (70 mg/mL) Solution 120 mg SUBCUT Q28D RF: 0 Hemp Gummies 1 tab PO HS RF: 0 hydrocodone-acetaminophen [[place]] 5-325 mg tablet 0.5 tab PO BID RF: 0 Referrals Referrals: Elvis Lee MD [Primary Care Provider] - Discharge Problem: Breast cancer metastasized to brain Qualifiers: Laterality: unspecified laterality Qualified Code(s): C50.919 - Malignant neoplasm of unspecified site of unspecified female breast The scribe's documentation has been prepared under my direction and personally reviewed by me in its entirety. I confirm that the note above accurately reflects all work, treatment, procedures, and medical decision making performed by me.
[2019-05-05] MEDS ORDERED: GADOBUTROL 65ML VIAL IV PRN (16:34)
--- NOTE | 2019-05-05 16:56 | Magnetic Resonance Report ---
MRI OF THE BRAIN WITHOUT AND WITH IV CONTRAST CLINICAL HISTORY: Abnormal head CT. Right cerebral peduncle mass. HISTORY OF BREAST CARCINOMA COMPARISON STUDY: Noncontrast head CT dated 05/05/2019, MRI the brain dated 02/08/2018 TECHNIQUE: MRI of the brain was performed from the vertex to the skull base utilizing various T1 and T2 weighted sequences. Following the IV administration of 6 mL of Gadavist contrast, additional enhan lanie images were obtained. FINDINGS: Sagittal T1, axial diffusion, proton density and T2 weighted axial, coronal FLAIR, and pre and post a xial T1-weighted images were acquired. These were supplemented with post gadolinium coronal T1 weight ed images. There is an 12 mm lesion within the right aditya. This demonstrates increased T1 signal, and increased T2 signal. There is subtle rim enhancement. There is a new 2 mm enhancing lesion within the right tem poral lobe. There is a new dural based 6 mm enhancing lesion within the left occipital lobe. Given th e multiplicity of lesions, and history of metastatic breast carcinoma, metastatic disease must be con sidered the diagnosis of exclusion. Axial diffusion-weighted images reveal no evidence of acute or subacute infarction. There is no evidence of ventricular dilatation. Proton density T2-weighted and FLAIR images reveal moderate foci of increased T2 signal within the wh ite matter, likely on a small vessel basis. There are no abnormal flow voids. No additional pathologic enhancing lesions are visualized IMPRESSION: 1. New 12 mm hemorrhagic lesion within the right aditya 2. New 2 mm enhancing lesion with the right temporal lobe 3. New 6 mm enhancing lesion within the left occipital lobe. 4. Given the multiplicity of lesions and history of metastatic breast carcinoma, metastatic disease m ust be considered the diagnosis of exclusion. 5. No evidence of acute or subacute infarction Electronically signed by: Lang Brantley M.D. 05/05/2019 4:54 PM
--- NOTE | 2019-05-05 18:04 | History & Physical Report ---
Date of Service May 05, 2019 Assessment & Plan (1) Weakness: (2) Breast cancer: (3) Bony metastasis: - Admit to med surg for observation - PT s/p NSS 00 ml in the ER, will place on gentle maintenece fluids overnight, pt tolerating PO intake without difficulty - MRI showing hemorrhagic lesion in the R aditya Neuro-oncology physician, Dr. Rodriges, [facility], was contacted by the Dr. Hoff in the ER, outpatient follow up has been scheduled to see with him on Saturday, daughter is going to transport the patient via personal vehicle there in the anticipation that she will be discharged soon after overnight observation - No formal oncology consult at this time - discussed with Dr. Michelle over the phone - he plans to hold chemotherapy this week and resume next week after she is seen by neurosurgery. - No needs for steroids, no hx of seizures - Follows with Dr. Eugene at the Cancer center here - Monitor overnight - PT/OT consults - Hold norco 1/2 tablet HS in the setting of worsening confusion, uses for bony pain, if significant pain then can resume with monitoring for changes in mental status with medication. (4) C. difficile diarrhea: - Hx of such, continue PO vanc (5) Postherpetic neuralgia: - Continue pregabalin 50 mg HS (6) GERD (gastroesophageal reflux disease): - Stable (7) DVT prophylaxis: - teds, no chemical ppx in the setting of hemorrhagic bleed in R aditya. Disposition: From home, lives with , Observe overnight. 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 diff colitis, and GERD who presents with new onset of confusion and weakness. Pt is at bedside who provides the majority of the history. He notes his has been increasingly confused over the past 3 weeks. This morning she had fallen and hit her head lightly on a hollow door, did not sustain any trauma, no abrasion, no LOC. She was able to get back up and then he brought her to the ER. He notes occasionally she is not able to say the word she wants, and he calls it "word mush". Pt is scheduled to see Dr. Michelle on to get next round of Doxil. Pt denies any other acute complaints. MRI of the brain showin. New 12 mm hemorrhagic lesion within the right aditya 2. New 2 mm enhancing lesion with the right temporal lobe 3. New 6 mm enhancing lesion within the left occipital lobe. 4. Given the multiplicity of lesions and history of metastatic breast carcinoma, metastatic disease must be considered the diagnosis of exclusion. 5. No evidence of acute or subacute infarction Discussion was held with ER regarding follow up care which [facility] Will admit to med surg for observation overnight. Allergies Allergy/AdvReac Type Severity Reaction Status Date / Time morphine AdvReac Intermediate nausea Verified 04/08/19 06:08 zolpidem AdvReac Mild Hallucinati Verified 04/08/19 06:08 ons Home Medications Home Medications Medication Instructions Recorded Confirmed Type Travatan Z 1 drp OPHTHALMIC (EYE) HS 08/05/18 05/05/19 History amitriptyline 25 mg PO HS 08/05/18 05/05/19 History ascorbic acid (vitamin C) 100 mg PO HS 08/05/18 05/05/19 History multivitamin 1 tab PO DAILY 08/05/18 05/05/19 History potassium chloride 10 meq PO BID 08/05/18 05/05/19 History pregabalin 50 mg PO HS 08/05/18 05/05/19 History magnesium 64 mg (magnesium 128 mg PO QDL tab 04/22/19 05/05/19 History chloride) tablet,delayed release trazodone 50 mg tablet 50 mg PO DAILY tab 04/22/19 05/05/19 History vancomycin 125 mg capsule 125 mg PO DAILY #30 cap 04/22/19 05/05/19 History Hemp Gummies 1 tab PO HS 05/05/19 05/05/19 History denosumab [Xgeva] 120 mg SUBCUT Q28D 05/05/19 05/05/19 History doxorubicin, peg-liposomal [Doxil] 86 mg IV Q28D 05/05/19 05/05/19 History hydrocodone-acetaminophen [Carnation] 0.5 tab PO BID 05/05/19 05/05/19 History Past Med/Surg History Medical History C. difficile diarrhea HAD TREATMENT AND CLEARED WITH DR MCCLAIN GERD (gastroesophageal reflux disease) HX OF HEARTBURN Lymphedema of left arm Aortic stenosis "Mild" aortic stenosis per ECHO report summary (AVELINO 0.48cm2, MG 7.2mmhg) Breast cancer, stage 4 Cardiac murmur HZV (herpes zoster virus) post herpetic neuralgia History of shingles hx Surgical History History of modified radical mastectomy of left breast 1975 History of total right hip arthroplasty Family History Father , from "old age" No problems noted. Mother , from "old age" No problems noted. 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) Feels Safe at Home: Yes Smoking Status: Never smoker Second Hand Exposure: No ; Hx Alcohol Use: No Hx Substance Use: No Review of Systems Review of Systems: Constitutional: No fever, sweats or chills Eyes: No diplopia, no worsening or blurred vision ENT: normal hearing, no trouble swallowing Respiratory: No cough, sputum, dyspnea at rest or on exertion Cardiovascular: No chest pain, tightness or palpitations Abdomen: No pain, nausea, vomiting, diarrhea or constipation Musculoskeletal: No joint pain, calf pain, + chronic left arm lymphadema Neurologic: No weakness, numbness/tingling, or balance problems Psychiatric: No anxiety or depression Skin: No rash or itch Physical Exam Physical Exam: General: awake, alert, no apparent distress Head: Normocephalic, atraumatic ENT: PERRL, EOMI, no pharyngeal exudate, mucous membranes moist Chest: +mediport in left chest wall, clear to auscultation, on room air, no adventitious breath sounds Cardiac: Regular rate and rhythm, no murmur, no JVD, normal peripheral pulses, g ood capillary refill Abdominal: NABS x 4 quadrants, soft, nontender to palpation, no rebound, guarding or tenderness Extremities: Normal inspection, no peripheral edema or erythema, calfs nontender to palpation Psych: Normal mood and affect Neuro: AAO x 3, strength intact bilaterally and related 5/5, no motor deficits, speech is clear, no peripheral sensory deficits Constitutional: WD/WN, vitals as above Eyes: normal visual swan by confrontation and + anicteric sclerae Neck: normal visual inspection and trachea midline Respiratory: normal respiratory effort, lungs clear to auscultation Cardiovascular: Rate/Rhythm: regular rate and regular rhythm Gastrointestinal (Abdomen): Inspection/Auscultation: abdomen not distended Percussion/Palpation: abdomen soft; abdomen nontender Musculoskeletal: Head/Neck/Chest: normocephalic and head atraumatic Neg for peripheral LE edema, + pedal pulses Skin: no rashes, warm and dry Neurologic: awake; not confused Speech / Cognition: normal speech Psychiatric: A+Ox3, euthymic affect Lymphatic: Exam as done by Delicia Reddy DO Results & Data Vital Signs (Past 12 Hours) Vital Signs Temp Pulse Pulse Resp BP BP Pulse Ox 05/05/19 16:49 99 H 16 115/60 96 05/05/19 15:31 90 20 146/56 H 95 05/05/19 14:45 92 H 24 130/66 96 05/05/19 13:52 94 H 18 94 05/05/19 13:36 99 H 94 05/05/19 13:15 36.7 C 104 H 26 H 124/78 94 Diagnostic Findings MRI OF THE BRAIN WITHOUT AND WITH IV CONTRAST CLINICAL HISTORY: Abnormal head CT. Right cerebral peduncle mass. HISTORY OF BREAST CARCINOMA COMPARISON STUDY: Noncontrast head CT dated 05/05/2019, MRI the brain dated 02/08/2018 TECHNIQUE: MRI of the brain was performed from the vertex to the skull base utilizing various T1 and T2 weighted sequences. Following the IV administration of 6 mL of Gadavist contrast, additional enhanced images were obtained. FINDINGS: Sagittal T1, axial diffusion, proton density and T2 weighted axial, coronal FLAIR, and pre and post axial T1-weighted images were acquired. These were supplemented with post gadolinium coronal T1 weighted images. There is an 12 mm lesion within the right aditya. This demonstrates increased T1 signal, and increased T2 signal. There is subtle rim enhancement. There is a new 2 mm enhancing lesion within the right temporal lobe. There is a new dural based 6 mm enhancing lesion within the left occipital lobe. Given the multiplicity of lesions, and history of metastatic breast carcinoma, metastatic disease must be considered the diagnosis of exclusion. Axial diffusion-weighted images reveal no evidence of acute or subacute infarction. There is no evidence of ventricular dilatation. Proton density T2-weighted and FLAIR images reveal moderate foci of increased T2 signal within the white matter, likely on a small vessel basis. There are no abnormal flow voids. No additional pathologic enhancing lesions are visualized IMPRESSION: 1. New 12 mm hemorrhagic lesion within the right aditya 2. New 2 mm enhancing lesion with the right temporal lobe 3. New 6 mm enhancing lesion within the left occipital lobe. 4. Given the multiplicity of lesions and history of metastatic breast carcinoma, metastatic disease must be considered the diagnosis of exclusion. 5. No evidence of acute or subacute infarction CT head/brain wo con CLINICAL HISTORY: 83 years-old Female with confusion. Acute confusion with altered mental status with history of breast cancer. TECHNIQUE: Multiple axial CT images of the head were obtained without contrast. A dose lowering technique was utilized adhering to the principles of ALARA. CT DOSE: 537.48 mGy.cm COMPARISON: Head CT 12/07/2018. FINDINGS: There is an ill-defined peripherally hyperdense and centrally hypodense lesion of the right cerebral peduncle extending into the superior aspect of the right aditya, 1.2 x 1.0 x 1.4 cm, image 9 series 2. No acute territorial infarct, hydrocephalus or midline shift. Age-related involutional changes. Patchy white matter hypodensities suggestive of chronic microvascular ischemic disease redemonstrated. Senescent calcifications noted about the lentiform nucleus. Cerebral vascular calcifications also noted. The calvarium is intact. Prior bilateral cataract repair. The paranasal sinuses, mastoid air cells, and middle ear cavities are clear. IMPRESSION: 1. 1.4 cm lesion with peripheral hyperdensity about the right cerebral peduncle extending into the superior aspect of the right aditya is suspicious for neoplasm, possibly with peripheral hemorrhage. Correlation with contrast-enhanced MRI recommended. 2. Age-related involutional changes with chronic microvascular ischemic disease. 3. No acute territorial infarct, midline shift or hydrocephalus. Findings were discussed with Dr. Osvaldo Hoff on 05/05/2019 at 2:50 PM. The above report was generated using voice recognition software. It may contain grammatical, syntax or spelling errors. XR chest 1V portable CLINICAL HISTORY: weakness, SOB dyspnea COMPARISON STUDY: 04/08/2019 FINDINGS: Mild increase in volume of a left upper lung nodule. Maximum dimensions are 2.6 cm currently. Mild chronic interstitial change. No superimposed infiltrate. Central catheter remains in superior vena cava. IMPRESSION: Slight increase in size of a left upper lobe nodule. Otherwise no acute process. Chronic changes as noted. The above report was generated using voice recognition software. It may contain grammatical, syntax or spelling errors. ECG Additional Comments: 05-MAY-2019 13:17:59 [facility]-EDSTAT ROUTINE RETRIEVAL Sinus tachycardia Left axis deviation Moderate voltage criteria for LVH, may be normal variant Cannot rule out Septal infarct (cited on or before 05-MAY-2019) Abnormal ECG When compared with ECG of 07-DEC-2018 17:55, No significant change was found Confirmed by Satnam Varma ([id number]) on 05/05/2019 4:50:19 PM 25mm/s 10mm/mV 150Hz 9.0.8 12SL 241 HD ALBERTO: 12 Referred by: REFERRED SELF Confirmed By: Satnam Fernandes. rate 104 BPM DE interval 180 ms QRS duration 84 ms QT/QTc 352/462 ms P-R-T axes 75 -40 69 Code Status & VTE Plan Code Status DNR - discussed with pt and at bedside Supervising Physician Co-Signing Physician Notes Pt seen and examined by me. was not at bedside during our conversation (initially had been in the restroom and then went into the main ED area to discuss something with ED staff). Pt states she has been weak and unable to maintain her balance recently. She states she fell twice in the last week. She does not have headache or changes in vision. Denies chest pain or SOB. Tolerating PO without issue. She does not feel dizzy, but occasionally with lightheadedness. Agree with HPI/ROS as noted by PA See above for my exam in PE section Agree with plan as outlined above Pt with recent falls and balance inssues, dizziness MRI findings noted with masses concerning for possible breast cancer mets No stroke noted Admit overnight for monitoring Has an appt with hem/onc on Saturday PG Care Time/CCT Total # of Minutes Spent Total Time Spent with Patient: Total time spent is greater than 50% in coordination of care (as documented) at patient's floor/unit and/or counseling patient: (1) GERD (gastroesophageal reflux disease) Esophagitis presence: esophagitis presence not specified Qualified Code(s): K21.9 - Gastro-esophageal reflux disease without esophagitis
[2019-05-05] MEDS ORDERED: [UNRECOGNIZED DRUG - OTHER] IV SCH (18:45)
[2019-05-05] MEDS: SODIUM CHLORIDE 0.9% 1000ML 1,000 ML IV SCH (22:06)
[2019-05-05] MEDS: PREGABALIN 50 MG CAP PO SCH (22:07)
[2019-05-05] MEDS: POTASSIUM CHLORIDE 10 MEQ TABCR PO SCH (22:08)
[2019-05-05] MEDS: ASCORBIC ACID 500 MG TAB PO SCH (22:08)
[2019-05-05] MEDS: TRAVOPROST Z 0.004% OPH SOLN 2.5 ML BTL OP SCH (22:08)
[2019-05-05] MEDS: AMITRIPTYLINE HCL 25 MG TAB PO SCH (22:09)
[2019-05-05 23:42] LABS: Appearance Urine Clear (Clear); Bilirubin Urine Negative (Negative); Blood Urine Negative (Negative); Color Urine Yellow; Glucose Urine UA Negative (Negative); Ketones Urine Negative (Negative); Leukocyte Esterase Urine Negative (Negative); Nitrite Urine Negative (Negative); Protein Urine Negative (Negative); Specific Gravity Urine 1.012 (1.000-1.030); Urobilinogen Urine Negative (Negative); pH Urine 5.5 (4.5-7.5)
[2019-05-06 06:13] LABS: Hematocrit (blood only) 31.2 % (37-47); Hemoglobin 10.3 g/dL (12.0-16.0); Mean Corpuscular Hemoglobin 32.3 pg (25-34); Mean Corpuscular Volume 97.8 fL (80-100); Mean Platelet Volume 10.1 fL (7.4-10.4); Nucleated RBC # (auto) 0.02 K/uL (0-0); Nucleated RBC % (auto) 0.3 %; Platelet Count 208 K/uL (130-400); RDW Coefficient of Variation 15.8 % (11.5-14.5); RDW Standard Deviation 55.7 fL (36.4-46.3); Red Blood Count 3.19 M/uL (4.2-5.4); White Blood Count 6.02 K/uL (4.8-10.8)
[2019-05-06 06:42] LABS: Albumin Level 2.8 gm/dl (3.4-5.0); BUN Creatinine Ratio 18.2 (10-20); Calcium 7.7 mg/dl (8.5-10.1); Creatinine Clr Calc Pharmacy 70.9 ml/min; Est GFR (Non-African American) 87.1; Potassium 3.6 mmol/L (3.5-5.1)
[2019-05-06] MEDS ORDERED: Nursing to Pharmacy Communication ONE (06:42)
[2019-05-06 06:45] LABS: Albumin Globulin Ratio 0.9 (0.9-2); Bilirubin,Total 0.5 mg/dl (0.2-1); Total Protein 5.8 gm/dl (6.4-8.2)
[2019-05-06] MEDS: RASPBERRY SYRUP 5 ML UDP PO SCH (08:08)
[2019-05-06] MEDS: MULTIVITAMIN TAB PO SCH (08:08)
[2019-05-06] MEDS: VANCOMYCIN HCL 125 MG/2.5ML SOLN PO SCH (08:09)
[2019-05-06] MEDS: POTASSIUM CHLORIDE 10 MEQ TABCR PO SCH ×2 (08:09→20:06)
[2019-05-06] MEDS: SODIUM CHLORIDE 0.9% 1000ML 1,000 ML IV SCH (11:02)
--- NOTE | 2019-05-06 12:26 | Hospitalist Progress Note ---
Date of Service May 06, 2019 Assessment & Plan (1) Breast cancer metastasized to brain: Presented on 05/05 with word salad/confusion. MRI brain shows 3 cancer mets with a 12 mm hemorrhagic lesion within the right aditya, a 2 mm enhancing lesion with the right temporal lobe, and a 6 mm enhancing lesion within the left occipital lobe. - Discussed with [facility] team who felt no operative need or need to transfer. Has outpatient appt scheduled for May 11. - Patient and say she would not want neurosurgery, so I do not think it warrants inpatient transfer. In the case of larger bleeding, herniation, or other catastrophic neurologic issue, she would want to be comfortable. - Will discuss with Dr. Michelle regarding any inpatient treatment (2) Weakness: Recent fall at home where had to help per up. No loss of consc iousness. - PT/OT - CM for placement (3) Breast cancer: Metastatic with mets to bone. Undergoing chemotherapy with Dr. Michelle. - Palliative care consult (4) Bony metastasis: From her cancer. - See above (5) C. difficile diarrhea: Has had multiple episodes of C. diff. At home, has been on daily prophylaxis. - Continue vanc PO daily (6) Postherpetic neuralgia: - Continue pregabalin 50 mg HS (7) GERD (gastroesophageal reflux disease): - Stable (8) DVT prophylaxis: - SCDs; no chemical ppx in the setting of hemorrhagic bleed in R aditya. Subjective In no major distress today. She is not having pain. Still having some word salad per , but otherwise doing well. and patient do not feels she is safe for discharge. Review of Systems Review of Systems: All systems reviewed & are unremarkable except as noted in HPI & below Physical Exam Constitutional: WD/WN, vitals as above Eyes: EOM intact bilaterally; no conjunctival abnormality ENMT: external ear and nose normal, oropharynx normal Neck: trachea midline, no thyromegaly normal visual inspection Respiratory: normal respiratory effort, lungs clear to auscultation no respiratory distress Cardiovascular: RRR, no murmur, no edema Gastrointestinal (Abdomen): Inspection/Auscultation: abdomen normal to inspection; abdomen not distended Musculoskeletal: no cyanosis or clubbing, extremities motor strength 5/5 Skin: no rashes, warm and dry Neurologic: moves all extremities and awake Speech / Cognition: + abnormal speech and + expressive aphasia (Very infrequently mixes up words) Psychiatric: Orientation: alert, oriented to person and cooperative Results & Data Vital Signs (Past 12 Hours) Vital Signs Temp Pulse Resp BP Pulse Ox 05/06/19 11:50 36.4 C L 92 H 18 125/72 94 05/06/19 07:20 36.9 C 88 16 135/79 94 PG Care Time/CCT Total # of Minutes Spent Total Time Spent with Patient: Total time spent is greater than 50% in coordination of care (as documented) at patient's floor/unit and/or counseling patient: (1) GERD (gastroesophageal reflux disease) Esophagitis presence: esophagitis presence not specified Qualified Code(s): K21.9 - Gastro-esophageal reflux disease without esophagitis (2) Breast cancer metastasized to brain Laterality: unspecified laterality Qualified Code(s): C50.919 - Malignant neoplasm of unspecified site of unspecified female breast; C79.31 - Secondary malignant neoplasm of brain
--- NOTE | 2019-05-06 12:27 | Palliative Care Consultation ---
Date of Consultation May 06, 2019 Assessment & Plan (1) Goals of care, counseling/discussion: This is an 83 year old female who presented to the emergency room with altered mental status and increasing falls. The patient has metastatic breast cancer originally diagnosed in 1973 s/p R mastectomy, and has been recurrent in 2003 and 2012. Patient is a patient of Dr. Michelle and has been actively undergoing chemotherapy, next infusion scheduled for tomorrow, 05/07. A head CT was performed with multiple new lesions present; a 12 mm hemorrhagic lesion within the right aditya, a 2 mm enhancing lesion with the right temporal lobe, and a 6 mm enhancing lesion within the left occipital lobe. Additional PMH includes: Lymphedema of the right arm, pleural effusions, myalgia, GERD, C-Diff colitis, ataxia. Palliative Care was consulted to discuss goals of care. -Met with patient and her , Brody in room 453-2. -Introduced palliative care and what that entails. 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 -hey both admitted to increasing falls and difficulty with balance. He has expressed frustration and stated 'too many things have changed in her treatment regimen'. -In discussion with patient, who is oriented to herself, time, and location today was able to tell me that she has 5 children, 13 grandchildren and has lived a wonderful life with her "We have seen a lot of beautiful things" -The patients indicated that he has a lot of questions to be answered by Oncology. The current plan is for his to have a consult at [facility] with neurology, to discuss possible treatment options for the new lesions, and determine if they are malignant. -We confirmed that she will remain a DNR. I forsee a lot of counseling with the family to determine goals of care and continue to assist with decision making. -For now, I think having Onc see the patient and having the patient be seen by [facility] will assist in future decision making - the patients agreed. -They both were receptive to an outpatient consultation, which I notified the nurse navigator about and will arrange for coinciding timeframe with Oncology follow up. -Should the family decide to forgo any additional treatment, she would be a qualifying hospice patient. The did state that he does know she eventually will have to leave him. -Discussed above with Dr. Marc. -PPS: 40% (2) Breast cancer metastasized to brain: Laterality: unspecified laterality Qualified Code(s): C50.919 - Malignant neoplasm of unspecified site of unspecified female breast; C79.31 - Secondary malignant neoplasm of brain (3) C. difficile diarrhea: (4) Weakness: History of Present Illness Reason for Consultation: Goals of care Requesting Physician: Dr. Monico Linton Attending Physician: Monico Linton MD History of Present Illness This is an 83 year old female who presented to the emergency room with altered mental status and increasing falls. The patient has metastatic breast cancer originally diagnosed in 1973 s/p R mastectomy, and has been recurrent in 2003 and 2012. Patient is a patient of Dr. Michelle and has been actively undergoing chemotherapy, next infusion scheduled for tomorrow, 05/07. A head CT was performed with multiple new lesions present; a 12 mm hemorrhagic lesion within the right aditya, a 2 mm enhancing lesion with the right temporal lobe, and a 6 mm enhancing lesion within the left occipital lobe. Additional PMH includes: Lymphedema of the right arm, pleural effusions, myalgia, GERD, C-Diff colitis, ataxia. Palliative Care was consulted to discuss goals of care. Please see A/P for further details. Thank you kindly for involving palliative care with this patient. We will follow accordingly. Allergies Allergy/AdvReac Type Severity Reaction Status Date / Time morphine AdvReac Intermediate nausea Verified 04/08/19 06:08 zolpidem AdvReac Mild Hallucinati Verified 04/08/19 06:08 ons Home Medications Home Medications Medication Instructions Recorded Confirmed Type Travatan Z 1 drp OPHTHALMIC (EYE) HS 08/05/18 05/05/19 History amitriptyline 25 mg PO HS 08/05/18 05/05/19 History ascorbic acid (vitamin C) 100 mg PO HS 08/05/18 05/05/19 History multivitamin 1 tab PO DAILY 08/05/18 05/05/19 History potassium chloride 10 meq PO BID 08/05/18 05/05/19 History pregabalin 50 mg PO HS 08/05/18 05/05/19 History magnesium 64 mg (magnesium 128 mg PO QDL tab 04/22/19 05/05/19 History chloride) tablet,delayed release trazodone 50 mg tablet 50 mg PO DAILY tab 04/22/19 05/05/19 History vancomycin 125 mg capsule 125 mg PO DAILY #30 cap 04/22/19 05/05/19 History Hemp Gummies 1 tab PO HS 05/05/19 05/05/19 History denosumab [Xgeva] 120 mg SUBCUT Q28D 05/05/19 05/05/19 History doxorubicin, peg-liposomal [Doxil] 86 mg IV Q28D 05/05/19 05/05/19 History hydrocodone-acetaminophen [Hale] 0.5 tab PO BID 05/05/19 05/05/19 History Patient History Medical History C. difficile diarrhea HAD TREATMENT AND CLEARED WITH DR MCCLAIN GERD (gastroesophageal reflux disease) HX OF HEARTBURN Lymphedema of left arm Aortic stenosis "Mild" aortic stenosis per ECHO report summary (AVELINO 0.48cm2, MG 7.2mmhg) Breast cancer, stage 4 Cardiac murmur HZV (herpes zoster virus) post herpetic neuralgia History of shingles hx Surgical History History of modified radical mastectomy of left breast 1975 History of total right hip arthroplasty Family History Father , from "old age" No problems noted. Mother , from "old age" No problems noted. 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) Feels Safe at Home: Yes Safety Concerns: Feels Safe At This Time Smoking Status: Never smoker Second Hand Exposure: No ; Hx Alcohol Use: No Hx Substance Use: No Review of Systems Review of Systems: General: pt denies pain HEENT: Pt reports difficulty with walking (+) weakness (+) confusion CV: Pt denies chest pain, palpitations Resp: Pt denies SOB GI: Pt denies N/V/D (+) constipation Skin: (-) new lesions Psych: (-) anxiety/depression Physical Exam Constitutional: + ill appearing and comfortable Eyes: PERRL, conjunctivae normal, anicteric sclerae ENMT: external ear and nose normal, oropharynx normal Neck: trachea midline, no thyromegaly Respiratory: normal respiratory effort, lungs clear to auscultation Cardiovascular: Rate/Rhythm: regular rate and regular rhythm Heart Sounds: normal S1 and normal S2 Extremities: normal capillary refill Gastrointestinal (Abdomen): normal bowel sounds, soft, nontender, no hepatosplenomegaly Skin: no rashes, warm and dry Psychiatric: Orientation: alert, oriented to person, oriented to place and cooperative Insight: + limited insight Judgement: + limited judgement Lymphatic: no cervical or axillary lymphadenopathy Results & Data Vital Signs (Past 12 Hours) Vital Signs Temp Pulse Resp BP Pulse Ox 05/06/19 11:50 36.4 C L 92 H 18 125/72 94 05/06/19 07:20 36.9 C 88 16 135/79 94 PG Care Time/CCT Total # of Minutes Spent Total Time Spent with Patient: Total time spent is greater than 50% in coordination of care (as documented) at patient's floor/unit and/or counseling patient: 70 Time Spent Midlevel Total time spent 70 minutes with > 50% of that time spent assessing the patient, discussing goals of care with the patient and her
[2019-05-06] MEDS: MAGNESIUM CHLORIDE 64MG DELAYED REL TAB PO SCH (13:04)
[2019-05-06] MEDS: PREGABALIN 50 MG CAP PO SCH (20:06)
[2019-05-06] MEDS: AMITRIPTYLINE HCL 25 MG TAB PO SCH (20:06)
[2019-05-06] MEDS: TRAVOPROST Z 0.004% OPH SOLN 2.5 ML BTL OP SCH (20:07)
[2019-05-06] MEDS: ASCORBIC ACID 500 MG TAB PO SCH (20:07)
[2019-05-06] MEDS ORDERED: ACETAMINOPHEN 325 MG TAB PO ONE (21:40)
[2019-05-07] MEDS: HEPARIN 100 UNIT/ML 5ML FLUSH FLUSH PRN ×2 (05:44→10:58)
[2019-05-07 06:46] LABS: Hematocrit (blood only) 30.5 % (37-47); Hemoglobin 10.1 g/dL (12.0-16.0); Mean Corpuscular Hemoglobin 32.3 pg (25-34); Mean Corpuscular Hgb Conc 33.1 g/dL (32-36); Mean Corpuscular Volume 97.4 fL (80-100); Mean Platelet Volume 10.5 fL (7.4-10.4); Platelet Count 208 K/uL (130-400); RDW Coefficient of Variation 15.9 % (11.5-14.5); RDW Standard Deviation 55.3 fL (36.4-46.3); Red Blood Count 3.13 M/uL (4.2-5.4); White Blood Count 5.54 K/uL (4.8-10.8)
[2019-05-07 07:19] LABS: Albumin Level 2.9 gm/dl (3.4-5.0); BUN Creatinine Ratio 17.8 (10-20); Calcium 7.7 mg/dl (8.5-10.1); Est GFR (African American) 102.3; Est GFR (Non-African American) 88.3; Potassium 3.5 mmol/L (3.5-5.1)
[2019-05-07 07:22] LABS: Bilirubin,Total 0.6 mg/dl (0.2-1); Total Protein 5.9 gm/dl (6.4-8.2)
[2019-05-07] MEDS: POTASSIUM CHLORIDE 10 MEQ TABCR PO SCH ×2 (08:23→20:29)
[2019-05-07] MEDS: RASPBERRY SYRUP 5 ML UDP PO SCH (08:23)
[2019-05-07] MEDS: MULTIVITAMIN TAB PO SCH (08:23)
[2019-05-07] MEDS: VANCOMYCIN HCL 125 MG/2.5ML SOLN PO SCH (08:26)
[2019-05-07 09:07] LABS: Appearance Urine Cloudy (Clear); Bacteria Urine Automated 4+ (Negative); Bilirubin Urine Negative (Negative); Blood Urine 3+ (Negative); Cast Urine Automated 0 /lpf (0-5); Color Urine Yellow; Epithelial Cell Urine Auto 20-30 /lpf (0-5); Glucose Urine UA Negative (Negative); Ketones Urine Trace (Negative); Leukocyte Esterase Urine 2+ (Negative); Nitrite Urine Positive (Negative); Protein Urine Trace (Negative); RBC Urine Automated >30 /hpf (0-4); Specific Gravity Urine 1.016 (1.000-1.030); Urobilinogen Urine Negative (Negative); WBC Urine Automated >30 /hpf (0-5)
[2019-05-07] MEDS: NITROFURANTOIN MONOHYDRATE 100 MG CAP PO SCH ×2 (10:09→20:29)
[2019-05-07] MEDS ORDERED: ONDANSETRON INJ 2 MG/ML 2 ML VIAL ONE (10:55)
[2019-05-07] MEDS: MAGNESIUM CHLORIDE 64MG DELAYED REL TAB PO SCH (11:01)
[2019-05-07] MEDS: PHENAZOPYRIDINE HCL 100 MG TAB PO SCH ×2 (11:01→20:30)
--- NOTE | 2019-05-07 13:03 | Hospitalist Progress Note ---
Date of Service May 07, 2019 Assessment & Plan (1) UTI (urinary tract infection): UA on 05/07 showed infection and patient had symptoms. - Started on nitrofurantoin and Pyridium - Follow culture (2) Breast cancer metastasized to brain: Presented on 05/05 with word salad/confusion. MRI brain shows 3 cancer mets with a 12 mm hemorrhagic lesion within the right aditya, a 2 mm enhancing lesion with the right temporal lobe, and a 6 mm enhancing lesion within the left occipital lobe. - Discussed with [facility] team who felt no operative need or need to transfer. Has outpatient appt scheduled for May 11. - Patient and say she would not want neurosurgery, so I do not think it warrants inpatient transfer. In the case of larger bleeding, herniation, or other catastrophic neurologic issue, she would want to be comfortable. - Discussed with Dr. Michelle regarding any inpatient treatment - None at present time given no swelling around the sites at the present time. (3) Weakness: Recent fall at home where had to help per up. No loss of consciousness. - PT/OT - CM for placement -> Possible [facility] (4) Breast cancer: Metastatic with mets to bone. Undergoing chemotherapy with Dr. Michelle. - Palliative care consult - The patient and family want to have the consultation at [facility] first before any changes in care. (5) Bony metastasis: From her cancer. - See above (6) C. difficile diarrhea: Has had multiple episodes of C. diff. At home, has been on daily prophylaxis. - Continue vanc PO daily (7) Postherpetic neuralgia: - Continue pregabalin 50 mg HS (8) GERD (gastroesophageal reflux disease): - Stable (9) DVT prophylaxis: - SCDs; no chemical ppx in the setting of hemorrhagic bleed in R. aditya. Subjective Urinary symptoms overnight caused her to have trouble sleeping. Otherwise, no major issues. Review of Systems Review of Systems: All systems reviewed & are unremarkable except as noted in HPI & below Physical Exam Constitutional: WD/WN, vitals as above Eyes: EOM intact bilaterally; no conjunctival abnormality ENMT: external ear and nose normal, oropharynx normal Neck: trachea midline, no thyromegaly normal visual inspection Respiratory: normal respiratory effort, lungs clear to auscultation no respiratory distress Cardiovascular: RRR, no murmur, no edema Gastrointestinal (Abdomen): Inspection/Auscultation: abdomen normal to inspection; abdomen not distended Musculoskeletal: no cyanosis or clubbing, extremities motor strength 5/5 Skin: no rashes, warm and dry Neurologic: moves all extremities and awake Speech / Cognition: + abnormal speech and + expressive aphasia (Very infrequently mixes up words) Psychiatric: Orientation: alert, oriented to person and cooperative Results & Data Vital Signs (Past 12 Hours) Vital Signs Temp Pulse Resp BP Pulse Ox 05/07/19 12:18 36.2 C L 89 16 120/66 99 05/07/19 08:10 128/66 05/07/19 07:51 36.8 C 88 18 176/93 H 96 05/07/19 04:00 36.5 C 87 19 153/79 H 97 PG Care Time/CCT Total # of Minutes Spent Total Time Spent with Patient: Total time spent is greater than 50% in coordination of care (as documented) at patient's floor/unit and/or counseling patient: (1) Breast cancer metastasized to brain Laterality: unspecified laterality Qualified Code(s): C50.919 - Malignant neoplasm of unspecified site of unspecified female breast; C79.31 - Secondary malignant neoplasm of brain (2) GERD (gastroesophageal reflux disease) Esophagitis presence: esophagitis presence not specified Qualified Code(s): K21.9 - Gastro-esophageal reflux disease without esophagitis
[2019-05-07] MEDS: PREGABALIN 50 MG CAP PO SCH (20:29)
[2019-05-07] MEDS: ASCORBIC ACID 500 MG TAB PO SCH (20:30)
[2019-05-07] MEDS: AMITRIPTYLINE HCL 25 MG TAB PO SCH (20:30)
[2019-05-07] MEDS: TRAVOPROST Z 0.004% OPH SOLN 2.5 ML BTL OP SCH (20:31)
[2019-05-08] MEDS: NITROFURANTOIN MONOHYDRATE 100 MG CAP PO SCH ×2 (08:26→20:24)
[2019-05-08] MEDS: POTASSIUM CHLORIDE 10 MEQ TABCR PO SCH ×2 (08:26→20:24)
[2019-05-08] MEDS: MULTIVITAMIN TAB PO SCH (08:27)
[2019-05-08] MEDS: PHENAZOPYRIDINE HCL 100 MG TAB PO SCH ×3 (08:27→20:26)
[2019-05-08] MEDS: VANCOMYCIN HCL 125 MG/2.5ML SOLN PO SCH (08:28)
[2019-05-08] MEDS: RASPBERRY SYRUP 5 ML UDP PO SCH (08:28)
[2019-05-08 08:33] LABS: Hematocrit (blood only) 29.9 % (37-47); Hemoglobin 9.8 g/dL (12.0-16.0); Mean Corpuscular Hemoglobin 32.5 pg (25-34); Mean Corpuscular Hgb Conc 32.8 g/dL (32-36); Nucleated RBC # (auto) 0.03 K/uL (0-0); Nucleated RBC % (auto) 0.5 %; Platelet Count 187 K/uL (130-400); RDW Coefficient of Variation 16.1 % (11.5-14.5); RDW Standard Deviation 57.1 fL (36.4-46.3); Red Blood Count 3.02 M/uL (4.2-5.4); White Blood Count 5.63 K/uL (4.8-10.8)
[2019-05-08 09:02] LABS: Albumin Level 2.7 gm/dl (3.4-5.0); BUN Creatinine Ratio 13.8 (10-20); Calcium 7.9 mg/dl (8.5-10.1); Creatinine Clr Calc Pharmacy 78.9 ml/min; Est GFR (Non-African American) 88.8
[2019-05-08 09:05] LABS: Bilirubin,Total 0.4 mg/dl (0.2-1); Globulin 2.6 gm/dl (2.5-4.0); Total Protein 5.3 gm/dl (6.4-8.2)
[2019-05-08] MEDS: MAGNESIUM CHLORIDE 64MG DELAYED REL TAB PO SCH (11:07)
[2019-05-08] MEDS ORDERED: ACETAMINOPHEN SOL 650 MG/20.3 ML UDC PO PRN (13:14)
--- NOTE | 2019-05-08 16:27 | Hospitalist Progress Note ---
Date of Service May 08, 2019 Assessment & Plan (1) UTI (urinary tract infection): UA on 05/07 showed infection and patient had symptoms. - Started on nitrofurantoin and Pyridium - Culture showing Gram(-) bacteria (2) Breast cancer metastasized to brain: Presented on 05/05 with word salad/confusion. MRI brain shows 3 cancer mets with a 12 mm hemorrhagic lesion within the right aditya, a 2 mm enhancing lesion with the right temporal lobe, and a 6 mm enhancing lesion within the left occipital lobe. - Discussed with [facility] team who felt no operative need or need to transfer. - Patient and say she would not want neurosurgery, so I do not think it warrants inpatient transfer. In the case of larger bleeding, herniation, or other catastrophic neurologic issue, she would want to be comfortable. - Discussed with Dr. Michelle regarding any inpatient treatment - None at present time given no swelling around the sites at the present time. - Has outpatient appt scheduled for May 11 at [facility]. (3) Weakness: Recent fall at home where had to help per up. No loss of consciousness. - PT/OT - CM for placement -> Possible [facility] (4) Breast cancer: Metastatic with mets to bone. Undergoing chemotherapy with Dr. Michelle. - Palliative care consult - The patient and family want to have the consultation at [facility] first before any changes in care. (5) Bony metastasis: From her cancer. - See above (6) C. difficile diarrhea: Has had multiple episodes of C. diff. At home, has been on daily prophylaxis. - Continue vanc PO daily (7) Postherpetic neuralgia: - Continue pregabalin 50 mg HS (8) GERD (gastroesophageal reflux disease): - Stable (9) DVT prophylaxis: - SCDs; no chemical ppx in the setting of hemorrhagic bleed in R. aditya. Subjective Doing well today. Less dysuria today. Tired because the hospital is not letting her sleep well. Review of Systems Review of Systems: All systems reviewed & are unremarkable except as noted in HPI & below Physical Exam Constitutional: WD/WN, vitals as above Eyes: EOM intact bilaterally; no conjunctival abnormality ENMT: external ear and nose normal, oropharynx normal Neck: trachea midline, no thyromegaly normal visual inspection Respiratory: normal respiratory effort, lungs clear to auscultation no respiratory distress Cardiovascular: RRR, no murmur, no edema Gastrointestinal (Abdomen): Inspection/Auscultation: abdomen normal to inspection; abdomen not distended Musculoskeletal: no cyanosis or clubbing, extremities motor strength 5/5 Skin: no rashes, warm and dry Neurologic: moves all extremities and awake Speech / Cognition: + abnormal speech and + expressive aphasia (Very infrequently mixes up words) Psychiatric: Orientation: alert, oriented to person and cooperative Results & Data Vital Signs (Past 12 Hours) Vital Signs Temp Pulse Resp BP Pulse Ox 05/08/19 15:52 36.8 C 95 H 18 122/75 94 PG Care Time/CCT Total # of Minutes Spent Total Time Spent with Patient: Total time spent is greater than 50% in coordination of care (as documented) at patient's floor/unit and/or counseling patient: (1) Breast cancer metastasized to brain Laterality: unspecified laterality Qualified Code(s): C50.919 - Malignant neoplasm of unspecified site of unspecified female breast; C79.31 - Secondary malignant neoplasm of brain (2) GERD (gastroesophageal reflux disease) Esophagitis presence: esophagitis presence not specified Qualified Code(s): K21.9 - Gastro-esophageal reflux disease without esophagitis
[2019-05-08] MEDS: ONDANSETRON INJ 2 MG/ML 2 ML VIAL IV PRN (19:57)
[2019-05-08] MEDS: AMITRIPTYLINE HCL 25 MG TAB PO SCH (20:25)
[2019-05-08] MEDS: TRAVOPROST Z 0.004% OPH SOLN 2.5 ML BTL OP SCH (20:26)
[2019-05-08] MEDS: ASCORBIC ACID 500 MG TAB PO SCH (20:27)
[2019-05-08] MEDS: PREGABALIN 50 MG CAP PO SCH (20:32)
[2019-05-09] MEDS: POTASSIUM CHLORIDE 10 MEQ TABCR PO SCH ×2 (08:28→21:17)
[2019-05-09] MEDS: NITROFURANTOIN MONOHYDRATE 100 MG CAP PO SCH (08:28)
[2019-05-09] MEDS: RASPBERRY SYRUP 5 ML UDP PO SCH (08:28)
[2019-05-09] MEDS: PHENAZOPYRIDINE HCL 100 MG TAB PO SCH (08:28)
[2019-05-09] MEDS: MULTIVITAMIN TAB PO SCH (08:28)
[2019-05-09] MEDS: VANCOMYCIN HCL 125 MG/2.5ML SOLN PO SCH (09:19)
[2019-05-09] MEDS: MAGNESIUM CHLORIDE 64MG DELAYED REL TAB PO SCH (11:47)
--- NOTE | 2019-05-09 14:56 | Hospitalist Progress Note ---
Date of Service May 09, 2019 Assessment & Plan (1) UTI (urinary tract infection): UA on 05/07 showed infection and patient had symptoms. - Started on nitrofurantoin and Pyridium on 05/07 - Culture showing semi-resistant Proteus vulgaris - Stopped nitrofurantoin for ciprofloxacin on 05/09. Treat through 05/12. (2) Breast cancer metastasized to brain: Presented on 05/05 with word salad/confusion. MRI brain shows 3 cancer mets with a 12 mm hemorrhagic lesion within the right aditya, a 2 mm enhancing lesion with the right temporal lobe, and a 6 mm enhancing lesion within the left occipital lobe. - Discussed with [facility] team who felt no operative need or need to transfer. - Patient and say she would not want neurosurgery, so I do not think it warrants inpatient transfer. In the case of larger bleeding, herniation, or other catastrophic neurologic issue, she would want to be comfortable. - Discussed with Dr. Michelle regarding any inpatient treatment - None at present time given no swelling around the sites at the present time. - Has outpatient appt scheduled for May 11 at [facility]. (3) Weakness: Recent fall at home where had to help per up. No loss of consciousness. - PT/OT - CM for placement -> Possible [facility] (4) Breast cancer: Metastatic with mets to bone. Undergoing chemotherapy with Dr. Michelle. - Palliative care consult - The patient and family want to have the consultation at [facility] first before any changes in care. (5) Bony metastasis: From her cancer. - See above (6) C. difficile diarrhea: Has had multiple episodes of C. diff. At home, has been on daily prophylaxis. - Continue vanc PO daily (7) Postherpetic neuralgia: - Continue pregabalin 50 mg HS (8) GERD (gastroesophageal reflux disease): - Stable (9) DVT prophylaxis: - SCDs; no chemical ppx in the setting of hemorrhagic bleed in R. aditya. Subjective Doing well today. No major concerns. Review of Systems Review of Systems: All systems reviewed & are unremarkable except as noted in HPI & below Physical Exam Constitutional: WD/WN, vitals as above Eyes: EOM intact bilaterally; no conjunctival abnormality ENMT: external ear and nose normal, oropharynx normal Neck: trachea midline, no thyromegaly normal visual inspection Respiratory: normal respiratory effort, lungs clear to auscultation no respiratory distress Cardiovascular: RRR, no murmur, no edema Gastrointestinal (Abdomen): Inspection/Auscultation: abdomen normal to inspection; abdomen not distended Musculoskeletal: no cyanosis or clubbing, extremities motor strength 5/5 Skin: no rashes, warm and dry Neurologic: moves all extremities and awake Speech / Cognition: + abnormal speech and + expressive aphasia (Very infrequently mixes up words) Psychiatric: Orientation: alert, oriented to person and cooperative Results & Data Vital Signs (Past 12 Hours) Vital Signs Temp Pulse Resp BP Pulse Ox 05/09/19 07:35 37.2 C 83 16 112/59 L 93 05/09/19 04:46 36.5 C 96 H 18 142/70 H 96 PG Care Time/CCT Total # of Minutes Spent Total Time Spent with Patient: Total time spent is greater than 50% in coordination of care (as documented) at patient's floor/unit and/or counseling patient: (1) Breast cancer metastasized to brain Laterality: unspecified laterality Qualified Code(s): C50.919 - Malignant neoplasm of unspecified site of unspecified female breast; C79.31 - Secondary malignant neoplasm of brain (2) GERD (gastroesophageal reflux disease) Esophagitis presence: esophagitis presence not specified Qualified Code(s): K21.9 - Gastro-esophageal reflux disease without esophagitis
[2019-05-09] MEDS: CIPROFLOXACIN 250 MG TAB PO SCH ×2 (16:01→21:16)
[2019-05-09] MEDS: ONDANSETRON INJ 2 MG/ML 2 ML VIAL IV PRN (16:45)
[2019-05-09] MEDS: PREGABALIN 50 MG CAP PO SCH (21:15)
[2019-05-09] MEDS: AMITRIPTYLINE HCL 25 MG TAB PO SCH (21:17)
[2019-05-09] MEDS: TRAVOPROST Z 0.004% OPH SOLN 2.5 ML BTL OP SCH (21:18)
[2019-05-09] MEDS: ASCORBIC ACID 500 MG TAB PO SCH (21:18)
[2019-05-10] MEDS: MULTIVITAMIN TAB PO SCH (08:14)
[2019-05-10] MEDS: RASPBERRY SYRUP 5 ML UDP PO SCH (08:15)
[2019-05-10] MEDS: POTASSIUM CHLORIDE 10 MEQ TABCR PO SCH (08:16)
[2019-05-10] MEDS: VANCOMYCIN HCL 125 MG/2.5ML SOLN PO SCH (08:17)
[2019-05-10] MEDS: CIPROFLOXACIN 250 MG TAB PO SCH (08:18)
--- NOTE | 2019-05-10 15:38 | Discharge Summary ---
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 diff colitis, and GERD who presents with new onset of confusion and weakness. Pt is at bedside who provides the majority of the history. He notes his has been increasingly confused over the past 3 weeks. This morning she had fallen and hit her head lightly on a hollow door, did not sustain any trauma, no abrasion, no LOC. She was able to get back up and then he brought her to the ER. He notes occasionally she is not able to say the word she wants, and he calls it "word mush". Pt is scheduled to see Dr. Michelle on to get next round of Doxil. Pt denies any other acute complaints. MRI of the brain showin. New 12 mm hemorrhagic lesion within the right aditya 2. New 2 mm enhancing lesion with the right temporal lobe 3. New 6 mm enhancing lesion within the left occipital lobe. 4. Given the multiplicity of lesions and history of metastatic breast carcinoma, metastatic disease must be considered the diagnosis of exclusion. 5. No evidence of acute or subacute infarction Discussion was held with ER regarding follow up care which has been scheduled with [facility] Will admit to [facility] for observation overnight. Principal Diagnosis Brain mets from breast cancer Discharge Exam Constitutional WD/WN, vitals as above Eyes EOM intact bilaterally; no conjunctival abnormality ENMT external ear and nose normal, oropharynx normal Neck trachea midline, no thyromegaly normal visual inspection Respiratory normal respiratory effort, lungs clear to auscultation no respiratory distress Cardiovascular RRR, no murmur, no edema Gastrointestinal (Abdomen) Inspection/Auscultation: abdomen normal to inspection; abdomen not distended Musculoskeletal no cyanosis or clubbing, extremities motor strength 5/5 Skin no rashes, warm and dry Neurologic moves all extremities and awake Speech / Cognition: + abnormal speech and + expressive aphasia (Very infrequently mixes up words) Psychiatric Orientation: alert, oriented to person and cooperative Discharge Data Allergies Allergy/AdvReac Type Severity Reaction Status Date / Time morphine AdvReac Intermediate nausea Verified 04/08/19 06:08 zolpidem AdvReac Mild Hallucinati Verified 04/08/19 06:08 ons Consultations 05/05/19 18:41 Consult Case Management - Discharge Planning Routine 05/05/19 18:49 ED Decision to Admit Stat 05/06/19 12:15 Consult Palliative Care Routine Ordered Studies 05/05/19 13:32 CT head/brain wo con Stat 05/05/19 14:52 MR brain wo/w con Stat Hospital Course (1) Breast cancer metastasized to brain: Presented on 05/05 with word salad/confusion. MRI brain showed 3 cancer mets with a 12 mm hemorrhagic lesion within the right aditya, a 2 mm enhancing lesion with the right temporal lobe, and a 6 mm enhancing lesion within the left occipital lobe. - Discussed with [facility] team who felt no operative need or need to transfer. - Patient and say she would not want neurosurgery. In the case of larger bleeding, herniation, or other catastrophic neurologic issue, she would want to be comfortable. - Discussed with Dr. Michelle regarding any inpatient treatment - None at present time given no swelling around the sites at the present time. - Has outpatient appt scheduled for May 11 at [facility]. (2) UTI (urinary tract infection): UA on 05/07 showed infection and patient had symptoms. - Started on nitrofurantoin and Pyridium on 05/07 - Culture showing semi-resistant Proteus vulgaris - Stopped nitrofurantoin for ciprofloxacin on 05/09. Treat through 05/12. (3) Weakness: Recent fall at home where had to help per up. No loss of consciousness. - PT/OT (4) Breast cancer: Metastatic with mets to bone. Undergoing chemotherapy with Dr. Michelle. - Palliative care consult - The patient and family want to have the consultation at [facility] first before any changes in care. (5) Bony metastasis: From her cancer. - See above (6) C. difficile diarrhea: Has had multiple episodes of C. diff. At home, has been on daily prophylaxis. - Continue vanc PO daily (7) Postherpetic neuralgia: - Continue pregabalin 50 mg HS (8) GERD (gastroesophageal reflux disease): - Stable (9) DVT prophylaxis: - SCDs; no chemical ppx in the setting of hemorrhagic bleed in R. aditya. Total Time Total Time Spent Total Time Spent (In Minutes): 120 Total Time Includes: Examination of the Patient, Discharge Planning and Communication With Other Providers Discharge Plan Discharge Items Patient Disposition: Transfer Inpatient Rehab Fac Reason For Visit: CONFUSION,EXTENSION OF METASTASIS,HEMORRHAGIC LESI Discharge Diagnosis: Confusion, weakness, metastatic cancer to brain Discharge Goals: Decrease discomfort, Diagnostic testing, Improve function and Improve nutritional status Activity: Resume your previous activity Exercise/Sports: Gradually increase as tolerated Non-emergency contact: Primary Care Provider and Oncologist Call non-emergency contact if: your symptoms worsen and your temperature is above 101 Follow-up/Referrals: Elvis Lee MD [Primary Care Provider] - Ahsan Michelle [Physician] - (Please, follow up with Dr. Michelle on SaturdayMay 12 at 3:30 pm. *If you need to change this appointment, call the office at [phone].) Diet: Regular Addtl Provider Instructions: Ms. Dykes was admitted for confusion and weakness that was likely due to a small hemorrhagic brain metastasis. She was monitored and did well with conservative therapy. She had symptoms of a UTI and was started on antibiotics. She will need 2 more days of antibiotics. End date will be 05/12/2019 with the morning dose of Cipro 250mg. She has an appointment with [facility] neuro-[facility]cology on May 11 at 1pm. She must go to this appointment! She was on standing [place] prior to admission. We held this in favor of Tylenol in case it was causing confusion. She had no major pain issues while admitted. Prescriptions: New ciprofloxacin HCl 250 mg Tablet 250 mg PO Q12 Qty: 4 RF: 0 Continued trazodone 50 mg tablet 50 mg PO DAILY RF: 0 vancomycin 125 mg capsule 125 mg PO DAILY Qty: 30 RF: 0 multivitamin Tablet 1 tab PO DAILY RF: 0 potassium chloride 10 mEq capsule, extended release 10 meq PO BID RF: 0 Travatan Z 0.004 % Drops 1 drp OPHTHALMIC (EYE) HS RF: 0 amitriptyline 25 mg tablet 25 mg PO HS RF: 0 ascorbic acid (vitamin C) 100 mg Tablet,Chewable 100 mg PO HS RF: 0 pregabalin 50 mg capsule 50 mg PO HS RF: 0 magnesium chloride 64 mg tablet,delayed release (DR/EC) 128 mg PO QDL RF: 0 doxorubicin, peg-liposomal [Doxil] 2 mg/mL Suspension 86 mg IV Q28D RF: 0 Xgeva 120 mg/1.7 mL (70 mg/mL) Solution 120 mg SUBCUT Q28D RF: 0 Hemp Gummies 1 tab PO HS RF: 0 Discontinued hydrocodone-acetaminophen [[place]] 5-325 mg tablet 0.5 tab PO BID RF: 0 Stand-Alone Forms: [facility] Discharge Orders: Discharge Order (Routine); Ordered 05/10/19 Ordered By: Monico Linton Skilled Items Patient informed of condition?: Yes DNR: Yes Discharge Level of Care: Skilled Communicable Disease: Yes Discharge Prognosis: Stable Admission Data Admit Date/Time: 05/05/19 18:53 Attending Provider: Monico Linton Admit Provider: Delicia Reddy Primary Care Provider: Elvis Lee Other Providers: Monico Linton ; Maira Jauregui Service: Medical Other Interventions: Discharge Summary Assessment (RN) Last Done: 05/10/19 10:12 DC Date/Time DO NOT enter until pt leaves facility: 05/10/19 11:28
== END 2019-05-10 11:28 | DRG 55 ==
LOC: ED 13:10 → 4W 18:53 → SUATTDRO 18:53 → 4W 21:30

== ENCOUNTER 2019-05-26 13:05 | Inpatient (IN) ==
[2019-05-26 14:27] LABS: Basophils # (auto) 0.02 K/uL (0-0.2); Basophils % (auto) 0.2 %; Hematocrit (blood only) 35.9 % (37-47); Hemoglobin 11.8 g/dL (12.0-16.0); Immature Granulocytes # (auto) 0.04 K/uL (0.00-0.02); Immature Granulocytes % (auto) 0.3 %; Lymphocytes # (auto) 0.84 K/uL (1.2-3.4); Lymphocytes % (auto) 7.3 %; Mean Corpuscular Hemoglobin 33.2 pg (25-34); Mean Corpuscular Hgb Conc 32.9 g/dL (32-36); Mean Corpuscular Volume 101.1 fL (80-100); Mean Platelet Volume 10.1 fL (7.4-10.4); Monocytes # (auto) 2.04 K/uL (0.11-0.59); Monocytes % (auto) 17.7 %; Neutrophils # (auto) 8.57 K/uL (1.4-6.5); Neutrophils % (auto) 74.5 %; Platelet Count 250 K/uL (130-400); RDW Coefficient of Variation 16.9 % (11.5-14.5); RDW Standard Deviation 63.1 fL (36.4-46.3); Red Blood Count 3.55 M/uL (4.2-5.4); White Blood Count 11.51 K/uL (4.8-10.8)
[2019-05-26] MEDS ORDERED: SODIUM CHLORIDE 0.9% 1000ML 1,000 ML IV SCH (14:30)
[2019-05-26 14:39] LABS: Alanine Aminotransferase 53 U/L (12-78); Albumin Level 2.9 gm/dl (3.4-5.0); Aspartate Aminotransferase 140 U/L (15-37); BUN Creatinine Ratio 14.4 (10-20); Blood Urea Nitrogen 9 mg/dl (7-18); Calcium 8.1 mg/dl (8.5-10.1); Carbon Dioxide 27 mmol/L (21-32); Chloride 97 mmol/L (98-107); Est GFR (African American) 94.3; Est GFR (Non-African American) 81.4; Glucose 119 mg/dl (70-99); Potassium 3.9 mmol/L (3.5-5.1); Sodium 132 mmol/L (136-145)
--- NOTE | 2019-05-26 14:42 | XRay Report ---
XR chest 1V portable CLINICAL HISTORY: 83 years-old Female presenting with weakness. TECHNIQUE: Portable upright AP view of the chest was obtained. COMPARISON: CT chest from 03/11/2019 and chest x-ray from 05/05/2019. FINDINGS: Right subclavian Mediport terminates in the lower SVC. Atherosclerosis of the aortic arch. Cardiac si lhouette normal in size. Redemonstration of the 3 cm mass in the left midlung. This has been increasi ng in size. Patchy opacities in both lungs likely correspond to underlying multifocal nodules. No ple ural effusion or pneumothorax. Degenerative changes of the thoracic spine. Upper abdomen normal. IMPRESSION: 1. Bilateral pulmonary nodules with increasing size of the dominant left mid lung mass. This is conc erning for progression of metastatic disease. 2. No superimposed focal infiltrate to suggest pneumonia. Electronically signed by: David Mello M.D. 05/26/2019 2:41 PM
[2019-05-26 14:50] LABS: Albumin Globulin Ratio 0.7 (0.9-2); Alkaline Phosphatase 199 U/L (45-117); Bilirubin,Total 0.9 mg/dl (0.2-1); Globulin 3.9 gm/dl (2.5-4.0); Thyroid Stimulating Hormone 0.722 uIu/ml (0.300-4.500); Total Protein 6.8 gm/dl (6.4-8.2); Troponin I < 0.015 ng/ml (0-0.045)
--- NOTE | 2019-05-26 14:58 | CT Scan Report ---
CT SCAN OF THE BRAIN WITHOUT IV CONTRAST CLINICAL HISTORY: Generalized weakness. COMPARISON STUDY: CT and MRI of the brain dated 05/05/2019. TECHNIQUE: Unenhanced axial CT scan of the brain is performed from the vertex to the skull base. A do se lowering technique was utilized adhering to the principles of ALARA. CT DOSE: 460.70 mGy.cm FINDINGS: Brain parenchyma: There are age-related involutional changes noting moderate to advanced confluent s ubcortical and periventricular microangiopathic change. A low-attenuation lesion in the right aditya is unchanged from previous. There may be trace associated hemorrhage, and this measures up to 12 mm. Ad ditional smaller lesions seen by MRI are not apparent by CT. There is no parenchymal hematoma, mass e ffect, or evidence of acute territorial ischemia by CT criteria. Mitchell-white matter differentiation is preserved. No extra-axial fluid collection is seen. Ventricles, sulci, cisterns: Prominent secondary to involutional change. Intracranial vasculature: There is atherosclerotic calcification of the cavernous carotid and vertebr al arteries. Calvarium: Unremarkable. Sinuses and mastoids: The visualized paranasal sinuses are clear. The mastoid air cells are well pneu matized. Orbits: The bony orbits are grossly intact. There are bilateral ocular lens implants. IMPRESSION: 1. There is no parenchymal hematoma, mass effect, or evidence of acute territorial ischemia by CT cri teria. 2. A 12 mm lesion in the right aditya is unchanged from previous. This likely represents a metastatic f ocus with trace associated hemorrhage. This was better characterized on the recent MRI. 3. Additional smaller lesions seen by MRI cannot be seen by CT. Electronically signed by: Dmitri Cam M.D. 05/26/2019 2:56 PM
--- NOTE | 2019-05-26 15:09 | XRay Report ---
XR chest 1V portable CLINICAL HISTORY: weakness dyspnea COMPARISON STUDY: 05/26/2019 at 2:17 PM FINDINGS: Central catheter remains in superior vena cava. Pulmonary nodularity previously described is stable. Mild chronic elevation right hemidiaphragm. Mild peribronchial prominence considered unchanged from t he prior study. IMPRESSION: 1. Stable exam with no change from the prior study. 2. Stable bilateral pulmonary nodules The above report was generated using voice recognition software. It may contain grammatical, syntax or spelling errors. Electronically signed by: Gurinder Ayala M.D. 05/26/2019 3:08 PM
[2019-05-26] MEDS ORDERED: IOVERSOL 100ml IV PRN (16:42)
--- NOTE | 2019-05-26 16:55 | CT Scan Report ---
CT abd pelvis IV con only CLINICAL HISTORY: Carcinoma. Elevated LFTs. Weakness. COMPARISON STUDY: March 11, 2019 TECHNIQUE: The patient was scanned in a dynamic helical fashion during intravenous administration of 95 cc of Optiray 320. A dose lowering technique was utilized adhering to the principles of ALARA. CT DOSE: 875.71 mGycm FINDINGS: Lower chest: There is an enlarging 27 mm pleural-based opacity within the right middle lobe. There is a persistent 17 mm pleural-based opacity within the lingula. There is a new 3 mm right lower lobe pu lmonary nodule. There is a trace right pleural effusion. Liver: There is interval increase in the size of the multiple large hepatic metastasis. The right lob e lesion now measures 77 mm compared with 55 in the prior study. A second lesion which previously feli sured located within the left lobe currently measures 64 mm compared with 44 mm in the prior study. S everal new lesions are also evident Gallbladder: Cholelithiasis Spleen: Normal in size and attenuation. Pancreas: Unremarkable. Adrenal glands: Unremarkable. Kidneys: There is a subcentimeter right renal cyst. No solid renal masses are visualized. There is no hydronephrosis. Bowel: There are no transition zones indicate bowel obstruction. There is no evidence of acute divert iculitis. There are no findings to indicate acute appendicitis. Peritoneum: There is no intraperitoneal free air or abdominal ascites. Vasculature: The abdominal aorta is normal in course and caliber. Adenopathy: None. Pelvic viscera: There is persistent endometrial irregularity. Skeletal structures: Multiple blastic skeletal metastasis are visualized. IMPRESSION: 1. Marked interval progression in the extensive hepatic metastasis with an approximate doubling of tu mor volume over the past 2 1/2 months 2. Persistent blastic skeletal metastasis 3. Possible pulmonary metastasis 4. No evidence of bowel obstruction. No evidence of free air 5. Cholelithiasis 6. Persistent endometrial irregularity. Electronically signed by: Lang Brantley M.D. 05/26/2019 4:54 PM
[2019-05-26 17:51] LABS: Appearance Urine Clear (Clear); Bacteria Urine Automated Negative (Negative); Bilirubin Urine Negative (Negative); Blood Urine Negative (Negative); Color Urine Dark Yellow; Epithelial Cell Urine Auto 0-5 /lpf (0-5); Glucose Urine UA Negative (Negative); Ketones Urine Trace (Negative); Leukocyte Esterase Urine Trace (Negative); Nitrite Urine Positive (Negative); Protein Urine 1+ (Negative); RBC Urine Automated 0-4 /hpf (0-4); Specific Gravity Urine 1.023 (1.000-1.030); Urobilinogen Urine Negative (Negative)
[2019-05-26] MEDS ORDERED: ALBUTEROL HFA 8 GM INHALER INH ONE (19:10)
[2019-05-26] MEDS ORDERED: PIPERACILLIN/TAZOBACTAM 4.5 GM/120 ML BAG IV ONE (19:23)
[2019-05-26] MEDS ORDERED: PIPERACILL/TAZOBAC CONSULT ACTIVE PRN ×2 (19:23→22:27)
--- NOTE | 2019-05-26 21:19 | History & Physical Report ---
Date of Service May 26, 2019 Assessment & Plan (1) Generalized weakness: Ms. Dykes is a pleasant 83yo with a PMHx significant for breast cancer originally diagnosed in 1973 s/p R mastectomy and adjuvant RT, 2 recurrences in 2003 and 2012 s/p chemotherapy who now presents with weakness and anorexia and was found to have progressive metastases. Hx of Breast Cancer -pt with dx of invasive ductal carcinoma of R breast diagnosed in 1973 (see oncology note in chart) -Noted bony, mediastinum and liver metastasis in 2012. s/p chemotherapy rx -Hospitalized in with new metastasis noted to brain while on Doxil (first round) -CT abd/pelvis 05/26 with noted new liver lesions and progression of right and left lobe lesions -Chest XR 05/26 with progressing left midlung mass -Head CT 05/26- no acute lesions -Of note, states that he had followup consult with Dr. Gunter in [place] and it was noted that she had ONE brain lesion, not 3 as noted here on brain MRI from Apr 2019. -Per family, palliative discussion with [place] has NOT been had, have appt in [place] on Jun [address] Gunter (neurosurgeon) and Dr. Gómez for radiation therapy - wants to defer on any further treatment options vs. hospice/palliative approach until AFTER [place] appointments and would NOT like to followup with previous oncologist seen here -currently on doxil 86mg q28d (received one round before Apr, never received second dose which was scheduled for May 07) and Xgeva 120mg SQ q28d for skeletal related events. -continue home gabapentin 300mg tid, pregabalin 50mg qHS for doxil associated peripheral neuropathy -continue home zofran as needed -continue NSS@80 -can consider PT/OT Hx of UTI -Pt with Proteus UTI in Apr 2019 -UA from 05/26 with no bacteria, but yeast, nitrites and leukocyte esterase -Afebrile, no complaints of dysuria or hematuria but WBC increased -Zosyn started in ED; will continue with treatment (last proteus sensitivities show susceptibility to Zosyn; resistant to rocephin) -Given cancer diagnosis and potential for immunosuppression will also treat yeast infection with diflucan 150mg PO x1 dose -will continue to monitor and trend WBC with AM labs Hx of C. diff -Pt with apparent chronic Hx of multiple episodes of recurrent c.diff -On prophylactic vancomycin -continue home vancomycin 125mg daily Hx of Anxiety/? Depression -Pt on amitryptiline 25mg HS and trazodone 50mg -will hold these tonight until present for further confirmation given use of gabapentin and pregabalin above as well. Hx of Glaucoma -continue home travatan drops Hx of Hypokalemia -continue home KCl BID Health maintenance -continue home multivitamin FEN/GI: NSS@80, Regular diet CODE STATUS: DNR/DNI DVT proph: Lovenox SQ, SCDs Dispo: Med/Surg History of Present Illness Primary Care Provider: Elvis Lee MD Ms. Dykes is a pleasant 83yo with a PMHx significant for breast cancer originally diagnosed in 1973 s/p R mastectomy and adjuvant RT, 2 recurrences in 2003 and 2012 s/p chemotherapy who now presents with weakness and anorexia and was found to have progressive metastases today. Daughter is at bedside and was called on the phone for the Hx. daughter both state that she has had progressive weakness lately, more than baseline to the point that it was taking him at least 2 hours to get her dressed. stated he was not able to do that anymore. She has also not been able to eat and left [facility] for rehab a few days ago. Daughter states she can go 16-18hrs without eating anything. Per , they did go to [place] to have a second opinion on the MRI done here and to see what else could be done for her. However, he forgot the CD with the images and had to mail it in later. However, he states that the physician he saw there Dr. Gunter said that she had ONE lesion on the brain NOT three. he states they have a followup appointment scheduled for Jun 05 at which point he will make his decision on how to proceed given the new metastases noted on imaging. States that his only received one round of chemo before her Apr 2019 presentation and they were unhappy with how she felt after the round. Pt states she has a headache today. Daughter states she had a cough at [facility] and significant lymphedema in left arm. Allergies Allergy/AdvReac Type Severity Reaction Status Date / Time morphine AdvReac Intermediate nausea Verified 05/26/19 13:18 zolpidem AdvReac Mild Hallucinati Verified 05/26/19 13:18 ons Home Medications Home Medications Medication Instructions Recorded Confirmed Type Travatan Z 1 drp OPHTHALMIC (EYE) HS 08/05/18 05/26/19 History amitriptyline 25 mg PO HS 08/05/18 05/26/19 History multivitamin 1 tab PO DAILY 08/05/18 05/26/19 History potassium chloride 10 meq PO BID 08/05/18 05/26/19 History pregabalin 50 mg PO HS 08/05/18 05/26/19 History trazodone 50 mg tablet 50 mg PO DAILY tab 04/22/19 05/26/19 History vancomycin 125 mg capsule 125 mg PO DAILY #30 cap 04/22/19 05/26/19 History Xgeva 120 mg SUBCUT Q28D 05/05/19 05/26/19 History doxorubicin, peg-liposomal [Doxil] 86 mg IV Q28D 05/05/19 05/26/19 History Desyrel 50 mg PO DAILY 05/26/19 05/26/19 History gabapentin 300 mg PO TID 05/26/19 05/26/19 History ondansetron HCl 1 mg PO Q6 05/26/19 05/26/19 History Past Med/Surg History Medical History Bony metastasis Weakness Postherpetic neuralgia Breast cancer C. difficile diarrhea HAD TREATMENT AND CLEARED WITH DR MCCLAIN GERD (gastroesophageal reflux disease) HX OF HEARTBURN Lymphedema of left arm Aortic stenosis "Mild" aortic stenosis per ECHO report summary (AVELINO 0.48cm2, MG 7.2mmhg) Breast cancer, stage 4 Cardiac murmur HZV (herpes zoster virus) post herpetic neuralgia History of shingles hx Surgical History History of modified radical mastectomy of left breast 1974 History of total right hip arthroplasty Family History Father , from "old age" No problems noted. Mother , from "old age" No problems noted. 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) Feels Safe at Home: Yes Safety Concerns: Feels Safe At This Time Smoking Status: Never smoker Do You Dip or Chew Tobacco: No ; Second Hand Exposure: No ; Hx Alcohol Use: No Hx Substance Use: No Review of Systems Constitutional: + fatigue, + weakness and + anorexia; no fever, no chills and no sweats Eyes: no worsening vision Ear, Nose, Mouth, Throat: no nasal congestion, no sore throat and no dysphagia Respiratory: + cough; no dyspnea Cardiovascular: + edema (in left arm); no chest pain, no palpitations and no calf pain Gastrointestinal: + constipation; no nausea, no vomiting and no diarrhea/loose stools Genitourinary: no dysuria and no hematuria Musculoskeletal: + swelling (of left arm) and + muscle weakness; no body aches Integumentary: no rash Neurologic: + generalized weakness, + headache(s) and + confusion; no abnormal speech Endocrine: + fatigue Physical Exam Constitutional: WD/WN, vitals as above (Alert and oriented x3) + ill appearing Eyes: PERRL ENMT: external ear and nose normal, oropharynx normal Neck: normal visual inspection Respiratory: normal respiratory effort, lungs clear to auscultation no labored breathing Cardiovascular: Rate/Rhythm: regular rate and regular rhythm Heart Sounds: + murmur (blowing murmur) Chest (Breasts): Chest: + vascular access device or port (on right) Breast: + abnormal inspection of breast (pt with right mastectomy) Gastrointestinal (Abdomen): Percussion/Palpation: + abdomen tender (diffusely) and abdomen soft; no guarding and no hepatosplenomegaly Musculoskeletal: Extremities: + upper extremity abnormal to inspection (with some swelling) Left Skin: no rashes, warm and dry Neurologic: PERRL, EOMI, accommodation nl, no face palsy, no dysarthria Psychiatric: A+Ox3, euthymic affect Results & Data Vital Signs (Past 12 Hours) Vital Signs Temp Pulse Pulse Resp BP BP Pulse Ox 05/26/19 20:24 112 H 18 154/72 H 94 09/10/19 18:30 20 142/72 H 94 05/26/19 17:01 100 H 18 114/89 93 05/26/19 15:07 90 20 136/70 95 05/26/19 14:51 103 H 14 05/26/19 14:30 90 36 H 142/73 H 05/26/19 14:20 92 H 25 H 05/26/19 14:10 90 28 H 05/26/19 14:00 91 H 32 H 05/26/19 13:50 91 H 28 H 05/26/19 13:40 93 H 33 H 05/26/19 13:38 37.0 C 98 H 20 143/77 H 98 05/26/19 13:30 96 H 36 H 05/26/19 13:26 97 H 36 H Laboratory Results Laboratory Results - last 24 hr 05/26/19 05/26/19 05/26/19 13:30 13:30 13:30 WBC 11.51 H RBC 3.55 L Hgb 11.8 L Hct 35.9 L MCV 101.1 H MCH 33.2 MCHC 32.9 RDW Std Deviation 63.1 H RDW Coeff of Stephanie 16.9 H Plt Count 250 MPV 10.1 Immature Gran % (Auto) 0.3 Neut % (Auto) 74.5 Lymph % (Auto) 7.3 [place] % (Auto) 17.7 Eos % (Auto) 0.0 Baso % (Auto) 0.2 Immature Gran # (Auto) 0.04 H Neut # (Auto) 8.57 H Lymph # (Auto) 0.84 L [place] # (Auto) 2.04 H Eos # (Auto) 0.00 Baso # (Auto) 0.02 Sodium 132 L Potassium 3.9 Chloride 97 L Carbon Dioxide 27 Anion Gap 8.0 BUN 9 Creatinine 0.64 Est Cr Clr Drug Dosing Not Reportable Est GFR ( Amer) 94.3 Est GFR (Non-Af Amer) 81.4 BUN/Creatinine Ratio 14.4 Glucose 119 H Calcium 8.1 L Magnesium 2.0 Total Bilirubin 0.9 AST 140 H ALT 53 Alkaline Phosphatase 199 H Troponin I < 0.015 NT-Pro-B Natriuret Pep 1028 Total Protein 6.8 Albumin 2.9 L Globulin 3.9 Albumin/Globulin Ratio 0.7 L Lipase 72 L TSH 0.722 Cancelled Urine Color Urine Appearance Urine pH Ur Specific [place] Urine Protein Urine Glucose (UA) Urine Ketones Urine Blood Urine Nitrite Urine Bilirubin Urine Urobilinogen Ur Leukocyte Esterase Urine WBC (Auto) Urine RBC (Auto) U Hyaline Cast (Auto) U Epithel Cells (Auto) Urine Bacteria (Auto) Urine Yeast 05/26/19 17:24 WBC RBC Hgb Hct MCV MCH MCHC RDW Std Deviation RDW Coeff of Stephanie Plt Count MPV Immature Gran % (Auto) Neut % (Auto) Lymph % (Auto) [place] % (Auto) Eos % (Auto) Baso % (Auto) Immature Gran # (Auto) Neut # (Auto) Lymph # (Auto) [place] # (Auto) Eos # (Auto) Baso # (Auto) Sodium Potassium Chloride Carbon Dioxide Anion Gap BUN Creatinine Est Cr Clr Drug Dosing Est GFR ( Amer) Est GFR (Non-Af Amer) BUN/Creatinine Ratio Glucose Calcium Magnesium Total Bilirubin AST ALT Alkaline Phosphatase Troponin I NT-Pro-B Natriuret Pep Total Protein Albumin Globulin Albumin/Globulin Ratio Lipase TSH Urine Color Dark Yellow Urine Appearance Clear Urine pH 5.0 Ur Specific [place] 1.023 Urine Protein 1+ H Urine Glucose (UA) Negative Urine Ketones Trace H Urine Blood Negative Urine Nitrite Positive A Urine Bilirubin Negative Urine Urobilinogen Negative Ur Leukocyte Esterase Trace H Urine WBC (Auto) 10-30 H Urine RBC (Auto) 0-4 U Hyaline Cast (Auto) 5-10 H U Epithel Cells (Auto) 0-5 Urine Bacteria (Auto) Negative Urine Yeast Budding A Medications Administered Home Medications Travatan Z 1 drp OPHTHALMIC (EYE) HS 08/05/18 [History Confirmed 05/26/19] amitriptyline 25 mg PO HS 08/05/18 [History Confirmed 05/26/19] multivitamin 1 tab PO DAILY 08/05/18 [History Confirmed 05/26/19] potassium chloride 10 meq PO BID 08/05/18 [History Confirmed 05/26/19] pregabalin 50 mg PO HS 08/05/18 [History Confirmed 05/26/19] trazodone 50 mg tablet 50 mg PO DAILY tab 04/22/19 [History Confirmed 05/26/19] vancomycin 125 mg capsule 125 mg PO DAILY #30 cap 04/22/19 [History Confirmed 05/26/19] Xgeva 120 mg SUBCUT Q28D 05/05/19 [History Confirmed 05/26/19] doxorubicin, peg-liposomal [Doxil] 86 mg IV Q28D 05/05/19 [History Confirmed 05/26/19] Desyrel 50 mg PO DAILY 05/26/19 [History Confirmed 05/26/19] gabapentin 300 mg PO TID 05/26/19 [History Confirmed 05/26/19] ondansetron HCl 1 mg PO Q6 05/26/19 [History Confirmed 05/26/19] Active Medications Enoxaparin Sodium (Lovenox) 40 mg SQ Q24H [facility]AVIOLA Stop: 06/25/19 22:26 Fluconazole (Diflucan) 150 mg PO NOW ONE Stop: 05/26/19 22:28 Gabapentin (Neurontin) 300 mg PO TID [facility] Stop: 06/26/19 08:59 Piperacillin Sod/Tazobactam (Sod 3.375 gm/ Dextrose) 115 mls @ 28.75 mls/hr IV Q8H FAVIOLA; Protocol Stop: 06/05/19 22:26 Sodium Chloride (Nss 1000ml) 1,000 mls @ 80 mls/hr IV .[id number] FAVIOLA Stop: 06/25/19 22:26 Miscellaneous Information (Consult) 1 ea N/A UD PRN PRN Reason: Consult Stop: 06/25/19 22:26 Multivitamins (Multivitamin Tab) 1 tab PO DAILY FAVIOLA Stop: 06/26/19 08:59 Non-Formulary Medication (Vancomycin) 125 mg PO DAILY F[facility]IOLA Stop: 06/26/19 08:59 Ondansetron HCl (Zofran Tab) 8 mg PO Q6 PRN PRN Reason: Nausea And Vomiting Stop: 06/25/19 22:26 Potassium Chloride (Klor-Con M10) 10 meq PO BID FAVIOLA Stop: 06/26/19 08:59 Pregabalin (Lyrica) 50 mg PO HS [facility]AVIOLA Stop: 06/26/19 20:59 Supervising Physician Co-Signing Physician Notes Patient was seen and examined by me personally. I reviewed the chart, the orders and discussed the case in detail with Dr. Sofi Stanley MD . I read this H&P and agree with its contents to entirety. PG Care Time/CCT Total # of Minutes Spent Total Time Spent: 65 Total Time Spent with Patient: Total time spent is greater than 50% in coordination of care (as documented) at patient's floor/unit and/or counseling patient: Resident Activity Tracking Resident Involvement: Resident Care Provided Care Provided: Adult [facility]
[2019-05-26] MEDS ORDERED: FLUCONAZOLE 50 MG TAB PO ONE (22:27)
[2019-05-26] MEDS ORDERED: ONDANSETRON 4 MG OD TAB PO PRN (22:27)
[2019-05-26] MEDS ORDERED: ENOXAPARIN INJ 40 MG/0.4 ML SYR SQ SCH (23:00)
[2019-05-26] MEDS: PIPERACILLIN/TAZOBACTAM 3.375 GM in DEXTROSE 5% 100 ML IV SCH (23:50)
[2019-05-26] MEDS: SODIUM CHLORIDE 0.9% 1000ML 1,000 ML IV SCH (23:50)
[2019-05-27] MEDS ORDERED: ACETAMINOPHEN 325 MG TAB ONE (00:26)
[2019-05-27] MEDS ORDERED: Nursing to Pharmacy Communication ONE ×2 (02:16→03:18)
[2019-05-27 06:42] LABS: Basophils # (auto) 0.01 K/uL (0-0.2); Basophils % (auto) 0.1 %; Eosinophils # (auto) 0.03 K/uL (0-0.5); Eosinophils % (auto) 0.3 %; Hematocrit (blood only) 31.1 % (37-47); Hemoglobin 10.2 g/dL (12.0-16.0); Immature Granulocytes # (auto) 0.04 K/uL (0.00-0.02); Immature Granulocytes % (auto) 0.4 %; Lymphocytes # (auto) 1.31 K/uL (1.2-3.4); Lymphocytes % (auto) 12.9 %; Mean Corpuscular Hemoglobin 32.9 pg (25-34); Mean Corpuscular Hgb Conc 32.8 g/dL (32-36); Mean Corpuscular Volume 100.3 fL (80-100); Mean Platelet Volume 9.7 fL (7.4-10.4); Monocytes # (auto) 1.74 K/uL (0.11-0.59); Monocytes % (auto) 17.1 %; Neutrophils # (auto) 7.06 K/uL (1.4-6.5); Neutrophils % (auto) 69.2 %; Platelet Count 195 K/uL (130-400); RDW Coefficient of Variation 16.7 % (11.5-14.5); RDW Standard Deviation 61.3 fL (36.4-46.3); White Blood Count 10.19 K/uL (4.8-10.8)
[2019-05-27 07:11] LABS: Albumin Level 2.3 gm/dl (3.4-5.0); BUN Creatinine Ratio 14.6 (10-20); Calcium 7.5 mg/dl (8.5-10.1); Creatinine Clr Calc Pharmacy 77.8 ml/min; Est GFR (Non-African American) 88.8; Potassium 3.3 mmol/L (3.5-5.1)
[2019-05-27 07:16] LABS: Albumin Globulin Ratio 0.7 (0.9-2); Globulin 3.4 gm/dl (2.5-4.0); Total Protein 5.7 gm/dl (6.4-8.2)
[2019-05-27] MEDS: PIPERACILLIN/TAZOBACTAM 3.375 GM in DEXTROSE 5% 100 ML IV SCH ×3 (07:48→23:32)
[2019-05-27] MEDS: GABAPENTIN 300 MG CAP PO SCH ×2 (07:49→14:22)
[2019-05-27] MEDS: RASPBERRY SYRUP 5 ML UDP PO SCH (07:49)
[2019-05-27] MEDS: VANCOMYCIN HCL 125 MG/2.5ML SOLN PO SCH (07:49)
[2019-05-27] MEDS: POTASSIUM CHLORIDE 10 MEQ TABCR PO SCH ×2 (07:50→20:19)
[2019-05-27] MEDS: MULTIVITAMIN TAB PO SCH (07:50)
[2019-05-27] MEDS ORDERED: POTASSIUM CHLORIDE 20 MEQ TABCR PO STA (08:35)
[2019-05-27] MEDS: SODIUM CHLORIDE 0.9% 1000ML 1,000 ML IV SCH ×2 (11:52→23:32)
[2019-05-27] MEDS: ACETAMINOPHEN 325 MG TAB PO PRN ×2 (11:54→22:36)
[2019-05-27] MEDS ORDERED: POLYETHYLENE (MIRALAX) 17 GM PACK PO PRN (12:59)
[2019-05-27] MEDS: LIDOCAINE 5% 1 PATCH TD SCH (14:21)
[2019-05-27] MEDS: DOCUSATE SODIUM/SENNA 50/8.6MG TAB PO SCH ×2 (14:22→20:20)
--- NOTE | 2019-05-27 15:11 | Hospitalist Progress Note ---
Date of Service May 27, 2019 Assessment & Plan (1) Metastatic cancer: - Initially diagnosed with invasive ductal carcinoma of the right breast in 1973; has had multiple recurrences. - Has liver, bone, pulmonary and brain metastasis noted on recent imaging. CT of A/P on day of admission showed interval progression of liver iveth (doubled in 2.5 months) - Most recent chemo (Doxil q28d) administered in April 2019; has not been able to tolerate further chemo due to weakness/decline. - Recently evaluated [place] [facility] [place]surgery (Dr. Gunetr) and rad/onc (Dr. Washington). - Family does not wish to be evaluated by oncologist here and would like to follow up with [facility] as scheduled prior to considering transitioning to hospice -- appt is scheduled on 06/05 with neurosurgery at [facility]. - Continue Lyrica 50 mg qhs; added Lidocaine patch for neck pain. (2) Generalized weakness: - Related to progression of disease; pt. was admitted to [facility] prior but her does not want her to return to this SNF. - Case management is following; she is not a candidate to return to home. (3) UTI (urinary tract infection): Possible urinary tract infection - U/a positive; UC +yeast. - Will continue Zosyn for 24 hours due to immunocompromised state, can likely d/c on 05/28 if culture neg for bacteria. - Received Diflucan 150 mg x 1 dose; hold further doses. (4) Constipation: - Senna S BID scheduled with Miralax daily prn. (5) C. 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 (6) Depression: - Continue Amitriptyline 25mg HS as prescribed. (7) Glaucoma: - Continue home Travatan drops. (8) Anemia: - Hgb 10.2 -- likely chemotherapy induced. - Trend CBC daily. (9) Electrolyte abnormality: - K level 3.3 - ordered K 40 mEq PO. (10) DVT prophylaxis: - SCDs; holding pharmacologic ppx due to brain metastasis, ?hemorrhage. Dispo: Med/surg; discharge to SNF pending placement. Will need to f/u with [facility] to discuss plan of care, ?hospice. Supervising Physician Co-Signing Physician Notes PA Supervision Note: I did not personally see or examine the patient today, but I verified all tellez points of RAHEEM Henriquez's assessment and plan with the following exceptions/additions: None Subjective Pt. is doing well overall. She denies generalized pain, chest pain, SOB. Cannot recall when her last BM occurred. Does have chronic neck pain, uses Biofreeze at home. Will order Lidocaine patch as inpt. Her cannot care for her at home; case management following to discuss [place] [facility]. Review of Systems Review of Systems: All systems reviewed & are unremarkable except as noted in HPI & below Constitutional: + fatigue, + weakness and + anorexia; no fever and no chills Respiratory: no cough, no dyspnea, no dyspnea on exertion and no wheezing Cardiovascular: no chest pain, no palpitations and no edema Gastrointestinal: + constipation; no abdominal pain and no nausea Genitourinary: no difficulty urinating Musculoskeletal: + neck pain; no back pain and no joint pain Integumentary: no non-healing lesions Physical Exam Physical Exam: General: Chronically ill appearing female HEENT: NC/AT; PERRLA with EOMI; [place] conjunctiva, MMM. No erythema of posterior pharynx Neck: Supple and nontender Cardiac: Systolic murmur noted Lungs: CTA bilaterally Abdomen: Abd is moderately distended; Bowel normoactive X 4; Nontender to palpation Extremities: Warm. No edema present Neuro: No focal weakness Skin: No rash Results & Data Vital Signs (Past 12 Hours) Vital Signs Temp Pulse Resp BP Pulse Ox 05/27/19 07:16 36.9 C 79 18 145/77 H 92 05/27/19 04:25 36.6 C 73 20 113/70 99 Laboratory Results 05/27/19 05/27/19 05/26/19 Range/Units 06:09 06:09 17:24 WBC 10.19 (4.8-10.8) K/uL RBC 3.10 L (4.2-5.4) M/uL Hgb 10.2 L (12.0-16.0) g/dL Hct 31.1 L (37-47) % MCV 100.3 H (80-100) fL MCH 32.9 (25-34) pg MCHC 32.8 (32-36) g/dL RDW Std Deviation 61.3 H (36.4-46.3) fL RDW Coeff of Stephanie 16.7 H (11.5-14.5) % Plt Count 195 (130-400) K/uL MPV 9.7 (7.4-10.4) fL Immature Gran % (Auto) 0.4 % Neut % (Auto) 69.2 % Lymph % (Auto) 12.9 % [place] % (Auto) 17.1 % Eos % (Auto) 0.3 % Baso % (Auto) 0.1 % Immature Gran # (Auto) 0.04 H (0.00-0.02) K/uL Neut # (Auto) 7.06 H (1.4-6.5) K/uL Lymph # (Auto) 1.31 (1.2-3.4) K/uL [place] # (Auto) 1.74 H (0.11-0.59) K/uL Eos # (Auto) 0.03 (0-0.5) K/uL Baso # (Auto) 0.01 (0-0.2) K/uL Sodium 133 L (136-145) mmol/L Potassium 3.3 L D (3.5-5.1) mmol/L Chloride 100 (98-107) mmol/L Carbon Dioxide 26 (21-32) mmol/L Anion Gap 7.0 (3-11) BUN 7 (7-18) mg/dl Creatinine 0.49 L (0.6-1.2) mg/dl Est Cr Clr Drug Dosing 77.8 ml/min Est GFR ( Amer) 103.0 Est GFR (Non-Af Amer) 88.8 BUN/Creatinine Ratio 14.6 (10-20) Glucose 108 H (70-99) mg/dl Calcium 7.5 L (8.5-10.1) mg/dl Magnesium (1.8-2.4) mg/dl Total Bilirubin 1.0 (0.2-1) mg/dl AST 102 H (15-37) U/L ALT 41 (12-78) U/L Alkaline Phosphatase 159 H (45-117) U/L NT-Pro-B Natriuret Pep (0-1800) pg/ml Total Protein 5.7 L (6.4-8.2) gm/dl Albumin 2.3 L (3.4-5.0) gm/dl Globulin 3.4 (2.5-4.0) gm/dl Albumin/Globulin Ratio 0.7 L (0.9-2) Lipase (73-393) U/L Urine Color Dark Yellow Urine Appearance Clear (Clear) Urine pH 5.0 (4.5-7.5) Ur Specific [place] 1.023 (1.000-1.030) Urine Protein 1+ H (Negative) Urine Glucose (UA) Negative (Negative) Urine Ketones Trace H (Negative) Urine Blood Negative (Negative) Urine Nitrite Positive A (Negative) Urine Bilirubin Negative (Negative) Urine Urobilinogen Negative (Negative) Ur Leukocyte Esterase Trace H (Negative) Urine WBC (Auto) 10-30 H (0-5) /hpf Urine RBC (Auto) 0-4 (0-4) /hpf U Hyaline Cast (Auto) 5-10 H (0-5) /lpf U Epithel Cells (Auto) 0-5 (0-5) /lpf Urine Bacteria (Auto) Negative (Negative) Urine Yeast Budding A (None Prsent) 05/26/19 Range/Units 13:30 WBC (4.8-10.8) K/uL RBC (4.2-5.4) M/uL Hgb (12.0-16.0) g/dL Hct (37-47) % MCV (80-100) fL MCH (25-34) pg MCHC (32-36) g/dL RDW Std Deviation (36.4-46.3) fL RDW Coeff of Stephanie (11.5-14.5) % Plt Count (130-400) K/uL MPV (7.4-10.4) fL Immature Gran % (Auto) % Neut % (Auto) % Lymph % (Auto) % [place] % (Auto) % Eos % (Auto) % Baso % (Auto) % Immature Gran # (Auto) (0.00-0.02) K/uL Neut # (Auto) (1.4-6.5) K/uL Lymph # (Auto) (1.2-3.4) K/uL [place] # (Auto) (0.11-0.59) K/uL Eos # (Auto) (0-0.5) K/uL Baso # (Auto) (0-0.2) K/uL Sodium (136-145) mmol/L Potassium (3.5-5.1) mmol/L Chloride (98-107) mmol/L Carbon Dioxide (21-32) mmol/L Anion Gap (3-11) BUN (7-18) mg/dl Creatinine (0.6-1.2) mg/dl Est Cr Clr Drug Dosing ml/min Est GFR ( Amer) Est GFR (Non-Af Amer) BUN/Creatinine Ratio (10-20) Glucose (70-99) mg/dl Calcium (8.5-10.1) mg/dl Magnesium 2.0 (1.8-2.4) mg/dl Total Bilirubin (0.2-1) mg/dl AST (15-37) U/L ALT (12-78) U/L Alkaline Phosphatase (45-117) U/L NT-Pro-B Natriuret Pep 1028 (0-1800) pg/ml Total Protein (6.4-8.2) gm/dl Albumin (3.4-5.0) gm/dl Globulin (2.5-4.0) gm/dl Albumin/Globulin Ratio (0.9-2) Lipase 72 L (73-393) U/L Urine Color Urine Appearance (Clear) Urine pH (4.5-7.5) Ur Specific [place] (1.000-1.030) Urine Protein (Negative) Urine Glucose (UA) (Negative) Urine Ketones (Negative) Urine Blood (Negative) Urine Nitrite (Negative) Urine Bilirubin (Negative) Urine Urobilinogen (Negative) Ur Leukocyte Esterase (Negative) Urine WBC (Auto) (0-5) /hpf Urine RBC (Auto) (0-4) /hpf U Hyaline Cast (Auto) (0-5) /lpf U Epithel Cells (Auto) (0-5) /lpf Urine Bacteria (Auto) (Negative) Urine Yeast (None Prsent) PG Care Time/CCT Total # of Minutes Spent Total Time Spent with Patient: Total time spent is greater than 50% in coordination of care (as documented) at patient's floor/unit and/or counseling patient: (1) UTI (urinary tract infection) Hematuria presence: without hematuria Urinary tract infection type: site unspecified Qualified Code(s): N39.0 - Urinary tract infection, site not specified (2) Glaucoma Glaucoma type: unspecified Laterality: unspecified laterality Qualified Code(s): H40.9 - Unspecified glaucoma
[2019-05-27] MEDS: PREGABALIN 50 MG CAP PO SCH (20:19)
[2019-05-27] MEDS: AMITRIPTYLINE HCL 25 MG TAB PO SCH (20:19)
[2019-05-27] MEDS: TRAVOPROST Z 0.004% OPH SOLN 2.5 ML BTL OP SCH (20:20)
[2019-05-27] MEDS ORDERED: TRAZODONE HCL 50 MG TAB PO SCH (21:00)
--- NOTE | 2019-05-27 23:06 | Emergency Department Note ---
Entered by Irma Lay acting as a scribe for Jasmine Liu DO History of Present Illness General Chief complaint: Weakness Stated complaint: weakness Time Seen by Provider: 05/26/19 14:13 Source: patient Limitations: clinical acuity (clinical condition ) History of Present Illness Provider complaint: weakness Onset (ago): hour(s) 4 Location: left (body ) and right Pain Consistency: + other (episode ) Associated symptoms: + denies other symptoms (abnormal bowel movements ), + weakness and + other ("orange" urine); no fever/chills The patient is an 83 year old female with a PMHX of breast cancer, aortic stenosis, C. diff, and weakness, who presents to the ED with complaints of an episode of weakness that began 4 hours ago. The patient states that she woke up and did not feel like herself. She states that she felt healthy yesterday. The patient states that she is in no pain. The patient denies any recent change in her medications. She states that she ate a little bit of her breakfast this morning. The patient states that her thought her urine looked orange. The patient states that she has a port so if she gets her blood work done it is easier access. She denies bowel issues and a fever. The patient states that she is aware of her heart murmur. The patient states that she wears a sleeve on her arm for the swelling. She states that she has not noticed any new swelling in her legs. HPI and ROS are limited due to clinical condition. Home Medications Home Medications Medication Instructions Recorded Confirmed Type Travatachris Z 1 drp OPHTHALMIC (EYE) HS 08/05/18 05/26/19 History amitriptyline 25 mg PO HS 08/05/18 05/26/19 History multivitamin 1 tab PO DAILY 08/05/18 05/26/19 History potassium chloride 10 meq PO BID 08/05/18 05/26/19 History pregabalin 50 mg PO HS 08/05/18 05/26/19 History vancomycin 125 mg capsule 125 mg PO DAILY #30 cap 04/22/19 05/26/19 History Xgeva 120 mg SUBCUT Q28D 05/05/19 05/26/19 History doxorubicin, peg-liposomal [Doxil] 86 mg IV Q28D 05/05/19 05/26/19 History Desyrel 50 mg PO DAILY 05/26/19 05/26/19 History ondansetron HCl 1 mg PO Q6 05/26/19 05/26/19 History Allergies Allergy/AdvReac Type Severity Reaction Status Date / Time morphine AdvReac Intermediate nausea Verified 05/26/19 13:18 zolpidem AdvReac Mild Hallucinati Verified 05/26/19 13:18 ons Past Med/Surg History Medical History Bony metastasis Weakness Postherpetic neuralgia Breast cancer C. difficile diarrhea HAD TREATMENT AND CLEARED WITH DR SARAHI HANSEN (gastroesophageal reflux disease) HX OF HEARTBURN Lymphedema of left arm Aortic stenosis "Mild" aortic stenosis per ECHO report summary (AVELINO 0.48cm2, MG 7.2mmhg) Breast cancer, stage 4 Cardiac murmur HZV (herpes zoster virus) post herpetic neuralgia History of shingles hx Surgical History History of modified radical mastectomy of left breast 1975 History of total right hip arthroplasty Family History Father , from "old age" No problems noted. Mother , from "old age" No problems noted. 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 Other HPI and ROS are limited due to clinical condition. Physical Exam Vital Signs Vital Signs - 24 hr 05/26/19 13:26 05/26/19 13:30 05/26/19 13:38 Temperature 37.0 C Temperature Source Oral Sepsis Recent Fever Within 48 Hours No Sepsis New/Unexplained Change in Mental Status No Sepsis Action Taken by Nursing No Action Required Pulse Rate 97 H 96 H 98 H Pulse Rate [Apical] Pulse Rhythm Regular Pulse Strength Normal Respiratory Rate 36 H 36 H 20 Respiratory Effort / Characteristics Non-Labored Spontaneous Respiratory Depth Normal Respiratory Pattern Regular Blood Pressure 143/77 H Blood Pressure [Left Arm] Blood Pressure Mean 99 Blood Pressure Mean [Left Arm] Blood Pressure Position Sitting Pulse Oximetry 98 Oxygen Delivery Method Room Air 05/26/19 13:40 05/26/19 13:50 05/26/19 14:00 Temperature Temperature Source Sepsis Recent Fever Within 48 Hours Sepsis New/Unexplained Change in Mental Status Sepsis Action Taken by Nursing Pulse Rate 93 H 91 H 91 H Pulse Rate [Apical] Pulse Rhythm Pulse Strength Respiratory Rate 33 H 28 H 32 H Respiratory Effort / Characteristics Respiratory Depth Respiratory Pattern Blood Pressure Blood Pressure [Left Arm] Blood Pressure Mean Blood Pressure Mean [Left Arm] Blood Pressure Position Pulse Oximetry Oxygen Delivery Method 05/26/19 14:10 05/26/19 14:20 05/26/19 14:30 Temperature Temperature Source Sepsis Recent Fever Within 48 Hours Sepsis New/Unexplained Change in Mental Status Sepsis Action Taken by Nursing Pulse Rate 90 92 H 90 Pulse Rate [Apical] Pulse Rhythm Pulse Strength Respiratory Rate 28 H 25 H 36 H Respiratory Effort / Characteristics Respiratory Depth Respiratory Pattern Blood Pressure 142/73 H Blood Pressure [Left Arm] Blood Pressure Mean 96 Blood Pressure Mean [Left Arm] Blood Pressure Position Pulse Oximetry Oxygen Delivery Method 05/26/19 14:51 05/26/19 15:07 05/26/19 17:01 Temperature Temperature Source Sepsis Recent Fever Within 48 Hours Sepsis New/Unexplained Change in Mental Status Sepsis Action Taken by Nursing Pulse Rate 103 H Pulse Rate [Apical] 90 100 H Pulse Rhythm Pulse Strength Respiratory Rate 14 20 18 Respiratory Effort / Characteristics Respiratory Depth Respiratory Pattern Blood Pressure Blood Pressure [Left Arm] 136/70 114/89 Blood Pressure Mean Blood Pressure Mean [Left Arm] 92 97 Blood Pressure Position Pulse Oximetry 95 93 Oxygen Delivery Method Room Air Room Air 05/26/19 18:30 Temperature Temperature Source Sepsis Recent Fever Within 48 Hours Sepsis New/Unexplained Change in Mental Status Sepsis Action Taken by Nursing Pulse Rate Pulse Rate [Apical] Pulse Rhythm Pulse Strength Respiratory Rate 20 Respiratory Effort / Characteristics Respiratory Depth Respiratory Pattern Blood Pressure Blood Pressure [Left Arm] 142/72 H Blood Pressure Mean Blood Pressure Mean [Left Arm] 95 Blood Pressure Position Pulse Oximetry 94 Oxygen Delivery Method Room Air GENERAL: alert, well appearing, well nourished, no distress, non-toxic EYE EXAM: normal conjunctiva, PERRL and EOM's grossly intact OROPHARYNX: no exudate, no erythema, lips, buccal mucosa, and tongue normal and mucous membranes are moist NECK: supple, no nuchal rigidity, no adenopathy, non-tender LUNGS: Clear to auscultation. Normal chest wall mechanics, no w/r/r CHEST: Port noted right anterior superior chest wall, prior mastectomy noted- well healed scar HEART: no murmurs, S1 normal and S2 normal ABDOMEN: abdomen soft, non-tender, normo-active bowel sounds, no masses, no rebound or guarding. BACK: Back is symmetrical on inspection and there is no deformity, no midline tenderness, no CVA tenderness. SKIN: no rashes and no bruising UPPER EXTREMITIES: upper extremities are grossly normal. FROM, nml pulses b/l. LOWER EXTREMITIES: No pitting edema. FROM, nml pulses b/l. NEURO EXAM: Normal sensorium, cranial nerves II-XII grossly intact, normal speech, no gross weakness of arms, no gross weakness of legs. Course 1418: Past medical records reviewed. The patient was evaluated in room B5. A complete history and physical exam was performed. 1717: I reevaluated the patient at this time an she was resting comfortably. No new complaints or evolving symptoms. 1909: I reevaluated the patient at this time and she was resting comfortably. I discussed the test results and treatment plan with the patient. She verbally agreed and understood. 1954: I discussed the patient's case with Dr. Paz, [place] [facility]. He agreed to evaluate the patient for further management. Consultations Consultation #1: I discussed the patient's case with Dr. Paz, [facility]. He agreed to evaluate the patient for further management. Time: 19:55 Administered Medications Acetaminophen (Tylenol) 650 mg PO Q4H PRN PRN Reason: Pain or Fever Stop: 06/26/19 00:10 Last Admin: 05/27/19 22:36 Dose: 650 mg Documented by: [id number] Admin: 05/27/19 11:54 Dose: 650 mg Documented by: [id number] Amitriptyline HCl (Elavil) 25 mg PO HS FAVIOLA Stop: 06/26/19 20:59 Last Admin: 05/27/19 20:19 Dose: 25 mg Documented by: [id number] Piperacillin Sod/Tazobactam (Sod 3.375 gm/ Dextrose) 115 mls @ 28.75 mls/hr IV Q8H FAVIOLA; Protocol Stop: 06/06/19 00:00 Last Infusion: 05/27/19 19:40 Dose: 0 mls/hr Documented by: [id number] Admin: 05/27/19 15:31 Dose: 28.8 mls/hr Documented by: [id number] Infusion: 05/27/19 11:50 Dose: 0 mls/hr Documented by: [id number] Admin: 05/27/19 07:48 Dose: 28.8 mls/hr Documented by: [id number] Infusion: 05/27/19 03:50 Dose: 0 mls/hr Documented by: [id number] Admin: 05/26/19 23:50 Dose: 28.8 mls/hr Documented by: [id number] Sodium Chloride (Nss 1000ml) 1,000 mls @ 80 mls/hr IV .[id number] [facility] Stop: 06/25/19 22:26 Last Admin: 05/27/19 11:52 Dose: 80 mls/hr Documented by: [id number] Infusion: 05/27/19 11:52 Dose: 80 mls/hr Documented by: [id number] Admin: 05/26/19 23:50 Dose: 80 mls/hr Documented by: [id number] Lidocaine (Lidoderm 5%) 1 patch TD QAM [facility] Stop: 06/26/19 13:29 Last Admin: 05/27/19 14:21 Dose: 1 patch Documented by: [id number] Miscellaneous (Remove Lidoderm Patch) 1 ea N/A DAILY@2100 [facility] Stop: 06/26/19 20:59 Last Admin: 05/27/19 20:20 Dose: 1 ea Documented by: [id number] Multivitamins (Multivitamin Tab) 1 tab PO DAILY [facility] Stop: 06/26/19 08:59 Last Admin: 05/27/19 07:50 Dose: 1 tab Documented by: [id number] Polyethylene Glycol (Miralax Powder Packet) 17 gm PO DAILY PRN PRN Reason: Constipation Stop: 06/26/19 12:58 Last Admin: 05/27/19 14:21 Dose: 17 gm Documented by: [id number] Potassium Chloride (Klor-Con M10) 10 meq PO BID FAVIOLA Stop: 06/26/19 08:59 Last Admin: 05/27/19 20:19 Dose: 10 meq Documented by: [id number] Admin: 05/27/19 07:50 Dose: 10 meq Documented by: [id number] Pregabalin (Lyrica) 50 mg PO HS FAVIOLA Stop: 06/26/19 20:59 Last Admin: 05/27/19 20:19 Dose: 50 mg Documented by: [id number] Raspberry (Raspberry) 5 ml PO DAILY FAVIOLA Stop: 06/10/19 08:59 Last Admin: 05/27/19 07:49 Dose: 5 ml Documented by: [id number] Senna/Docusate Sodium (Senokot S) 1 tab PO BID FAVIOLA Stop: 06/26/19 12:59 Last Admin: 05/27/19 20:20 Dose: 1 tab Documented by: [id number] Admin: 05/27/19 14:22 Dose: 1 tab Documented by: [id number] Vancomycin HCl (Vancomycin Hcl) 125 mg PO DAILY FAVIOLA Stop: 06/26/19 08:59 Last Admin: 05/27/19 07:49 Dose: 125 mg Documented by: [id number] Discontinued Medications Acetaminophen (Tylenol) Confirm Administered Dose 650 mg .ROUTE .STK-MED ONE Stop: 05/27/19 00:27 Last Admin: 05/27/19 00:40 Dose: 650 mg Documented by: [id number] Albuterol (Ventolin Hfa) 2 puffs INH NOW ONE Stop: 05/26/19 19:11 Last Admin: 05/26/19 19:19 Dose: Not Given Documented by: [id number] Enoxaparin Sodium (Lovenox) 40 mg SQ Q24H FAVIOLA Stop: 06/25/19 22:59 Last Admin: 05/27/19 05:50 Dose: 40 mg Documented by: [id number] Fluconazole (Diflucan) 150 mg PO NOW ONE Stop: 05/26/19 22:28 Last Admin: 05/26/19 23:49 Dose: 150 mg Documented by: [id number] Gabapentin (Neurontin) 300 mg PO TID FAVIOLA Stop: 06/26/19 08:59 Last Admin: 05/27/19 14:22 Dose: 300 mg Documented by: [id number] Admin: 05/27/19 07:49 Dose: 300 mg Documented by: [id number] Sodium Chloride (Nss 1000ml) 1,000 mls @ 125 mls/hr IV .Q8H FAVIOLA Stop: 06/25/19 14:29 Last Infusion: 05/26/19 23:38 Dose: 0 mls/hr Documented by: [id number] Admin: 05/26/19 15:38 Dose: 125 mls/hr Documented by: [id number] Piperacillin Sod/Tazobactam Sod (Zosyn) 4.5 gm in 120 mls @ 240 mls/hr IV NOW ONE Stop: 05/26/19 19:52 Last Infusion: 05/26/19 20:02 Dose: 0 mls/hr Documented by: [id number] Admin: 05/26/19 19:32 Dose: 240 mls/hr Documented by: [id number] Ioversol (Optiray 320 100ml) 95 ml IV ONCE PRN PRN Reason: Interaction Checking Stop: 05/30/19 16:41 Last Admin: 05/26/19 16:42 Dose: 95 ml Documented by: [id number] Potassium Chloride (Klor-Con M20) 40 meq PO NOW STA Stop: 05/27/19 08:36 Last Admin: 05/27/19 09:00 Dose: 40 meq Documented by: [id number] Medical Decision Making Differential Diagnosis Differential Diagnosis includes but is not limited to dehydration, stroke, anemia, hypoglycemia, hyponatremia, hypernatremia, urinary tract infection, pneumonia, bronchitis, sepsis, gastroenteritis, additional abdominal pathology, metabolic abnormalities and infections. Medical Records Attestation: I reviewed the patient's medical records. Home Medications Current Medication List: was personally reviewed by me Laboratory Data Attestation: I reviewed the patient's lab results. Result diagrams: 05/27/19 06:09 05/27/19 06:09 Lab Results 05/26/19 05/26/19 05/26/19 Range/Units 13:30 13:30 13:30 WBC 11.51 H (4.8-10.8) K/uL RBC 3.55 L (4.2-5.4) M/uL Hgb 11.8 L (12.0-16.0) g/dL Hct 35.9 L (37-47) % MCV 101.1 H (80-100) fL MCH 33.2 (25-34) pg MCHC 32.9 (32-36) g/dL RDW Std Deviation 63.1 H (36.4-46.3) fL RDW Coeff of Stephanie 16.9 H (11.5-14.5) % Plt Count 250 (130-400) K/uL MPV 10.1 (7.4-10.4) fL Immature Gran % (Auto) 0.3 % Neut % (Auto) 74.5 % Lymph % (Auto) 7.3 % Estill % (Auto) 17.7 % Eos % (Auto) 0.0 % Baso % (Auto) 0.2 % Immature Gran # (Auto) 0.04 H (0.00-0.02) K/uL Neut # (Auto) 8.57 H (1.4-6.5) K/uL Lymph # (Auto) 0.84 L (1.2-3.4) K/uL [place] # (Auto) 2.04 H (0.11-0.59) K/uL Eos # (Auto) 0.00 (0-0.5) K/uL Baso # (Auto) 0.02 (0-0.2) K/uL Sodium 132 L (136-145) mmol/L Potassium 3.9 (3.5-5.1) mmol/L Chloride 97 L (98-107) mmol/L Carbon Dioxide 27 (21-32) mmol/L Anion Gap 8.0 (3-11) BUN 9 (7-18) mg/dl Creatinine 0.64 (0.6-1.2) mg/dl Est Cr Clr Drug Dosing Not Reportable Est GFR ( Amer) 94.3 Est GFR (Non-Af Amer) 81.4 BUN/Creatinine Ratio 14.4 (10-20) Glucose 119 H (70-99) mg/dl Calcium 8.1 L (8.5-10.1) mg/dl Magnesium 2.0 (1.8-2.4) mg/dl Total Bilirubin 0.9 (0.2-1) mg/dl AST 140 H (15-37) U/L ALT 53 (12-78) U/L Alkaline Phosphatase 199 H (45-117) U/L Troponin I < 0.015 (0-0.045) ng/ml NT-Pro-B Natriuret Pep 1028 (0-1800) pg/ml Total Protein 6.8 (6.4-8.2) gm/dl Albumin 2.9 L (3.4-5.0) gm/dl Globulin 3.9 (2.5-4.0) gm/dl Albumin/Globulin Ratio 0.7 L (0.9-2) Lipase 72 L (73-393) U/L TSH 0.722 Cancelled (0.300-4.500) uIu/ml Urine Color Urine Appearance (Clear) Urine pH (4.5-7.5) Ur Specific [place] (1.000-1.030) Urine Protein (Negative) Urine Glucose (UA) (Negative) Urine Ketones (Negative) Urine Blood (Negative) Urine Nitrite (Negative) Urine Bilirubin (Negative) Urine Urobilinogen (Negative) Ur Leukocyte Esterase (Negative) Urine WBC (Auto) (0-5) /hpf Urine RBC (Auto) (0-4) /hpf U Hyaline Cast (Auto) (0-5) /lpf U Epithel Cells (Auto) (0-5) /lpf Urine Bacteria (Auto) (Negative) Urine Yeast (None Prsent) 05/26/19 Range/Units 17:24 WBC (4.8-10.8) K/uL RBC (4.2-5.4) M/uL Hgb (12.0-16.0) g/dL Hct (37-47) % MCV (80-100) fL MCH (25-34) pg MCHC (32-36) g/dL RDW Std Deviation (36.4-46.3) fL RDW Coeff of Stephanie (11.5-14.5) % Plt Count (130-400) K/uL MPV (7.4-10.4) fL Immature Gran % (Auto) % Neut % (Auto) % Lymph % (Auto) % [place] % (Auto) % Eos % (Auto) % Baso % (Auto) % Immature Gran # (Auto) (0.00-0.02) K/uL Neut # (Auto) (1.4-6.5) K/uL Lymph # (Auto) (1.2-3.4) K/uL [place] # (Auto) (0.11-0.59) K/uL Eos # (Auto) (0-0.5) K/uL Baso # (Auto) (0-0.2) K/uL Sodium (136-145) mmol/L Potassium (3.5-5.1) mmol/L Chloride (98-107) mmol/L Carbon Dioxide (21-32) mmol/L Anion Gap (3-11) BUN (7-18) mg/dl Creatinine (0.6-1.2) mg/dl Est Cr Clr Drug Dosing Est GFR ( Amer) Est GFR (Non-Af Amer) BUN/Creatinine Ratio (10-20) Glucose (70-99) mg/dl Calcium (8.5-10.1) mg/dl Magnesium (1.8-2.4) mg/dl Total Bilirubin (0.2-1) mg/dl AST (15-37) U/L ALT (12-78) U/L Alkaline Phosphatase (45-117) U/L Troponin I (0-0.045) ng/ml NT-Pro-B Natriuret Pep (0-1800) pg/ml Total Protein (6.4-8.2) gm/dl Albumin (3.4-5.0) gm/dl Globulin (2.5-4.0) gm/dl Albumin/Globulin Ratio (0.9-2) Lipase (73-393) U/L TSH (0.300-4.500) uIu/ml Urine Color Dark Yellow Urine Appearance Clear (Clear) Urine pH 5.0 (4.5-7.5) Ur Specific [place] 1.023 (1.000-1.030) Urine Protein 1+ H (Negative) Urine Glucose (UA) Negative (Negative) Urine Ketones Trace H (Negative) Urine Blood Negative (Negative) Urine Nitrite Positive A (Negative) Urine Bilirubin Negative (Negative) Urine Urobilinogen Negative (Negative) Ur Leukocyte Esterase Trace H (Negative) Urine WBC (Auto) 10-30 H (0-5) /hpf Urine RBC (Auto) 0-4 (0-4) /hpf U Hyaline Cast (Auto) 5-10 H (0-5) /lpf U Epithel Cells (Auto) 0-5 (0-5) /lpf Urine Bacteria (Auto) Negative (Negative) Urine Yeast Budding A (None Prsent) Imaging Data Radiologist's Impression: Radiology results as stated below per my review and the radiologist's interpretation: XR chest 1V portable CLINICAL HISTORY: weakness dyspnea COMPARISON STUDY: 05/26/2019 at 2:17 PM FINDINGS: Central catheter remains in superior vena cava. Pulmonary nodularity previously described is stable. Mild chronic elevation right hemidiaphragm. Mild peribronchial prominence considered unchanged from the prior study. IMPRESSION: 1. Stable exam with no change from the prior study. 2. Stable bilateral pulmonary nodules The above report was generated using voice recognition software. It may contain grammatical, syntax or spelling errors. Electronically signed by: Gurinder Ayala M.D. 05/26/2019 3:[address] SCAN OF THE BRAIN WITHOUT IV CONTRAST CLINICAL HISTORY: Generalized weakness. COMPARISON STUDY: CT and MRI of the brain dated 05/05/2019. TECHNIQUE: Unenhanced axial CT scan of the brain is performed from the vertex to the skull base. A dose lowering technique was utilized adhering to the principles of ALARA. CT DOSE: 460.70 mGy.cm FINDINGS: Brain parenchyma: There are age-related involutional changes noting moderate to advanced confluent subcortical and periventricular microangiopathic change. A low-attenuation lesion in the right aditya is unchanged from previous. There may be trace associated hemorrhage, and this measures up to 12 mm. Additional smaller lesions seen by MRI are not apparent by CT. There is no parenchymal hematoma, mass effect, or evidence of acute territorial ischemia by CT criteria. Mitchell-white matter differentiation is preserved. No extra-axial fluid collection is seen. Ventricles, sulci, cisterns: Prominent secondary to involutional change. Intracranial vasculature: There is atherosclerotic calcification of the cavernous carotid and vertebral arteries. Calvarium: Unremarkable. Sinuses and mastoids: The visualized paranasal sinuses are clear. The mastoid air cells are well pneumatized. Orbits: The bony orbits are grossly intact. There are bilateral ocular lens implants. IMPRESSION: 1. There is no parenchymal hematoma, mass effect, or evidence of acute territorial ischemia by CT criteria. 2. A 12 mm lesion in the right aditya is unchanged from previous. This likely represents a metastatic focus with trace associated hemorrhage. This was better characterized on the recent MRI. 3. Additional smaller lesions seen by MRI cannot be seen by CT. Electronically signed by: Dmitri Cam M.D. 05/26/2019 2:[address] abd pelvis IV con only CLINICAL HISTORY: Carcinoma. Elevated LFTs. Weakness. COMPARISON STUDY: March 11, 2019 TECHNIQUE: The patient was scanned in a dynamic helical fashion during intravenous administration of 95 cc of Optiray 320. A dose lowering technique was utilized adhering to the principles of ALARA. CT DOSE: 875.71 mGycm FINDINGS: Lower chest: There is an enlarging 27 mm pleural-based opacity within the right middle lobe. There is a persistent 17 mm pleural-based opacity within the lingula. There is a new 3 mm right lower lobe pulmonary nodule. There is a trace right pleural effusion. Liver: There is interval increase in the size of the multiple large hepatic metastasis. The right lobe lesion now measures 77 mm compared with 55 in the prior study. A second lesion which previously measured located within the left lobe currently measures 64 mm compared with 44 mm in the prior study. Several new lesions are also evident Gallbladder: Cholelithiasis Spleen: Normal in size and attenuation. Pancreas: Unremarkable. Adrenal glands: Unremarkable. Kidneys: There is a subcentimeter right renal cyst. No solid renal masses are visualized. There is no hydronephrosis. Bowel: There are no transition zones indicate bowel obstruction. There is no evidence of acute diverticulitis. There are no findings to indicate acute appendicitis. Peritoneum: There is no intraperitoneal free air or abdominal ascites. Vasculature: The abdominal aorta is normal in course and caliber. Adenopathy: None. Pelvic viscera: There is persistent endometrial irregularity. Skeletal structures: Multiple blastic skeletal metastasis are visualized. IMPRESSION: 1. Marked interval progression in the extensive hepatic metastasis with an approximate doubling of tumor volume over the past 2 1/2 months 2. Persistent blastic skeletal metastasis 3. Possible pulmonary metastasis 4. No evidence of bowel obstruction. No evidence of free air 5. Cholelithiasis 6. Persistent endometrial irregularity. Electronically signed by: Lang Brantley M.D. 05/26/2019 4:54 PM ECG Data Attestation: I personally reviewed and interpreted this ECG as follows: Indication: weakness Rate (beats per minute): 98 Rhythm: sinus rhythm Findings: + other (normal intervals, LVH by voltage criteria ) and + Q waves (V1-V4); no ST depression, no ST elevation and no acute ischemic change Blood Pressure Blood Pressure Findings: Normal blood pressure Blood Pressure Disposition: did not require urgent referral MDM Narrative This is an ill-appearing complicated 83-year-old who presents with worsening weakness and fatigue. Patient here found to have urinary tract infection as well as worsening metastatic disease. Patient does have a known history of metastatic breast cancer and has been undergoing chemotherapy until 3 weeks ago and was set to next discuss radiation with oncology done at [place]. No evidence of neutropenic fever, this time I do not suspect bacteremia/sepsis. Patient was started on IV antibiotics for the UTI, and started on gentle rehydration. Likely elevated LFTs secondary to worsening hepatic metastases. Patient and family were made aware of all results. Given patient's increased weakness and fatigue, and ability to ambulate at home, case was discussed with hospitalist for additional evaluation and management. Patient's H&H stable compared to prior. Renal function stable. Patient hemodynamic with stable in the emergency room. Impression & Plan Generalized weakness, UTI (urinary tract infection), Metastatic cancer Discharge Plan Visit Data *Final* Discharge Date/Time: 05/26/19 21:31 Chief Complaint: Weakness Stated Complaint: weakness ED Provider: Jasmine Liu Discharge Problem: Generalized weakness, UTI (urinary tract infection), Metastatic cancer Patient Disposition: Admitted As Inpatient Discharge Instructions Interventions: ED Discharge Assessment Last Done: 05/26/19 21:31 Discharge Problem: UTI (urinary tract infection) Qualifiers: Urinary tract infection type: site unspecified Hematuria presence: without hematuria Qualified Code(s): N39.0 - Urinary tract infection, site not specified The scribe's documentation has been prepared under my direction and personally reviewed by me in its entirety. I confirm that the note above accurately reflects all work, treatment, procedures, and medical decision making performed by me.
[2019-05-28 05:35] LABS: Basophils # (auto) 0.01 K/uL (0-0.2); Basophils % (auto) 0.1 %; Eosinophils # (auto) 0.08 K/uL (0-0.5); Hematocrit (blood only) 30.5 % (37-47); Hemoglobin 10.2 g/dL (12.0-16.0); Immature Granulocytes # (auto) 0.04 K/uL (0.00-0.02); Immature Granulocytes % (auto) 0.5 %; Lymphocytes # (auto) 1.03 K/uL (1.2-3.4); Lymphocytes % (auto) 13.4 %; Mean Corpuscular Hemoglobin 33.4 pg (25-34); Mean Corpuscular Hgb Conc 33.4 g/dL (32-36); Mean Platelet Volume 9.3 fL (7.4-10.4); Monocytes # (auto) 1.24 K/uL (0.11-0.59); Monocytes % (auto) 16.1 %; Neutrophils # (auto) 5.31 K/uL (1.4-6.5); Neutrophils % (auto) 68.9 %; Platelet Count 195 K/uL (130-400); RDW Coefficient of Variation 16.7 % (11.5-14.5); RDW Standard Deviation 61.5 fL (36.4-46.3); Red Blood Count 3.05 M/uL (4.2-5.4); White Blood Count 7.71 K/uL (4.8-10.8)
[2019-05-28 06:03] LABS: Albumin Globulin Ratio 0.7 (0.9-2); Albumin Level 2.3 gm/dl (3.4-5.0); BUN Creatinine Ratio 14.3 (10-20); Calcium 7.3 mg/dl (8.5-10.1); Creatinine Clr Calc Pharmacy 86.6 ml/min; Est GFR (African American) 106.7; Globulin 3.4 gm/dl (2.5-4.0); Potassium 3.5 mmol/L (3.5-5.1); Total Protein 5.7 gm/dl (6.4-8.2)
[2019-05-28 06:07] LABS: Bilirubin,Total 0.7 mg/dl (0.2-1)
[2019-05-28] MEDS: PIPERACILLIN/TAZOBACTAM 3.375 GM in DEXTROSE 5% 100 ML IV SCH (08:39)
[2019-05-28] MEDS: VANCOMYCIN HCL 125 MG/2.5ML SOLN PO SCH (08:39)
[2019-05-28] MEDS: DOCUSATE SODIUM/SENNA 50/8.6MG TAB PO SCH ×2 (08:39→20:03)
[2019-05-28] MEDS: MULTIVITAMIN TAB PO SCH (08:40)
[2019-05-28] MEDS: RASPBERRY SYRUP 5 ML UDP PO SCH (08:40)
[2019-05-28] MEDS: POTASSIUM CHLORIDE 10 MEQ TABCR PO SCH ×2 (08:40→20:04)
[2019-05-28] MEDS: LIDOCAINE 5% 1 PATCH TD SCH ×2 (08:44→20:39)
[2019-05-28] MEDS: SODIUM CHLORIDE 0.9% 1000ML 1,000 ML IV SCH (11:56)
--- NOTE | 2019-05-28 14:00 | Hospitalist Progress Note ---
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 - Has liver, bone, pulmonary and brain metastasis noted on recent imaging. CT of A/P on day of admission showed interval progression of liver iveth (doubled in 2.5 months) - Most recent chemo (Doxil q28d) administered in April 2019; has not been able to tolerate further chemo due to weakness/decline. - Recently [place] [facility] [place]surgery (Dr. Gunter) and rad/onc (Dr. Washington). - Family does not wish to be evaluated by oncologist here and would like to follow up with [facility] as scheduled prior to considering transitioning to hospice -- appt is scheduled on 06/05 with neurosurgery at [facility]. - Continue Lyrica 50 mg qhs; Lidocaine patch for neck pain (uses Biofreeze at home) (2) Generalized weakness: - Related to progression of disease; pt. was admitted to [facility] prior but her does not want her to return to this SNF. - Case management is following. (3) UTI (urinary tract infection): Possible urinary tract infection - U/a positive; UC +yeast. Did receive Diflucan 150 mg x 1 dose on admission. - Received Zosyn x 48 hours, will d/c as urine culture negative for bacteria but will continue to follow (prelim results) (4) Constipation: - Senna S BID with Miralax daily. (5) C. 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 (6) Depression: - Continue Amitriptyline 25mg HS as prescribed. (7) Glaucoma: - Continue home Travatan drops. (8) Anemia: - Hgb is at baseline -- likely chemotherapy induced. - Trend CBC daily. (9) Electrolyte abnormality: - Replace as needed. - Continue KCl 10 mEq BID. (10) DVT prophylaxis: - SCDs; holding pharmacologic ppx due to brain metastasis, ?hemorrhage. Dispo: Med/surg; discharge to SNF pending placement. Will need to f/u with [facility] to discuss plan of care, ?hospice. Supervising Physician Co-Signing Physician Notes PA Supervision Note: I did not personally see or examine the patient today, but I verified all tellez points of RAHEEM Henriquez's assessment and plan with the following exceptions/additions: None Subjective Pt. is stable overall -- she denies acute pain. Is eating/drinking as tolerated. Has not had a BM in >3 days, on bowel regimen. Review of Systems Review of Systems: All systems reviewed & are unremarkable except as noted in HPI & below Constitutional: + fatigue and + weakness; no fever and no chills Respiratory: no cough, no dyspnea, no dyspnea on exertion and no wheezing Cardiovascular: no chest pain, no palpitations and no edema Gastrointestinal: + constipation; no abdominal pain and no nausea Genitourinary: no difficulty urinating Musculoskeletal: no back pain and no joint pain Integumentary: no non-healing lesions Physical Exam Physical Exam: General: Chronically ill appearing female HEENT: NC/AT; PERRLA with EOMI; [place] conjunctiva, MMM. No erythema of posterior pharynx Neck: Supple and nontender Cardiac: Systolic murmur, 3/6. Lungs: CTA bilaterally Abdomen: Mod distention of abdomen; Bowel normoactive X 4; Nontender to palpation Extremities: Warm. No edema present Neuro: No focal weakness Skin: No rash Results & Data Vital Signs (Past 12 Hours) Vital Signs Temp Pulse Resp BP Pulse Ox 05/28/19 12:39 36.8 C 94 H 20 168/84 H 96 05/28/19 07:25 36.6 C 80 17 167/81 H 95 05/28/19 03:05 36.7 C 82 18 127/60 92 Laboratory Results 05/28/19 05/28/19 Range/Units 05:17 05:17 WBC 7.71 (4.8-10.8) K/uL RBC 3.05 L (4.2-5.4) M/uL Hgb 10.2 L (12.0-16.0) g/dL Hct 30.5 L (37-47) % MCV 100.0 (80-100) fL MCH 33.4 (25-34) pg MCHC 33.4 (32-36) g/dL RDW Std Deviation 61.5 H (36.4-46.3) fL RDW Coeff of Stephanie 16.7 H (11.5-14.5) % Plt Count 195 (130-400) K/uL MPV 9.3 (7.4-10.4) fL Immature Gran % (Auto) 0.5 % Neut % (Auto) 68.9 % Lymph % (Auto) 13.4 % [place] % (Auto) 16.1 % Eos % (Auto) 1.0 % Baso % (Auto) 0.1 % Immature Gran # (Auto) 0.04 H (0.00-0.02) K/uL Neut # (Auto) 5.31 (1.4-6.5) K/uL Lymph # (Auto) 1.03 L (1.2-3.4) K/uL [place] # (Auto) 1.24 H (0.11-0.59) K/uL Eos # (Auto) 0.08 (0-0.5) K/uL Baso # (Auto) 0.01 (0-0.2) K/uL Sodium 134 L (136-145) mmol/L Potassium 3.5 (3.5-5.1) mmol/L Chloride 104 (98-107) mmol/L Carbon Dioxide 23 (21-32) mmol/L Anion Gap 7.0 (3-11) BUN 6 L (7-18) mg/dl Creatinine 0.44 L (0.6-1.2) mg/dl Est Cr Clr Drug Dosing 86.6 ml/min Est GFR ( Amer) 106.7 Est GFR (Non-Af Amer) 92.0 BUN/Creatinine Ratio 14.3 (10-20) Glucose 99 (70-99) mg/dl Calcium 7.3 L (8.5-10.1) mg/dl Total Bilirubin 0.7 (0.2-1) mg/dl AST 82 H (15-37) U/L ALT 37 (12-78) U/L Alkaline Phosphatase 152 H (45-117) U/L Total Protein 5.7 L (6.4-8.2) gm/dl Albumin 2.3 L (3.4-5.0) gm/dl Globulin 3.4 (2.5-4.0) gm/dl Albumin/Globulin Ratio 0.7 L (0.9-2) PG Care Time/CCT Total # of Minutes Spent Total Time Spent with Patient: Total time spent is greater than 50% in coordination of care (as documented) at patient's floor/unit and/or counseling patient: (1) UTI (urinary tract infection) Hematuria presence: without hematuria Urinary tract infection type: site unspecified Qualified Code(s): N39.0 - Urinary tract infection, site not specified (2) Glaucoma Glaucoma type: unspecified Laterality: unspecified laterality Qualified Code(s): H40.9 - Unspecified glaucoma
[2019-05-28] MEDS: POLYETHYLENE (MIRALAX) 17 GM PACK PO SCH (14:20)
[2019-05-28] MEDS: HEPARIN 100 UNIT/ML 5ML FLUSH FLUSH PRN (14:20)
[2019-05-28] MEDS ORDERED: Nursing to Pharmacy Communication ONE (19:58)
[2019-05-28] MEDS: AMITRIPTYLINE HCL 25 MG TAB PO SCH (20:04)
[2019-05-28] MEDS: TRAVOPROST Z 0.004% OPH SOLN 2.5 ML BTL OP SCH (20:04)
[2019-05-28] MEDS: PREGABALIN 50 MG CAP PO SCH (20:10)
[2019-05-28] MEDS: ACETAMINOPHEN 325 MG TAB PO PRN (23:36)
[2019-05-29] MEDS: HEPARIN 100 UNIT/ML 5ML FLUSH FLUSH PRN ×2 (05:39→12:24)
[2019-05-29 06:20] LABS: Basophils # (auto) 0.02 K/uL (0-0.2); Basophils % (auto) 0.2 %; Eosinophils % (auto) 2.3 %; Hematocrit (blood only) 31.7 % (37-47); Hemoglobin 10.5 g/dL (12.0-16.0); Immature Granulocytes # (auto) 0.05 K/uL (0.00-0.02); Immature Granulocytes % (auto) 0.6 %; Lymphocytes # (auto) 1.32 K/uL (1.2-3.4); Lymphocytes % (auto) 15.1 %; Mean Corpuscular Hemoglobin 33.2 pg (25-34); Mean Corpuscular Hgb Conc 33.1 g/dL (32-36); Mean Corpuscular Volume 100.3 fL (80-100); Mean Platelet Volume 9.5 fL (7.4-10.4); Monocytes # (auto) 1.57 K/uL (0.11-0.59); Neutrophils # (auto) 5.57 K/uL (1.4-6.5); Neutrophils % (auto) 63.8 %; Platelet Count 245 K/uL (130-400); RDW Coefficient of Variation 16.6 % (11.5-14.5); RDW Standard Deviation 61.3 fL (36.4-46.3); Red Blood Count 3.16 M/uL (4.2-5.4); White Blood Count 8.73 K/uL (4.8-10.8)
[2019-05-29 06:52] LABS: Albumin Level 2.4 gm/dl (3.4-5.0); BUN Creatinine Ratio 15.8 (10-20); Calcium 7.6 mg/dl (8.5-10.1); Creatinine Clr Calc Pharmacy 95.3 ml/min; Est GFR (African American) 109.2; Est GFR (Non-African American) 94.2; Potassium 3.6 mmol/L (3.5-5.1)
[2019-05-29 06:54] LABS: Albumin Globulin Ratio 0.7 (0.9-2); Bilirubin,Total 0.7 mg/dl (0.2-1); Globulin 3.5 gm/dl (2.5-4.0); Total Protein 5.9 gm/dl (6.4-8.2)
[2019-05-29] MEDS: POLYETHYLENE (MIRALAX) 17 GM PACK PO SCH (08:27)
[2019-05-29] MEDS: RASPBERRY SYRUP 5 ML UDP PO SCH (08:28)
[2019-05-29] MEDS: VANCOMYCIN HCL 125 MG/2.5ML SOLN PO SCH (08:28)
[2019-05-29] MEDS: DOCUSATE SODIUM/SENNA 50/8.6MG TAB PO SCH ×2 (08:28→20:01)
[2019-05-29] MEDS: MULTIVITAMIN TAB PO SCH (08:28)
[2019-05-29] MEDS: POTASSIUM CHLORIDE 10 MEQ TABCR PO SCH ×2 (08:28→20:00)
--- NOTE | 2019-05-29 10:41 | Infectious Disease Consult ---
Date of Consultation May 29, 2019 Assessment & Plan (1) UTI (urinary tract infection): unclear significance of yeast as she is asymptomatic, but >100,000 will treat with short course caspo x 3 days. History of Present Illness Attending Physician: Wendy Weston MD pt admitted with weakness, h/o ciff in 2018 - on daily vanco [employer] senior. remains on this. currently denies any abd pain, no n/v/d. She had fever 38.2 in ER. currenlty afebrile. UA done - >30 wbc, no bacteria but yeast noted, culture done >100,000 non albicans yeast. she denies any dysuria, hematuria, no pressure, no frequency or urgency. Ct abd and pelvis done in Er - progressive liver, bone and possible pulm mets, h/o breast cancer. she is currently afebrile. only on po vanco, wbc improved from 11 to 8. denies cp, sob, cough. states she feels tired, no improvment, no pain. Allergies Allergy/AdvReac Type Severity Reaction Status Date / Time morphine AdvReac Intermediate nausea Verified 05/26/19 13:18 zolpidem AdvReac Mild Hallucinati Verified 05/26/19 13:18 ons Home Medications Home Medications Medication Instructions Recorded Confirmed Type Travatan Z 1 drp OPHTHALMIC (EYE) HS 08/05/18 05/26/19 History amitriptyline 25 mg PO HS 08/05/18 05/26/19 History multivitamin 1 tab PO DAILY 08/05/18 05/26/19 History potassium chloride 10 meq PO BID 08/05/18 05/26/19 History pregabalin 50 mg PO HS 08/05/18 05/26/19 History vancomycin 125 mg capsule 125 mg PO DAILY #30 cap 04/22/19 05/26/19 History Xgeva 120 mg SUBCUT Q28D 05/05/19 05/26/19 History doxorubicin, peg-liposomal [Doxil] 86 mg IV Q28D 05/05/19 05/26/19 History Desyrel 50 mg PO DAILY 05/26/19 05/26/19 History ondansetron HCl 1 mg PO Q6 05/26/19 05/26/19 History Patient History Medical History Bony metastasis Weakness Postherpetic neuralgia Breast cancer C. difficile diarrhea HAD TREATMENT AND CLEARED WITH DR MCCLAIN GERD (gastroesophageal reflux disease) HX OF HEARTBURN Lymphedema of left arm Aortic stenosis "Mild" aortic stenosis per ECHO report summary (AVELINO 0.48cm2, MG 7.2mmhg) Breast cancer, stage 4 Cardiac murmur HZV (herpes zoster virus) post herpetic neuralgia History of shingles hx Surgical History History of modified radical mastectomy of left breast 1975 History of total right hip arthroplasty Family History Father , from "old age" No problems noted. Mother , from "old age" No problems noted. 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) Feels Safe at Home: Yes Safety Concerns: Feels Safe At This Time Smoking Status: Never smoker Do You Dip or Chew Tobacco: No ; Second Hand Exposure: No ; Hx Alcohol Use: No Hx Substance Use: No Review of Systems Review of Systems: All systems reviewed & are unremarkable except as noted in HPI & below Physical Exam Constitutional: WD/WN, vitals as above Eyes: PERRL, conjunctivae normal, anicteric sclerae ENMT: external ear and nose normal, oropharynx normal Neck: normal visual inspection Respiratory: normal respiratory effort, lungs clear to auscultation Cardiovascular: RRR, no murmur, no edema Gastrointestinal (Abdomen): normal bowel sounds, soft, nontender, no hepatosplenomegaly Musculoskeletal: no cyanosis or clubbing, extremities motor strength 5/5 Skin: no rashes, warm and dry Psychiatric: A+Ox3, euthymic affect Results & Data Vital Signs (Past 12 Hours) Vital Signs Temp Pulse Resp BP Pulse Ox 05/29/19 07:10 37.1 C 87 18 125/73 94 09/13/19 00:00 157/82 H Laboratory Results Microbiology 05/26/19 17:24 Urine,Straight Cath Urine Culture - Final Yeast not Marian albicans PG Care Time/CCT Total # of Minutes Spent Total Time Spent with Patient: Total time spent is greater than 50% in coordination of care (as documented) at patient's floor/unit and/or counseling patient: (1) UTI (urinary tract infection) Hematuria presence: without hematuria Urinary tract infection type: site unspecified Qualified Code(s): N39.0 - Urinary tract infection, site not specified
[2019-05-29] MEDS ORDERED: CASPOFUNGIN 70 MG in SODIUM CHLORIDE 0.9% 250 ML IV ONE (11:00)
--- NOTE | 2019-05-29 15:50 | Hospitalist Progress Note ---
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 - Has liver, bone, pulmonary and brain metastasis noted on recent imaging. CT of A/P on day of admission showed interval progression of liver iveth (doubled in 2.5 months) - Most recent chemo (Doxil q28d) administered in April 2019; has not been able to tolerate further chemo. - Recently evaluated at [facility] by neurosurgery (Dr. Gunter) and rad/onc (Dr. Washington). - Family does not wish to be evaluated by oncologist here and would like to follow up with [facility] as scheduled prior to considering transitioning to hospice -- appt is scheduled on 06/05 with neurosurgery at [facility]. - Continue Lyrica 50 mg qhs; Lidocaine patch for neck pain (uses Biofreeze at home) (2) Generalized weakness: - Related to progression of disease; pt. was admitted to [facility] prior, insurance auth pending for return to SNF. - Case management is following, will need to be discharged to home on Saturday following dose of Caspofungin if insurance auth is denied. (3) UTI (urinary tract infection): - U/a positive; UC +yeast, no Marian albicans. Will start Caspofungin x 3 days per ID recs. - Received Zosyn x 48 hours, d/c 'ed as urine culture was negative for bacteria. (4) Constipation: - Senna S BID with Miralax daily. - Had a small BM overnight. (5) C. 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 (6) Depression: - Continue Amitriptyline 25mg HS as prescribed. (7) Glaucoma: - Continue home Travatan drops. (8) Anemia: - Hgb is at baseline -- likely chemotherapy induced. - Trend CBC daily. (9) Electrolyte abnormality: - Replace as needed. - Continue KCl 10 mEq BID. (10) DVT prophylaxis: - SCDs; holding pharmacologic ppx due to brain metastasis, ?hemorrhage. Dispo: Med/surg; discharge to SNF pending insurance authorization. Supervising Physician Co-Signing Physician Notes PA Supervision Note: I did not personally see or examine the patient today, but I verified all tellez points of RAHEEM Henriquez's assessment and plan with the following exceptions/additions: None Subjective Pt. is doing well overall. Had a BM overnight. Plan for placement at [facility] pending insurance auth. Discharge to home on Saturday if insurance auth is denied. Review of Systems Review of Systems: All systems reviewed & are unremarkable except as noted in HPI & below Constitutional: + fatigue, + weakness and + anorexia; no fever and no chills Respiratory: no cough, no dyspnea, no dyspnea on exertion and no wheezing Cardiovascular: no chest pain, no palpitations and no edema Gastrointestinal: + constipation; no abdominal pain, no nausea and no vomiting Genitourinary: no difficulty urinating Musculoskeletal: no back pain and no joint pain Integumentary: no non-healing lesions Physical Exam Physical Exam: General: Chronically ill appearing female HEENT: NC/AT; PERRLA with EOMI; [place] conjunctiva, MMM. No erythema of posterior pharynx Neck: Supple and nontender Cardiac: Systolic murmur, +3/6. Lungs: CTA bilaterally Abdomen: Bowel normoactive X 4; Nontender to palpation Extremities: Warm. No edema present Neuro: No focal weakness Skin: No rash Results & Data Vital Signs (Past 12 Hours) Vital Signs Temp Pulse Resp BP Pulse Ox 05/29/19 15:08 37.3 C 84 17 134/83 94 05/29/19 12:02 36.8 C 83 17 122/73 96 05/29/19 07:10 37.1 C 87 18 125/73 94 Laboratory Results 05/29/19 05/29/19 Range/Units 05:34 05:34 WBC 8.73 (4.8-10.8) K/uL RBC 3.16 L (4.2-5.4) M/uL Hgb 10.5 L (12.0-16.0) g/dL Hct 31.7 L (37-47) % MCV 100.3 H (80-100) fL MCH 33.2 (25-34) pg MCHC 33.1 (32-36) g/dL RDW Std Deviation 61.3 H (36.4-46.3) fL RDW Coeff of Stephanie 16.6 H (11.5-14.5) % Plt Count 245 (130-400) K/uL MPV 9.5 (7.4-10.4) fL Immature Gran % (Auto) 0.6 % Neut % (Auto) 63.8 % Lymph % (Auto) 15.1 % [place] % (Auto) 18.0 % Eos % (Auto) 2.3 % Baso % (Auto) 0.2 % Immature Gran # (Auto) 0.05 H (0.00-0.02) K/uL Neut # (Auto) 5.57 (1.4-6.5) K/uL Lymph # (Auto) 1.32 (1.2-3.4) K/uL [place] # (Auto) 1.57 H (0.11-0.59) K/uL Eos # (Auto) 0.20 (0-0.5) K/uL Baso # (Auto) 0.02 (0-0.2) K/uL Sodium 134 L (136-145) mmol/L Potassium 3.6 (3.5-5.1) mmol/L Chloride 101 (98-107) mmol/L Carbon Dioxide 28 (21-32) mmol/L Anion Gap 5.0 (3-11) BUN 7 (7-18) mg/dl Creatinine 0.41 L (0.6-1.2) mg/dl Est Cr Clr Drug Dosing 95.3 ml/min Est GFR ( Amer) 109.2 Est GFR (Non-Af Amer) 94.2 BUN/Creatinine Ratio 15.8 (10-20) Glucose 107 H (70-99) mg/dl Calcium 7.6 L (8.5-10.1) mg/dl Total Bilirubin 0.7 (0.2-1) mg/dl AST 67 H (15-37) U/L ALT 34 (12-78) U/L Alkaline Phosphatase 162 H (45-117) U/L Total Protein 5.9 L (6.4-8.2) gm/dl Albumin 2.4 L (3.4-5.0) gm/dl Globulin 3.5 (2.5-4.0) gm/dl Albumin/Globulin Ratio 0.7 L (0.9-2) PG Care Time/CCT Total # of Minutes Spent Total Time Spent with Patient: Total time spent is greater than 50% in coordination of care (as documented) at patient's floor/unit and/or counseling patient: (1) UTI (urinary tract infection) Hematuria presence: without hematuria Urinary tract infection type: site unspecified Qualified Code(s): N39.0 - Urinary tract infection, site not specified (2) Glaucoma Glaucoma type: unspecified Laterality: unspecified laterality Qualified Code(s): H40.9 - Unspecified glaucoma
[2019-05-29] MEDS: ACETAMINOPHEN 325 MG TAB PO PRN (19:07)
[2019-05-29] MEDS: PREGABALIN 50 MG CAP PO SCH (20:00)
[2019-05-29] MEDS: TRAVOPROST Z 0.004% OPH SOLN 2.5 ML BTL OP SCH (20:01)
[2019-05-29] MEDS: LIDOCAINE 5% 1 PATCH TD SCH (20:01)
[2019-05-29] MEDS: AMITRIPTYLINE HCL 25 MG TAB PO SCH (20:02)
[2019-05-30] MEDS: HEPARIN 100 UNIT/ML 5ML FLUSH FLUSH PRN ×2 (05:31→12:28)
[2019-05-30 06:30] LABS: Basophils # (auto) 0.03 K/uL (0-0.2); Basophils % (auto) 0.5 %; Eosinophils # (auto) 0.22 K/uL (0-0.5); Eosinophils % (auto) 3.3 %; Hematocrit (blood only) 31.5 % (37-47); Hemoglobin 10.3 g/dL (12.0-16.0); Immature Granulocytes # (auto) 0.05 K/uL (0.00-0.02); Immature Granulocytes % (auto) 0.8 %; Lymphocytes # (auto) 0.89 K/uL (1.2-3.4); Lymphocytes % (auto) 13.4 %; Mean Corpuscular Hemoglobin 32.7 pg (25-34); Mean Corpuscular Hgb Conc 32.7 g/dL (32-36); Mean Platelet Volume 9.9 fL (7.4-10.4); Monocytes # (auto) 1.16 K/uL (0.11-0.59); Monocytes % (auto) 17.4 %; Neutrophils % (auto) 64.6 %; Platelet Count 239 K/uL (130-400); RDW Coefficient of Variation 16.5 % (11.5-14.5); RDW Standard Deviation 60.6 fL (36.4-46.3); Red Blood Count 3.15 M/uL (4.2-5.4); White Blood Count 6.65 K/uL (4.8-10.8)
[2019-05-30 07:02] LABS: Albumin Level 2.2 gm/dl (3.4-5.0); BUN Creatinine Ratio 15.7 (10-20); Calcium 7.8 mg/dl (8.5-10.1); Creatinine Clr Calc Pharmacy 105.6 ml/min; Est GFR (African American) 112.9; Est GFR (Non-African American) 97.4; Potassium 3.6 mmol/L (3.5-5.1)
[2019-05-30 07:04] LABS: Albumin Globulin Ratio 0.6 (0.9-2); Bilirubin,Total 0.7 mg/dl (0.2-1); Globulin 3.4 gm/dl (2.5-4.0); Total Protein 5.6 gm/dl (6.4-8.2)
[2019-05-30] MEDS: ACETAMINOPHEN 325 MG TAB PO PRN (07:55)
[2019-05-30] MEDS: MULTIVITAMIN TAB PO SCH (08:15)
[2019-05-30] MEDS: DOCUSATE SODIUM/SENNA 50/8.6MG TAB PO SCH ×2 (08:15→20:28)
[2019-05-30] MEDS: RASPBERRY SYRUP 5 ML UDP PO SCH (08:15)
[2019-05-30] MEDS: POLYETHYLENE (MIRALAX) 17 GM PACK PO SCH (08:15)
[2019-05-30] MEDS: POTASSIUM CHLORIDE 10 MEQ TABCR PO SCH ×2 (08:16→20:27)
[2019-05-30] MEDS: VANCOMYCIN HCL 125 MG/2.5ML SOLN PO SCH (08:24)
[2019-05-30] MEDS ORDERED: CASPOFUNGIN 50 MG in SODIUM CHLORIDE 0.9% 250 ML IV SCH (11:00)
--- NOTE | 2019-05-30 14:32 | Hospitalist Progress Note ---
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 - Has liver, bone, pulmonary and brain metastasis noted on recent imaging. CT of A/P on day of admission showed interval progression of liver iveth (doubled in 2.5 months) - Most recent chemo (Doxil q28d) administered in April 2019; has not been able to tolerate further chemo. - Recently evaluated at [facility] by neurosurgery (Dr. Gunter) and rad/onc (Dr. Washington). - Family does not wish to be evaluated here and would like to follow up with [facility] prior to considering transitioning to hospice -- will f/u on 06/05 with neurosurgery at [facility]. - Continue Lyrica 50 mg qhs; Lidocaine patch for neck pain (uses Biofreeze at home) (2) Generalized weakness: - Related to progression of disease; not approved for SNF placement, will be discharged to home with home health on 05/31. - Case management is following. (3) UTI (urinary tract infection): - U/a positive; UC +yeast, no Marian albicans. Continue Caspo x 3 days per ID recs (final dose on 05/31) - Received Zosyn x 48 hours, d/c 'ed as urine culture was negative for bacteria. (4) Constipation: - Senna S BID with Miralax daily. - Is having regular BMs with bowel regimen. (5) C. 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 (6) Depression: - Continue Amitriptyline 25mg HS as prescribed. (7) Glaucoma: - Continue home Travatan drops. (8) Anemia: - Hgb is at baseline -- likely chemotherapy induced. - Trend CBC as inpt. (9) Electrolyte abnormality: - Replace as needed. - Continue KCl 10 mEq BID. (10) DVT prophylaxis: - SCDs; holding pharmacologic ppx due to brain metastasis, ?hemorrhage. Dispo: Med/surg; discharge to home with home health on 05/31 following Caspo IV dose. Supervising Physician Co-Signing Physician Notes PA Supervision Note: I did not personally see or examine the patient today, but I verified all tellez points of PA DelGrosso's assessment and plan with the following exceptions/additions: None Subjective Pt. is doing well overall. She is sitting up in a chair, tolerating PO intake. Has had daily BMs since admission. Plan for discharge to home on 05/31 as pt. was denied SNF placement. Review of Systems Review of Systems: All systems reviewed & are unremarkable except as noted in HPI & below Constitutional: no fever, no chills, no fatigue and no weakness Respiratory: no cough, no dyspnea and no dyspnea on exertion Cardiovascular: no chest pain, no palpitations and no edema Gastrointestinal: no abdominal pain, no nausea and no constipation Genitourinary: no difficulty urinating Musculoskeletal: no back pain and no joint pain Integumentary: no non-healing lesions Physical Exam Physical Exam: General: Chronically ill appearing female HEENT: NC/AT; PERRLA with EOMI; [place] conjunctiva, MMM. No erythema of posterior pharynx Neck: Supple and nontender Cardiac: Systolic murmur Lungs: CTA bilaterally Abdomen: Bowel normoactive X 4; Nontender to palpation Extremities: Warm. No edema present Neuro: No focal weakness Skin: No rash Results & Data Vital Signs (Past 12 Hours) Vital Signs Temp Pulse Resp BP Pulse Ox 05/30/19 12:52 36.2 C L 85 17 126/76 97 05/30/19 09:32 36.8 C 05/30/19 07:14 37.9 C H 100 H 17 137/58 L 90 05/30/19 04:00 37.2 C 99 H 20 155/78 H 90 Laboratory Results 05/30/19 05/30/19 Range/Units 05:34 05:34 WBC 6.65 (4.8-10.8) K/uL RBC 3.15 L (4.2-5.4) M/uL Hgb 10.3 L (12.0-16.0) g/dL Hct 31.5 L (37-47) % MCV 100.0 (80-100) fL MCH 32.7 (25-34) pg MCHC 32.7 (32-36) g/dL RDW Std Deviation 60.6 H (36.4-46.3) fL RDW Coeff of Stephanie 16.5 H (11.5-14.5) % Plt Count 239 (130-400) K/uL MPV 9.9 (7.4-10.4) fL Immature Gran % (Auto) 0.8 % Neut % (Auto) 64.6 % Lymph % (Auto) 13.4 % [place] % (Auto) 17.4 % Eos % (Auto) 3.3 % Baso % (Auto) 0.5 % Immature Gran # (Auto) 0.05 H (0.00-0.02) K/uL Neut # (Auto) 4.30 (1.4-6.5) K/uL Lymph # (Auto) 0.89 L (1.2-3.4) K/uL [place] # (Auto) 1.16 H (0.11-0.59) K/uL Eos # (Auto) 0.22 (0-0.5) K/uL Baso # (Auto) 0.03 (0-0.2) K/uL Sodium 136 (136-145) mmol/L Potassium 3.6 (3.5-5.1) mmol/L Chloride 102 (98-107) mmol/L Carbon Dioxide 28 (21-32) mmol/L Anion Gap 6.0 (3-11) BUN 6 L (7-18) mg/dl Creatinine 0.37 L (0.6-1.2) mg/dl Est Cr Clr Drug Dosing 105.6 ml/min Est GFR ( Amer) 112.9 Est GFR (Non-Af Amer) 97.4 BUN/Creatinine Ratio 15.7 (10-20) Glucose 95 (70-99) mg/dl Calcium 7.8 L (8.5-10.1) mg/dl Total Bilirubin 0.7 (0.2-1) mg/dl AST 65 H (15-37) U/L ALT 32 (12-78) U/L Alkaline Phosphatase 167 H (45-117) U/L Total Protein 5.6 L (6.4-8.2) gm/dl Albumin 2.2 L (3.4-5.0) gm/dl Globulin 3.4 (2.5-4.0) gm/dl Albumin/Globulin Ratio 0.6 L (0.9-2) PG Care Time/CCT Total # of Minutes Spent Total Time Spent with Patient: Total time spent is greater than 50% in coordination of care (as documented) at patient's floor/unit and/or counseling patient: (1) UTI (urinary tract infection) Hematuria presence: without hematuria Urinary tract infection type: site unspecified Qualified Code(s): N39.0 - Urinary tract infection, site not specified (2) Glaucoma Glaucoma type: unspecified Laterality: unspecified laterality Qualified Code(s): H40.9 - Unspecified glaucoma
[2019-05-30] MEDS: AMITRIPTYLINE HCL 25 MG TAB PO SCH (20:27)
[2019-05-30] MEDS: PREGABALIN 50 MG CAP PO SCH (20:28)
[2019-05-30] MEDS: LIDOCAINE 5% 1 PATCH TD SCH (20:28)
[2019-05-30] MEDS: TRAVOPROST Z 0.004% OPH SOLN 2.5 ML BTL OP SCH (20:28)
[2019-05-31] MEDS: POTASSIUM CHLORIDE 10 MEQ TABCR PO SCH (07:49)
[2019-05-31] MEDS: RASPBERRY SYRUP 5 ML UDP PO SCH (07:50)
[2019-05-31] MEDS: MULTIVITAMIN TAB PO SCH (07:50)
[2019-05-31] MEDS: VANCOMYCIN HCL 125 MG/2.5ML SOLN PO SCH (07:50)
[2019-05-31] MEDS: POLYETHYLENE (MIRALAX) 17 GM PACK PO SCH (07:51)
[2019-05-31] MEDS: DOCUSATE SODIUM/SENNA 50/8.6MG TAB PO SCH (07:51)
--- NOTE | 2019-05-31 13:58 | Discharge Summary ---
Date of Service May 31, 2019 Admission HPI Per Admitting Provider Ms. Dykes is a pleasant 83yo with a PMHx significant for breast cancer originally diagnosed in 1973 s/p R mastectomy and adjuvant RT, 2 recurrences in 2003 and 2012 s/p chemotherapy who now presents with weakness and anorexia and was found to have progressive metastases today. Daughter is at bedside and was called on the phone for the Hx. daughter both state that she has had progressive weakness lately, more than baseline to the point that it was taking him at least 2 hours to get her dressed. stated he was not able to do that anymore. She has also not been able to eat and left [facility] for rehab a few days ago. Daughter states she can go 16-18hrs without eating anything. Per , they did go to [place] to have a second opinion on the MRI done here and to see what else could be done for her. However, he forgot the CD with the images and had to mail it in later. However, he states that the physician he saw there Dr. Gunter said that she had ONE lesion on the brain NOT three. he states they have a followup appointment scheduled for Jun 05 at which point he will make his decision on how to proceed given the new metastases noted on imaging. States that his only received one round of chemo before her Apr 2019 presentation and they were unhappy with how she felt after the round. Pt states she has a headache today. Daughter states she had a cough at [place] a nd significant lymphedema in left arm. Admission Exam Per Admitting Provider Constitutional: WD/WN, vitals as above (Alert and oriented x3) + ill appearing Eyes: PERRL ENMT: external ear and nose normal, oropharynx normal Neck: normal visual inspection Respiratory: normal respiratory effort, lungs clear to auscultation no labored breathing Cardiovascular: Rate/Rhythm: regular rate and regular rhythm Heart Sounds: + murmur (blowing murmur) Chest (Breasts): Chest: + vascular access device or port (on right) Breast: + abnormal inspection of breast (pt with right mastectomy) Gastrointestinal (Abdomen): Percussion/Palpation: + abdomen tender (diffusely) and abdomen soft; no guarding and no hepatosplenomegaly Musculoskeletal: Extremities: + upper extremity abnormal to inspection (with some swelling) Left Skin: no rashes, warm and dry Neurologic: PERRL, EOMI, accommodation nl, no face palsy, no dysarthria Psychiatric: A+Ox3, euthymic affect Principal Diagnosis Metastatic Breast Cancer Discharge Exam General: Chronically ill appearing female HEENT: NC/AT; PERRLA with EOMI; [place] conjunctiva, MMM. No erythema of posterior pharynx Neck: Supple and nontender Cardiac: Systolic murmur, +3/6. Lungs: CTA bilaterally Abdomen: Bowel normoactive X 4; Nontender to palpation Extremities: Warm. 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 Has liver, bone, pulmonary and brain metastasis noted on recent imaging. CT of A/P on day of admission showed interval progression of liver iveth (doubled in 2.5 months) Most recent chemo (Doxil q28d) administered in April 2019; has not been able to tolerate further chemo. Recently evaluated at [facility] by neurosurgery (Dr. Gunter) and rad/onc (Dr. Washington). Family does not wish to be evaluated here and would like to follow up with [facility] prior to considering transitioning to hospice -- will f/u on 06/05 with neurosurgery at [facility]. Continued Lyrica 50 mg qhs; Lidocaine patch for neck pain (uses Biofreeze at home) (2) Generalized weakness: Related to progression of disease; not approved for SNF placement, will be discharged to home with home health today. Case management consulted. (3) UTI (urinary tract infection): U/a positive; UC +yeast, no Marian albicans. Received Caspo x 3 days per ID recs. Received Zosyn x 48 hours, d/c 'ed as urine culture was negative for bacteria. (4) Constipation: Senna S BID with Miralax daily. Having BMs. (5) C. 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 (6) Depression: Continued Amitriptyline 25mg HS as prescribed. (7) Glaucoma: Continued home Travatan drops. (8) Anemia: Hgb is at baseline -- likely chemotherapy induced. (9) Electrolyte abnormality: Replaced as needed. Continued KCl 10 mEq BID. (10) DVT prophylaxis: Held Lovenox vs. Heparin in setting of brain iveth, concern for hemorrhagic lesions. Discharged to home on 05/31/19. Will need to follow up at [facility] to discuss goals of care. Total Time Total Time Spent Total Time Spent (In Minutes): >30 minutes Total Time Includes: Examination of the Patient, Discharge Planning, Medication Reconciliation, Communication With Other Providers and Other Discharge Plan Discharge Items Patient Disposition: Home - Home Health Services Reason For Visit: WEAKNESS, METASTATIC CANCER Discharge Diagnosis: Weakness, Metastatic Breast Cancer Condition on Discharge: Fair Activity: As commented below Exercise/Sports: Gradually increase as tolerated Non-emergency contact: Primary Care Provider, Neurologist and Oncologist Call non-emergency contact if: you have any medication questions, your symptoms worsen, your pain is not controlled, your pain is worsening, your pain is unusual for you, your pain is concerning for you and you have a fever Follow-up/Referrals: Elvis Lee MD [Primary Care Provider] - Diet: Regular Addtl Attending Provider Instructions: 1. Metastatic Breast Cancer * Please follow up with neurosurgery and radiation oncology as scheduled at [facility]. * Please follow up with oncologist as scheduled. 2. Home health has been arranged for additional support at home following discharge. 3. Constipation * Please continue a bowel regimen at home to avoid constipation -- stool so ftener scheduled twice daily with Miralax daily as needed. Pending Studies at Discharge: No Stand-Alone Forms: My [facility] Medications and DC Order Prescriptions: New sennosides-docusate sodium [Senokot-S] 8.6-50 mg Tablet 1 tab PO BID Qty: 1 RF: 0 Continued multivitamin Tablet 1 tab PO DAILY RF: 0 potassium chloride 10 mEq capsule, extended release 10 meq PO BID RF: 0 Travatan Z 0.004 % Drops 1 drp OPHTHALMIC (EYE) HS RF: 0 amitriptyline 25 mg tablet 25 mg PO HS RF: 0 pregabalin 50 mg capsule 50 mg PO HS RF: 0 ondansetron HCl 8 mg tablet 1 mg PO Q6 RF: 0 Discontinued Desyrel 50 mg PO DAILY RF: 0 No Action miscellaneous medical supply misc .ROUTE .MEDSUPPLY Qty: 1 RF: 0 vancomycin 125 mg capsule 125 mg PO DAILY Qty: 30 RF: 11 hydrocodone-acetaminophen 5-325 mg tablet 1 tab PO DAILY Qty: 90 RF: 0 Ultra-Light Rollator misc .ROUTE .MEDSUPPLY Qty: 1 RF: 0 Discharge Orders: Discharge Order (Routine); Ordered 05/31/19 Ordered By: Wendy Weston Admission Data Admit Date/Time: 05/26/19 21:14 Attending Provider: Wendy Weston Admit Provider: Sofi Stanley Primary Care Provider: Elvis Lee Other Providers: Meri Anderson Other Interventions: Discharge Summary Assessment (RN) Last Done: 05/31/19 11:55 DC Date/Time DO NOT enter until pt leaves facility: 05/31/19 15:30 Supervising Physician Co-Signing Physician Notes PA Supervision Note: I personally saw and examined the patient. I verified all tellez points and agree with RAHEEM Henriquez with the following exceptions and/or additions: Pt still generally weak, requiring assistance even for sitting up in bed, but was denied even SNF level care for after discharge. Otherwise stable, eating, pain controlled. VSS RRR no mgr CTAB no wcr Stable for dc, requiring 24/7 assistance at home
[2019-05-31] MEDS: HEPARIN 100 UNIT/ML 5ML FLUSH FLUSH PRN (14:16)
--- NOTE | 2019-06-25 06:48 | Coding Query ---
CODING QUERY To promote full compliance with coding requirements relating to patient care, provider participation is requested in all cases of grease refining supervisor uncertainty. Please assist us with the question(s) below: Coding Question(s): 1. There is Generalized Weakness documented related to progression of disease with Principal Diagnosis of Metastatic Breast Cancer and documentation of, "Has liver, bone, pulmonary and brain metastasis noted on recent imaging. CT of A/P on day of admission showed interval progression of liver iveth (doubled in 2.5 months)" as well as, "Of note, states that he had followup consult with Dr. Gunter in [place] and it was noted that she had ONE brain lesion, not 3 as noted here on brain MRI from Apr 2019.". Please specify below, in your clinical opinion, regarding the most likely metastatic cancer responsible for the symptoms during this admission. ( ) most likely Metastatic Liver Cancer ( ) most likely Metastatic Brain Cancer ( ) most likely Metastatic Pulmonary Cancer ( ) most likely Metastatic Bone Cancer (x ) most likely Other Metastatic Cancer - Please Specify Breast 2. There is documentation beginning with the first Progress Note on 05/27/19 of, "holding pharmacologic ppx due to brain metastasis, ?hemorrhage." and through Discharge Summary of, "DVT prophylaxis: Held Lovenox vs. Heparin in setting of brain iveth, concern for hemorrhagic lesions." and the CT done on 05/26/19 shows in the Impression documentation of, "A 12 mm lesion in the right aditya is unchanged from previous. This likely represents a metastatic focus with trace associated hemorrhage. This was better characterized on the recent MRI.". Please specify below, in your clinical opinion. ( x ) possible brain hemorrhage was monitored/evaluated/treated during this admission ( ) possible brain hemorrhage was NOT monitored/evaluated/treated during this admission Physician's Response(s): Thank you Aline Anderson Principal Diagnosis: "that condition established after study, to be chiefly responsible for occasioning the admission of the patient to the hospital for care." Co-Existing Principal Diagnosis: "when two or more diagnoses equally meet the criteria for principal diagnosis as determined by the circumstances of admission, diagnostic work up, and/or therapy provided, and the Alphabetic Index, Tabular List, or another coding guideline does not provide sequencing direction, any one of the diagnoses may be sequenced first." "When the physician has documented what appears to be a current diagnosis in the body of the record, but has not included the diagnosis in the final diagnostic statement, the physician should be asked whether the diagnosis should be added." (Source Coding Clinic 2 QTR90. p3-4) LISSETTE
--- NOTE | 2019-06-26 06:56 | Coding Query ---
CODING QUERY To promote full compliance with coding requirements relating to patient care, provider participation is requested in all cases of medical biller/coder uncertainty. Please assist us with the question(s) below: Coding Question(s): On previous query, I apologize, as I had accidently worded the answer section asking what type of Metastatic Cancer was most likely responsible for the symptoms during this admission and now I need to clarify what site of Metastasis was most likely most responsible for the symptoms during this admission or if it was Active Breast Cancer. Please specify below, in your clinical opinion. ( ) most likely Liver Cancer Metastasis ( ) most likely Brain Cancer Metastasis ( ) most likely Pulmonary Cancer Metastasis ( ) most likely Bone Cancer Metastasis ( x ) most likely Breast Cancer - Active Breast Cancer ( ) Primary Breast Cancer (Active) (x ) Breast Cancer Metastasis (Active) ( ) most likely Other Cancer Metastasis - Please Specify Physician's Response(s): Thank you Aline Anderson Principal Diagnosis: "that condition established after study, to be chiefly responsible for occasioning the admission of the patient to the hospital for care." Co-Existing Principal Diagnosis: "when two or more diagnoses equally meet the criteria for principal diagnosis as determined by the circumstances of admission, diagnostic work up, and/or therapy provided, and the Alphabetic Index, Tabular List, or another coding guideline does not provide sequencing direction, any one of the diagnoses may be sequenced first." "When the physician has documented what appears to be a current diagnosis in the body of the record, but has not included the diagnosis in the final diagnostic statement, the physician should be asked whether the diagnosis should be added." (Source Coding Clinic 2 QTR90. p3-4) [place]
== END 2019-05-31 15:30 | disposition home health service (06) | DRG 597 ==
LOC: ED 13:05 → SUATTDRO 21:14 → 4W 21:14